=== PATIENT | female | born 1950 | race Caucasian/White ===

== ENCOUNTER → 2019-09-04 16:52 | Outpatient (CLI) | payer MEDICARE, SELFPAY ==
--- NOTE | ~2019-09-04 | MR_ITS ---
EXAMINATION: MR knee RT wo con DATE: 09/04/2019 18:13 INDICATION: Right knee pain TECHNIQUE: Magnetic resonance imaging (MRI) of the right knee was performed without intravenous contr ast. Sequences included coronal PD-weighted FSE, coronal PD-weighted FS FSE, sagittal T2-weighted FS E, sagittal PD-weighted FS FSE and axial PD weighted fat saturated FSE. COMPARISON: None. FINDINGS: Medial compartment: Small horizontal tear along the inner third of the body of the medial meniscus which extends to the s uperior articular surface near the free edge. In addition there is a longitudinal vertical tear in th e periphery of the posterior horn and posterior body of the medial meniscus. Partial-thickness cartil age loss with mild chondral surface regularity throughout the weightbearing medial femoral condyle wi th deeper chondral fissuring with mild subarticular edema at the posteromedial aspect of the weightbe aring medial femoral condyle. Partial thickness cartilage loss with smooth chondral surface along the medial margin of the medial tibial plateau. Lateral compartment: Small radial tear involving the inner third of the body of the lateral meniscus. Partial-thickness ca rtilage loss with chondral surface regularity along the lateral tibial plateau. Deeper chondral ulcer ation and fissuring at the medial side of the lateral tibial plateau along the shoulder the intercond ylar eminence with mild underlying subarticular edema. Chondral ulceration with small central subarti cular osteophyte along the posterior most weightbearing lateral femoral condyle. Partial thickness fi ssuring without degenerative subarticular changes at the anterior weightbearing lateral femoral condy le. Patellofemoral compartment: Extensive full/near full-thickness chondral ulceration throughout the patella with mild subarticular edema at the cephalad aspect of the apical ridge. Full/near full-thickness cartilage loss along the s uperolateral aspect of the lateral trochlea. Chondral ulceration with underlying regularity of the ar ticular cortex and mild subarticular cystic change at the inferomedial aspect of the lateral trochlea and inferior aspect of the medial trochlea. Ligaments and tendons: Anterior and posterior cruciate ligaments are normal. The medial collateral ligament and fibular dave ateral ligament complex are normal. The extensor mechanism is normal. The visualized medial and later al hamstring tendons as well as the iliotibial band are normal. Fluid: Physiologic amount of fluid in the joint space. No loose osteochondral bodies identified. Osseous/other: Bone alignment is normal. Minimal red marrow reexpansion in the distal femoral metadiaphysis. No frac ture or pathologic marrow replacing process. IMPRESSION: 1. Medial and lateral meniscal tears. 2. 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 Reviewed, dictated and finalized at location A. [employer] CLAIM EXAMINER IMPRESSION: 1. Medial and lateral meniscal tears. 2. Tricompartmental osteoarthritis with moderate to severe patellofemoral osteo arthritis with extensive high-grade chondromalacia and mild medial and lateral prominent osteoarthritis with regions of moderate to high-grade chondromalacia.
--- NOTE | ~2019-09-04 | MR_ITS ---
EXAMINATION: MR knee LT wo con DATE: 09/04/2019 18:12 INDICATION: Left knee pain TECHNIQUE: Magnetic resonance imaging (MRI) of the left knee was performed without intravenous contra st. Sequences included coronal PD-weighted FSE, coronal PD-weighted FS FSE, sagittal T2-weighted FSE , sagittal PD-weighted FS FSE and axial PD weighted fat saturated FSE. COMPARISON: None. FINDINGS: Medial compartment: Longitudinal horizontal tear extending to the inferior articular surface of the body and posterior ho rn of the needle meniscus. Partial-thickness cartilage loss with chondral surface regularity along th e weightbearing medial femoral condyle most severe loss of cartilage thickness centrally but with lisa p fissuring and underlying subarticular cystic change at the posterior weightbearing medial femoral c ondyle. Partial thickness cartilage loss with smooth chondral surface along the medial margin of the medial tibial plateau. Small marginal osteophytes are present. Lateral compartment: On 2 consecutive coronal images there is increased signal first along the free edge of the body of th e lateral meniscus and more anteriorly with vertical configuration contacting both the superior and i nferior articular surfaces still in the inner third suggesting a either a radial or small parrot beak configuration tear. Mild partial thickness cartilage loss with chondral surface regularity on the an terior weightbearing lateral femoral condyle. Deeper chondral fissuring and ulceration without degene rative subarticular changes at the central and posterior aspect of the lateral tibial plateau. Small marginal osteophytes are present. Patellofemoral compartment: Partial-thickness as well as extensive full/near full-thickness cartilage loss along both the patella and trochlea with regions of scattered subarticular edema, mild cystic change as well as small centr al subchondral osteophytes along the trochlear groove and lateral trochlea. Ligaments and tendons: Anterior and posterior cruciate ligaments are normal. The medial collateral ligament and fibular dave ateral ligament complex are normal. The extensor mechanism is normal. The visualized medial and later al hamstring tendons as well as the iliotibial band are normal. Fluid: Physiologic amount of fluid in the joint space. Small amount of fluid extending along the popliteal r ecess. No loose osteochondral bodies identified. Osseous/other: Bone alignment is normal. Small geographic regions of red marrow reexpansion in the distal metadiaphy seal region of the femur. No fracture or pathologic marrow replacing process. IMPRESSION: 1. Medial and lateral meniscal tears. 2. Tricompartmental osteoarthritis, severe with extensive high-grade chondral malacia in the patellof emoral compartment and mild with moderate grade chondromalacia in the medial and lateral compartments . Reviewed, dictated and finalized at location A. [place] IMPRESSION: 1. Medial and lateral meniscal tears. 2. Tricompartmental osteoarthritis, severe with extensive high-grade chondral m alacia in the patellofemoral compartment and mild with moderate grade chondroma lacia in the medial and lateral compartments.
== END ==
DX: M17.12 Unilateral primary osteoarthritis, left knee (principal); S83.282A Other tear of lateral meniscus, current injury, left knee, initial encounter; S83.242A Other tear of medial meniscus, current injury, left knee, initial encounter; X58.XXXA Exposure to other specified factors, initial encounter
CPT/HCPCS: 73721

== ENCOUNTER 2019-10-14 17:23 | Emergency (ER) | payer MEDICARE, SELFPAY ==
--- NOTE | ~2019-10-14 | XR_ITS ---
EXAMINATION: XR chest 2V DATE: 10/14/2019 17:49 INDICATION: Heart palpitations TECHNIQUE: PA and lateral views of the chest are obtained. COMPARISON: 07/21/2015 FINDINGS: There is symmetric scarring of the lung apices. The lungs are free of acute opacities. Ther e is no pleural effusion or pneumothorax. The cardiomediastinal silhouette is normal. There is mild t horacic spondylosis. There is a calcified granuloma of the right middle lobe. IMPRESSION: 1. No acute cardiopulmonary abnormality. Reviewed, dictated and finalized at location A.
--- NOTE | 2019-10-14 17:34 | ECG_ITS ---
Measurements Intervals [place] Rate: 93 P: 41 DE: 144 QRS: -38 QRSD: 109 T: 42 QT: 345 QTc: 430 Interpretive Statements SINUS RHYTHM LEFT AXIS DEVIATION BORDERLINE R WAVE PROGRESSION, ANTERIOR LEADS BORDERLINE ECG Electronically Signed On 10-14-2019 19:31:33 CDT by Alex Richard D.O.
[2019-10-14 17:40] VITALS: BP 105/67; PULSE 93; RESP 18; TEMP 37; O2SAT 100
--- NOTE | 2019-10-14 17:45 | ED.ARRPALP ---
HPI - Arrhythmia/Palpitations General Chief Complaint: Arrhythmia/Palpitations Stated Complaint: Rapid HR Time Seen by Provider: 10/14/19 17:39 Source: patient and RN notes reviewed Mode of arrival: other Limitations: no limitations History of Present Illness MD complaint: palpitations Related Data Home Medications Medication Instructions Recorded Confirmed amitriptyline 25 mg tablet 25 mg PO .QHS tablet 09/09/19 aspirin 81 mg tablet,delayed 81 mg PO DAILY 09/09/19 release digestive enzymes (plant) 75 mg mg PO DIRECTED cap 09/09/19 capsule esomeprazole magnesium 20 mg 20 mg PO DAILY 09/09/19 capsule,delayed release evangelista (Zingiber officinalis) 550 550 mg PO DAILY 09/09/19 mg capsule hoiddsdukqhz-qvzrzsmc-ffohvw 1 tablet PO DAILY 09/09/19 turmeric root extract 500 mg 500 mg PO DAILY 09/09/19 capsule vitamin B12 1,000 mcg-folic acid lozenge SUBLINGUAL 09/09/19 400 mcg sublingual lozenge Allergies Allergy/AdvReac Type Severity Reaction Status Date / Time No Known Allergies Allergy Verified 10/14/19 17:45 [facility] Past Medical History Medical History (Updated 09/14/19 @ 20:01 by Alba Carranza MD) Dyslipidemia Hypothyroidism determined by thyroid function test IBS (irritable bowel syndrome) Surgical History Surgical History H/O left wrist surgery History of bunionectomy of both great toes History of cholecystectomy History of removal of ovarian cyst History of tubal ligation Social History Social History Smoking status: Never smoker Second hand tobacco smoke exposure: No Smoking end date: 07/31/83 Alcohol intake: current Substance use: never Substance use type: does not use 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 Gender identity (if verbalized by the patient): Female Course Vital Signs Vital signs: Vital Signs Temperature 37.0 C 10/14/19 17:40 Pulse Rate 93 10/14/19 17:40 Respiratory Rate 18 10/14/19 17:40 Blood Pressure 105/67 10/14/19 17:40 Pulse Oximetry 100 10/14/19 17:40 Temperature 37.0 C 10/14/19 17:40 Pulse Rate 93 10/14/19 17:40 Respiratory Rate 18 10/14/19 17:40 Blood Pressure 105/67 10/14/19 17:40 Pulse Oximetry 100 10/14/19 17:40 Discharge Plan Discharge Prescriptions: No Action amitriptyline 25 mg tablet 25 mg PO .QHS RF: 0 esomeprazole magnesium [Nexium] 20 mg capsule,delayed release(DR/EC) 20 mg PO DAILY RF: 0 aspirin [Adult Low Dose Aspirin] 81 mg tablet,delayed release (DR/EC) 81 mg PO DAILY RF: 0 evangelista (Zingiber officinalis) 550 mg capsule 550 mg PO DAILY RF: 0 digestive enzymes (plant) 75 mg capsule PO DIRECTED RF: 0 vitamin W54-vmank acid 1,000-400 mcg lozenge SUBLINGUAL RF: 0 turmeric root extract 500 mg capsule 500 mg PO DAILY RF: 0 sgayrclltwig-qrwfswgd-awqwxy Tablet 1 tablet PO DAILY RF: 0 levothyroxine 100 mcg tablet 100 mcg PO DAILY Qty: 90 RF: 0 atorvastatin 10 mg tablet 10 mg PO QPM Qty: 90 RF: 0
[2019-10-14] MEDS: ASPIRIN 81 MG CHEWABLE TABLET 324 MG PO (17:49)
[2019-10-14 18:02] LABS: Basophils Percent Auto 0.6 % (0.2-1.2); Eosinophils Absolute Auto 0.1 K/mm3 (0-0.3); Eosinophils Percent Auto 1.6 % (0-4.4); Hematocrit 40.3 % (37.0-47.0); Hemoglobin 12.8 g/dL (12.0-15.0); Immature Granulocyte Absolute 0.02 K/mm3 (0.00-0.031); Immature Granulocyte Percent A 0.3 % (0-0.5); Lymphocytes Absolute Auto 1.55 K/mm3 (0.9-3.2); Lymphocytes Percent Auto 22.1 % (18.3-44.2); Mean Corpuscular HGB Conc 31.8 g/dl (32-36); Mean Corpuscular Hemoglobin 29.3 pg (26-34); Mean Corpuscular Volume 92.2 fl (80-100); Mean Platelet Volume 9.5 fl (7.4-10.4); Monocytes Absolute Auto 0.9 K/mm3 (0.1-0.6); Monocytes Percent Auto 12.4 % (2.6-8.5); Neutrophils Absolute Auto 4.4 K/mm3 (1.3-6.7); Platelet Count Result 264 k/mm3 (150-375); Red Blood Count 4.37 M/mm3 (4.2-5.4); Red Cell Distribution Width 13.2 % (11.5-14.5)
--- NOTE | 2019-10-14 18:08 | ED.ARRPALP ---
HPI - Arrhythmia/Palpitations General Chief Complaint: Arrhythmia/Palpitations Stated Complaint: Rapid HR Time Seen by Provider: 10/14/19 17:39 Source: patient and RN notes reviewed Mode of arrival: other Limitations: no limitations History of Present Illness HPI narrative: Pt is a 69 y/o female who presents to the ED with c/o tachycardia that began earlier this afternoon. Pt notes that her heart rate was in the 160s. Pt notes that her heart rate would lower whenever she would lay down. Pt denies seeing a retoucher photoengraving before. Pt states that she had a Holter monitor 2 years ago and had negative results. Pt also reports palpitations, chest pressure pain, and otalgia, but denies SOB. MD complaint: rapid heart beat Onset (ago): hour(s) Duration: constant Associated symptoms: chest pain (pressure) and other (palpitations, otalgia) Related Data Home Medications Medication Instructions Recorded Confirmed digestive enzymes (plant) 75 mg mg PO DIRECTED cap 09/09/19 capsule esomeprazole magnesium 20 mg 20 mg PO DAILY 09/09/19 capsule,delayed release evangelista (Zingiber officinalis) 550 550 mg PO DAILY 09/09/19 mg capsule qtvzrxhymnkl-toyaeccm-trmfqe 1 tablet PO DAILY 09/09/19 turmeric root extract 500 mg 500 mg PO DAILY 09/09/19 capsule vitamin B12 1,000 mcg-folic acid lozenge SUBLINGUAL 09/09/19 400 mcg sublingual lozenge lorazepam 1 mg PO DAILY PRN 10/14/19 Allergies Allergy/AdvReac Type Severity Reaction Status Date / Time No Known Allergies Allergy Verified 10/14/19 17:45 Review of Systems Review of Systems: All systems reviewed & are unremarkable except as noted in HPI and below ENT: Reports otalgia Cardiovascular: Cardiovascular: Reports chest pain (pressure), Reports rapid heart rate and Reports palpitations Respiratory: Respiratory: Denies dyspnea PMFSH Past Medical History Medical History (Updated 10/14/19 @ 18:58 by Dru Samuels MD) Anxiety Arthritis Lloyd's palsy Bronchitis Cataracts, bilateral Closed left arm fracture Depression Dyslipidemia Histoplasmosis right lung History of Holter monitoring negative results Hyperlipidemia Hypothyroidism determined by thyroid function test IBS (irritable bowel syndrome) Ovarian cyst Seasonal allergies Surgical History Surgical History (Updated 10/14/19 @ 18:26 by Radha Nicole) H/O dilation and curettage H/O left wrist surgery History of bunionectomy History of bunionectomy of both great toes History of cholecystectomy History of hysterectomy History of removal of ovarian cyst History of tubal ligation Social History Social History (Updated 10/14/19 @ 18:27 by Radha Nicole) Smoking status: Former smoker Tobacco type: cigarettes Second hand tobacco smoke exposure: Yes Smoking end date: 07/31/83 Alcohol intake: current Substance use: never Substance use type: does not use 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 Gender identity (if verbalized by the patient): Female Exam Narrative: Exam Narrative: GENERAL: Well-appearing, well-nourished, and in no acute distress. HEAD: Normocephalic, atraumatic. EYES: PERRLA and EOMI. ENT: Nares clear, . Mucous membranes moist. NECK: Supple. CHEST: Clear to auscultation. No respiratory distress. HEART: Regular rate and rhythm. No murmur heard. Normal peripheral pulses. ABDOMEN: Soft, nontender, nondistended, normal active bowel sounds. EXTREMITIES: Normal range of motion. No edema. SKIN: Warm, dry, no rash. NEURO: No focal deficits. Alert and oriented x3. PSYCH: Normal mood and affect. Course Course Emergency Course: Inform patient about her lab work, EKG findings. Patient been on the monitor for last 2-1/2 hours. She has been in normal sinus rhythm. I discussed with her and her about her lab work. Need for Holter monitor in the morning unfortunately at this time cardiology department is closed. I also discussed
[2019-10-14 18:10] LABS: Prothrombin Time 12.6 Seconds (11.1-14.7)
[2019-10-14 18:12] LABS: Blood Urea Nitrogen 18 mg/dL (7-17); Calcium 9.2 mg/dL (8.4-10.2); Carbon Dioxide 30 mmol/L (22-30); Chloride 105 mmol/L (98-107); Estimated CRCL calculation 69 ml/min; Estimated Glomerular Filt Rate > 60; Glucose 97 mg/dL (65-105); Potassium 3.8 mmol/L (3.4-5.0); Sodium 138 mmol/L (137-145)
[2019-10-14 18:25] LABS: Troponin I < 0.012 ng/mL (0.000-0.034)
[2019-10-14 18:43] VITALS: BP 113/63; PULSE 81; RESP 20; O2SAT 94
[2019-10-14 19:11] VITALS: BP 138/75; PULSE 78; RESP 16; O2SAT 100
== END 2019-10-14 19:12 | disposition home or self-care (01) ==
PROVIDERS: Emergency Medicine; Emergency Provider Family Medicine; PCP Family Medicine
DX: R00.2 Palpitations (principal); F41.9 Anxiety disorder, unspecified; M19.90 Unspecified osteoarthritis, unspecified site; F32.9 Major depressive disorder, single episode, unspecified; E78.5 Hyperlipidemia, unspecified; E03.9 Hypothyroidism, unspecified; K58.9 Irritable bowel syndrome, unspecified; B39.2 Pulmonary histoplasmosis capsulati, unspecified; Z87.891 Personal history of nicotine dependence; R94.31 Abnormal electrocardiogram [ECG] [EKG]; R07.89 Other chest pain; H26.9 Unspecified cataract
CPT/HCPCS: 36415; 71046; 80048; 84484; 85025; 85610; 85730; 93005; 99284; A9270

== ENCOUNTER 2020-01-01 00:14 | Outpatient (CLI) | payer MEDICARE, SELFPAY ==
[2020-01-01 17:43] LABS: SARS-CoV-2 RNA PCR Negative
== END 2020-01-01 00:15 | disposition home or self-care (01) ==
LOC: ANHCOVIDDT 00:14
PROVIDERS: PCP Family Medicine; Visit Provider Internal Medicine Gastroenterology
DX: Z01.818 Encounter for other preprocedural examination (principal); Z11.59 Encounter for screening for other viral diseases
CPT/HCPCS: 87635; C9803; U0003

== ENCOUNTER 2020-01-03 01:30 | Day surgery (SDC) | payer MEDICARE, SELFPAY ==
[2019-12-27 12:49] VITALS: BMI 28.8
[2020-01-03 06:38] VITALS: BP 115/51; PULSE 80; RESP 20; TEMP 36.1; O2SAT 100; BMI 28.3
--- NOTE | 2020-01-03 06:49 | WPDANESEPPF ---
Anes - Initial Pre Proc Eval Procedure: Operation Date: 01/03/20 07:30 Proposed Procedures p Esophagogastroduodenoscopy & Screening Colonoscopy - Igor Becker MD Date/Time: 01/03/20 06:49 Surgeon: Igor Becker MD Pre Op Diagnosis: Fam Hx Colon Ca/ GERD Patient Data Age: 69 Gender: F Height: 1.65 m Weight: 77.1 kg Last Vital Signs Temp 36.1 C L 01/03/20 06:38 Pulse 80 01/03/20 06:38 Resp 20 01/03/20 06:38 BP 115/51 L 01/03/20 06:38 Pulse Ox 100 01/03/20 06:38 Allergies Allergy/AdvReac Type Severity Reaction Status Date / Time No Known Allergies Allergy Verified 01/03/20 06:28 Home Medications Medication Instructions Recorded Confirmed Type esomeprazole magnesium 20 mg 20 mg PO DAILY 09/09/19 01/03/20 History capsule,delayed release wqmrmxfvyeqj-hbamofhg-ywztrr 1 tablet PO DAILY 09/09/19 01/03/20 History vitamin B12 1,000 mcg-folic acid 1 lozenge SUBLINGUAL DAILY 09/09/19 01/03/20 History 400 mcg sublingual lozenge lorazepam 0.5 mg PO PRN PRN 10/14/19 01/03/20 History levothyroxine 100 mcg tablet 100 mcg PO DAILY #90 tablet 10/31/19 01/03/20 Rx dicyclomine 20 mg tablet 20 mg PO QID PRN #120 tablet 11/01/19 01/03/20 Rx atorvastatin 10 mg tablet 10 mg PO QPM #90 tablet 12/13/19 01/03/20 Rx Aspir-81 1 tab-cap PO DAILY 12/27/19 01/03/20 History ascorbic acid (vitamin C) 500 mg PO DAILY 12/27/19 01/03/20 History calcium polycarbophil [FiberCon] 4 mg PO DAILY 12/27/19 01/03/20 History metoprolol succinate 25 mg PO DAILY 12/27/19 01/03/20 History Patient hx anesthesia problems: none Family hx anesthesia problems: none PMFSH Past Medical History Medical History Anxiety Arthritis Lloyd's palsy Bronchitis Cataracts, bilateral Closed left arm fracture Depression Dyslipidemia Histoplasmosis right lung History of Holter monitoring negative results Hyperlipidemia Hypothyroidism determined by thyroid function test IBS (irritable bowel syndrome) Ovarian cyst Seasonal allergies Surgical History Surgical History H/O dilation and curettage H/O left wrist surgery History of bunionectomy History of bunionectomy of both great toes History of cholecystectomy History of hysterectomy History of removal of ovarian cyst History of tubal ligation Family History Family History Father Carcinoma of colon Family history of heart disease in male family member before age 55 Mother Family history of Alzheimer's disease Cerebrovascular accident Sibling Family history of lung cancer Grandparent Diabetes mellitus Carcinoma of colon Family history of Alzheimer's disease Other Family history of allergic disorder Social History Social History Smoking status: Former smoker Tobacco type: cigarettes Second hand tobacco smoke exposure: Yes Smoking end date: 07/31/83 Alcohol intake: current Substance use: never Substance use type: does not use 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 Gender identity (if verbalized by the patient): Female Anes - Eval Final PreProcedure Day of Procedure 01/03/20 06:49 Patient weight: overweight Heart: regular rate and rhythm Lungs: clear to auscultation and normal air movement Airway: Mallampati scale class II Neurological: alert and oriented Last oral intake: >/= 8 hours ASA classification: III Emergent: no Anesthetic plan: proceed Anesthesia type and monitoring: general GIVS Informed Consent: The patient's anesthetic plan and its attendant risks and benefits were discussed with the patient/family/POA. Questions were solicited and answers provided to the satisfaction of the patient/family/POA.
[2020-01-03] MEDS: LACTATED RINGERS 1,000 ML 150 ML IV CONT (06:51)
[2020-01-03] MEDS: BENZOCAINE (*SP) 60 ML SPRAY CAN (HURRICAINE) 1 SPRAY MUCOUS MEM (07:48)
[2020-01-03 08:16] VITALS: BP 115/65; PULSE 78; RESP 17; O2SAT 100
--- NOTE | 2020-01-03 08:16 | WPDGICN ---
Assessment and Plan Assessment and plan (1) IBS (irritable bowel syndrome): Qualifiers: Irritable bowel syndrome type: with both diarrhea and constipation Qualified Code(s): K58.2 - Mixed irritable bowel syndrome Code(s): K58.9 - Irritable bowel syndrome without diarrhea Status: Acute Assessment and Plan: Patient has symptoms of irritable bowel syndrome. Appear to respond to Elavil. I find this unlikely that this contributes to her weight loss. Would recommend low-dose 25 mg at bedtime. she appears to have had a good clinical response. (2) Family history of colon cancer in father: Code(s): Z80.0 - Family history of malignant neoplasm of digestive organs Status: Acute Assessment and Plan: Because of family history of colon cancer would recommend screening colonoscopy be considered now on a 5 year intervals. (3) GERD (gastroesophageal reflux disease): Code(s): K21.9 - Gastro-esophageal reflux disease without esophagitis Status: Acute Assessment and Plan: Patient has reported history of GE reflux. Currently no heartburn on Nexium 20 mg p.o. daily. Consider increasing dose to40mg p.o. daily an EGD will be performed because of her current complaints. GI Consult Note Consult date/time: 01/03/20 08:16 HPI: Zabrina Heck is a 69 year old female Seen in evaluation at the request Dr. Alba Carranza. Patient complains of epigastric discomfort and nausea for several week period. She has a history of GE reflux and also a history of IBS. She has had no improvement with dicyclomine. Recently was given Elavil at 25 mg q.h.s. but felt that it caused her to gain weight. She had no response by taking half tablet daily. She presents today for EGD. She remains on a trial of Nexium 20 mg p.o. daily. Additionally patient has a family history of colon cancer in her Father. Patient states that her current weight appetite bowel movements are normal. She denies abdominal pain she denies any bleeding. Review of Systems Review of Systems: All systems reviewed & are unremarkable except as noted in HPI and below PMFSH Past Medical History Medical History Anxiety Arthritis Lloyd's palsy Bronchitis Cataracts, bilateral Closed left arm fracture Depression Dyslipidemia Histoplasmosis right lung History of Holter monitoring negative results Hyperlipidemia Hypothyroidism determined by thyroid function test IBS (irritable bowel syndrome) Ovarian cyst Seasonal allergies Surgical History Surgical History H/O dilation and curettage H/O left wrist surgery History of bunionectomy History of bunionectomy of both great toes History of cholecystectomy History of hysterectomy History of removal of ovarian cyst History of tubal ligation Family History Family History Father Carcinoma of colon Family history of heart disease in male family member before age 55 Mother Family history of Alzheimer's disease Cerebrovascular accident Sibling Family history of lung cancer Grandparent Diabetes mellitus Carcinoma of colon Family history of Alzheimer's disease Other Family history of allergic disorder Social History Social History Smoking status: Former smoker Tobacco type: cigarettes Second hand tobacco smoke exposure: Yes Smoking end date: 07/31/83 Alcohol intake: current Substance use: never Substance use type: does not use 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 Gender identity (if verbalized by the patient): Female Meds Home Medications and Allergies Home Medications Medication Instructions Recorded Confirmed Type esomeprazole magnesium 20 mg 20 mg PO DAILY 09/09/19 01/03/20 History capsule,delaye
[2020-01-03 08:26] VITALS: BP 110/63; PULSE 79; RESP 20; O2SAT 100
[2020-01-03 08:36] VITALS: BP 119/67; PULSE 71; RESP 19; O2SAT 97
== END 2020-01-03 08:56 | disposition home or self-care (01) ==
PROVIDERS: PCP Family Medicine; Visit Provider Internal Medicine Gastroenterology
PROC: 0DJ08ZZ Inspection of Upper Intestinal Tract, Via Natural or Artificial Opening Endoscopic (ICD-10-PCS; CPT 43235; principal; 2020-01-03 07:30)
DX: Z12.11 Encounter for screening for malignant neoplasm of colon (principal); K57.30 Diverticulosis of large intestine without perforation or abscess without bleeding; K58.2 Mixed irritable bowel syndrome; Z80.0 Family history of malignant neoplasm of digestive organs; K21.9 Gastro-esophageal reflux disease without esophagitis; E78.5 Hyperlipidemia, unspecified; F41.8 Other specified anxiety disorders; E03.9 Hypothyroidism, unspecified; Z87.891 Personal history of nicotine dependence; Z79.82 Long term (current) use of aspirin
CPT/HCPCS: 43239; G0105; 87081; J2704; J7120

== ENCOUNTER 2020-05-21 14:52 | Outpatient (CLI) | payer MEDICARE, SELFPAY ==
--- NOTE | ~2020-05-21 | MM_ITS ---
EXAMINATION: MM screening yani BI w [place] HISTORY: Screening mammogram TECHNIQUE: Craniocaudal and mediolateral oblique 3-D tomosynthesis images were obtained and synthetic 2-D images were generated. CAD analysis was submitted and interpreted. COMPARISON: 07/06/2018 bilateral digital screening mammogram 07/18/2017 diagnostic left digital mammogram 07/04/2017, 05/03/2016 bilateral digital screening mammogram examinations BREAST PARENCHYMAL COMPOSITION: The breasts are heterogeneously dense, which may obscure small masses . FINDINGS: There is no evidence of suspicious mass, calcification, or architectural distortion to sugg est malignancy in either breast. There has been no suspicious interval change. IMPRESSION: 1. No mammographic evidence of malignancy. 2. Recommend routine screening mammography in one year. BI-RADS Category 1: Negative Reviewed, dictated and finalized at location A.
--- NOTE | ~2020-05-21 | DEXA_ITS ---
Bone Density Report Name: Zabrina Heck Age: 70 Sex: Female Ethnicity: White Date of : 1950 Indication: osteopenia; hyperparathyroidism; parental hip fracture; history of glucocorticoids; prior fracture; postmenopausal Referring Provider: Chelita Leon Study: Bone densitometry was performed. Exam Date: May 21, 2020 Accession number: [id number] Bone Density: Region BMD T-score Z-score Classification AP Spine (L1-L4) 0.935 -1.0 1.2 Normal Femoral Neck (Left) 0.814 -0.3 1.6 Normal Total Hip (Left) 0.849 -0.8 0.8 Normal Total Hip Bilateral Avg 0.877 -0.6 1.1 Normal Femoral Neck (Right) 0.876 0.2 2.1 Normal Total Hip (Right) 0.905 -0.3 1.3 Normal World Health Organization criteria for BMD impression classify patients as: Normal (T-score at or above -1.0), Osteopenia (T-score between -1.0 and -2.5), or Osteoporosis (T-score at or below -2.5). 10-year Fracture Risk: FRAX not reported because: All T-scores for Spine Total, Hip Total, Femoral Neck at or above -1.0 Previous Exams: Region Exam Age BMD T-score BMD Change BMD Change Date g/cm2 vs Baseline vs Previous AP Spine(L1-L4) 05/21/2020 70 0.935 -1.0 0.030(3.4%)# 0.048(5.4%)* 04/14/2015 65 0.888 -1.4 -0.017(-1.9%)# 0.006(0.6%)# 05/11/2012 62 0.882 -1.5 -0.023(-2.5%)# 0.047(5.6%)# 11/06/2009 59 0.836 -1.9 -0.069(-7.7%)* -0.038(-4.4%)* 10/04/2007 57 0.874 -1.6 -0.031(-3.4%)* -0.026(-2.8%)* 09/23/2005 55 0.899 -1.3 -0.005(-0.6%) -0.005(-0.6%) 07/15/2003 53 0.905 -1.3 Total Hip(Left) 05/21/2020 70 0.849 -0.8 -0.044(-5.0%)# -0.071(-7.7%)* 04/14/2015 65 0.920 -0.2 0.026(3.0%)# -0.047(-4.9%)# 05/11/2012 62 0.967 0.2 0.074(8.2%)# 0.079(8.9%)# 11/06/2009 59 0.888 -0.4 -0.006(-0.6%) -0.010(-1.1%) 10/04/2007 57 0.898 -0.4 0.005(0.5%) -0.020(-2.2%) 09/23/2005 55 0.918 -0.2 0.025(2.8%) 0.025(2.8%) 07/15/2003 53 0.894 -0.4 Total Hip(Right) 05/21/2020 70 0.905 -0.3 0.057(6.7%)# -0.008(-0.8%) 04/14/2015 65 0.912 -0.2 0.065(7.6%)# -0.038(-4.0%)# 05/11/2012 62 0.951 0.1 0.103(12.2%)# 0.077(8.8%)# 11/06/2009 59 0.874 -0.6 0.026(3.1%) -0.041(-4.5%)* 10/04/2007 57 0.915 -0.2 0.068(8.0%)* -0.002(-0.2%) 09/23/2005 55 0.917 -0.2 0.069(8.2%)* 0.069(8.2%)* 07/15/2003 53 0.847 -0.8 *Denotes significance at 95% confidence level, LSC for AP Spine = 0.022 g/cm2, LSC for Total Hip = 0.027 g/cm2 Clinical Information Provided by Patient:
== END 2020-05-21 14:53 | disposition home or self-care (01) ==
PROVIDERS: PCP Family Medicine; Visit Provider Obstetrics & Gynecology
DX: Z12.31 Encounter for screening mammogram for malignant neoplasm of breast (principal); Z78.0 Asymptomatic menopausal state
CPT/HCPCS: 77063; 77067; 77080

== ENCOUNTER → 2021-06-07 10:25 | Outpatient (CLI) | payer MEDICARE, SELFPAY ==
--- NOTE | ~2021-06-07 | XR_ITS ---
EXAMINATION: XR lumbar spine min 4V DATE: 06/07/2021 11:09 INDICATION: Dorsalgia unspecified TECHNIQUE: Anteroposterior, lateral, and bilateral oblique views of the lumbar spine, and cone-down l ateral view of the lumbosacral junction were obtained. COMPARISON: 05/23/2017 FINDINGS: Lumbar levocurvature is noted. There is no fracture, dislocation, or subluxation. There is unchanged moderate loss of intervertebral disc space height at L4-5. Moderate to severe loss of inter vertebral disc space height is about at L3-4. The vertebral body heights are maintained. There is mil d facet osteoarthritis of the lower lumbar spine. Again noted is an old granuloma of the right lower lobe. There are cholecystectomy clips in the right upper quadrant. IMPRESSION: 1. Moderate lumbar spondylosis with interval worsening at L3-4. Reviewed, dictated and finalized at location B. LING DEALER
--- NOTE | ~2021-06-07 | XR_ITS ---
XR chest 2V 06/07/2021 11:09 Indication: Cough Procedure: The chest Comparison: Comparison to multiple prior studies sequentially, with oldest reviewed study dated 07/01. Findings: There is chronic apical pleural thickening/scarring. There is a calcified granuloma of the right middle lobe. The lungs are hyperinflated which is consistent with, but not diagnostic of chroni c obstructive pulmonary disease. No focal air space disease, pulmonary edema, pleural effusion or heike pected pneumothorax. Impression: 1: No acute cardiopulmonary disease. Reviewed, dictated and finalized at location A. BASE ADMINISTRATOR Impression: 1: No acute cardiopulmonary disease.
== END ==
PROVIDERS: PCP Physician Assistant; Visit Provider Physician Assistant
DX: R05.9 Cough, unspecified (principal); M47.896 Other spondylosis, lumbar region
CPT/HCPCS: 71046; 72110

== ENCOUNTER 2021-06-15 07:50 | Outpatient (CLI) | payer MEDICARE, SELFPAY ==
--- NOTE | ~2021-06-15 | MM_ITS ---
EXAMINATION: MM screening [facility] BI [facility] [place] HISTORY: Screening mammogram TECHNIQUE: Craniocaudal and mediolateral oblique 3-D tomosynthesis images were obtained and synthetic 2-D images were generated. CAD analysis was submitted and interpreted. COMPARISON: 05/21/2020, 07/06/2018 BREAST PARENCHYMAL COMPOSITION: The breasts are heterogeneously dense, which may obscure small masses . FINDINGS: There is no evidence of suspicious mass, calcification, or architectural distortion to sugg est malignancy in either breast. There has been no suspicious interval change. IMPRESSION: 1. No mammographic evidence of malignancy. 2. Recommend routine screening mammography in one year. BI-RADS Category 1: Negative Reviewed, dictated and finalized at location A. MOBILE BODY REPAIRER
== END 2021-06-15 07:51 | disposition home or self-care (01) ==
LOC: ANHIMG 07:54
PROVIDERS: PCP Family Medicine; Visit Provider Family Medicine
DX: Z12.31 Encounter for screening mammogram for malignant neoplasm of breast (principal)
CPT/HCPCS: 77063; 77067

== ENCOUNTER 2021-12-13 13:31 | Outpatient (CLI) | payer MEDICARE, SELFPAY ==
--- NOTE | 2021-12-14 11:40 | WPDPFTINT ---
PFT Procedure Performed PFT Procedure Performed Plethysmography (Lung Vol) Diffusing Cap (DLCO) Flow Vol Loop Spirometry w/o Bronchodil PFT Interpretation Lung volumes were measured with the body plethysmography method. Lung volumes are unremarkable. Spirometry showed borderline FEV1 and normal FEV1 to FVC ratio of 75%. No post bronchodilator study was carried out. Lung diffusion capacity is mildly reduced at 71% predicted. If obstructive airway disease is contemplated, consider repeat spirometry with a post bronchodilator study. Impression: Nonspecific pattern. Mild reduction in lung diffusion capacity.
== END 2021-12-13 13:32 | disposition home or self-care (01) ==
LOC: ANHPFT 13:32
PROVIDERS: PCP Family Medicine; Visit Provider Physician Assistant
DX: R05.3 Chronic cough (principal); Z86.19 Personal history of other infectious and parasitic diseases
CPT/HCPCS: 94375; 94726; 94729

== ENCOUNTER 2021-12-14 13:03 | Outpatient (CLI) | payer MEDICARE, SELFPAY ==
--- NOTE | ~2021-12-14 | CT_ITS ---
EXAMINATION: CT diagnostic chest wo con DATE: 12/14/2021 13:25 INDICATION: R91.1 - Solitary pulmonary nodule TECHNIQUE: Computed tomography (CT) of the chest was performed without intravenous contrast. Addition al 3D reconstructions utilizing coronal maximum intensity projection (MIP) were performed. Automated exposure control and iterative reconstruction technique were employed. The dose-length product was 61 .61 mGy-cm. COMPARISON: Chest radiograph dated 06/07/[address] dated 12/06/2018 FINDINGS: Unchanged large right lower lobe calcified pulmonary nodule along with calcified right hilar and medi astinal lymph nodes and multiple splenic calcifications, all consistent with old granulomatous diseas e. New bronchiectasis and multiple very small centrilobular nodules with tree-in-bud pattern in the r ight middle and lower lobes consistent with pneumonia. Unchanged pattern of peripheral pleural parenc hymal scarring at the bilateral upper lobes. No interval change in a triangular groundglass opacity m easuring 2 cm in maximal diameter in the right upper lobe along the minor fissure. The opacity appear s relatively thin and with associated retraction of the minor fissure evident at this location on the lateral projection consistent with volume loss and mild atelectasis. No pleural effusion. Heart size is normal. Small pericardial effusion. Thoracic aorta is normal in caliber. No pathologically enlarg ed thoracic lymphadenopathy. Prior left axillary lymphadenopathy has resolved. Cholecystectomy clips at the gallbladder fossa. Moderate upper and mild lower thoracic spondylosis. Chronic T7 compression fracture with 20% anterior vertebral body height loss. IMPRESSION: 1. New bronchiectasis and tree-in-bud opacities in the right middle and lower lobes consistent with p neumonia. 2. Stable appearance of moderate chronic old granulomatous disease and pleural parenchymal scarring a t the periphery of the bilateral upper lobes. 3. Small pericardial effusion. Reviewed, dictated and finalized at location A. IMPRESSION: 1. New bronchiectasis and tree-in-bud opacities in the right middle and lower l obes consistent with pneumonia. 2. Stable appearance of moderate chronic old granulomatous disease and pleural parenchymal scarring at the periphery of the bilateral upper lobes. 3. Small pericardial effusion.
== END 2021-12-14 13:04 | disposition home or self-care (01) ==
PROVIDERS: PCP Family Medicine; Visit Provider Physician Assistant
DX: R91.1 Solitary pulmonary nodule (principal); I31.3 Pericardial effusion (noninflammatory); J98.11 Atelectasis
CPT/HCPCS: 71250

== ENCOUNTER 2022-04-15 09:31 | Outpatient (CLI) | payer MEDICARE, SELFPAY | END 2022-04-15 09:32 | disposition home or self-care (01) | PROVIDERS: PCP Family Medicine; Visit Provider Internal Medicine Critical Care Medicine | DX: J47.9 Bronchiectasis, uncomplicated (principal) | CPT/HCPCS: 87015; 87070; 87077; 87102; 87116; 87186; 87205; 87206 ==

== ENCOUNTER 2022-04-18 14:13 | Outpatient (NON) | payer MEDICARE, SELFPAY | END 2022-04-18 14:14 | disposition home or self-care (01) | LOC: ANHGOSHLAB 14:15 | PROVIDERS: PCP Family Medicine; Visit Provider Internal Medicine Critical Care Medicine | DX: J47.9 Bronchiectasis, uncomplicated (principal) | CPT/HCPCS: 87015; 87070; 87077; 87102; 87116; 87186; 87205; 87206 ==

== ENCOUNTER 2022-04-20 11:18 | Outpatient (NON) | payer MEDICARE, SELFPAY | END 2022-04-20 11:19 | disposition home or self-care (01) | PROVIDERS: PCP Family Medicine; Visit Provider Internal Medicine Critical Care Medicine | DX: J47.9 Bronchiectasis, uncomplicated (principal) | CPT/HCPCS: 87015; 87070; 87102; 87106; 87116; 87205; 87206 ==

== ENCOUNTER 2022-04-26 11:04 | Outpatient (CLI) | payer MEDICARE, SELFPAY ==
[2022-04-26 20:04] LABS: Immunoglobulin A 140 mg/dL (70-400); Immunoglobulin G 691 mg/dL (700-1600); Immunoglobulin M 37 mg/dL (40-230)
[2022-04-26 20:12] LABS: Rheumatoid Factor < 8.6 IU/ML (<12)
[2022-04-29 20:36] LABS: Immunoglobulin E <2 kU/L (<=114)
== END 2022-04-26 11:05 | disposition home or self-care (01) ==
LOC: ANHGOSHLAB 11:08
PROVIDERS: PCP Family Medicine; Visit Provider Internal Medicine Critical Care Medicine
DX: J47.9 Bronchiectasis, uncomplicated (principal); J84.112 Idiopathic pulmonary fibrosis
CPT/HCPCS: 36415; 82784; 82785; 86430

== ENCOUNTER 2022-05-24 10:08 | Outpatient (CLI) | payer MEDICARE, SELFPAY ==
[2022-05-26 18:29] LABS: ANA Cascade Screen Negative (Negative)
[2022-05-27 20:15] LABS: Alpha-1-Antitrypsin, QN 148 mg/dL (83-199)
[2022-05-29 13:24] LABS: Immunoglobulin G, Serum 793 mg/dL (600-1540); Immunoglobulin G1 466 mg/dL (382-929); Immunoglobulin G2 120 mg/dL (241-700); Immunoglobulin G3 55 mg/dL (22-178); Immunoglobulin G4 1.7 mg/dL (4.0-86.0)
[2022-06-10 14:45] LABS: Aspergillus fumigatus Negative
== END 2022-05-24 10:09 | disposition home or self-care (01) ==
PROVIDERS: PCP Family Medicine; Visit Provider Internal Medicine Critical Care Medicine
DX: J47.9 Bronchiectasis, uncomplicated (principal)
CPT/HCPCS: 36415; 82103; 82104; 82784; 82787; 86038

== ENCOUNTER 2022-06-08 10:45 | Outpatient (NON) | payer MEDICARE, SELFPAY | END 2022-06-08 10:46 | disposition home or self-care (01) | LOC: ANHGOSHLAB 10:50 | PROVIDERS: PCP Family Medicine; Visit Provider Physician Assistant | DX: R84.5 Abnormal microbiological findings in specimens from respiratory organs and thorax (principal); J47.9 Bronchiectasis, uncomplicated | CPT/HCPCS: 87015; 87070; 87102; 87106; 87116; 87205; 87206 ==

== ENCOUNTER 2022-07-12 09:56 | Outpatient (CLI) | payer MEDICARE, SELFPAY ==
--- NOTE | ~2022-07-12 | CT_ITS ---
EXAMINATION:CT chest high resolution wo ut DATE: 07/12/2022 10:12 INDICATION: Bronchiectasis. TECHNIQUE: Computed tomography (CT) of the chest was performed without intravenous contrast. Automate d exposure control and iterative reconstruction technique were employed. The dose-length product (DLP ) was 125.78 mGy-cm. COMPARISON: Chest CT 12/14/2021, 12/06/18 FINDINGS: There is stable mild scarring at the lung apices. There is bronchiectasis in the lungs with an inferior predominance. There is mucous plugging in some of the inferior bronchi bilaterally. Ther e are groundglass opacities and mild atelectasis in the anterior segment right upper lobe. There are groundglass opacities and centrilobular nodules and tree-in-bud opacities in right middle lobe and ri ght lower lobe with interval improvement. There are small nodules in left lower lobe. The largest nod ule measures 7 mm in right lower lobe. A calcified right lung nodule and calcified right hilar and me diastinal lymph nodes are consistent with old granulomatous disease. No pleural effusion. The heart s ize is normal. No pericardial effusion. Calcifications in the spleen are consistent with old granulom atous disease. There are changes of cholecystectomy. There is mild chronic anterior wedging of multip le thoracic vertebral bodies. IMPRESSION: 1. 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 Reviewed, dictated and finalized at location A. R SECURITY ANALYST IMPRESSION: 1. Diffuse lung disease with an inferior predominance with interval improvement on the right, likely chronic infection such as mycobacterium avium intracellul are ().
== END 2022-07-12 09:57 | disposition home or self-care (01) ==
PROVIDERS: PCP Family Medicine; Visit Provider Physician Assistant
DX: J47.9 Bronchiectasis, uncomplicated (principal)
CPT/HCPCS: 71250

== ENCOUNTER 2022-09-23 14:01 | Outpatient (NON) | payer MEDICARE, SELFPAY | END 2022-09-23 14:02 | disposition home or self-care (01) | LOC: ANHGOSHLAB 14:03 | PROVIDERS: PCP Family Medicine; Visit Provider Nurse Practitioner Family | DX: J47.9 Bronchiectasis, uncomplicated (principal); R84.5 Abnormal microbiological findings in specimens from respiratory organs and thorax | CPT/HCPCS: 87015; 87070; 87102; 87106; 87116; 87205; 87206 ==

== ENCOUNTER 2022-11-15 08:21 | Outpatient (CLI) | payer MEDICARE, SELFPAY ==
--- NOTE | ~2022-11-15 | MM_ITS ---
EXAMINATION: MM screening [facility] BI [facility] [place] HISTORY: Screening mammogram TECHNIQUE: Craniocaudal and mediolateral oblique 3-D tomosynthesis images were obtained and synthetic 2-D images were generated. CAD analysis was submitted and interpreted. COMPARISON: 06/15/2021, 05/21/2020, 07/06/2018 BREAST PARENCHYMAL COMPOSITION: The breasts are heterogeneously dense, which may obscure small masses . FINDINGS: No suspicious mass, calcification, or architectural distortion are identified in either niesha ast to suggest malignancy. There has been no suspicious interval change. IMPRESSION: 1. No mammographic evidence of malignancy. 2. Recommend routine screening mammography in one year. BI-RADS Category 1: Negative Reviewed, dictated and finalized at location A.
== END 2022-11-15 08:22 | disposition home or self-care (01) ==
PROVIDERS: PCP Family Medicine; Visit Provider Registered Nurse
DX: Z12.31 Encounter for screening mammogram for malignant neoplasm of breast (principal)
CPT/HCPCS: 77063; 77067

== ENCOUNTER 2022-12-01 08:40 | Outpatient (CLI) | payer MEDICARE, SELFPAY ==
--- NOTE | ~2022-12-01 | DEXA_ITS ---
Bone Density Report Name: SELAM KEATING Age: 72 Sex: Female Ethnicity: White Date of : 1950 Indication: monitoring treatment; height loss; postmenopausal Referring Provider: JUSTYNA COLEMAN Study: Bone densitometry was performed. Exam Date: December 01, 2022 Accession number: [id number] Bone Density: Region BMD T-score Z-score Classification AP Spine(L1-L4) 0.967 -0.7 1.6 Normal Femoral Neck (Left) 0.736 -1.0 1.0 Normal Total Hip (Left) 0.782 -1.3 0.4 Osteopenia Femoral Neck (Right) 0.833 -0.1 1.9 Normal Total Hip (Right) 0.867 -0.6 1.1 Normal Total Hip Mean 0.824 -1.0 0.8 Normal World Health Organization criteria for BMD impression classify patients as: Normal (T-score at or above -1.0), Osteopenia (T-score between -1.0 and -2.5), or Osteoporosis (T-score at or below -2.5). 10-year Fracture Risk: FRAX not reported because: Treated for osteoporosis Previous Exams: Region Exam Age BMD T-score BMD Change BMD Change Date g/cm2 vs Baseline vs Previous AP Spine (L1-L4) 12/01/2022 72 0.967 -0.7 0.085 (9.6%)# 0.032 (3.4%)* 05/21/2020 70 0.935 -1.0 0.053 (6.0%)# 0.048 (5.4%)* 04/14/2015 65 0.888 -1.4 0.006 (0.6%)# 0.006 (0.6%)# 05/11/2012 62 0.882 -1.5 Total Hip(Left) 12/01/2022 72 0.782 -1.3 -0.186 (-19.2% -0.068 (-8.0%) 05/21/2020 70 0.849 -0.8 -0.118 (-12.2% -0.071 (-7.7%) 04/14/2015 65 0.920 -0.2 -0.047 (-4.9%) -0.047 (-4.9%) 05/11/2012 62 0.967 0.2 Total Hip(Right) 12/01/2022 72 0.867 -0.6 -0.084 (-8.8%) -0.038 (-4.2%) 05/21/2020 70 0.905 -0.3 -0.046 (-4.8%) -0.008 (-0.8%) 04/14/2015 65 0.912 -0.2 -0.038 (-4.0%) -0.038 (-4.0%) 05/11/2012 62 0.951 0.1 *Denotes significance at 95% confidence level, LSC for AP Spine = 0.022 g/cm2, LSC for Total Hip = 0.027 g/cm2 # Denotes dissimilar scan types or analysis methods Clinical Information Provided by Patient: Is being treated for osteoporosis Has used the following medications: Vitamin D, Calcium Patient maximum height was 65.5 Menopause Age: 46 No regular weight bearing exercise Onset of menses at age 11 Number of children 2 Impression: The patient has low bone mass, based on the Left Total Hip T-score. The BMD for the Total Hip(Left) decreased, changing by -8.0% since the last DXA exam. The BMD for the Total Hip(Right) decreased, changing by -4.2% since the last DXA exam. Discussion: SIGNIFICANT B
== END 2022-12-01 08:41 | disposition home or self-care (01) ==
LOC: ANHIMG 08:41
PROVIDERS: PCP Family Medicine; Visit Provider Registered Nurse
DX: Z78.0 Asymptomatic menopausal state (principal); M85.852 Other specified disorders of bone density and structure, left thigh
CPT/HCPCS: 77080

== ENCOUNTER → 2022-12-22 10:09 | Outpatient (CLI) | payer MEDICARE, SELFPAY ==
--- NOTE | ~2022-12-22 | XR_ITS ---
EXAMINATION: XR lumbar spine min 4V DATE: 12/22/2022 10:48 INDICATION: Dorsalgia, unspecified. TECHNIQUE: 5 views of lumbar spine were obtained. COMPARISON: Lumbar spine radiographs 06/07/2021 FINDINGS: There is 12 degrees levoscoliosis of lumbar spine. Vertebral body heights are normal. There is mildly decreased disc height at L1-L2 and L2-L3 and severely decreased disc height at L3-L4 and L 4-L5. There is multilevel facet joint osteoarthritis, severe on the right at L3-L4 and L4-L5. Surgica l clips in the right upper quadrant are likely from cholecystectomy. IMPRESSION: 1. Severe lumbar spondylosis, stable from 06/07/2021. 2. Lumbar levoscoliosis. Reviewed, dictated and finalized at location E.
--- NOTE | ~2022-12-22 | XR_ITS ---
AP and lateral views of the bilateral hips Clinical history: Pain Findings: No acute fracture or dislocation is seen. Osseous alignment is anatomic. There is minimal d egenerative change of both hip joints, right worse than left. Soft tissues are unremarkable. Impression: Minimal degenerative change of both hip joints, right worse than left. Reviewed, dictated and finalized at location . Impression: Minimal degenerative change of both hip joints, right worse than left.
== END ==
PROVIDERS: PCP Physician Assistant; Visit Provider Physician Assistant
DX: M54.9 Dorsalgia, unspecified (principal); M25.559 Pain in unspecified hip; M47.816 Spondylosis without myelopathy or radiculopathy, lumbar region; M41.9 Scoliosis, unspecified
CPT/HCPCS: 72110; 73521

== ENCOUNTER 2023-04-17 11:47 | Outpatient (CLI) | payer MEDICARE, SELFPAY ==
--- NOTE | ~2023-04-17 | XR_ITS ---
Clinical Indication: Bronchiectasis PA and lateral views of the chest: Comparison: 06/07/2021 Findings: Stable large right basilar calcified granuloma. The lungs are otherwise clear, without evid ence of focal consolidation or pleural effusion. Cardiomediastinal silhouette is within normal limit s. Bones and soft tissues are unremarkable. Impression: No acute abnormality. Large calcified right basilar granuloma, unchanged. Reviewed, dictated and finalized at location M. Impression: No acute abnormality. Large calcified right basilar granuloma, unchanged.
[2023-04-17 12:55] LABS: Influenza A QL RT-PCR Negative (Negative); Influenza B QL RT-PCR Negative (Negative); RSV RNA, RT-PCR Negative (Negative); SARS-CoV-2 RNA PCR Negative (Negative)
== END 2023-04-17 11:48 | disposition home or self-care (01) ==
PROVIDERS: PCP Family Medicine; Visit Provider Physician Assistant
DX: J47.9 Bronchiectasis, uncomplicated (principal); R05.9 Cough, unspecified
CPT/HCPCS: 71046; 87637

== ENCOUNTER 2023-04-18 11:38 | Outpatient (NON) | payer MEDICARE, SELFPAY | END 2023-04-18 11:39 | disposition home or self-care (01) | LOC: ANHGOSHLAB 11:40 | PROVIDERS: PCP Family Medicine; Visit Provider Physician Assistant | DX: J47.9 Bronchiectasis, uncomplicated (principal); R05.9 Cough, unspecified | CPT/HCPCS: 87070; 87205 ==

== ENCOUNTER 2023-06-09 12:35 | Outpatient (CLI) | payer MEDICARE, SELFPAY ==
[2023-06-09 13:50] LABS: Hematocrit 39.7 % (37.0-47.0); Hemoglobin 12.4 g/dL (12.0-15.0); Mean Corpuscular HGB Conc 31.2 g/dl (32-36); Mean Corpuscular Hemoglobin 29.7 pg (26-34); Mean Platelet Volume 9.7 fl (7.4-10.4); Platelet Count Result 265 k/mm3 (150-375); Red Blood Count 4.18 M/mm3 (4.2-5.4); Red Cell Distribution Width 13.2 % (11.5-14.5); White Blood Count 5.7 K/mm3 (4.5-10.0)
[2023-06-09 18:47] LABS: Alanine Aminotransferase 24 U/L (6-35); Albumin Level 4.1 g/dL (3.5-5.1); Alkaline Phosphatase 76 U/L (38-126); Anion Gap 10 mmol/L (8-16); Aspartate Amino Transferase 60 U/L (14-36); Bilirubin,Total 0.5 mg/dL (0.2-1.3); Blood Urea Nitrogen 19 mg/dL (7-17); Calcium 9.3 mg/dL (8.4-10.2); Carbon Dioxide 26 mmol/L (22-30); Chloride 102 mmol/L (98-107); Cholesterol 147 mg/dL (0-200); Estimated Glomerular Filt Rate > 60; Glucose 82 mg/dL (65-110); HDL Direct 47 mg/dL; Potassium 4.1 mmol/L (3.4-5.0); Sodium 138 mmol/L (137-145); Triglycerides 92 mg/dL (<150)
[2023-06-09 18:58] LABS: LDL Cholesterol Direct 72 mg/dL
[2023-06-09 19:06] LABS: Free T4 Free Thyroxine 1.73 ng/mL (0.78-2.19)
[2023-06-09 19:16] LABS: Thyroid Stimulating Hormone < 0.015 uIU/mL (0.465-4.680)
[2023-06-13 09:58] LABS: Vitamin D 1,25 (OH)2 Total 42 pg/mL (18-72); Vitamin D2 1,25 (OH)2 9 pg/mL; Vitamin D3 1,25 (OH)2 33 pg/mL
== END 2023-06-09 12:36 | disposition home or self-care (01) ==
LOC: ANHGOSHLAB 12:38
PROVIDERS: PCP Family Medicine; Visit Provider Physician Assistant
DX: Z13.1 Encounter for screening for diabetes mellitus (principal); E03.9 Hypothyroidism, unspecified; R94.6 Abnormal results of thyroid function studies; Z13.220 Encounter for screening for lipoid disorders; D64.9 Anemia, unspecified; E55.9 Vitamin D deficiency, unspecified
CPT/HCPCS: 36415; 80053; 80061; 82652; 84439; 84443; 85027

== ENCOUNTER 2023-06-26 16:33 | Outpatient (CLI) | payer MEDICARE, SELFPAY ==
[2023-06-30 19:36] LABS: Immunoglobulin A 145 mg/dL (70-320); TTG IGA AB <1.0 U/mL (<15.0)
== END 2023-06-26 16:34 | disposition home or self-care (01) ==
LOC: ANHLAB 16:38
PROVIDERS: PCP Family Medicine; Visit Provider Nurse Practitioner
DX: K58.0 Irritable bowel syndrome with diarrhea (principal)
CPT/HCPCS: 36415; 82784; 86364

== ENCOUNTER 2023-07-10 15:14 | Outpatient (CLI) | payer MEDICARE, SELFPAY ==
[2023-07-10 20:11] LABS: Alanine Aminotransferase 24 U/L (6-35); Albumin Level 4.3 g/dL (3.5-5.1); Alkaline Phosphatase 77 U/L (38-126); Aspartate Amino Transferase 36 U/L (14-36); Bilirubin,Total 0.4 mg/dL (0.2-1.3)
== END 2023-07-10 15:15 | disposition home or self-care (01) ==
LOC: ANHGOSHLAB 15:16
PROVIDERS: PCP Family Medicine; Visit Provider Physician Assistant
DX: R74.8 Abnormal levels of other serum enzymes (principal)
CPT/HCPCS: 36415; 80076

== ENCOUNTER 2023-07-28 15:20 | Outpatient (CLI) | payer MEDICARE, SELFPAY ==
[2023-08-04 19:32] LABS: Calprotectin, Stool 101 mcg/g; Pancreatic Elastase, Stool >500 mcg/g
== END 2023-07-28 15:21 | disposition home or self-care (01) ==
PROVIDERS: PCP Family Medicine; Visit Provider Nurse Practitioner
DX: K58.0 Irritable bowel syndrome with diarrhea (principal); J47.9 Bronchiectasis, uncomplicated
CPT/HCPCS: 82653; 83993

== ENCOUNTER 2024-01-24 08:52 | Outpatient (CLI) | payer MEDICARE, SELFPAY ==
[2024-01-24 19:26] LABS: Alanine Aminotransferase 15 U/L (6-35); Albumin Level 4.1 g/dL (3.5-5.1); Alkaline Phosphatase 70 U/L (38-126); Anion Gap 6 mmol/L (4-12); Aspartate Amino Transferase 34 U/L (14-36); Bilirubin,Total 0.5 mg/dL (0.2-1.3); Blood Urea Nitrogen 21 mg/dL (7-17); Calcium 9.1 mg/dL (8.4-10.2); Carbon Dioxide 29 mmol/L (22-30); Chloride 105 mmol/L (98-107); Cholesterol 149 mg/dL (0-200); Estimated Glomerular Filt Rate > 60; Glucose 77 mg/dL (65-110); HDL Direct 52 mg/dL; Sodium 140 mmol/L (137-145); Triglycerides 78 mg/dL (<150)
[2024-01-24 19:32] LABS: Basophils Absolute Auto 0.1 K/mm3 (0.0-0.1); Basophils Percent Auto 1.1 % (0.2-1.2); Eosinophils Absolute Auto 0.1 K/mm3 (0-0.3); Eosinophils Percent Auto 2.3 % (0-4.4); Hematocrit 38.7 % (37.0-47.0); Hemoglobin 12.4 g/dL (12.0-15.0); Immature Granulocyte Absolute 0.04 K/mm3 (0.00-0.031); Immature Granulocyte Percent A 0.7 % (0-0.5); Lymphocytes Absolute Auto 1.02 K/mm3 (0.9-3.2); Lymphocytes Percent Auto 18.1 % (18.3-44.2); Mean Corpuscular Hemoglobin 30.3 pg (26-34); Mean Corpuscular Volume 94.6 fl (80-100); Monocytes Absolute Auto 0.9 K/mm3 (0.1-0.6); Monocytes Percent Auto 16.3 % (2.6-8.5); Neutrophils Absolute Auto 3.5 K/mm3 (1.3-6.7); Neutrophils Percent Auto 61.5 % (45.5-73.1); Platelet Count Result 243 k/mm3 (150-375); Red Blood Count 4.09 M/mm3 (4.2-5.4); Red Cell Distribution Width 13.8 % (11.5-14.5); White Blood Count 5.6 K/mm3 (4.5-10.0)
[2024-01-24 19:33] LABS: Free T4 Free Thyroxine 1.83 ng/mL (0.78-2.19)
[2024-01-24 19:37] LABS: LDL Cholesterol Direct 81 mg/dL
[2024-01-24 19:54] LABS: Thyroid Stimulating Hormone 0.887 uIU/mL (0.465-4.680)
[2024-01-24 20:02] LABS: Hepatitis C Virus Antibody Negative (Negative)
== END 2024-01-24 08:53 | disposition home or self-care (01) ==
LOC: ANHGOSHLAB 08:54
PROVIDERS: PCP Family Medicine; Visit Provider Student in an Organized Health Care Education/Training Program
DX: E78.2 Mixed hyperlipidemia (principal); E03.9 Hypothyroidism, unspecified; Z00.00 Encounter for general adult medical examination without abnormal findings; Z11.59 Encounter for screening for other viral diseases
CPT/HCPCS: 36415; 80053; 80061; 84439; 84443; 85025; 86803

== ENCOUNTER 2024-02-17 07:51 | Outpatient (CLI) | payer MEDICARE, SELFPAY ==
--- NOTE | ~2024-02-17 | MM_ITS ---
EXAMINATION: MM screening [facility] [place] HISTORY: Screening TECHNIQUE: Craniocaudal and mediolateral oblique 3-D tomosynthesis images were obtained and synthetic 2-D images were generated. CAD analysis was submitted and interpreted. COMPARISON: Comparison to multiple prior studies sequentially, with oldest reviewed study dated 11/2016. BREAST PARENCHYMAL COMPOSITION: Dense: The breasts are heterogeneously dense, which may obscure small masses FINDINGS: There is no evidence of suspicious mass, calcification, or architectural distortion to sugg est malignancy in either breast. There has been no suspicious interval change. IMPRESSION: 1. No mammographic evidence of malignancy. 2. Recommend routine screening mammography in one year. BI-RADS Category 1: Negative Reviewed, dictated and finalized at location B.
== END 2024-02-17 07:52 ==
LOC: MICIMG 07:52
PROVIDERS: PCP Family Medicine; Visit Provider Registered Nurse
DX: Z12.31 Encounter for screening mammogram for malignant neoplasm of breast (principal)
CPT/HCPCS: 77063; 77067

== ENCOUNTER 2024-04-30 08:42 | Outpatient (CLI) | payer MEDICARE, SELFPAY ==
[2024-04-30 14:23] LABS: Alanine Aminotransferase 21 U/L (6-35); Albumin Level 4.1 g/dL (3.5-5.1); Alkaline Phosphatase 72 U/L (38-126); Anion Gap 6 mmol/L (4-12); Aspartate Amino Transferase 59 U/L (14-36); Bilirubin,Total 0.3 mg/dL (0.2-1.3); Blood Urea Nitrogen 24 mg/dL (7-17); Calcium 9.1 mg/dL (8.4-10.2); Carbon Dioxide 30 mmol/L (22-30); Chloride 104 mmol/L (98-107); Cholesterol 142 mg/dL (0-200); Creatine Kinase 48 U/L (30-135); Estimated Glomerular Filt Rate > 60; Glucose 81 mg/dL (65-110); HDL Direct 52 mg/dL; Potassium 3.8 mmol/L (3.4-5.0); Sodium 140 mmol/L (137-145); Triglycerides 69 mg/dL (<150)
[2024-04-30 14:34] LABS: LDL Cholesterol Direct 59 mg/dL
[2024-04-30 14:48] LABS: Erythrocyte Sedimentation Rate 9 mm/hr (0-20)
[2024-04-30 15:16] LABS: Thyroid Stimulating Hormone Reflex < 0.015 uIU/mL (0.465-4.68)
[2024-04-30 17:40] LABS: Free T4 Free Thyroxine Reflex 1.34 ng/dL (0.78-2.19)
[2024-05-01 06:07] LABS: Total Triiodothyronine (T3) 1.27 NG/ML (0.97-1.69)
== END 2024-04-30 08:43 | disposition home or self-care (01) ==
PROVIDERS: PCP Family Medicine; Visit Provider Family Medicine
DX: R25.2 Cramp and spasm (principal); E03.9 Hypothyroidism, unspecified
CPT/HCPCS: 36415; 80053; 80061; 82550; 83735; 84439; 84443; 84480; 85652

== ENCOUNTER 2024-05-14 14:13 | Emergency (ER) | payer MEDICARE, SELFPAY ==
--- NOTE | ~2024-05-14 | XR_ITS ---
EXAMINATION: XR thoracic spine 3V DATE: 05/14/2024 14:56 INDICATION: Thoracic back pain. Fall. TECHNIQUE: 3 views of thoracic spine were obtained. COMPARISON: Chest 2 views 04/17/2023 FINDINGS: There is 3 degrees levocurvature of thoracic spine. There is kyphosis of thoracic spine. Th ere are chronic compression fractures of T6, T7, and T8. There is mildly decreased disc height from T 4-T5 through T6-T7 and moderately decreased disc height at T7-T8. A calcified right lung nodule and c alcified right hilar and mediastinal lymph nodes are consistent with old granulomatous disease. Surgi macie clips in the right upper quadrant are likely from cholecystectomy. IMPRESSION: 1. Moderate thoracic spondylosis. Reviewed, dictated and finalized at location A.
--- NOTE | 2024-05-14 14:18 | ED.BACK ---
HPI - Back Pain/Injury General Chief Complaint: Back Pain/Injury Stated Complaint: back pain Time Seen by Provider: 05/14/24 14:28 Source: patient, RN notes reviewed and old records reviewed Mode of arrival: ambulatory Limitations: no limitations History of Present Illness HPI Narrative: 74-year-old female presents to the [facility] with complaints of back pain. Patient fell on Monday, 3 days ago. Patient reports that she was climbing off a ladder 1 or 2 rungs up, fell onto her buttock and then backwards onto her back. Patient denies any loss of consciousness. No midline tenderness of the cervical or lumbar spine. Denies any blurry vision or significant headache. No loss retention of bowel or bladder. Is walking with a normal gait Onset (ago): day(s) (3) Related Data Home Medications Medication Instructions Recorded Confirmed vitamin B12 1,000 mcg-folic acid 1 lozenge sublingual DAILY 09/09/19 05/14/24 400 mcg sublingual lozenge aspirin 325 mg tablet 325 mg PO DAILY 06/03/21 05/14/24 esomeprazole magnesium 20 mg 20 mg PO DAILY 05/24/22 05/14/24 capsule,delayed release (Nexium) ginkgo biloba leaf extract 120 mg 120 mg PO DAILY 05/24/22 05/14/24 capsule multivitamin 1 tablet PO DAILY 05/24/22 05/14/24 metoprolol succinate 25 mg 25 mg PO DAILY 06/21/22 05/14/24 tablet,extended release 24 hr cholecalciferol (vitamin D3) 75 75 mcg PO DAILY 06/09/23 05/14/24 mcg (3,000 unit) tablet Allergies Allergy/AdvReac Type Severity Reaction Status Date / Time No Known Allergies Allergy Verified 05/14/24 14:29 Review of Systems Review of Systems: All systems reviewed & are unremarkable except as noted in HPI and below Constitutional: Constitutional: Reports no additional constitutional complaints Eyes: Eyes: Reports no additional eye complaints ENT: Reports system reviewed and no additional complaints, except as documented Cardiovascular: Cardiovascular: Reports no additional cardiovascular complaints, Denies chest pain and Denies dyspnea Respiratory: Respiratory: Reports no additional respiratory complaints, Denies chest congestion, Denies cough and Denies dyspnea Gastrointestinal: Gastrointestinal: Reports no additional gastrointestinal complaints, Denies abdominal pain, Denies nausea and Denies vomiting Musculoskeletal: Musculoskeletal: Reports as per HPI Integumentary/Breasts: Skin/Breast: Reports system reviewed and no additional complaints, except as docu Neurologic: Reports system reviewed and no additional complaints, except as documented Psychiatric: Psychiatric: Reports no additional psychiatric complaints Allergic/Immunologic: Allergic/Immunologic: Reports no additional allergic/immunologic complaints [facility] Past Medical History Medical History Anxiety Arthritis Lloyd's palsy Bronchitis Cataracts, bilateral Closed left arm fracture Depression Diverticula of colon Dyslipidemia Elevated liver enzymes Histoplasmosis right lung History of Holter monitoring negative results Hyperlipidemia Hypothyroidism determined by thyroid function test IBS (irritable bowel syndrome) Irritable bowel syndrome with alternating bowel habits Irritable bowel syndrome with diarrhea Lactose intolerance Ovarian cyst Pulmonary nodule Needs monitoring yearly RUQ pain Seasonal allergies Surgical History Surgical History H/O dilation and curettage H/O left wrist surgery History of bunionectomy History of bunionectomy of both great toes History of cholecystectomy History of removal of ovarian cyst History of total left knee replacement History of tubal ligation Status post medial meniscus repair of left knee Family History Family History Father Carcinoma of colon Family history of heart disease in male family member before age 55 Mother Fa
[2024-05-14 14:29] VITALS: BP 111/55; PULSE 70; RESP 16; TEMP 36.5; O2SAT 100
[2024-05-14 14:30] VITALS: BP 111/55; PULSE 70; RESP 16; TEMP 36.5; O2SAT 100
== END 2024-05-14 15:25 | disposition home or self-care (01) ==
PROVIDERS: Emergency Provider Nurse Practitioner; PCP Family Medicine
DX: M47.814 Spondylosis without myelopathy or radiculopathy, thoracic region (principal); M54.6 Pain in thoracic spine; W11.XXXA Fall on and from ladder, initial encounter; E78.5 Hyperlipidemia, unspecified; E03.9 Hypothyroidism, unspecified; M19.90 Unspecified osteoarthritis, unspecified site; H26.9 Unspecified cataract; Z96.652 Presence of left artificial knee joint; Z87.891 Personal history of nicotine dependence; Z79.82 Long term (current) use of aspirin
CPT/HCPCS: 72072; 99213; G0463

== ENCOUNTER 2024-05-17 13:44 | Outpatient (RCR) | payer MEDICARE, SELFPAY | END 2024-05-17 23:59 | disposition home or self-care (01) | LOC: ANHAUDIO 13:44 | PROVIDERS: PCP Family Medicine | DX: Z46.1 Encounter for fitting and adjustment of hearing aid (principal) | CPT/HCPCS: 92593 ==

== ENCOUNTER 2024-05-21 09:33 | Outpatient (CLI) | payer MEDICARE, SELFPAY ==
[2024-05-27 11:46] LABS: Concentrate Ova and Parasites No Ova or Parasites; Trichrome Ova and Parasites No Ova or Parasites
[2024-05-28 08:28] LABS: Calprotectin, Stool 74 mcg/g
== END 2024-05-21 09:34 | disposition home or self-care (01) ==
LOC: ANHLAB 09:34
PROVIDERS: PCP Family Medicine; Visit Provider Nurse Practitioner
DX: R19.7 Diarrhea, unspecified (principal)
CPT/HCPCS: 83993; 87045; 87177; 87209; 87269; 87427; 87449; 87493

== ENCOUNTER 2024-06-19 08:53 | Outpatient (CLI) | payer MEDICARE, SELFPAY ==
--- NOTE | ~2024-06-19 | XR_ITS ---
EXAMINATION: XR cervical spine min 6V DATE: 06/19/2024 09:12 INDICATION: Neck pain. TECHNIQUE: 7 views of cervical spine including flexion and extension views were obtained. COMPARISON: None. FINDINGS: There is 9 degrees levocurvature of cervical spine. There is 2 mm retrolisthesis of C5 on C 6 and 2 mm anterolisthesis of C7 on T1. There is no abnormal motion on flexion or extension. Vertebra l body heights are normal. There is severely decreased disc height at C5-C6 and C6-C7. There is multi level uncovertebral joint osteoarthritis, severe bilaterally at C5-C6 and C6-C7. There is multilevel [id number] facet joint osteoarthritis. On the right, there is mild neural foraminal stenosis at C5-C6 and C6-C7. On the left, there is mild neural foraminal stenosis at C5-C6. There is mild centra l canal stenosis at C5-C6 and C6-C7. No prevertebral soft tissue swelling. IMPRESSION: 1. Severe cervical spondylosis. Reviewed, dictated and finalized at location A. 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
== END 2024-06-19 08:54 | disposition home or self-care (01) ==
LOC: MICIMG 08:56
PROVIDERS: PCP Family Medicine; Visit Provider Family Medicine
DX: M43.02 Spondylolysis, cervical region (principal)
CPT/HCPCS: 72052

== ENCOUNTER 2024-07-01 07:54 | Outpatient (CLI) | payer MEDICARE, SELFPAY ==
[2024-07-01 14:29] LABS: Free T4 Free Thyroxine 1.37 ng/dL (0.78-2.19)
[2024-07-01 14:38] LABS: Thyroid Stimulating Hormone < 0.015 uIU/mL (0.465-4.680)
== END 2024-07-01 07:55 | disposition home or self-care (01) ==
LOC: ANHGOSHLAB 07:56
PROVIDERS: PCP Family Medicine; Visit Provider Student in an Organized Health Care Education/Training Program
DX: E03.9 Hypothyroidism, unspecified (principal); F41.9 Anxiety disorder, unspecified; R94.6 Abnormal results of thyroid function studies
CPT/HCPCS: 36415; 84439; 84443

== ENCOUNTER 2024-08-02 13:00 | Outpatient (RCR) | payer SELFPAY | END 2024-10-31 23:59 | disposition home or self-care (01) | LOC: ANHAUDASC 13:00 | PROVIDERS: PCP Family Medicine | DX: Z46.1 Encounter for fitting and adjustment of hearing aid (principal) | CPT/HCPCS: 99199; V5014 ==

== ENCOUNTER 2024-08-08 09:22 | Emergency (ER) | payer MEDICARE, SELFPAY ==
--- NOTE | ~2024-08-08 | XR_ITS ---
XR chest 2V 08/08/2024 09:57 Indication: Cough and congestion Procedure: 2 view chest Comparison: Comparison to multiple prior studies sequentially, with oldest reviewed study dated 07/01. Findings: Heart size normal. No focal air space disease, pulmonary edema, pleural effusion or suspect ed pneumothorax. The lungs are hyperinflated which is consistent with, but not diagnostic of chronic obstructive pulmonary disease. Densely calcified granuloma right lower lobe unchanged. There are chol ecystectomy clips. Chronic mild wedge compression fracture of the midthoracic spine. Impression: 1: No acute cardiopulmonary disease. Reviewed, dictated and finalized at location B. E COORDINATOR Impression: 1: No acute cardiopulmonary disease.
--- NOTE | 2024-08-08 09:38 | ED.URI ---
HPI - URI/Sore Throat General Chief Complaint: Upper Respiratory Infection Stated Complaint: Sinus Infection Time Seen by Provider: 08/08/24 09:39 Source: patient, RN notes reviewed and old records reviewed Mode of arrival: ambulatory Limitations: no limitations History of Present Illness HPI Narrative: patient with history of bronchiectasis, uses therapy to mobilize secretions daily, presents with complaints of cough that is becoming increasingly productive. She reports that cough began last week, has had a little bit of nasal drainage. Last night began with subjective fever, chills, sweats. States that she is more tired than usual. She denies any shortness of breath or wheezing. She voices no other concerns or complaints at this time Related Data Home Medications ?Medication ?Instructions ?Recorded ?Confirmed ?Last Taken ?Type aspirin 325 mg tablet 325 mg PO DAILY 06/03/21 08/08/24 Unknown History esomeprazole magnesium 20 mg 20 mg PO DAILY 05/24/22 08/08/24 Unknown History capsule,delayed release (Nexium) ginkgo biloba leaf extract 120 mg 120 mg PO DAILY 05/24/22 08/08/24 Unknown History capsule multivitamin 1 tablet PO DAILY 05/24/22 08/08/24 Unknown History metoprolol succinate 25 mg 25 mg PO DAILY 06/21/22 08/08/24 Unknown History tablet,extended release 24 hr cholecalciferol (vitamin D3) 75 75 mcg PO DAILY 06/09/23 08/08/24 Unknown History mcg (3,000 unit) tablet Allergies Allergy/AdvReac Type Severity Reaction Status Date / Time No Known Allergies Allergy Verified 08/08/24 09:39 Review of Systems Review of Systems: All systems reviewed & are unremarkable except as noted in HPI and below Constitutional: Constitutional: Reports no additional constitutional complaints, Reports chills, Reports fever(s) and Reports lethargy ENT: Reports system reviewed and no additional complaints, except as documented and Reports nasal discharge Cardiovascular: Cardiovascular: Reports no additional cardiovascular complaints Respiratory: Respiratory: Reports no additional respiratory complaints, Reports change in phlegm color, Reports chest congestion, Reports cough and Reports excessive phlegm production Gastrointestinal: Gastrointestinal: Reports no additional gastrointestinal complaints PMFSH Past Medical History Medical History Lactose intolerance Irritable bowel syndrome with alternating bowel habits Elevated liver enzymes RUQ pain Diverticula of colon Irritable bowel syndrome with diarrhea Pulmonary nodule Needs monitoring yearly History of Holter monitoring negative results Anxiety Depression Closed left arm fracture Arthritis Ovarian cyst Bronchitis Histoplasmosis right lung Hyperlipidemia Lloyd's palsy Seasonal allergies Cataracts, bilateral Dyslipidemia IBS (irritable bowel syndrome) Hypothyroidism determined by thyroid function test Surgical History Surgical History History of total left knee replacement Status post medial meniscus repair of left knee History of bunionectomy H/O dilation and curettage History of removal of ovarian cyst History of tubal ligation History of bunionectomy of both great toes H/O left wrist surgery History of cholecystectomy Family History Family History Father Carcinoma of colon Family history of heart disease in male family member before age 55 Mother Family history of Alzheimer's disease Cerebrovascular accident Sibling Family history of lung cancer Grandparent Diabetes mellitus Carcinoma of colon Family history of Alzheimer's disease Other Family history of allergic disorder Social History Social History Smoking status: Former smoker (limited smoking decades ago) Tobacco type: cigarettes Second hand tobacco smoke exposure: Yes Smoking end date: 07/31/83 Alcohol intake: current Alcohol use details: Very rarely. 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 Gender identity (if verbalized by the patient): Female Sexual Orientation (if Verbalized by the Patient): Straight or Heterosexual Spiritual care concerns: No Comments At the time of my signature, I reviewed and agree with the nursing past medical, surgical, social, and family history. There is no relevant family history pertinent to the patient complaint. Exam Const: General: cooperative, no acute distress, alert and awake Orientation/consciousness: oriented to person, oriented to place and oriented to time HENMT: Head: normal to inspection Resp: Effort & Inspection: normal respiratory effort and able to speak in complete sentences Auscultation: clear to auscultation bilaterally, no crackles, no rales, no rhonchi, wheezes scattered wheezes and diminished lung sounds Cardio: Palpation: normal PMI Rate: regular rate Rhythm: regular rhythm Heart sounds: S1 normal heart sound present and S2 normal heart sound present Neuro: General: oriented to person, oriented to place and oriented to time Cranial nerves: Yes CN's II-XII intact bilaterally Psych: Appearance: grossly normal Thought process: Normal thought process present Insight: Good insight present (Psych) Judgement: Good judgement present (Psych) Course Course Level of Care: Express Care Visit Vital Signs Vital signs: Vital Signs Temperature 98.4 F 08/08/24 09:40 Pulse Rate 93 08/08/24 09:40 Respiratory Rate 16 08/08/24 09:40 Blood Pressure 107/51 L 08/08/24 09:40 Pulse Oximetry 100 08/08/24 09:40 Temperature 98.4 F 08/08/24 09:40 Pulse Rate 93 08/08/24 09:40 Respiratory Rate 16 08/08/24 09:40 Blood Pressure 107/51 L 08/08/24 09:40 Pulse Oximetry 100 08/08/24 09:40 Reviewed MDM - URI/Sore Throat MDM Narrative Medical decision making narrative: patient in no distress, including respiratory distress. Nontoxic appearing. Chest x-ray with no acute findings, but given patient's pulmonary history and lung sounds, will start prednisone and add azithromycin for anti-inflammatory properties. Bronchodilators. She is advised to follow with primary care provider. Strict emergency department precautions discussed. Discharge instructions reviewed with patient, as well as provided in writing per nursing staff. The instructions also include specific and strict return/GO TO THE ER as well as f/u information. All questions have been answered, and the patient deny any further questions with discharge and discharge plan. Some parts of this dictation were generated by voice recognition software and may contain typographical and/or grammatical inaccuracies. Differential Diagnosis Differential diagnosis: Likely upper respiratory infection, croup, viral infection and bronchitis Medical Records Attestation: I reviewed the patient's medical records. Imaging Data Attestation: I personally reviewed and interpreted this imaging study as follows: My impression: no acute finding Radiologist's impression: [address] [place] [address] XRay Report Signed Patient: Zabrina Heck : 1950 MR#: [id number] Age: 74 Acct:[id number] Loc: [facility] ADM Date: 08/08/24Attending Dr: Ordering Physician: Chelita Little FNP Date of Service: 08/08/24 Procedure(s): XR chest 2V Accession Number(s): [id number] cc: Chelita Little, SONIDO; Torri Pisano MD~ XR chest 2V 08/08/2024 09:57 Indication: Cough and congestion Procedure: 2 view chest Comparison: Comparison to multiple prior studies sequentially, with oldest reviewed study dated 07/21/2015. Findings: Heart size normal. No focal air space disease, pulmonary edema, pleural effusion or suspected pneumothorax. The lungs are hyperinflated which is consistent with, but not diagnostic of chronic obstructive pulmonary disease. Densely calcified granuloma right lower lobe unchanged. There are cholecystectomy clips. Chronic mild wedge compression fracture of the midthoracic spine. Impression: 1: No acute cardiopulmonary disease. Reviewed, dictated and finalized at location B. ERVATOR ARTIFACTS Please be advised this is a medical document. It is intended for xcyw-wy-vdyt communication. It is written in medical language and may contain unfamiliar abbreviations or verbiage. Medical documents are intended to carry relevant information, facts as evident, and the clinical opinion of the practitioner at the time of the encounter. This report may have been done utilizing a voice recognition system. Attempts have been made to correct errors. However, there may be uncorrected grammatical, spelling, and recognition errors present. The file time of this note does not necessarily represent the time the patient was seen. Dictated By: Ruy Woodall MD 08/08/24 0958 Signed By: <Electronically signed by Ruy Woodall MD in OV> Discharge Plan Discharge Clinical Impression: Bronchitis Patient Disposition: Home, Self-Care Condition: Stable Instructions: Antibiotic Form, Acute Bronchitis (ED) Additional Instructions: take medications as prescribed. Follow with primary care provider. Emergency department for new or worse symptoms Patient Language: Slovak Prescriptions: New azithromycin 250 mg tablet See Rx Instructions .ROUTE .COMPLEX Qty: 6 0RF Rx Instructions: For 250 mg dose pack: take 500 mg today (day 1), then 250 mg for 4 days (days 2-5) prednisone 50 mg tablet 50 mg PO DAILY Qty: 5 0RF albuterol sulfate [Ventolin HFA] 90 mcg/actuation HFA aerosol inhaler 2 puff inhalation QID PRN (Reason: shortness of breath or wheezing) Qty: 8.5 0RF No Action baclofen 10 mg tablet See Rx Instructions .ROUTE .COMPLEX PRN (Reason: muscle pain) Qty: 10 0RF Rx Instructions: 0.5-1 tab po tid prn multivitamin Tablet 1 tablet PO DAILY esomeprazole magnesium [Nexium] 20 mg capsule,delayed release(DR/EC) 20 mg PO DAILY ginkgo biloba leaf extract 120 mg capsule 120 mg PO DAILY Rx Instructions: give with meal/snack buspirone 5 mg tablet 5 mg PO BID PRN (Reason: anxiety) Qty: 60 0RF dicyclomine 10 mg capsule 10 mg PO .every 6 hours PRN (Reason: abdominal pain) Qty: 60 0RF aspirin 325 mg tablet 325 mg PO DAILY cholecalciferol (vitamin D3) 75 mcg (3,000 unit) tablet 75 mcg PO DAILY metoprolol succinate 25 mg tablet extended release 24 hr 25 mg PO DAILY sodium chloride 3 % solution for nebulization 4 ml inhalation BID Qty: 240 2RF ipratropium bromide 0.02 % solution 2.5 ml inhalation Q6H PRN (Reason: shortness of breath or wheezing) Qty: 300 2RF atorvastatin 10 mg tablet 10 mg PO DAILY Qty: 90 3RF levothyroxine 88 mcg tablet 88 mcg PO .6 days per week Qty: 90 0RF albuterol sulfate 1.25 mg/3 mL solution for nebulization 1.25 mg inhalation Q8H PRN (Reason: shortness of breath or wheezing) 30 Days Qty: 270 3RF Follow-up/Referrals: Torri Pisano MD [Primary Care Provider] - 1 Week Time of Disposition: 10:12
[2024-08-08 09:40] VITALS: BP 107/51; PULSE 93; RESP 16; TEMP 36.9; O2SAT 100
== END 2024-08-08 10:31 | disposition home or self-care (01) ==
PROVIDERS: Emergency Provider Nurse Practitioner Family; PCP Family Medicine
DX: J40 Bronchitis, not specified as acute or chronic (principal); Z87.891 Personal history of nicotine dependence; M19.90 Unspecified osteoarthritis, unspecified site; E78.5 Hyperlipidemia, unspecified; E03.9 Hypothyroidism, unspecified; Z96.652 Presence of left artificial knee joint; Z79.82 Long term (current) use of aspirin
CPT/HCPCS: 71046; 99213; G0463

== ENCOUNTER 2024-09-10 10:06 | Outpatient (CLI) | payer MEDICARE, SELFPAY ==
--- OUTSIDE RECORDS SUMMARY | 2024-09-10 11:10 | XMS_ITS | Encounter Summary ---
Author Organization [facility] Address [address] [place] [address] Care Team Providers Care Warehouseman Name Role Phone Ervin Foley MD Primary Care Provider [phone] Alba Carranza MD Primary Care Provider [phone] Niya Eddy Primary Care Provider [phone] Torri Pisano MD Primary Care Provider [phone] Encounter Details Date Type Department Care Team (Late st Contact Info) Description 12/26/[address] [facility] Pathology Lab [address] [place] [address] Albino Hutchison MD [address] [id number] Social History Tobacco Use Types Packs/Day Years Used Date Smoking Tobacco: Never Assessed Sex and Gender Information Value Date Recorded Sex Assigned at Not on file Gender Identity Not on file Sexual Orientation Not on file documented as of this encounter Plan of Treatment Not on file documented as of this encounter Procedures Procedure Name Priority Date/Time Associated Diagnosis Comments PATHOLOGY TISSUE Routine 12/25/2018 9:00 AM CDT documented in this encounter Results * PATHOLOGY TISSUE (12/25/2018 9:00 AM CDT) Case Report Surgical Pathology Report Case: [id number] Authorizing Provider: Albino Hutchison MD Collected: 12/25/2018 09:00 AM Pathologist: Last Quiñones MD Received: 12/26/2018 02:28 PM Specimen: Lymph Node Biopsy, [id number] 12/27/2018 10:03 AM [facility] Final Diagnosis Lymph node, left axilla, needle core biopsy ([id number]): - Benign reactive lymph cabrera tissue. - No evidence of lymphoma or carcinoma, as sampled. - See description. 12/27/2018 10:03 AM [facility] Microscopic Description and Comment Review of the left axillary lymph node biopsy specimen reveals multiple portions of lymph node needle core biopsy tissue with few germinal centers identified on H&E. Due to the limited nature of the specimen, adequate assessment of the cabrera architecture is hindered. The lymphocytes are polymorphous with occasional large cells, but are mostly small to intermediate in size. No extrinsic cell population or definitive monomorphic populations are seen. No Hodgkin/Malvin-Sternber g-like (HRS-like) cells, increased fibrosis, mitoses, necrosis, apoptotic bodies, or granulomas are identified. Immunohistochemical stains are performed on the block, with appropriate controls, and demonstrate the following: CD20 highlights B-cells, most of which are in follicles. CD3 highlights interfollicular T-cells. CD21 highlights occasional areas of dendritic meshwork. CD10 highlights occasional germinal centers. BCL-2 highlights background T-cells and is appropriately negative in germinal centers. Overall, the findings are of lymph cabrera tissue with no evidence of lymphoma or carcinoma. Concurrent lymph node flow cytometry ([id number]) corroborates this diagnosis. Correlation with clinical findings and relevant cytogenetic/molecular testing is required. GENERAL OPERATIONS AGENT/NW 12/27/2018 10:03 AM [facility] Clinical History 12/27/2018 10:03 AM [facility] Materials Received Received are 2 slides and 1 block labeled as [id number] along with the outside pathology report. [place] [address]. All materials are returned to the referring institution, along with a copy of our final report. 12/27/2018 10:03 AM [facility] Disclaimer The performance characteristics of all immunohistochemical and indirect immunofluorescence stains (if any) cited in this report were determined by the Histopathology Laboratory of [facility]. Some of these tests were developed by our own laboratory and have not been cleared or approved by the US Food and Drug Administration. The FDA does not require this test to go through premarket FDA review. These tests are used for clinical purposes. They should not be regarded as investigational or for research. This laboratory is certified under the Clinical Laboratory Improvement Amendments (CLIA) as qualified to perform high complexity clinical laboratory testing. This case has been personally reviewed and interpreted by the attending (teaching) pathologist. 12/27/2018 10:03 AM [facility] Embedded Images 12/27/2018 10:03 AM T [facility] Pathology/Cytolo gy BIOPSY OF LYMPH NODE / Unknown 12/25/2018 9:00 AM CDT 12/26/2018 2:28 PM CDT Albino Hutchison MD LAB - PATHOLOGY/CYTO LOGY ORDERABLES Performing Organization Address [facility]/State/[facility] Co de Phone Number [facility] [address] [phone] documented in this encounter Visit Diagnoses Not on filedocumented in this encounter Care Teams Warehouseman Relationship Specialty Start Date End Date Ervin Foley MD [address] [place] [address] PCP - General 12/25/18 05/23/21 Alba Carranza MD [address] [place] [address] PCP - General Family Medicine 05/24/21 05/24/21 Niya Eddy PA [address] [place] [address] PCP - General Physician Technology Specialist 05/25/21 06/29/21 Torri Pisano MD [address] [place] [address] PCP - General Family Medicine 06/30/21 documented as of this encounter
--- OUTSIDE RECORDS SUMMARY | 2024-09-10 11:10 | XMS_ITS | Clinical Summary ---
Author Organization [facility] [address] [facility] [address] Address [address] [place] [address] Care Team Providers Care Rack Worker Name Role Phone Joel Foley MD Primary Care Provider [phone] Social History Tobacco Use Types Packs/Day Years Used Date Smoking Tobacco: Never Assessed Personal Safety Answer Date Recorded Getting School Help Needed Not on file 10/13 Comments Unknown Sex and Gender Information Value Date Recorded Sex Assigned at Not on file Legal Sex Female 10:32 PM PROCUREMENT CONSULTANT Gender Identity Not on file Sexual Orientation Not on file Plan of Treatment Not on file Insurance MEDICARE [facility] Care Teams Rack Worker Relationship Specialty Start Date End Date Joel Foley MD [address] [place] [address] PCP - General Family Medicine 10/04/17
--- OUTSIDE RECORDS SUMMARY | 2024-09-10 11:10 | XMS_ITS | Clinical Summary ---
Author Organization [facility] Address [address] [facility] [place] [address] Care Team Providers Care Fabricator Artificial Breast Name Role Phone Torri Pisano MD Primary Care Provider [phone] Source Comments [facility],non-owned Affiliates and Associated Physician Practices is amultiple site organization consisting of ambulatory clinics and hospital sitesin [place], [place], [place] and [place]. This disclosure is being madepursuant to the Care Everywhere program and may not contain all information available regarding this patient. Last updated 18.[facility] Allergies No known active allergies Medications * Be aware that medications may not be up to date on this document. Alwaysverify current medications with the patient. Medication Sig Dispensed Refills Start Date End Date Status atorvastatin (LIPITOR) 10 MG tablet atorvastatin 10 mg tablet TAKE 1 TABLET BY MOUTH ONCE DAILY IN THE EVENING AT BEDTIME. LIPID PANEL NEEDED 4 6 MONTHS BEFORE REFILL. Active Esomeprazole Magnesium (NEXIUM PO) Nexium 1qd Active Multiple Vitamin (MULTIVITAMIN ADULT PO) multivitamin 1qd Active Calcium Polycarbophil (FIBERCON PO) Take 2 tablets by mouth 2 times daily Active metoprolol succinate XL 24hr (TOPROL XL) 25 MG tablet TAKE 1/2 (ONE HALF) TABLET BY MOUTH ONCE DAILY 01/10/2021 Active Active Problems Problem Noted Date Diagnosed Date Presence of left artificial knee joint Primary osteoarthritis of left knee 03/17/2021 Hyperlipidemia 12/18/2019 Palpitations 12/18/2019 Varicose veins of lower extremity 12/18/2019 Irritable bowel syndrome 10/22/2019 Social History Tobacco Use Types Packs/Day Years Used Date Smoking Tobacco: Former Smokeless Tobacco: Never Comments:quit in the 90s Alcohol Use Standard Drinks/Week Comments Yes 0 (1 standard drink = 0.6 oz pur e alcohol) rarely AUDIT-C Answer Date Recorded Q1: How often do you have a drink containing alc ohol? Monthly or less 06/30/2021 Q2: How many drinks containi ng alcohol do you have on a typical day when you are drinking? 1 or 2 06/30/2021 Q3: How often do you have si x or more drinks on one occasion? Never 06/30/2021 PHQ-2 Answer Date Recorded Patient Health Questionnaire-2 Score 0 01/22/2024 Sex and Gender Information Value Date Recorded Sex Assigned at Not on file Gender Identity Not on file Sexual Orientation Not on file Last Filed Vital Signs Vital Sign Reading Time Taken Comments Blood Pressure 114/47 07/01/2021 7:48 AM PROP AND EFFECTS DESIGNER Pulse 65 07/01/2021 7:48 AM PROP AND EFFECTS DESIGNER Temperature 36.4 C (97.5 F) 07/01/2021 7:48 AM PROP AND EFFECTS DESIGNER Respiratory Rate 16 07/01/2021 7:48 AM PROP AND EFFECTS DESIGNER Oxygen Saturation 97% 07/01/2021 7:48 AM PROP AND EFFECTS DESIGNER Inhaled Oxygen Concentration - - Weight 75.8 kg (167 lb) 06/30/2021 7:34 AM PROP AND EFFECTS DESIGNER Height 165.1 cm (5' 5 ) 06/30/2021 7:34 AM PROP AND EFFECTS DESIGNER Body Mass Index 27.79 06/30/2021 7:34 AM PROP AND EFFECTS DESIGNER Plan of Treatment Health Maintenance Due Date Last Done Comments BONE DENSITY TESTING 1950 COLOGUARD (AGES 45-75) - COL ON CA SCREENING 1950 COLON MONITORING 1950 COLONOSCOPY - COLON CA SCREENING 1950 CT COLONOGRAPHY - COLON CA SCREENING 1950 Colorectal Cancer Screening 1950 FIT - COLON CA SCREENING 1950 FLEX SIG - COLON CA SCREENING 1950 MAMMOGRAM 1950 MEDICARE AWV 12 MONTHS 1950 HEPATITIS C SCREENING 01/21/1967 DTAP/TDAP/TD VACCINES (1 - Tdap) 01/26/1968 PNEUMOCOCCAL VACCINE 50+ (1 of 1 - PCV) 1999 ZOSTER VACCINE (1 of 2) 1999 Respiratory Syncytial Virus (RSV) Vaccine Pt: or over 60 yrs (1 - 1-dose 75+ series) 01/26/2024 COVID-19 VACCINE (1 - 2023-2 5 season) 2024 INFLUENZA VACCINE (#1) 2024 DEPRESSION SCREENING 07/31/2024 12/18/2023 HEPATITIS B VACCINE Aged Out No longe r eligible based on patient's age to complete this topic HIB VACCINE Aged Out No longer eligi ble based on patient's age to complete this topic HPV VACCINE Aged Out No longer eligi ble based on patient's age to complete this topic MENINGOCOCCAL (Group B) VACCINE Aged Out No longer eligible based on patient's age to complete this topic MENINGOCOCCAL VACCINE Aged Out No lelia ole eligible based on patient's age to complete this topic Medical Devices Implanted Type Area Frame Table Operator Helper Device Identifier Shelf Expiration Date Model / Serial / Lot Cmnt Bone Djo Srg Cblt 40gm Hvisc Strl Implanted:Qty: 1 on 06/30/2021 by Familia Sargent MD at [facility] Left: Knee [employer] 09/18/2022 [id number] / / [id number] Tray Tib 71mm Kn Cocr I Beam Implanted:Qty: 1 on 06/30/2021 by Familia Sargent MD at [facility] Left: Knee [employer] 05/10/2031 [id number] / / [id number] Cmpnt Fem Kn Lt Cr Cmnt Prm Vngrd Intlk Implanted:Qty: 1 on 06/30/2021 by Familia Sargent MD at [facility] Left: Knee [employer] 12/19/2030 [id number] / / [id number] Cmpnt Ptlr 28mm 1 Pg Wire Ascnt Arcm Kn Implanted:Qty: 1 on 06/30/2021 by Familia Sargent MD at [facility] Left: Knee [employer] 06/12/2025 [id number] / / [id number] Vngrd Arcm Kn Ant Stab Implanted:Qty: 1 on 06/30/2021 by Familia Sargent MD at [facility] Left: Knee [employer] 02/03/2026 [id number] / / [id number] Advance Directives Documents on File Type Date Recorded Patient Party Plan Dealer Expl anation Adv Directive/Living Will/POA 07/05/2021 10:43 PM * Full Code (Latest Code Status on File) Date Activated Date Inactivated Comments 06/30/2021 2:02 PM 07/01/2021 5:11 PM Care Teams Fabricator Artificial Breast Relationship Specialty Start Date End Date Torri Pisano MD [address] [place] [address] PCP - General Family Medicine 06/30/21
--- OUTSIDE RECORDS SUMMARY | 2024-09-10 11:10 | XMS_ITS | Referral Summary ---
Author Organization [facility] [address] Address [address] [place] [address] Care Team Providers Care Forensic Ballistics Expert Name Role Phone Joel Foley MD Primary Care Provider [phone] Social History Tobacco Use Types Packs/Day Years Used Date Smoking Tobacco: Never Assessed Personal Safety Answer Date Recorded Getting School Help Needed Not on file 10/13 Comments Unknown Sex and Gender Information Value Date Recorded Sex Assigned at Not on file Legal Sex Female 10:32 PM PRE CODER Gender Identity Not on file Sexual Orientation Not on file Plan of Treatment Not on file Insurance MEDICARE FOR[facility]LY [facility] Care Teams Forensic Ballistics Expert Relationship Specialty Start Date End Date Joel Foley MD [address] [place] [address] PCP - General Family Medicine 10/04/17
--- OUTSIDE RECORDS SUMMARY | 2024-09-10 11:10 | XMS_ITS | Referral Summary ---
Author Organization [facility] Address [address] [facility] [place] [address] Care Team Providers Care Skimmer Scoop Operator Name Role Phone Torri Pisano MD Primary Care Provider [phone] Source Comments [facility],non-owned Affiliates and Associated Physician Practices is amultiple site organization consisting of ambulatory clinics and hospital sitesin [place], [place], [place] and [place]. This disclosure is being madepursuant to the Care Everywhere program and may not contain all information available regarding this patient. Last updated 18.[facility] Allergies No known active allergies Medications * [...] Date Presence of left artificial knee joint 06/26/202 4 Primary osteoarthritis of left knee 03/17/2021 Hyperlipidemia [...] Comments Blood Pressure 114/47 07/01/2021 7:48 AM BILLING DEPARTMENT SUPERVISOR Pulse 65 07/01/2021 7:48 AM BILLING DEPARTMENT SUPERVISOR Temperature 36.4 C (97.5 F) 07/01/2021 7:48 AM BILLING DEPARTMENT SUPERVISOR Respiratory Rate 16 07/01/2021 7:48 AM BILLING DEPARTMENT SUPERVISOR Oxygen Saturation 97% 07/01/2021 7:48 AM BILLING DEPARTMENT SUPERVISOR Inhaled Oxygen Concentration - - Weight 75.8 kg (167 lb) 06/30/2021 7:34 AM BILLING DEPARTMENT SUPERVISOR Height 165.1 cm (5' 5 ) 06/30/2021 7:34 AM BILLING DEPARTMENT SUPERVISOR Body Mass Index 27.79 06/30/2021 7:34 AM BILLING DEPARTMENT SUPERVISOR Functional Status Functional Status Response Date of Assess ment Is person deaf or have serious hearing difficult y? No 07/01/2021 Is person blind or have serious difficulty seein g? No 07/01/2021 Does person have serious dif ficulty walking/climbing stairs? Yes 07/01/2021 Does person have difficulty dressing/bathing? Ye s 07/01/2021 Does person have difficulty doing errands alone? Yes 07/01/2021 Cognitive Status Response Date of Assessm ent Does person have difficulty concentrating/remembering/making decisions? No 07/01/2021 Plan of Treatment Not on file Medical Devices Implanted Type Area Flume Maker Device Identifier Shelf Expiration Date Model / Serial / Lot Cmnt Bone Djo Srg Cblt 40gm Hvisc Strl Implanted:Qty: 1 on 06/30/2021 by Familia Sargent MD at [facility] Left: Knee [employer] 09/18/2022 [id number] / / [id number] Tray Tib 71mm Kn Cocr I Beam Implanted:Qty: 1 on 06/30/2021 by Familia Sargent MD at [facility] Left: Knee [employer] 05/10/2031 [id number] / / [id number] Cmpnt Fem Kn Lt Cr Cmnt Prm Vngrd Intlk Implanted:Qty: 1 on 06/30/2021 by Familia Sargent MD at [facility] Left: Knee [employer] 12/19/2030 [id number] / / [id number] Cmpnt Ptlr 28mm 1 Pg Wire Ascnt Arcm Kn Implanted:Qty: 1 on 06/30/2021 by Familia Sargent MD at [facility] Left: Knee [employer] 06/12/2025 [id number] / / [id number] Brng [id number] Vngrd Arcm Kn Ant Stab Implanted:Qty: 1 on 06/30/2021 by Familia Sargent MD at [facility] Left: Knee [employer] 02/03/2026 [id number] / / [id number] Advance Directives Documents on File Type Date Recorded Patient Control Equipment Electrician Expl anation Adv Directive/Living Will/POA 07/05/2021 10:43 PM * Full Code (Latest Code Status on File) Date Activated Date Inactivated Comments 06/30/2021 2:02 PM 07/01/2021 5:11 PM Care Teams Skimmer Scoop Operator Relationship Specialty Start Date End Date Torri Pisano MD [address] [place], [place] [id number] PCP - General Family Medicine 06/30/21
--- OUTSIDE RECORDS SUMMARY | 2024-09-10 11:10 | XMS_ITS | Encounter Summary ---
Author Organization [facility] Address [address] [facility] [address] Care Team Providers Care Plastic Straightening Roll Operator Name Role Phone Ervin Foley MD Primary Care Provider [phone] Alba Carranza MD Primary Care Provider [phone]- [phone] Niya Eddy Primary Care Provider [phone] Torri Pisano MD Primary Care Provider [phone] Encounter Details Date Type Department Care Team (Late st Contact Info) Description 12/25/2018 Lab Requisition [facility] [address] [place] [address] Albino Hutchison MD [address] [id number] Localized enlarged lymph nodes Social History Tobacco Use Types Packs/Day Years Used Date Smoking Tobacco: Never Assessed Sex and Gender Information Value Date Recorded Sex Assigned at Not on file Gender Identity Not on file Sexual Orientation Not on file documented as of this encounter Plan of Treatment Not on file documented as of this encounter Procedures Procedure Name Priority Date/Time Associated Diagnosis Comments FLOW CYTOMETRY TISSUE PANEL Routine 12/25/2018 9:52 AM CDT Localized enlarged lymph nodes documented in this encounter Results * FLOW CYTOMETRY TISSUE PANEL (12/25/2018 9:52 AM CDT) Case Report Flow Cytometry Case: [id number] Authorizing Provider: Albino Hutchison MD Collected: 12/25/2018 09:52 AM Pathologist: Last Quiñones MD Received: 12/25/2018 02:04 PM Specimen: Axillary Lymph Node 9 6:46 AM [facility] Final Diagnosis Lymph node, right axilla, flow cytometric immunophenotypic analysis ([id number]): - Reduced viability specimen. - No evidence of non-Hodgkin lymphoma. - See interpretation. 9 6:46 AM [facility] Flow Cytometry Interpretation The right axillary lymph node specimen has a reduced viability of 65%. Most of the cells are within the lymphocyte gate (93%). Within this region, there is no monotypic B-cell population identified (kappa: lambda ratio = 2.5:1). There is no aberrant co-expression of CD5 or CD10 on mature B-cells. There is no immunophenotypically aberrant or expanded T-cell population seen (CD4:CD8 ratio = 1.7:1). A cytospin prepared from the flow cytometry specimen is reviewed for senior quality assurance specialist purposes. Overall, the right axillary lymph node shows reduced viability specimen with no evidence of involvement by non-Hodgkin lymphoma. Correlation with clinical findings and concurrent biopsy is required. SLEEP TECHNOLOGIST/NW 9 6:46 AM [facility] Flow Cytometry Results Differential Result Comment Flow Cell Count /uL 4000 Total Viability % 65.0 Lymphocytes % 93 Dim CD45 Region % 1 Monocytes % 4 Granulocytes % 1 9 6:46 AM [facility] Reason for test Localized enlarged lymph nodes 785.6 9 6:46 AM [facility] Client Specimen ID # [id number] 9 6:46 AM [facility] Number of markers 16 were performed. A Flow CD3 A Flow CD10 A Flow CD20 A Flow CD23 A Flow CD2 A Flow CD4 A Flow CD1a A Flow CD5 A Flow CD19 A Flow CD34 A Flow CD45 A Flow CD7 A Flow CD8 A Flow CD30 A [place]+CD19+ A Lambda+CD19+ 9 6:46 AM CDT [facility] Disclaimer Test performed at [facility], [address] [place], [place], [address]. *The established laboratory minimum viability is 70%. Values below the minimum may result in the failure to find an abnormal population of cells. This test was developed and its performance characteristics determined by the Flow Cytometry Laboratory. It has not been cleared by the [place] Food and Drug Administration (FDA). The FDA has determined that such clearance or approval is not necessary. This test is used for clinical purposes. It should not be regarded as investigational or for research. This laboratory is regulated under the Clinical Laboratory Improvement Amendments of 1998 (CLIA) as a qualified to perform high complexity clinical testing. 9 6:46 AM CDT [facility] Embedded Images 9 6:46 AM CDT [facility] Pathology/Cytolo gy AXILLARY LYMPH NODE STRUCTURE / Unknown 12/25/2018 9:52 AM CDT 12/25/2018 2:04 PM CDT Albino Hutchison MD LAB - PATHOLOGY/CYTO LOGY ORDERABLES [facility]. [address] [phone] documented in this encounter Visit Diagnoses Diagnosis Localized enlarged lymph nodes Enlargement of lymph nodes documented in this encounter Care Teams Plastic Straightening Roll Operator Relationship Specialty Start Date End Date Ervin Foley MD [address] [place] [id number] PCP - General 12/25/18 05/23/21 Alba Carranza MD [address] [place] [address] PCP - General Family Medicine 05/24/21 05/24/21 Niya Eddy PA [address] [place] [address] PCP - General Physician Associate Data Scientist 05/25/21 06/29/21 Torri Pisano MD [address] [place] [address] PCP - General Family Medicine 06/30/21 documented as of this encounter
--- OUTSIDE RECORDS SUMMARY | 2024-09-10 11:10 | XMS_ITS | Patient Health Summary ---
Author Organization [facility] Address [address] [facility] [place] [address] Care Team Providers Care Digital Advisor Name Role Phone Torri Pisano MD Primary Care Provider [phone] Note from [facility],non-owned Affiliates and Associated Physician Practices is amultiple site organization consisting of ambulatory clinics and hospital sitesin [place], [place], [place] and [place]. This disclosure is being madepursuant to the Care Everywhere program and may not contain all information available regarding this patient. Last updated 18.[facility] Allergies No known active allergies Medications * Be aware that medications may not be up to date on this document. Alwaysverify current medications with the patient. * atorvastatin (LIPITOR) 10 MG tablet atorvastatin 10 mg tablet TAKE 1 TABLET BY MOUTH ONCE DAILY IN THE EVENING AT BEDTIME. LIPID PANEL NEEDED 4 6 MONTHS BEFORE REFILL. * Esomeprazole Magnesium (NEXIUM PO) Nexium 1qd * Multiple Vitamin (MULTIVITAMIN ADULT PO) multivitamin 1qd * Calcium Polycarbophil (FIBERCON PO) Take 2 tablets by mouth 2 times daily * metoprolol succinate XL 24hr (TOPROL XL) 25 MG tablet(Started 01/10/2021) TAKE 1/2 (ONE HALF) TABLET BY MOUTH ONCE DAILY Active Problems Problem Noted Date Diagnosed Date [...] Comments Blood Pressure 114/47 07/01/2021 7:48 AM DEPUTY JUVENILE OFFICER Pulse 65 07/01/2021 7:48 AM DEPUTY JUVENILE OFFICER Temperature 36.4 C (97.5 F) 07/01/2021 7:48 AM DEPUTY JUVENILE OFFICER Respiratory Rate 16 07/01/2021 7:48 AM DEPUTY JUVENILE OFFICER Oxygen Saturation 97% 07/01/2021 7:48 AM DEPUTY JUVENILE OFFICER Inhaled Oxygen Concentration - - Weight 75.8 kg (167 lb) 06/30/2021 7:34 AM DEPUTY JUVENILE OFFICER Height 165.1 cm (5' 5 ) 06/30/2021 7:34 AM DEPUTY JUVENILE OFFICER Body Mass Index 27.79 06/30/2021 7:34 AM DEPUTY JUVENILE OFFICER Medical Devices Implanted Type Area Radiologic Tech Device Identifier Shelf Expiration Date Model / Serial / Lot Cmnt Bone Djo Srg Cblt 40gm Hvisc Strl Implanted:Qty: 1 on 06/30/2021 by Familia Sargent MD at [facility] Left: Knee [employer] 09/18/2022 600-15-000 / / [id number] Tray Tib 71mm Kn Cocr I Beam Implanted:Qty: 1 on 06/30/2021 by Familia Sargent MD at [facility] Left: Knee [employer] 05/10/2031 [id number] / / [id number] Cmpnt Fem Kn Lt Cr Cmnt Prm Vngrd Intlk Implanted:Qty: 1 on 06/30/2021 by Familia Sargent MD at [facility] Left: Knee [employer] 12/19/2030 [id number] / / [id number] Cmpnt Ptlr 28mm 1 Pg Wire Ascnt Arcm Kn Implanted:Qty: 1 on 06/30/2021 by Familia Sargent MD at [facility] Left: Knee [employer] 06/12/2025 [id number] / / [id number] Vngrd Arcm Kn Ant Stab Implanted:Qty: 1 on 06/30/2021 by Familia Sargent MD at [facility] Left: Knee [employer] 02/03/2026 [id number] / / [id number] Procedures * C-REACTIVE PROTEIN(Performed 01/23/2024) Performed for Left knee pain, unspecified chronicity * ERYTHROCYTE SEDIMENTATION RATE(Performed 01/23/2024) Performed for Left knee pain, unspecified chronicity * XR KNEE LEFT 3VW(Performed 01/22/2024) Performed for Left knee pain, unspecified chronicity * XR PELVIS W RIGHT HIP 1VW(Performed 12/18/2023) Performed for Pain of right hip * XR KNEE LEFT 3VW(Performed 08/02/2021) Performed for Aftercare following left knee joint replacement surgery * NEURAXIAL BLOCK(Performed 06/30/2021) * ARTHROPLASTY TOTAL KNEE(Performed 06/30/2021) * EKG 12-LEAD(Performed 05/25/2021) Performed for Preop examination * COMPREHENSIVE METABOLIC PANEL(Performed 05/25/2021) Performed for Preop examination * CBC W AUTO DIFFERENTIAL(Performed 05/25/2021) Performed for Preop examination * XR KNEE LEFT 3VW(Performed 03/16/2021) Performed for Left knee pain, unspecified chronicity * FLOW CYTOMETRY TISSUE PANEL(Performed 12/25/2018) Performed for Localized enlarged lymph nodes * PATHOLOGY TISSUE(Performed 12/25/2018) Results * (ABNORMAL) C-REACTIVE PROTEIN (01/23/2024 1:47 PM CDT) C-Reactive Protein 61.1(H) <8.0 mg/L [facility] Comment: Test Performed at: [place] [address] MARTÍNEZ MAGANA MD Blood BLOOD SPECIMEN / Unknown 01/23/2024 1:47 PM CDT 01/23/2024 1:51 PM CDT Familia Sargent MD LAB - CHEMISTRY ORDE MINA Performing Organization Address [facility] Co de Phone Number [facility] [address] [place] [address] * ERYTHROCYTE SEDIMENTATION RATE (01/23/2024 1:47 PM CDT) Pathologist [facility] Erythrocyte Sedimentation Rate Westergren 11 < OR = 30 mm/h [facility] Comment: Test Performed at: [address] [address] [place] [address] MARTÍNEZ MAGANA MD Blood BLOOD SPECIMEN / Unknown 01/23/2024 1:47 PM CDT 01/23/2024 1:51 PM CDT Familia Sargent MD LAB - HEMATOLOGY ORD ERABLES Performing Organization Address [facility] Co de Phone Number [facility] [id number] [place] [address] * XR KNEE LEFT 3VW (01/22/2024 4:02 PM CDT) Only the most recent of3 resultswithin the time period is included. Narrative [facility] [address] - 01/22/2024 4:02 PM CDT Please see progress note in Epic for results. Familia Sargent MD DIAGNOSTIC IMAGING O RDERABLES Performing Organization Address [facility]/ZIP Co de Phone Number [facility] [address] * XR PELVIS W RIGHT HIP 1VW (12/18/2023 9:35 AM CDT) Narrative [facility] [address] - 12/18/2023 9:35 AM CDT Please see progress note in Epic for results. Bienvenido Velasco IV, MD DIAGNOSTIC IMAGING O RDSHERICE [facility] [address] * Neuraxial Block (06/30/2021 10:03 AM DEPUTY JUVENILE OFFICER) Narrative Fidelia Varma APRN-POST COMMANDER - 06/30/2021 10:03 AM DEPUTY JUVENILE OFFICER Fidelia Varma APRN-CRNA 06/30/2021 11:05 AM Neuraxial Block Note Pre-Procedure: Procedure Name: Neuraxial Block Patient Location: OR Indications: surgical anesthesia Pre-Anesthetic Checklist: Patient identified, IV Checked, Risks and benefits discussed, Surgical consent verified, Monitors and equipment, Site examined, Pre-op evaluation done, Time-out performed, Informed consent obtained, Questions answered/anesthesia questions answered and Allergies reviewed Anticoagulation/ Anti-thrombosis status confirmed? Yes Supplemental O2: face mask Monitors: BP, continuous pluse ox and End tidal CO2 Patient Condition: sedated, meaningful contact maintained throughout procedure Patient Sedated? Yes Sedation Type: mild Procedure: Block Type: Spinal Prep: Betadine Sterile Field: mask, cap/hat, sterile established and sterile gloves Approach: midline Skin was localized? Yes Spinal Block: Needle Type: spinal needle Needle Gauge: 22 Needle Length: 90 mm Placement Site: L2-3 Number of Attempts: 1 CSF: free flow, aspiration before injection Local anesthetics used? Yes Degree of difficulty: none Procedure Tolerance: tolerated well performed while the patient was sedated Sensory Level: thoracic lumbo Motor Blockade: Yes Position post procedure: supine Vital Signs: Vital signs monitored and stable throughout. See anesthesia record for details. Staff: Anesthesia Provider: Fidelia Varma APRN-CRNA - performed the procedure Raven Cordvoa DO GENERAL ANESTHESIA O CLARA * EKG 12-LEAD (05/25/2021 3:02 PM CDT) Ventricular Rate 75 BPM [facility] Atrial Rate 75 BPM [facility] P-R Interval 140 ms [facility] QRS Duration ms 104 ms [facility] Q-T Interval ms 408 ms [facility] QTC Calculation (Bezet) 455 ms [facility] Calculated P [place] 51 degrees [facility] Calculated R [place] -52 degrees [facility] Calculated T [place] 62 degrees [facility] Interpretation EKG Normal sinus rhythm Left axis deviation Incomplete right bundle branch block Abnormal ECG No previous ECGs available Confirmed by CORY MALONEY, TUNG GARCIA ([id number]) on 05/26/2021 10:53:46 AM [facility] 05/25/2021 3:02 PM CDT 05/26/2021 10:53 AM CDT Raven Cordova DO ECG ORDERABLES [facility] * (ABNORMAL) CBC W AUTO DIFFERENTIAL (05/25/2021 2:44 PM CDT) WBC 8.4 4.4 - 10.7 x10E9/L 05/25/2021 3:09 PM CDT [facility] WBC Corrected 05/25/2021 3:09 PM CDT [facility] RBC 4.09 3.80 - 5.20 x10E12/L 05/25/2021 3:09 PM CDT [facility] Hemoglobin 12.5 12.0 - 15.6 gm/dL 05/25/2021 3:09 PM CDT [facility] Hematocrit 38.5 35.9 - 45.5 % 05/25/2021 3:09 PM CDT [facility] MCV 94.1 80.7 - 98.3 fl 05/25/2021 3:09 PM CDT [facility] MCH 30.6 26.7 - 34.0 pg 05/25/2021 3:09 PM CDT [facility] MCHC 32.5 30.8 - 35.9 gm/dL 05/25/2021 3:09 PM CDT [facility] Platelet Count 289 153 - 416 x10E9/L 05/25/2021 3:09 PM CDT [facility] RDW-CV 12.8 12.1 - 14.9 % 05/25/2021 3:09 PM CDT [facility] MPV 9.0(L) 9.4 - 12.9 fl 05/25/2021 3:09 PM CDT [facility] Neutrophils % 70.0 44.0 - 73.0 % 05/25/2021 3:09 PM CDT [facility] Lymphocytes % 14.1(L) 20.0 - 43.0 % 05/25/2021 3:09 PM CDT [facility] Monocytes % 11.9 5.0 - 13.0 % 05/25/2021 3:09 PM CDT [facility] Eosinophils % 2.0 0.0 - 6.0 % 05/25/2021 3:09 PM CDT [facility] Basophils % 0.7 0.0 - 2.0 % 05/25/2021 3:09 PM CDT [facility] Immature Granulocytes 1.3(H) 0 - 1 % 05/25/2021 3:09 PM CDT [facility] Neutrophil Absolute 5.88 2.01 - 7.14 x10E9/L 05/25/2021 3:09 PM CDT [facility] Lymphocytes Absolute 1.19 1.07 - 3.94 x10E9/L 05/25/2021 3:09 PM CDT [facility] Monocytes Absolute 1.00 0.26 - 1.07 x10E9/L 05/25/2021 3:09 PM CDT [facility] Eosinophils Absolute 0.17 0 - 0.47 x10E9/L 05/25/2021 3:09 PM CDT [facility] Basophils Absolute 0.06 0 - 0.08 x10E9/L 05/25/2021 3:09 PM CDT [facility] Immature Granulocytes Absolute 0.11(H) 0.00 - 0.06 x10E9/L 05/25/2021 3:09 PM CDT [facility] nRBC Auto 0 /100 WBC 05/25/2021 3:09 PM CDT [facility] Blood BLOOD SPECIMEN / Unknown Venipuncture / Unknown 05/25/2021 2:44 PM CDT 05/25/2021 3:01 PM CDT Mary Cassidy SHORE WORKING SUPERVISOR-ETCHED CIRCUIT PROCESSOR LAB - SHANTA TOLOGY ORDERABLES [facility] [address] [place] [address] * COMPREHENSIVE METABOLIC PANEL (05/25/2021 2:44 PM CDT) [facility] Glucose 88 70 - 105 mg/dL 05/25/2021 3:21 PM CDT [facility] Sodium 136 136 - 145 mmol/L 05/25/2021 3:21 PM CDT [facility] Potassium 4.3 3.5 - 5.1 mmol/L 05/25/2021 3:21 PM CDT [facility] Chloride 99 98 - 107 mmol/L 05/25/2021 3:21 PM CDT [facility] CO2 27 23 - 31 mmol/L 05/25/2021 3:21 PM CDT [facility] Calcium 9.5 8.4 - 10.4 mg/dL 05/25/2021 3:21 PM CDT [facility] Anion Gap 10 8 - 18 mmol/L 05/25/2021 3:21 PM CDT [facility] BUN 17 9.8 - 20.1 mg/dL 05/25/2021 3:21 PM CDT [facility] Creatinine 0.70 0.57 - 1.11 mg/dL 05/25/2021 3:21 PM CDT [facility] Alkaline Phosphatase 86 40 - 150 U/L 05/25/2021 3:21 PM CDT [facility] ALT 16 0 - 61 U/L 05/25/2021 3:21 PM CDT [facility] AST 19 5 - 34 U/L 05/25/2021 3:21 PM CDT [facility] Protein Total 6.9 6.4 - 8.3 gm/dL 05/25/2021 3:21 PM CDT [facility] Albumin 4.1 3.2 - 4.6 gm/dL 05/25/2021 3:21 PM CDT [facility] Bilirubin Total 0.3 0.2 - 1.2 mg/dL 05/25/2021 3:21 PM CDT [facility] eGFR by MDRD >60 mL/min/1.7 3m2 05/25/2021 3:21 PM CDT [facility] eGFR by MDRD >60 mL/min/1.7 3m2 05/25/2021 3:21 PM CDT [facility] Blood BLOOD SPECIMEN / Unknown Venipuncture / Unknown 05/25/2021 2:44 PM CDT 05/25/2021 3:01 PM CDT Mary Cassidy SHORE WORKING SUPERVISOR-ETCHED CIRCUIT PROCESSOR LAB - CHEM ISTRY ORDERABLES [facility] [address] [place] [address] * FLOW CYTOMETRY TISSUE PANEL (12/25/2018 9:52 AM CDT) Case Report Flow Cytometry Case: [id number] Authorizing Provider: Albino Hutchison MD Collected: 12/25/2018 09:52 AM Pathologist: Last Quiñones MD Received: 12/25/2018 02:04 PM Specimen: Axillary Lymph Node 9 6:46 AM CDT [facility] Final Diagnosis Lymph node, right axilla, flow cytometric immunophenotypic analysis ([id number]): - Reduced viability specimen. - No evidence of non-Hodgkin lymphoma. - See interpretation. 9 6:46 AM T [facility] Flow Cytometry Interpretation The right [...] the flow cytometry specimen is reviewed for software quality manager purposes. Overall, the right axillary lymph node shows reduced viability specimen with no evidence of involvement by non-Hodgkin lymphoma. Correlation with clinical findings and concurrent biopsy is required. LIQUOR BRIDGE OPERATOR/NW 9 6:46 AM CDT [facility] Flow Cytometry Results Differential Result Comment Flow Cell Count /uL 4000 Total Viability % 65.0 Lymphocytes % 93 Dim CD45 Region % 1 Monocytes % 4 Granulocytes % 1 9 6:46 AM CDT [facility] Reason for test Localized enlarged lymph nodes 785.6 9 6:46 AM CDT [facility] Client Specimen ID # [id number] 9 6:46 AM [facility] Number of markers 16 were performed. A Flow CD3 A Flow CD10 A Flow CD20 A Flow CD23 A Flow CD2 A Flow CD4 A Flow CD1a A Flow CD5 A Flow CD19 A Flow CD34 A Flow CD45 A Flow CD7 A Flow CD8 A Flow CD30 A Sage+CD19+ A Lambda+CD19+ 9 6:46 AM T [facility] Disclaimer Test performed at [facility], [address] [place] [address], [address]. *The established laboratory minimum viability is 70%. [...] high complexity clinical testing. 9 6:46 AM T [facility] Embedded Images 9 6:46 AM [facility] Pathology/Cytolo gy AXILLARY LYMPH NODE STRUCTURE / Unknown 12/25/2018 9:52 AM CDT 12/25/2018 2:04 PM CDT Albino Hutchison MD LAB - PATHOLOGY/CYTO LOGY ORDERABLES Performing Organization Address City/State/[facility] Co de Phone Number [facility] [address] [place] [address] * PATHOLOGY TISSUE (12/25/2018 9:00 AM CDT) Case Report Surgical Pathology Report Case: [id number] Authorizing Provider: Albino Hutchison MD Collected: 12/25/2018 09:00 AM Pathologist: Last Quiñones MD Received: 12/26/2018 02:28 PM Specimen: Lymph Node Biopsy, [id number] 12/27/2018 10:03 AM CDT [facility] Final Diagnosis Lymph node, left axilla, needle core biopsy ([id number]): - Benign reactive lymph cabrera tissue. - No evidence of lymphoma or carcinoma, as sampled. - See description. 12/27/2018 10:03 AM [facility] Microscopic Description and Comment Review [...] or carcinoma. Concurrent lymph node flow cytometry ([id number]) corroborates this diagnosis. Correlation with clinical findings and relevant cytogenetic/molecular testing is required. LIQUOR BRIDGE OPERATOR/NW 12/27/2018 10:03 AM [facility] Clinical History 12/27/2018 10:03 AM [facility] Materials Received Received are 2 slides and 1 block labeled as [id number] along with the outside pathology report. [place] [address]. All materials are returned to the referring institution, along with a copy of our final report. 12/27/2018 10:03 AM [facility] Disclaimer The performance characteristics of all immunohistochemical and indirect immunofluorescence stains (if any) cited in this report were determined by the Histopathology Laboratory of [facility]. Some of these tests were developed by [...] the attending (teaching) pathologist. 12/27/2018 10:03 AM CDT [facility] Embedded Images 12/27/2018 10:03 AM CDT [facility] Pathology/Cytolo gy BIOPSY OF LYMPH NODE / Unknown 12/25/2018 9:00 AM CDT 12/26/2018 2:28 PM CDT Albino Hutchison MD LAB - PATHOLOGY/CYTO LOGY ORDERABLES [facility] [address] [phone] Care Teams Digital Advisor Relationship Specialty Start Date End Date Torri Pisano MD [address] [place] [address] PCP - General Family Medicine 06/30/21
--- OUTSIDE RECORDS SUMMARY | 2024-09-10 11:10 | XMS_ITS | Continuity of Care Document ---
Author Name Auto Generated, Auto Generated Organization [facility] Support Name Relationship Address Phone Umang Zabrina _ [address] [place] [address] Unavailable Zabrina Heck Financial Responsible Libertarian [address] [place] [address] Unavailable Zabrina Heck Self [address] [place] [address] Unavailable Summary Purpose Consult/Referral Allergies, Adverse Reactions, Alerts No Known Allergies Medications No Known Medications Conditions/Problems Problem/Diagnosis Awareness of Diagnosis Code (ICD-10) Onset Date (Start Date) Resolution Date (End Date) Status Source Comments STIFFNESS OF RIGHT SHOULDER, NOT ELSEWHERE CLASSIFIED M25.611 06/18/20 18 Active Alba Carranza LOW BACK PAIN M54.5 05/31/20 17 Active Alba Carranza STRAIN OF MUSCLE, FASCIA AND TENDON OF LOWER BACK, SUBSEQUENT ENCOUNTER S39.012D 05/31/20 17 Active Alba Carranza lumbar Procedures No Known Procedures
[2024-09-10 19:35] LABS: Basophils Percent Auto 0.7 % (0.2-1.2); Eosinophils Absolute Auto 0.1 K/mm3 (0-0.3); Eosinophils Percent Auto 2.1 % (0-4.4); Hematocrit 40.3 % (37.0-47.0); Hemoglobin 12.8 g/dL (12.0-15.0); Immature Granulocyte Absolute 0.03 K/mm3 (0.00-0.031); Immature Granulocyte Percent A 0.7 % (0-0.5); Lymphocytes Absolute Auto 1.14 K/mm3 (0.9-3.2); Lymphocytes Percent Auto 26.1 % (18.3-44.2); Mean Corpuscular HGB Conc 31.8 g/dl (32-36); Mean Corpuscular Hemoglobin 30.4 pg (26-34); Mean Corpuscular Volume 95.7 fl (80-100); Mean Platelet Volume 9.9 fl (7.4-10.4); Monocytes Absolute Auto 0.6 K/mm3 (0.1-0.6); Monocytes Percent Auto 13.7 % (2.6-8.5); Neutrophils Absolute Auto 2.5 K/mm3 (1.3-6.7); Neutrophils Percent Auto 56.7 % (45.5-73.1); Platelet Count Result 260 k/mm3 (150-375); Red Blood Count 4.21 M/mm3 (4.2-5.4); Red Cell Distribution Width 13.8 % (11.5-14.5); White Blood Count 4.4 K/mm3 (4.5-10.0)
[2024-09-10 20:12] LABS: Alanine Aminotransferase 19 U/L (6-35); Albumin Level 3.9 g/dL (3.5-5.1); Alkaline Phosphatase 86 U/L (38-126); Anion Gap 4 mmol/L (4-12); Aspartate Amino Transferase 30 U/L (14-36); Bilirubin,Total 0.5 mg/dL (0.2-1.3); Blood Urea Nitrogen 23 mg/dL (7-17); Calcium 9.2 mg/dL (8.4-10.2); Carbon Dioxide 30 mmol/L (22-30); Chloride 107 mmol/L (98-107); Cholesterol 213 mg/dL (0-200); Estimated Glomerular Filt Rate > 60; Glucose 84 mg/dL (65-110); HDL Direct 52 mg/dL; Potassium 4.6 mmol/L (3.4-5.0); Sodium 141 mmol/L (137-145); Triglycerides 104 mg/dL (<150)
[2024-09-10 20:32] LABS: LDL Cholesterol Direct 120 mg/dL
[2024-09-10 21:28] LABS: Free T4 Free Thyroxine 1.23 ng/dL (0.78-2.19); Vitamin D 25 Hydroxy 52.5 ng/mL
== END 2024-09-10 10:07 | disposition home or self-care (01) ==
LOC: ANHGOSHLAB 10:08
PROVIDERS: PCP Family Medicine; Visit Provider Student in an Organized Health Care Education/Training Program
DX: E03.9 Hypothyroidism, unspecified (principal); E78.2 Mixed hyperlipidemia; E55.9 Vitamin D deficiency, unspecified; K21.9 Gastro-esophageal reflux disease without esophagitis; F41.9 Anxiety disorder, unspecified; K58.2 Mixed irritable bowel syndrome; R94.6 Abnormal results of thyroid function studies
CPT/HCPCS: 36415; 80053; 80061; 82306; 84439; 84443; 85025

== ENCOUNTER 2024-09-16 16:40 | Outpatient (CLI) | payer MEDICARE, SELFPAY ==
--- NOTE | ~2024-09-16 | US_ITS ---
Procedure: Duplex Doppler examination of the bilateral carotids. Indication: Carotid occlusion/stenosis Technique: Real time, color-flow and pulse wave Doppler examination of the bilateral carotids was performed. Findings: Love scale ultrasonography of the right neck demonstrated no significant plaque. There was demonstrat ion of normal color-flow and Doppler waveforms within the right common, internal and external carotid arteries. The peak systolic velocities in the right common, internal and external carotid arteries w ere demonstrated to be 98 cm/sec, 84 cm/sec and 44 cm/sec respectively. The right ICA/CCA ratio was 0 .9.The proximal right internal carotid artery demonstrates 0% stenosis relative to the normal distal artery lumen diameter. Love scale sonography of the left neck demonstrated no significant plaque. There was demonstration of normal color-flow and wave forms within the left common, internal and external carotid arteries. The peak systolic velocities in the left common, internal and external carotid arteries were demonstrate d to be 95cm/sec, 106 cm/sec and 76 cm/sec respectively. The left ICA/CCA ratio was 1.5. The proximal left internal carotid artery demonstrates 0% stenosis relative to the normal distal artery lumen naif meter. There was antegrade flow demonstrated in the bilateral vertebral arteries. Impression: No hemodynamically significant stenosis of the bilateral internal carotid arteries. Antegrade flow in the bilateral vertebral arteries. Note: The methodology used is an indirect measurement validated against a direct method (such as the NASCET criteria) that compares diameters at the stenosis to the distal ICA. Reviewed, dictated and finalized at location . MYSQL DEVELOPER Impression: No hemodynamically significant stenosis of the bilateral internal carotid arter ies. Antegrade flow in the bilateral vertebral arteries. Note: The methodology used is an indirect measurement validated against a direct meth od (such as the NASCET criteria) that compares diameters at the stenosis to the distal ICA.
--- OUTSIDE RECORDS SUMMARY | 2024-09-16 18:33 | XMS_ITS | Clinical Summary ---
Author Organization [facility] Address [address] [place] [address] Care Team Providers Care Sewer Pipe Layer Helper Name Role Phone Torri Pisano MD Primary Care Provider [phone] Source Comments [facility],non-owned Affiliates and Associated Physician Practices is amultiple site organization consisting of ambulatory clinics and hospital sitesin [place], [place], [place] and [place]. This disclosure is being madepursuant to the Care Everywhere program and may not contain all information available regarding this patient. Last updated 18.[facility] Allergies No known active allergies Medications * [...] Comments Blood Pressure 114/47 07/01/2021 7:48 AM NAIL KEGGER Pulse 65 07/01/2021 7:48 AM NAIL KEGGER Temperature 36.4 C (97.5 F) 07/01/2021 7:48 AM NAIL KEGGER Respiratory Rate 16 07/01/2021 7:48 AM NAIL KEGGER Oxygen Saturation 97% 07/01/2021 7:48 AM NAIL KEGGER Inhaled Oxygen Concentration - - Weight 75.8 kg (167 lb) 06/30/2021 7:34 AM NAIL KEGGER Height 165.1 cm (5' 5 ) 06/30/2021 7:34 AM NAIL KEGGER Body Mass Index 27.79 06/30/2021 7:34 AM NAIL KEGGER Plan of Treatment Health Maintenance Due Date [...] this topic Medical Devices Implanted Type Area Wastewater Analyst Device Identifier Shelf Expiration Date Model / Serial / Lot Cmnt Bone Djo Srg Cblt 40gm Hvisc Strl Implanted:Qty: 1 on 06/30/2021 by Familia Sargent MD at [facility] Left: Knee [employer] 09/18/2022 600-15-000 / / [id number] Tray Tib 71mm Kn Cocr I Beam Implanted:Qty: 1 on 06/30/2021 by Familia Sargent MD at [facility] Left: Knee [employer] 05/10/2031 [id number] / / [id number] Cmpnt Fem Kn Lt Cr Cmnt Prm Vngrd Intlk Implanted:Qty: 1 on 06/30/2021 by Familia Sargent MD at [facility] Left: Knee [employer] 12/19/2030 [id number] / / [id number] Cmpnt Ptlr 28mm 1 Pg Wire Ascnt Arcm Kn Implanted:Qty: 1 on 06/30/2021 by Familia Sargent MD at [facility] Left: Knee [employer] 06/12/2025 [id number] / / [id number] Vngrd Arcm Kn Ant Stab Implanted:Qty: 1 on 06/30/2021 by Familia Sargent MD at [facility] Left: Knee [employer] 02/03/2026 [id number] / / [id number] Advance Directives Documents on File Type Date Recorded Patient Digital Strategist Expl anation Adv Directive/Living Will/POA 07/05/2021 10:43 PM * Full Code (Latest Code Status on File) Date Activated Date Inactivated Comments 06/30/2021 2:02 PM 07/01/2021 5:11 PM Care Teams Sewer Pipe Layer Helper Relationship Specialty Start Date End Date Torri Piasno MD [address] [place] [address] PCP - General Family Medicine 06/30/21
--- OUTSIDE RECORDS SUMMARY | 2024-09-16 18:33 | XMS_ITS | Encounter Summary ---
Author Organization [facility] Address [address] [place] [place] [address] Care Team Providers Care Payroll And Benefits Assistant Name Role Phone Ervin Foley MD Primary Care Provider [phone] Alba Carranza MD Primary Care Provider [phone] Niya Eddy Primary Care Provider [phone] Torri Pisano MD Primary Care Provider [phone] Encounter Details Date Type Department Care Team (Late st Contact Info) Description 12/25/2018 Lab Requisition [facility] [address] [place] [address] Albino Hutchison MD [address] [id number] Localized enlarged lymph nodes Social History Tobacco [...] AM CDT) Case Report Flow Cytometry Case: [id number] Authorizing Provider: Albino Hutchison MD Collected: 12/25/2018 09:52 AM Pathologist: Last Quiñones MD Received: 12/25/2018 02:04 PM Specimen: Axillary Lymph Node 9 6:46 AM [facility] Final Diagnosis Lymph node, right axilla, flow cytometric immunophenotypic analysis ([id number]): - Reduced viability specimen. - No evidence of non-Hodgkin lymphoma. - See interpretation. 9 6:46 AM [facility] Flow Cytometry Interpretation The [...] the flow cytometry specimen is reviewed for supplier quality specialist purposes. Overall, the right axillary lymph node shows reduced viability specimen with no evidence of involvement by non-Hodgkin lymphoma. Correlation with clinical findings and concurrent biopsy is required. SAFETY PROFESSIONAL/NW 9 6:46 AM [facility] Flow Cytometry Results Differential Result Comment Flow Cell Count /uL 4000 Total Viability % 65.0 Lymphocytes % 93 Dim CD45 Region % 1 Monocytes % 4 Granulocytes % 1 9 6:46 AM [facility] Reason for test Localized enlarged lymph nodes 785.6 9 6:46 AM [facility] Client Specimen ID # [id number] 9 6:46 AM [facility] Number of markers 16 were performed. A Flow CD3 A Flow CD10 A Flow CD20 A Flow CD23 A Flow CD2 A Flow CD4 A Flow CD1a A Flow CD5 A Flow CD19 A Flow CD34 A Flow CD45 A Flow CD7 A Flow CD8 A Flow CD30 A [place]+CD19+ A Lambda+CD19+ 9 6:46 AM CDT [facility] Disclaimer Test performed at [facility], [address] [place], [place], [address]. *The established laboratory minimum viability is 70%. [...] LAB Embedded Images 9 6:46 AM CDT [facility] Pathology/Cytolo gy AXILLARY LYMPH NODE STRUCTURE / Unknown 12/25/2018 9:52 AM CDT 12/25/2018 2:04 PM CDT Albino Hutchison MD LAB - PATHOLOGY/CYTO LOGY ORDERABLES [facility]. [address] [phone] documented in this encounter Visit Diagnoses Diagnosis Localized enlarged lymph nodes Enlargement of lymph nodes documented in this encounter Care Teams Payroll And Benefits Assistant Relationship Specialty Start Date End Date Ervin Foley MD [address] [place] [phone] PCP - General 12/25/18 05/23/21 Alba Carranza MD [address] [place] [address] PCP - General Family Medicine 05/24/21 05/24/21 Niya Eddy PA [address] [place] [address] PCP - General Physician Computer Forensics Investigator 05/25/21 06/29/21 Torri Pisano MD [address] [place] [address] PCP - General Family Medicine 06/30/21 documented as of this encounter
--- OUTSIDE RECORDS SUMMARY | 2024-09-16 18:33 | XMS_ITS | Patient Health Summary ---
Author Organization [facility] Address [address] [place] [address] Care Team Providers Care Door Manager Name Role Phone Torri Pisano MD Primary Care Provider [phone] Note from [facility],non-owned Affiliates and Associated Physician Practices is amultiple site organization consisting of ambulatory clinics and hospital sitesin [place], [place], [place] and [place]. This disclosure is being madepursuant to the Care Everywhere program and may not contain all information available regarding this patient. Last updated 18.[facility] Allergies No known active allergies Medications * [...] Comments Blood Pressure 114/47 07/01/2021 7:48 AM BAG REPAIRER Pulse 65 07/01/2021 7:48 AM BAG REPAIRER Temperature 36.4 C (97.5 F) 07/01/2021 7:48 AM BAG REPAIRER Respiratory Rate 16 07/01/2021 7:48 AM BAG REPAIRER Oxygen Saturation 97% 07/01/2021 7:48 AM BAG REPAIRER Inhaled Oxygen Concentration - - Weight 75.8 kg (167 lb) 06/30/2021 7:34 AM BAG REPAIRER Height 165.1 cm (5' 5 ) 06/30/2021 7:34 AM BAG REPAIRER Body Mass Index 27.79 06/30/2021 7:34 AM BAG REPAIRER Medical Devices Implanted Type Area Athletic Coordinator Device Identifier Shelf Expiration Date Model / Serial / Lot Cmnt Bone Djo Srg Cblt 40gm Hvisc Strl Implanted:Qty: 1 on 06/30/2021 by Familia Sargent MD at [facility] Left: Knee [employer] 09/18/2022 600-15-000 / / [id number] Tray Tib 71mm Kn Cocr I Beam Implanted:Qty: 1 on 06/30/2021 by Familia Sargent MD at [facility] Left: Knee [employer] 05/10/2031 [id number] / / [id number] Cmpnt Fem Kn Lt Cr Cmnt Prm Vngrd Intlk Implanted:Qty: 1 on 06/30/2021 by Familia Sargent MD at [facility] Left: Knee [employer] 12/19/2030 [id number] / / [id number] Cmpnt Ptlr 28mm 1 Pg Wire Ascnt Arcm Kn Implanted:Qty: 1 on 06/30/2021 by Familia Sargent MD at [facility] Left: Knee [employer] 06/12/2025 [id number] / / [id number] [id number] Vngrd Arcm Kn Ant Stab Implanted:Qty: 1 on 06/30/2021 by Familia Sargent MD at [facility] Left: Knee [employer] 02/03/2026 [id number] / / [id number] Procedures * C-REACTIVE PROTEIN(Performed 01/23/2024) Performed for [...] <8.0 mg/L [facility] Comment: Test Performed at: [facility] [place] [address] MARTÍNEZ MAGANA MD Blood BLOOD SPECIMEN / Unknown 01/23/2024 1:47 PM CDT 01/23/2024 1:51 PM CDT Familia Sargent MD LAB - CHEMISTRY ORDE MINA Performing Organization Address [facility] Co de Phone Number [facility] [address] [place] [address] * ERYTHROCYTE SEDIMENTATION RATE (01/23/2024 1:47 PM CDT) Pathologist [facility] Erythrocyte Sedimentation Rate Westergren 11 < OR = 30 mm/h [facility] Comment: Test Performed at: [facility] [address] [place] [address] MARTÍNEZ MAGANA MD Blood BLOOD SPECIMEN / Unknown 01/23/2024 1:47 PM CDT 01/23/2024 1:51 PM CDT Familia Sargent MD LAB - HEMATOLOGY ORD ERABLES Performing Organization Address [facility] Co de Phone Number [facility] [id number] [place] [address] * XR KNEE LEFT 3VW (01/22/2024 4:02 PM CDT) Only the most recent of3 resultswithin the time period is included. Narrative [facility] [address] - 01/22/2024 4:02 PM CDT Please see progress note in Epic for results. Familia Sargent MD DIAGNOSTIC IMAGING O RDERABLES Performing Organization Address [facility]/ZIP Co de Phone Number [facility] [address] * XR PELVIS W RIGHT HIP 1VW (12/18/2023 9:35 AM CDT) Narrative [facility] [address] - 12/18/2023 9:35 AM CDT Please see progress note in Epic for results. Bienvenido Velasco IV, MD DIAGNOSTIC IMAGING O RDSHERICE [facility] [address] * Neuraxial Block (06/30/2021 10:03 AM BAG REPAIRER) Narrative Fidelia Varma APRN-INBOUND SALES REPRESENTATIVE - 06/30/2021 10:03 AM BAG REPAIRER Fidelia Varma APRN-CRNA 06/30/2021 11:05 AM Neuraxial [...] Varma APRN-CRNA - performed the procedure Raven Cordova DO GENERAL ANESTHESIA O CLARA * EKG 12-LEAD (05/25/2021 3:02 PM CDT) Ventricular Rate 75 BPM [facility] Atrial Rate 75 BPM [facility] P-R Interval 140 ms [facility] QRS Duration ms 104 ms [facility] Q-T Interval ms 408 ms [facility] QTC Calculation (Bezet) 455 ms [facility] Calculated P Hyden 51 degrees [facility] Calculated R Hyden -52 degrees [facility] Calculated T Hyden 62 degrees [facility] Interpretation EKG Normal sinus rhythm Left axis deviation Incomplete right bundle branch block Abnormal ECG No previous ECGs available Confirmed by CORY MALONEY, TUNG GARCIA ([id number]) on 05/26/2021 10:53:46 AM [facility] MUSE 05/25/2021 [...] - 73.0 % 05/25/2021 3:09 PM CDT [facility] Lymphocytes % 14.1(L) 20.0 - 43.0 % 05/25/2021 3:09 PM CDT [facility] Monocytes % 11.9 5.0 - 13.0 % 05/25/2021 3:09 PM CDT [facility] Eosinophils % 2.0 0.0 - 6.0 % 05/25/2021 3:09 PM CDT [facility] Basophils % 0.7 0.0 - 2.0 % 05/25/2021 3:09 PM CDT [facility] Immature Granulocytes 1.3(H) 0 - 1 % 05/25/2021 3:09 PM CDT [facility] Neutrophil Absolute 5.88 2.01 - 7.14 x10E9/L 05/25/2021 3:09 PM CDT [facility] Lymphocytes Absolute 1.19 1.07 - 3.94 x10E9/L 05/25/2021 3:09 PM CDT [facility] Monocytes Absolute 1.00 0.26 - 1.07 x10E9/L 05/25/2021 3:09 PM CDT [facility] Eosinophils Absolute 0.17 0 - 0.47 x10E9/L 05/25/2021 3:09 PM CDT [facility] Basophils Absolute 0.06 0 - 0.08 x10E9/L 05/25/2021 3:09 PM CDT [facility] Immature Granulocytes Absolute 0.11(H) 0.00 - 0.06 x10E9/L 05/25/2021 3:09 PM CDT [facility] nRBC Auto 0 /100 WBC 05/25/2021 3:09 PM CDT [facility] Blood BLOOD SPECIMEN / Unknown Venipuncture / Unknown 05/25/2021 2:44 PM CDT 05/25/2021 3:01 PM CDT Mary Cassidy BONDERITE OPERATOR-DISABILITY HEARING OFFICER LAB - SHANTA TOLOGY ORDERABLES [facility] [address] [place] [address] * COMPREHENSIVE METABOLIC PANEL (05/25/2021 2:44 PM CDT) [facility] Glucose 88 70 - 105 mg/dL [...] CDT 05/25/2021 3:01 PM CDT Mary Cassidy BONDERITE OPERATOR-DISABILITY HEARING OFFICER LAB - CHEM ISTRY ORDERABLES [facility] [address] [place] [address] * FLOW CYTOMETRY TISSUE PANEL (12/25/2018 9:52 AM CDT) Case Report Flow Cytometry Case: [id number] Authorizing Provider: Albino Hutchison MD Collected: 12/25/2018 09:52 AM Pathologist: Last Quiñones MD Received: 12/25/2018 02:04 PM Specimen: Axillary Lymph Node 9 6:46 AM CDT [facility] Final Diagnosis Lymph node, right axilla, flow cytometric immunophenotypic analysis ([id number]): - Reduced viability specimen. - No evidence of non-Hodgkin lymphoma. - See interpretation. 9 6:46 AM T [facility] Flow Cytometry Interpretation The right [...] the flow cytometry specimen is reviewed for quality engineer medical device purposes. Overall, the right axillary lymph node shows reduced viability specimen with no evidence of involvement by non-Hodgkin lymphoma. Correlation with clinical findings and concurrent biopsy is required. SERVICE WORKER/NW 9 6:46 AM CDT [facility] Flow Cytometry Results Differential Result Comment Flow Cell Count /uL 4000 Total Viability % 65.0 Lymphocytes % 93 Dim CD45 Region % 1 Monocytes % 4 Granulocytes % 1 9 6:46 AM CDT [facility] Reason for test Localized enlarged lymph nodes 785.6 9 6:46 AM CDT [facility] Client Specimen ID # [id number] 9 6:46 AM [facility] Number of markers 16 were performed. A Flow CD3 A Flow CD10 A Flow CD20 A Flow CD23 A Flow CD2 A Flow CD4 A Flow CD1a A Flow CD5 A Flow CD19 A Flow CD34 A Flow CD45 A Flow CD7 A Flow CD8 A Flow CD30 A [place]+CD19+ A Lambda+CD19+ 9 6:46 AM T [facility] Disclaimer Test performed at [facility], [address] [place] [address], [address]. *The established laboratory minimum viability is 70%. [...] complexity clinical testing. 9 6:46 AM T [facility] Embedded Images 9 6:46 AM [facility] Pathology/Cytolo gy AXILLARY LYMPH NODE STRUCTURE / Unknown 12/25/2018 9:52 AM CDT 12/25/2018 2:04 PM CDT Albino Hutchison MD LAB - PATHOLOGY/CYTO LOGY ORDERABLES Performing Organization Address City/State/[facility] Co de Phone Number [facility] [address] [place] [address] * PATHOLOGY TISSUE (12/25/2018 9:00 AM CDT) Case Report Surgical Pathology Report Case: [id number] Authorizing Provider: Albino Hutchison MD Collected: 12/25/2018 09:00 AM Pathologist: Last Quiñones MD Received: 12/26/2018 02:28 PM Specimen: Lymph Node Biopsy, [id number] 12/27/2018 10:03 AM CDT [facility] Final Diagnosis Lymph node, left axilla, needle core biopsy ([id number]): - Benign reactive lymph cabrera tissue. - No evidence of lymphoma or carcinoma, as sampled. - See description. 12/27/2018 10:03 AM [facility] Microscopic Description and [...] or carcinoma. Concurrent lymph node flow cytometry ([id number]) corroborates this diagnosis. Correlation with clinical findings and relevant cytogenetic/molecular testing is required. SERVICE WORKER/NW 12/27/2018 10:03 AM [facility] Clinical History 12/27/2018 10:03 AM [facility] Materials Received Received are 2 slides and 1 block labeled as [id number] along with the outside pathology report. [place] [address]. All materials are returned to the referring institution, along with a copy of our final report. 12/27/2018 10:03 AM [facility] Disclaimer The performance characteristics of all immunohistochemical and indirect immunofluorescence stains (if any) cited in this report were determined by the Histopathology Laboratory of [facility]. Some of these tests were developed [...] attending (teaching) pathologist. 12/27/2018 10:03 AM CDT [facility] Embedded Images 12/27/2018 10:03 AM CDT [facility] Pathology/Cytolo gy BIOPSY OF LYMPH NODE / Unknown 12/25/2018 9:00 AM CDT 12/26/2018 2:28 PM CDT Albino Hutchison MD LAB - PATHOLOGY/CYTO LOGY ORDERABLES [facility] [address] [phone] Care Teams Door Manager Relationship Specialty Start Date End Date Torri Pisano MD [address] [place] [address] PCP - General Family Medicine 06/30/21
--- OUTSIDE RECORDS SUMMARY | 2024-09-16 18:33 | XMS_ITS | Referral Summary ---
Author Organization [facility] Address [address] [place] [address] Care Team Providers Care Leasing Agent Name Role Phone Torri Pisano MD Primary Care Provider [phone] Source Comments [facility],non-owned Affiliates and Associated Physician Practices is amultiple site organization consisting of ambulatory clinics and hospital sitesin [place], [place], [place] and [place]. This disclosure is being madepursuant to the Care Everywhere program and may not contain all information available regarding this patient. Last updated 18.[facility] Allergies No known active allergies Medications * [...] Comments Blood Pressure 114/47 07/01/2021 7:48 AM FLEXIBLE BABYSITTER Pulse 65 07/01/2021 7:48 AM FLEXIBLE BABYSITTER Temperature 36.4 C (97.5 F) 07/01/2021 7:48 AM FLEXIBLE BABYSITTER Respiratory Rate 16 07/01/2021 7:48 AM FLEXIBLE BABYSITTER Oxygen Saturation 97% 07/01/2021 7:48 AM FLEXIBLE BABYSITTER Inhaled Oxygen Concentration - - Weight 75.8 kg (167 lb) 06/30/2021 7:34 AM FLEXIBLE BABYSITTER Height 165.1 cm (5' 5 ) 06/30/2021 7:34 AM FLEXIBLE BABYSITTER Body Mass Index 27.79 06/30/2021 7:34 AM FLEXIBLE BABYSITTER Functional Status Functional Status Response Date of [...] on file Medical Devices Implanted Type Area Grain Combiner Device Identifier Shelf Expiration Date Model / Serial / Lot Cmnt Bone Djo Srg Cblt 40gm Hvisc Strl Implanted:Qty: 1 on 06/30/2021 by Familia Sargent MD at [facility] Left: Knee [employer] 09/18/2022 600-15-000 / / [id number] Tray Tib 71mm Kn Cocr I Beam Implanted:Qty: 1 on 06/30/2021 by Familia Sargent MD at [facility] Left: Knee [employer] 05/10/2031 [id number] / / [id number] Cmpnt Fem Kn Lt Cr Cmnt Prm Vngrd Intlk Implanted:Qty: 1 on 06/30/2021 by Familia Sargent MD at [facility] Left: Knee [employer] 12/19/2030 [id number] / / [id number] Cmpnt Ptlr 28mm 1 Pg Wire Ascnt Arcm Kn Implanted:Qty: 1 on 06/30/2021 by Familia Sargent MD at [facility] Left: Knee [employer] 06/12/2025 [id number] / / [id number] Vngrd Arcm Kn Ant Stab Implanted:Qty: 1 on 06/30/2021 by Familia Sargent MD at [facility] Left: Knee [employer] 02/03/2026 [id number] / / [id number] Advance Directives Documents on File Type Date Recorded Patient Wad Printing Machine Operator Expl anation Adv Directive/Living Will/POA 07/05/2021 10:43 PM * Full Code (Latest Code Status on File) Date Activated Date Inactivated Comments 06/30/2021 2:02 PM 07/01/2021 5:11 PM Care Teams Leasing Agent Relationship Specialty Start Date End Date Torri Pisano MD [address] [place], [place] [id number] PCP - General Family Medicine 06/30/21
--- OUTSIDE RECORDS SUMMARY | 2024-09-16 18:33 | XMS_ITS | Referral Summary ---
Author Organization [facility] [address] Address [address] [place] [address] Care Team Providers Care Miller Rod Mill Name Role Phone Joel Foley MD Primary Care Provider [phone] Social History Tobacco Use Types Packs/Day Years Used Date Smoking Tobacco: Never Assessed Personal Safety Answer Date Recorded Getting School Help Needed Not on file 10/13 Comments Unknown Sex and Gender Information Value Date Recorded Sex Assigned at Not on file Legal Sex Female 10:32 PM PARTS DATA WRITER Gender Identity Not on file Sexual Orientation Not on file Plan of Treatment Not on file Insurance MEDICARE [facility] Care Teams Miller Rod Mill Relationship Specialty Start Date End Date Joel Foley MD [address] [place] [address] PCP - General Family Medicine 10/04/17
--- OUTSIDE RECORDS SUMMARY | 2024-09-16 18:33 | XMS_ITS | Encounter Summary ---
Author Organization [facility] Address [address] [facility] [place] [address] Care Team Providers Care Local Driver Name Role Phone Ervin Foley MD Primary Care Provider [phone] Alba Carranza MD Primary Care Provider [phone] Niya Eddy Primary Care Provider [phone] Torri Pisano MD Primary Care Provider [phone] Encounter Details Date Type Department Care Team (Late st Contact Info) Description 12/26/2018 Lab Requisition [facility] [address] [place] [address] Albino Hutchison MD [address] [id number] Social History Tobacco Use Types Packs/Day Years [...] CDT) Case Report Surgical Pathology Report Case: [id number] Authorizing Provider: Albino Hutchison MD Collected: 12/25/2018 09:00 AM Pathologist: Last Quiñones MD Received: 12/26/2018 02:28 PM Specimen: Lymph Node Biopsy, [id number] 12/27/2018 10:03 AM [facility] Final Diagnosis Lymph node, left axilla, needle core biopsy ([id number]): - Benign reactive lymph cabrera tissue. - [...] or carcinoma. Concurrent lymph node flow cytometry ([id number]) corroborates this diagnosis. Correlation with clinical findings and relevant cytogenetic/molecular testing is required. MIXER DRIVER/NW 12/27/2018 10:03 AM [facility] Clinical History 12/27/2018 10:03 AM [facility] Materials Received Received are 2 slides and 1 block labeled as [id number] along with the outside pathology report. [place] [address]. All materials are returned to the referring institution, along with a copy of our final report. 12/27/2018 10:03 AM [facility] Disclaimer The performance characteristics of all immunohistochemical and indirect immunofluorescence stains (if any) cited in this report were determined by the Histopathology Laboratory of [facility]. Some of these tests were developed by [...] attending (teaching) pathologist. 12/27/2018 10:03 AM T [facility] Embedded Images 12/27/2018 10:03 AM T [facility] Pathology/Cytolo gy BIOPSY OF LYMPH NODE / Unknown 12/25/2018 9:00 AM CDT 12/26/2018 2:28 PM CDT Albino Hutchison MD LAB - PATHOLOGY/CYTO LOGY ORDERABLES Performing Organization Address [facility]/State/[facility] Co de Phone Number [facility] [address] [phone] documented in this encounter Visit Diagnoses Not on filedocumented in this encounter Care Teams Local Driver Relationship Specialty Start Date End Date Ervin Foley MD [address] [place] [address] PCP - General 12/25/18 05/23/21 Alba Carranza MD [address] [place] [address] PCP - General Family Medicine 05/24/21 05/24/21 Niya Eddy PA [address] [place] [address] PCP - General Physician Solar Energy System Installer Helper 05/25/21 06/29/21 Torri Pisano MD [address] [place] [address] PCP - General Family Medicine 06/30/21 documented as of this encounter
--- OUTSIDE RECORDS SUMMARY | 2024-09-16 18:33 | XMS_ITS | Clinical Summary ---
Author Organization [facility] [address] [facility] [address] Address [address] [place] [address] Care Team Providers Care Hospitality House Supervisor Name Role Phone Joel Foley MD Primary Care Provider [phone] Social History Tobacco Use Types Packs/Day Years Used Date Smoking Tobacco: Never Assessed Personal Safety Answer Date Recorded Getting School Help Needed Not on file 10/13 Comments Unknown Sex and Gender Information Value Date Recorded Sex Assigned at Not on file Legal Sex Female 10:32 PM INGREDIENT SPECIALIST Gender Identity Not on file Sexual Orientation Not on file Plan of Treatment Not on file Insurance MEDICARE [facility] Care Teams Hospitality House Supervisor Relationship Specialty Start Date End Date Joel Foley MD [address] [place] [address] PCP - General Family Medicine 10/04/17
--- OUTSIDE RECORDS SUMMARY | 2024-09-16 18:33 | XMS_ITS | Data Portability ---
Author Organization [place] - [facility] OFFICE Address [address] [place] [address] Care Team Providers Care Wound Care Specialist Name Role Phone PILI STEVENSONAH Primary Care Provider VIVEK SULLIVAN Primary Care Provider Assessment Encounter Date Assessment Date Assessment LastModified by Organization Details LastModified Time 11/23/2023 11/23/2023 Patient Examined by CARLITOS Proctor, Also Documentation reviewed and approved by supervising physician [email or web address] Not available 11/23/2023 11:55:46 Plan of Treatment Reminders Order Date Submit Date Provider Last Modified By Organization Details Last Modified Time Details Appointments None recorded. Lab None recorded. Referral None recorded. Procedures None recorded. Surgeries None recorded. Imaging None recorded. Medication Orders CoQ-10 100 mg capsule 2023 024 [id number], [address] [place], [place], [id number], 17:10:36 metoprolol succinate ER 25 mg tablet,ext ended release 24 hr 2021 022 [facility] [address] [place], [address], 11:59:43 Patient TargetsNo targets recorded. Patient Instructions Encounter Date Encounter Id Patient Instructions Last Modified By Organization Details Last Modified Time 11/12/2021 [id number] Exercise advised Low cholesterol diet advised Low sodium diet advised. [email or web address] Not available 11/12/2021 12:25:15 11/18/2022 [id number] Exercise advised Low cholesterol diet advised Low sodium diet advised. [email or web address] Not available 11/18/2022 11:39:46 11/23/2023 [id number] Low cholesterol diet advised Low sodium diet advised. [email or web address] Not available 11/23/2023 11:59:00 05/09/2024 [id number] Exercise advised Low cholesterol diet advised Low sodium diet advised. [email or web address] Not available 05/09/2024 17:44:31 Reason for Referral None Reported. Results Created Date Observation Date Name Description Value Unit Range Abnormal Flag Note LastModifiedBy Organization Detail LastModifiedTime 05/24/2005/20/2022 elect rocar diogr am No observ ation record ed. [email or web address] Not Available 2023 11:41:33 11/22/19 23 11/18/2022 elect rocar diogr am No observ ation record ed. [email or web address] Not Available 2023 11:41:30 11/25/19 24 11/23/2023 elect rocar diogr am No observ ation record ed. [email or web address] Not Available 2023 11:41:26 01/11/20 24 01/03/2024 US, carot id arter y No observ ation record ed. [email or web address] Not Available 2023 11:41:23 01/22/20 24 01/11/2024 US, echoc ardio gram No observ ation record ed. [facility], [facility] [address] [address], [place], [address], 01/23/2024 10:19:41 Result Notes None recorded. Problems Name Problem SNOMED Code Status Onset Date Resolution Date Notes Provider Name and Address Organization Details Recorded Time Irritable bowel syndrome 27471500 Active 2019 Lizzy [place] null, [place] - [facility] 0 12:41:25 Acid reflux 830466663 Active 2019 Lizzy [place] - [facility] 0 12:43:35 Palpitations 41385857 Active 2019 Larry Alex null, [place] - [facility] 0 15:59:43 Hyperlipidemia 97608340 Active 2019 Larry tovar, [place] - [facility] 0 15:59:53 Pre-surgery evaluation Active 2019 Larry tovar, [facility] 0 16:00:01 Alisa portillo [id number] Active 2019 Larry tovar, [facility] 0 16:00:09 Varicose veins of lower extremity 87315729 Active 2019 Larry tovar, [facility] 0 16:00:18 Problem Notes None recorded. Procedures Surgical History Date Name Laterality Status Provider Name and Address Organization Details Recorded Time Cholecystectomy completed Lizzy Rico [facility] 10/22/2019 12:47:19 Imaging Results Imaging Date Name Status LastModified by Organization Details LastModified Time 05/20/2022 electrocardiogram completed Informa tion not available 01/19/2024 11:41:33 11/18/2022 electrocardiogram completed Informa tion not available 01/19/2024 11:41:30 11/23/2023 electrocardiogram completed Informa tion not available 01/19/2024 11:41:26 01/03/2024 US, carotid artery completed Inform ation not available 01/19/2024 11:41:23 01/11/2024 US, echocardiogram completed [facility], [address] [facility], [place], [address], 01/23/2024 10:19:41 Procedure Notes None recorded. Medical Equipment None Reported. Allergies No known drug allergies Medications Name Sig Start Date Stop Date Status Note LastModified by Organization Details LastModified Time celecoxib 200 mg capsule 11/12 completed Not Available Not Available Not Available buspirone 5 mg tablet TAKE 1 TABLET BY MOUTH TWICE DAILY NEEDED FOR ANXIETY active Not Available Not Available No t Available prednison e 10 mg tablet 11/22 completed Not Available Not Available Not Available doxycycli ne hyclate 100 mg capsule TAKE 1 CAPSULE BY MOUTH DAILY 11/22 completed Not Available Not Available Not Available atorvasta tin 10 mg tablet TAKE 1 TABLET BY MOUTH DAILY 05/09 completed It is on hold as of the moment, stopped by PCP Not Available Not Available Not Available azithromy britney 250 mg tablet TAKE 2 TABLETS BY MOUTH FOR 1 DAY THEN TAKE 1 TABLET BY MOUTH DAILY FOR 4 DAYS 05/09 completed Not Available Not Available Not Available aspirin 325 mg tablet Take 1 tablet every day by oral route. active Not Available Not Available No t Available ibuprofen 800 mg tablet 11/12 completed Not Available Not Available Not Available benzonata te 200 mg capsule TAKE 1 CAPSULE BY MOUTH THREE TIMES DAILY FOR 10 DAYS NEEDED FOR COUGH 11/22 completed Not Available Not Available Not Available albuterol sulfate 1.25 mg/3 mL solution for nebulizat ion INHALE 1 VIAL VIA NEBULIZE R EVERY 8 HOURS NEEDED active Not Available Not Available No t Available hydrocodo ne 5 mg-acetam inophen 325 mg tablet 06/05 completed pt not taking 06/05/20 Not Available Not Available Not Available meloxicam 15 mg tablet TAKE 1 TABLET BY MOUTH EVERY DAY 11/22 completed Not Available Not Available Not Available Tri-Buffe red Aspirin 325 mg tablet Take 1 tablet by oral route. 03/20 completed pt not taking 12/20/19 20 TL Not Available Not Available Not Available penicilli n V potassium 500 mg tablet TAKE 2 TABLETS BY MOUTH NOW THEN 1 TABLET EVERY 6 HOURS UNTIL GONE 11/12 completed pt no longer takes 05/14/20 21 nj Not Available Not Available Not Available ciproflox acin 500 mg tablet TAKE 1 TABLET BY MOUTH EVERY 12 HOURS FOR 2 WEEKS 11/22 completed Not Available Not Available Not Available hydrocodo ne 10 mg-acetam inophen 325 mg tablet TAKE 1/2 TO 1 (ONE-HILDA F TO ONE) TABLET BY MOUTH EVERY 6 HOURS NEEDED FOR PAIN 11/12 completed Not Available Not Available Not Available aspirin 81 mg tablet,de layed release Take 1 tablet every day by oral route as directed . 05/20 completed Not Available Not Available Not Available cefadroxi l 500 mg capsule TAKE 1 CAPSULE BY MOUTH TWICE DAILY FOR 10 DAYS 11/22 completed Not Available Not Available Not Available meloxicam 7.5 mg tablet TAKE 1 TABLET BY MOUTH TWICE DAILY 11/12 completed Not Available Not Available Not Available levothyro xine 100 mcg tablet TAKE 1 TABLET BY MOUTH 6 DAYS PER WEEK active Not Available Not Available No t Available amitripty line 25 mg tablet TAKE 1 TABLET BY MOUTH EVERY DAY AT BEDTIME 11/22 completed Not Available Not Available Not Available Vitamin C 1,000 mg tablet Take by oral route. active Not Available Not Available No t Available lorazepam 0.5 mg tablet TAKE 1 TABLET BY MOUTH EVERY DAY NEEDED FOR ANXIETY 05/20 completed Not Available Not Available Not Available dicyclomi ne 20 mg tablet TAKE 1 TABLET FOUR TIMES DAILY NEEDED FOR STOMACH UPSET 11/22 completed Not Available Not Available Not Available baclofen 10 mg tablet TAKE 1/2 TO 1 TABLET BY MOUTH THREE TIMES DAILY NEEDED FOR MUSCLE PAIN active Not Available Not Available No t Available hydrocodo ne 7.5 mg-acetam inophen 325 mg tablet 11/12 completed Not Available Not Available Not Available cephalexi n 500 mg capsule 03/20 completed Not Available Not Available Not Available metoprolo l succinate ER 25 mg tablet,ex tended release 24 hr TAKE 1 TABLET BY MOUTH EVERY DAY active Not Available Not Available No t Available ergocalci ferol (vitamin D2) 1,250 mcg (50,000 unit) capsule TAKE 1 CAPSULE BY MOUTH WEEKLY 11/22 completed Not Available Not Available Not Available ipratropi um bromide 0.02 % solution for inhalatio n USE 2.5 ML VIA NEBULIZE R EVERY 6 HOURS NEEDED FOR SHORTNES S OF BREATH OR WHEEZING active Not Available Not Available No t Available levothyro xine 112 mcg tablet TAKE 1 TABLET BY MOUTH 6 TIMES A WEEK DIRECTED active Not Available Not Available No t Available ezetimibe 10 mg tablet TAKE 1 TABLET BY MOUTH DAILY 11/22 completed Not Available Not Available Not Available chlorhexi dine gluconate 0.12 % mouthwash 11/16 completed Not Available Not Available Not Available potassium chloride 11/22 completed Not Available Not Available Not Available Guerda 1 qd 11/22 completed Not Available Not Available Not Available potassium 99mg 05/06 completed Not Available Not Available Not Available Vitamin D3 500mcg 05/06 completed Not Available Not Available Not Available Simon 3 11/22 completed Not Available Not Available Not Available multivita min 1qd 11/22 completed Not Available Not Available Not Available Nexium 1qd 11/22 completed Not Available Not Available Not Available CoQ-10 100 mg capsule Take 1 capsule every day by oral route. 05/09 completed Not Available Not Available Not Available GaviLyte- N 420 gram oral solution 11/22 completed Not Available Not Available Not Available B12 11q 11/22 completed Not Available Not Available Not Available ipratropi um 0.5 mg-albute rol 2.5 mg/2.5 mL solution for nebulizat ion Inhale by inhalati on route. 05/06 completed Not Available Not Available Not Available Hyper-Srini 3.5 % solution for nebulizat ion USE 1 VIAL (4 ML) IN NEBULIZE R TWICE DAILY 05/09 completed Not Available Not Available Not Available NebuSal 3 % solution for nebulizat ion INHALE ONE VIAL (4ML) VIA NEBULIZE R TWICE DAILY FOR SECRETIO NS active Not Available Not Available No t Available [facility] Vaccine (PF) 30 mcg/0.3 mL IM susp (purple) PHARMACY ADMINIST ERED 11/16 completed Not Available Not Available Not Available Vitals Date Recorded Body height Body mass index (BMI) Body weight Heart rate Oxygen saturation Oxygen saturation in Arterial blood by Pulse oximetry Systolic blood pressure Diastolic blood pressure Provider Name and Address Organization Details Last Updated DateTime 2 165.1 cm 28.7 kg/m2 34942.9 7 g 77 /min 94 % 94 % 110 mm[Hg] 70 mm[Hg] Andre Alstno i, MD [address] [place], [address], [facility] 2 12:11:22 Date Recorded Body height Body mass index (BMI) Body weight Oxygen saturation Oxygen saturation in Arterial blood by Pulse oximetry Heart rate Systolic blood pressure Diastolic blood pressure Provider Name and Address Organization Details Last Updated DateTime 2 165.1 cm 28.1 kg/m2 86336.1 1 g 95 % 95 % 81 /min 116 mm[Hg] 78 mm[Hg] Massiel Valentine [facility] 2 11:53:17 Date Recorded Body height Body mass index (BMI) Body weight Oxygen saturation Oxygen saturation in Arterial blood by Pulse oximetry Oxygen saturation Oxygen saturation in Arterial blood by Pulse oximetry Heart rate Systolic blood pressure Diastolic blood pressure Provider Name and Address Organization Details Last Updated DateTime 3 165.1 cm 29.6 kg/m2 54382.0 8 g 89 % 89 % 90 % 90 % 64 /min 114 mm[Hg] 60 mm[Hg] ADRYAN QUIROGA [facility] 3 11:17:44 Date Recorded Body weight Heart rate Oxygen saturation Oxygen saturation in Arterial blood by Pulse oximetry Systolic blood pressure Diastolic blood pressure Provider Name and Address Organization Details Last Updated DateTime 4 04193.8 9 g 71 /min 90 % 90 % 123 mm[Hg] 59 mm[Hg] Karuna Vega [facility] 4 11:32:23 Date Recorded Body height Body mass index (BMI) Body weight Heart rate Respiratory rate Oxygen saturation Oxygen saturation in Arterial blood by Pulse oximetry Systolic blood pressure Diastolic blood pressure Provider Name and Address Organization Details Last Updated DateTime 4 165.1 cm 28 kg/m2 64265.5 2 g 86 /min 16 /min 96 % 96 % 116 mm[Hg] 60 mm[Hg] Karuna Vega [facility] 4 17:07:45 Social History Question Answer Notes LastModified by Organizat ion Details LastModified Time Tobacco Smoking Status [facility]2019 12:45:14 What Is Your Level Of Alcohol Consumption? None Information not available 10/22/2019 What Is Your Level Of Caffeine Consumption? Occasional Information not available 11/10/2022 What Type Of Diet Are You Following? REGULAR [email or web address] Information not available 10/22/2019 Which Illicit Or Recreational Drugs Have You Used? None [email or web address] Information not available 10/22/2019 Do You Or Have You Ever Used E-cigarettes Or Vape? Never Used Electronic Cigarettes [email or web address] Information not available 10/22/2019 Marital Status Informatio n not available 10/22/2019 What Was The Date Of Your Most Recent Tobacco Screening? 10/22/2019 Information not available 12/18/2019 How Many Children Do You Have? 2 Information not available 10/22/2019 Do You Or Have You Ever Used Smokeless Tobacco? Never Used Smokeless Tobacco [email or web address] Information not available 10/22/2019 How Much Tobacco Do You Smoke? 0.25 PPD Information not available 10/22/2019 General Stress Level High Information not available 10/22/2019 Sex: Unknown Functional Status None recorded. Mental Status None recorded. Family History Relationship Description Onset Age of this Age Resolved Age Notes LastModified by Organization Details LastModified Time Mother Cerebrovascu lar accident [email or web address] Not available 15:03:04 Father Heart disease [email or web address] Not available 2022 15:03:30 Father Myocardial infarction [email or web address] Not available 11/10 15:03:38 Paternal Grandmother Diabetes mellitus [email or web address] Not available 2022 15:03:59 Medical History Condition Response Hyperlipidemia Y Gynecological HistoryNo gynecological history recorded. Obstetrics History GPAL:G 0 P 0 0 0 0 Past Encounters Encounter ID Performer Location Encounter Start Date Encounter Closed Date Diagnosis/Indication Diagnosis SNOMED-CT Code Diagnosis ICD10 Code Diagnosis Note [id number] Andre Burnham MD [place] OFF[facility] [address] [place] [address] 10/22/2019 11:45:23 10/22/2019 13:29:51 Palpitations 78391023 R00.2 Will order MCT to correlate symptoms with arrhythmia . Symptoms are concerning for AFIB. NSR on ECG today. Will start ASA 325mg (OTC). Hyperlipidemia 03838438 E78.5 Needs to keep LDL less than 70, and HDL more than 40 Will get fasting lipids for follow up Pre-surger y evaluation 230655547 Z01.818 Treadmill Myoview Stress test, has high [place] Risk score. Has Known CAD, or CAD risk equivalent . To look for any ischemia. Lightheadedness 00960232 8 R42 Reports increased lightheade dness, and is concerned for carotid artery stenosis. Consider ordering carotid u/s for evaluation /reassuran ce. Varicose v eins of lower extremity 91231450 I83.893 Reports leg discomfort . No swelling. Consider order venous duplex study to evaluate. [id number] Andre Burnham MD [place] OFF[facility] [address] [place] [address] 12/20/2019 08:58:32 12/20/2019 13:50:52 Palpitations 25096395 R00.2 No AFIB on MCT. Reports GI discomfort with ASA 325. On ASA 81mg. Will order echo to evaluate for MVP. Will start Toprol 25mg 1/2 tab daily. (12/20/2019 ) 11/18/2019 Event monitor : Base line rhythm is NSR Maximal heart rate 112 bpm /Min minimum heart rate 67bpm Average heart rate 89bpm CO interval 141 msec QRS interval 117msec QT interval 344 msec ,no pause or R-R intervals >2.0 seconds Hyperlipidemia 81634698 E78.5 Needs to keep LDL less than 70, and HDL more than 40 Will get fasting lipids for follow up Varicose v eins of lower extremity 34873107 I83.893 Uses compressio n stockings. Mild swelling. Will order venous duplex study to evaluate. Pre-surger y evaluation 898343645 Z01.818 10/31/19 stress test: Negative stress test. LVEF 61%. Normal LV systolic function. Below average exercise tolerance. There is no cardiac contraindi cation for the procedure. The planned procedure would be withinacce ptable risk. {{Patient may stop taking aspirin five (5) days prior to the procedure. # Patient may stop taking aspirin and Plavix five (5) days prior to the procedure. }} [id number] Leena Dalton [place] [facility] [address] [place] [address] 03/20/2020 09:57:49 03/20/2020 11:06:25 Palpitations 11643836 R00.2 03/20/2020 No AFIB on MCT. Reports GI discomfort with ASA 325. On ASA 81mg. Echo done: 01/10/2020 ; Echocardio grapic Studies : LV chamber size is normal .LV wall thickness is normal The estimated left ventricle ejection fraction is 60-65% LV relaxation is impaired The aortic valve is mildly calcified There is mild aortic root calcificat ion Mitral valve prolapse cannot be ruled out The mitral valve leaflet is mildly thickened There is mild mitral regurgitat ion There is mid tricuspid regurgitat ion There is trivial pulmonic regurgitat ion Continue Toprol XL 11/18/2019 Event monitor : Base line rhythm is NSR Maximal heart rate 112 bpm /Min minimum heart rate 67bpm Average heart rate 89bpm CO interval 141 msec QRS interval 117msec QT interval 344 msec ,no pause or R-R intervals >2.0 seconds Hyperlipidemia 01079215 E78.5 Needs to keep LDL less than 70, and HDL more than 40 Will get labs from [facility] taking off statin due to weight gain. Education on statins. Varicose v eins of lower extremity 14556880 I83.893 03/20/2020C ontinue use of compressio n stockings. No symptoms at this time. Post meniscus repair surgeryVen ous study done: 02/11/20 Mild bilateral reflux disease noted. No Varicose Veins noted [id number] Andre Burnham MD [place] [facility] [address] [place] [address] 06/05/2020 11:57:52 06/05/2020 12:27:33 Palpitations 50086294 R00.2 Improved, continue metoprolol . Okay to take extra 1/2 tablet (12.5mg) as needed for persistent episodes of palpitaton s. Echo 01/10/2020 : LV chamber size is normal .LV wall thickness is normal The estimated left ventricle ejection fraction is 60-65% LV relaxation is impaired The aortic valve is mildly calcified There is mild aortic root calcificat ion Mitral valve prolapse cannot be ruled out The mitral valve leaflet is mildly thickened There is mild mitral regurgitat ion There is mid tricuspid regurgitat ion There is trivial pulmonic regurgitat ion Event monitor 11/18/2019 : Base line rhythm is NSR. Maximal heart rate 112 bpm. Minimum heart rate 67bpm. Average heart rate 89bpm. CO interval 141 msec. QRS interval 117msec. QT interval 344 msec, no pause or R-R intervals >2.0 seconds. Hyperlipidemia 39373672 E78.5 Needs to keep LDL less than 70, and HDL more than 40. 01/14/2020 LDL 78Continue atorvastat in 10mgWill get fasting lipids for follow-up Varicose v eins of lower extremity 77329174 I83.893 Continue use of compressio n stockings. No symptoms at this time. Post meniscus repair surgery Venous study 02/11/2020: Mild bilateral reflux disease noted. No varicose veins noted. [id number] MD Jose Guadalupe [facility] Office [address] [place] [address] 08/27/2020 10:19:56 08/27/2020 11:05:33 Palpitations 08114166 R00.2 Increased post covid Start Magnesium supplement Start Fish oil, 2 tablets daily Continue metoprolol . Okay to take extra 1/2 tablet (12.5mg) as needed for persistent episodes of palpitatio ns. Echo 01/10/2020 : LV chamber size is normal .LV wall thickness is normal The estimated left ventricle ejection fraction is 60-65% LV relaxation is impaired The aortic valve is mildly calcified There is mild aortic root calcificat ion Mitral valve prolapse cannot be ruled out The mitral valve leaflet is mildly thickened There is mild mitral regurgitat ion There is mid tricuspid regurgitat ion There is trivial pulmonic regurgitat ion Event monitor 11/18/2019 : Base line rhythm is NSR. Maximal heart rate 112 bpm. Minimum heart rate 67bpm. Average heart rate 89bpm. CO interval 141 msec. QRS interval 117msec. QT interval 344 msec, no pause or R-R intervals >2.0 seconds. Hyperlipidemia 01995016 E78.5 Needs to keep LDL less than 70, and HDL more than 40. 01/14/2020 LDL 78Continue atorvastat in 10mgWill get fasting lipids for follow-up Varicose v eins of lower extremity 73859070 I83.893 Continue use of compressio n stockings. No symptoms at this time. Post meniscus repair surgery Venous study 02/11/2020: Mild bilateral reflux disease noted. No varicose veins noted. [id number] Lima Ragland [facility] Office [address] [place] [address] 11/16/2020 15:01:00 11/16/2020 15:43:30 Palpitations 64036294 R00.2 Increased post covid, will repeat eacho Continue metoprolol and fish oil Okay to take extra 1/2 tablet (12.5mg) as needed for persistent episodes of palpitatio ns Echo 01/10/2020 : LV chamber size is normal .LV wall thickness is normal The estimated left ventricle ejection fraction is 60-65% LV relaxation is impaired The aortic valve is mildly calcified There is mild aortic root calcificat ion Mitral valve prolapse cannot be ruled out The mitral valve leaflet is mildly thickened There is mild mitral regurgitat ion There is mid tricuspid regurgitat ion There is trivial pulmonic regurgitat ion Event monitor 11/18/2019 : Base line rhythm is NSR. Maximal heart rate 112 bpm. Minimum heart rate 67bpm. Average heart rate 89bpm. CO interval 141 msec. QRS interval 117msec. QT interval 344 msec, no pause or R-R intervals >2.0 seconds. Hyperlipidemia 27439154 E78.5 Needs to keep LDL less than 70, and HDL more than 40. 10/12/2020 LDL 83 Continue atorvastat in 10 mg Will get fasting lipids for follow-up Varicose v eins of lower extremity 63822071 I83.893 Stable, remains asymptomat ic. Continue compressti on stockings, low salt diet, and leg elevation Venous study 02/11/2020 : Mild bilateral reflux disease noted. No varicose veins noted. [id number] Andre Burnham MD [place] [facility] [place] [address] 05/14/2021 12:14:11 05/15/2021 08:26:14 Hyperlipidemia 19423143 E78.5 Needs to keep LDL less than 70, and HDL more than 40. 10/12/2020 LDL 83 Continue atorvastat in 10 mg Will get fasting lipids for follow-up Palpitations 00879955 R0 0.2 possible Paroxysmal Atrial Fibrillati on Pre-surger y evaluation 397789657 Z01.818 10/31/19 stress test: Negative stress test. LVEF 61%. Normal LV systolic function. Below average exercise tolerance. There is no cardiac contraindi cation for the procedure. The planned procedure would be withinacce ptable risk. {{Patient may stop taking aspirin five (5) days prior to the procedure. # Patient may stop taking aspirin and Plavix five (5) days prior to the procedure. }} [id number] Andre Burnham MD [place] [facility] [place] [address] 11/12/2021 12:02:11 11/12/2021 12:29:45 Hyperlipidemia 33697849 E78.5 Needs to keep LDL less than 70, and HDL more than 40. 10/12/2020 LDL 83 Continue atorvastat in 10 mg Will get fasting lipids for follow-up Palpitations 55434188 R0 0.2 with PAC'Soraya to take extra 1/2 tab of Toprol [id number] Andre Burnham MD [place] [facility] [address] 05/20/2022 10:59:18 05/20/2022 12:02:08 Hyperlipidemia 26363158 E78.5 Needs to keep LDL less than 70, and HDL more than 40. 10/12/2020 LDL 83 Continue atorvastat in 10 mg Will get fasting lipids for follow-up Palpitations 10066241 R0 0.2 with PAC'swill increase Toprol to 25 [id number] Andre Burnham MD [place] [facility] [place] [address] 11/18/2022 10:58:10 11/18/2022 11:45:24 Hyperlipidemia 92052673 E78.5 Needs to keep LDL less than 70, and HDL more than 40. 10/12/2020 LDL 83 Continue atorvastat in 10 mg Will get fasting lipids for follow-up Palpitations 60829488 R0 0.2 with PAC'Soraya to take extra 1/2 tab of Toprol [id number] [facility] [place] [facility] [place] [id number] 11/23/2023 10:37:46 11/23/2023 12:06:59 Hyperlipidemia [id number] E78.5 Needs to keep LDL less than 70, and HDL more than 40. 10/12/2020 LDL 83 Continue atorvastat in 10 mg Will get fasting lipids for follow-up Palpitations [id number] R0 0.2 resolvedwi th PAC'Soraya to take extra 1/2 tab of Toprol Dyspnea on exertion 6084 5006 R06.09 Obtain echo to evaluate for structural /functiona l disease. Carotid bruit [id number] R09.89 will do UScontinue with full aspirin [id number] Andre Burnham MD [place] [facility] [address] [place] [address] 05/09/2024 16:53:25 05/09/2024 17:50:42 Hyperlipidemia [id number] E78.5 05/04/2024 LDL 59 Was on atorvastat in 10 mg, but she stopped it Will get fasting lipids for follow-up Palpitations [id number] R0 0.2 resolvedwi th PAC'Soraya to take extra 1/2 tab of Toprol Dyspnea on exertion 6084 5006 R06.09 Obtain echo to evaluate for structural /functiona l disease. Carotid bruit [id number] R09.89 Mild carotid stenosis Health Concerns Section Related Observation LastModified by Organization Detai ls LastModified Time None Recorded Concern Status LastModified by Organization Details LastModified Time None Recorded Advance Directives Directive None Recorded Payers Encounter Date Sequence Insurance Name Policy Number Policy Sapp Covered Member ID Sapp Member ID Guarantor Name 11/12/2021 2 [place] [id number] Zabrina Heck [id number] Zabrina Heck 11/12/2021 1 [place] Zabrina Heck [id number] Zabrina Heck 05/20/2022 2 [place] [id number] Zabrina Heck [id number] Zabrina Heck 05/20/2022 [place] Zabrina Heck [id number] Zabrina Heck 11/18/2022 2 [place] [id number] Zabrina Heck [id number] Zabrina Heck 11/18/2022 1 [place] Zabrina Heck [id number] Zabrina Heck 11/23/2023 1 [place] Zabrina Heck [id number] Zabrina Heck 05/09/2024 2 [place] [id number] Zabrina Heck [id number] Zabrina Heck 05/09/2024 1 [place] Zabrina Heck [id number] Zabrina Heck Notes Date Note Type Note Provider Name and Address Organization Details Recorded Time 11/12/2021 text/html 11/12/21CC : Car diac follow up, [id number] female with history of HLD, anxiety, hypothyroidism, bells palsy, presents for 6 month follow up. She was last seen in the clinic on 05/14/21, since then Radha denies ER visits and hospitalizations since she was last seen. Denies chest pain.Denies shortness of breath at rest. Has mild dyspnea on exertion.No orthopnea. No PNDs.She gets heart palpitations.Denies dizziness. Denies syncope or near syncope.No ankle or leg edema.No major bleeding events.No reported side effects from medications. Taking medications as prescribed with no missed doses.Denies snoring, daytime somnolence and AM headache.*Last LDL was 83 done on 10/11/20 .Pt takes atorvastatin 10 mg. Previously :She had few episodes of Palpitation Reports minimal caffeine intake.Tobacco use: smoked for a couple years, quit 1980sFamily history: mother CVA She reported more frequent palpitations and irregular heart beat following recent Covid-19 diagnosis. She reports today it has since improved and she has not had to take extra 1/2 tablet of metoprolol. She continues to take fish oil daily. Reported persistent palpitations; no AFIB on MCT. She was then started on Toprol xl 12.5 mg daily. Continues to have leg swelling which is mild. Patient had knee surgery 3 weeks ago for torn meniscus 02/26/20, undergoing physical therapy 3x week. Reports minor swelling in legs. Reports chronic leg swelling over decades. *Had negative stress test done in 10/31/19 with EF 61%, Normal LV systolic function. Below average exercise tolerance. *Had Event monitor 11/18/2019 : Base line rhythm is NSR Maximal heart rate 112 bpm /Min minimum heart rate 67 bpm Average heart rate 89bpm CO interval 141 msec QRS interval 117msec QT interval 344 msec ,no pause or R-R intervals >2.0 seconds Previously had episode of palpitations with near-syncope HR 160, then went to ED at [place] (10/14/2019). Labs and ECG reportedly normal.Base line rhythm is NSR Had knee surgery for torn meniscus rescheduled. Reports increased lightheadedness.Result s from this visit, or from the past:01/14/20 LIPID: TC 156, TR 94, HDL 60, LDL CMP: NA 141, K 4.4, CL 104, CO2 27, GLU 80, BUN 15, CR 0.72, AST 18, ALT COVID: [id number]/16/20 PT/INR: PT 12.6, INR 1.003 CBC: WBC 7.0, HGB 12.8, HCT 40.3, PLT 65006 EKG: Sinus rhythmEKG 10/22/19 Possible incomplete rbbb02/11/20 Mild bilateral reflux disease noted.01/10/2020 ; Echocardiograpic Studies : LV chamber size is normal .LV wall thickness is normal The estimated left ventricle ejection fraction is 60-65% LV relaxation is impaired The aortic valve is mildly calcified There is mild aortic root calcification Mitral valve prolapse cannot be ruled out The mitral valve leaflet is mildly thickened There is mild mitral regurgitation There is mid tricuspid regurgitation There is trivial pulmonic regurgitation10/31/19 stress test: Negative stress test. LVEF 61%. Normal LV systolic function. Below average exercise tolerance.11/18/2019 Event monitor : Base line rhythm is NSRMaximal heart rate 112 bpm /Min minimum heart rate 67bpm Average heart rate 89bpmPR interval 141 msecQRS interval 117msecQT interval 344 msec ,no pause or R-R intervals >2.0 secondsUS, venous 02/11/20 Mild bilateral reflux disease noted. Andre Burnham MD [address] [place], [address], [facility] 11/12/2021 12:26:10 05/20/2022 text/html 05/20/22CC : Car diac follow up, [id number]-aqc female with history of HLD, anxiety, hypothyroidism, bells palsy, presents for 6 month follow up. She was last seen in the clinic on 11/12/21, since then she is doing wellShe denies ER visits and hospitalizations since she was last seen. Denies chest pain.Denies shortness of breath at rest. Has mild dyspnea on exertion.No orthopnea. No PNDs.She gets heart palpitations.Denies dizziness. Denies syncope or near syncope.No ankle or leg edema.No major bleeding events.No reported side effects from medications. Taking medications as prescribed with no missed doses.Denies snoring, daytime somnolence and AM headache.*Last LDL was 83 done on 10/11/20 .Pt takes atorvastatin 10 mg. Previously :She had few episodes of Palpitation Reports minimal caffeine intake.Tobacco use: smoked for a couple years, quit 1980sFamily history: mother CVA She reported more frequent palpitations and irregular heart beat following recent Covid-19 diagnosis. She reports today it has since improved and she has not had to take extra 1/2 tablet of metoprolol. She continues to take fish oil daily. Reported persistent palpitations; no AFIB on MCT. She was then started on Toprol xl 12.5 mg daily. Continues to have leg swelling which is mild. Patient had knee surgery 3 weeks ago for torn meniscus 02/26/20, undergoing physical therapy 3x week. Reports minor swelling in legs. Reports chronic leg swelling over decades. *Had negative stress test done in 10/31/19 with EF 61%, Normal LV systolic function. Below average exercise tolerance. *Had Event monitor 11/18/2019 : Base line rhythm is NSR Maximal heart rate 112 bpm /Min minimum heart rate 67 bpm Average heart rate 89bpm CO interval 141 msec QRS interval 117msec QT interval 344 msec ,no pause or R-R intervals >2.0 seconds Previously had episode of palpitations with near-syncope HR 160, then went to ED at [place] (10/14/2019). Labs and ECG reportedly normal.Base line rhythm is NSR Had knee surgery for torn meniscus rescheduled. Reports increased lightheadedness.Result s from this visit, or from the past:01/14/20 LIPID: TC 156, TR 94, HDL 60, LDL CMP: NA 141, K 4.4, CL 104, CO2 27, GLU 80, BUN 15, CR 0.72, AST 18, ALT COVID: [id number]/16/20 PT/INR: PT 12.6, INR 1.003 CBC: WBC 7.0, HGB 12.8, HCT 40.3, PLT 77570 EKG: Sinus rhythmEKG 10/22/19 Possible incomplete rbbb02/11/20 Mild bilateral reflux disease noted.01/10/2020 ; Echocardiograpic Studies : LV chamber size is normal .LV wall thickness is normal The estimated left ventricle ejection fraction is 60-65% LV relaxation is impaired The aortic valve is mildly calcified There is mild aortic root calcification Mitral valve prolapse cannot be ruled out The mitral valve leaflet is mildly thickened There is mild mitral regurgitation There is mid tricuspid regurgitation There is trivial pulmonic regurgitation10/31/19 stress test: Negative stress test. LVEF 61%. Normal LV systolic function. Below average exercise tolerance.11/18/2019 Event monitor : Base line rhythm is NSRMaximal heart rate 112 bpm /Min minimum heart rate 67bpm Average heart rate 89bpmPR interval 141 msecQRS interval 117msecQT interval 344 msec ,no pause or R-R intervals >2.0 secondsUS, venous 02/11/20 Mild bilateral reflux disease noted. Andre Burnham MD [address] [place], [address], [facility] 05/20/2022 11:59:38 11/18/2022 text/html 11/18/22CC : Car diac follow up, [id number]-igv female with history of HLD, anxiety, hypothyroidism, bells palsy, presents for 6 month follow up. She was last seen in the clinic on 05/20/22, since then she is doing wellShe denies ER visits and hospitalizations since she was last seen. Denies chest pain.Denies shortness of breath at rest. Has mild dyspnea on exertion.No orthopnea. No PNDs.She gets heart palpitations.Denies dizziness. Denies syncope or near syncope.No ankle or leg edema.No major bleeding events.No reported side effects from medications. Taking medications as prescribed with no missed doses.Denies snoring, daytime somnolence and AM headache.*Last LDL was 83 done on 10/11/20 .Pt takes atorvastatin 10 mg. She had few episodes of Palpitation Reports minimal caffeine intake. She reported more frequent palpitations and irregular heart beat following recent Covid-19 diagnosis. She reports today it has since improved and she has not had to take extra 1/2 tablet of metoprolol. She continues to take fish oil daily. Reported persistent palpitations; no AFIB on MCT. She was then started on Toprol xl 12.5 mg daily. Continues to have leg swelling which is mild. Patient had knee surgery 3 weeks ago for torn meniscus 02/26/20, undergoing physical therapy 3x week. Reports minor swelling in legs. Reports chronic leg swelling over decades. *Had negative stress test done in 10/31/19 with EF 61%, Normal LV systolic function. Below average exercise tolerance. *Had Event monitor 11/18/2019 : Base line rhythm is NSR Maximal heart rate 112 bpm /Min minimum heart rate 67 bpm Average heart rate 89bpm CO interval 141 msec QRS interval 117msec QT interval 344 msec ,no pause or R-R intervals >2.0 seconds Previously had episode of palpitations with near-syncope HR 160, then went to ED at [place] (10/14/2019). Labs and ECG reportedly normal.Base line rhythm is NSR Had knee surgery for torn meniscus rescheduled. Reports increased lightheadedness.Result s from this visit, or from the past:01/14/20 LIPID: TC 156, TR 94, HDL 60, LDL CMP: NA 141, K 4.4, CL 104, CO2 27, GLU 80, BUN 15, CR 0.72, AST 18, ALT COVID: [id number]/16/20 PT/INR: PT 12.6, INR 1.003 CBC: WBC 7.0, HGB 12.8, HCT 40.3, PLT 21879 EKG: Sinus rhythmEKG 10/22/19 Possible incomplete rbbb02/11/20 Mild bilateral reflux disease noted.01/10/2020 ; Echocardiograpic Studies : LV chamber size is normal .LV wall thickness is normal The estimated left ventricle ejection fraction is 60-65% LV relaxation is impaired The aortic valve is mildly calcified There is mild aortic root calcification Mitral valve prolapse cannot be ruled out The mitral valve leaflet is mildly thickened There is mild mitral regurgitation There is mid tricuspid regurgitation There is trivial pulmonic regurgitation10/31/19 stress test: Negative stress test. LVEF 61%. Normal LV systolic function. Below average exercise tolerance.11/18/2019 Event monitor : Base line rhythm is NSRMaximal heart rate 112 bpm /Min minimum heart rate 67bpm Average heart rate 89bpmPR interval 141 msecQRS interval 117msecQT interval 344 msec ,no pause or R-R intervals >2.0 secondsUS, venous 02/11/20 Mild bilateral reflux disease noted. Andre Burnhma MD [address] [facility], [place], [address], [facility] 11/18/2022 11:40:31 11/23/2023 text/html 11/23/23CC : Car diac follow up dyspnea on [id number] female with history of HLD, anxiety, hypothyroidism, bells palsy, IBS, , presents for 1 years old follow up. She was last seen in the clinic on 11/18/22, since then she is doing well. She denied chest pain or dyspnea on exertion. *Last LDL was 83 done on 10/11/20.Pt takes atorvastatin 10 mg and ezetimibe 10 mg daily. She denies ER visits and hospitalizations since she was last seen. Today reports:no ccDenies chest pain.Denies shortness of breath at rest. Has mild dyspnea on exertion.No orthopnea. No PNDs.Denies heart palpitations.Denies dizziness. Denies syncope or near syncope.No ankle or leg edema.No major bleeding events.No reported side effects from medications. Taking medications as prescribed with no missed doses.Denies snoring, daytime somnolence and AM headache.*Last LDL was 83 done on 10/11/20.Pt takes atorvastatin 10 mg and ezetimibe 10 mg daily. Previously:She had few episodes of Palpitation Reports minimal caffeine intake. She reported more frequent palpitations and irregular heart beat following recent Covid-19 diagnosis. She reports today it has since improved and she has not had to take extra 1/2 tablet of metoprolol. She continues to take fish oil daily. Reported persistent palpitations; no AFIB on MCT. She was then started on Toprol xl 12.5 mg daily. Continues to have leg swelling which is mild. Patient had knee surgery 3 weeks ago for torn meniscus 02/26/20, undergoing physical therapy 3x week. Reports minor swelling in legs. Reports chronic leg swelling over decades. *Had negative stress test done in 10/31/19 with EF 61%, Normal LV systolic function. Below average exercise tolerance. *Had Event monitor 11/18/2019 : Base line rhythm is NSR Maximal heart rate 112 bpm /Min minimum heart rate 67 bpm Average heart rate 89bpm CO interval 141 msec QRS interval 117msec QT interval 344 msec ,no pause or R-R intervals >2.0 seconds Previously had episode of palpitations with near-syncope HR 160, then went to ED at [place] (10/14/2019). Labs and ECG reportedly normal.Base line rhythm is NSR Had knee surgery for torn meniscus rescheduled. Reports increased lightheadedness.Result s from this visit, or from the past:01/14/20 LIPID: TC 156, TR 94, HDL 60, LDL CMP: NA 141, K 4.4, CL 104, CO2 27, GLU 80, BUN 15, CR 0.72, AST 18, ALT COVID: [id number]/16/20 PT/INR: PT 12.6, INR 1.003 CBC: WBC 7.0, HGB 12.8, HCT 40.3, PLT 63874 EKG: Sinus rhythmEKG 10/22/19 Possible incomplete rbbb02/11/20 Mild bilateral reflux disease noted.01/10/2020 ; Echocardiograpic Studies : LV chamber size is normal .LV wall thickness is normal The estimated left ventricle ejection fraction is 60-65% LV relaxation is impaired The aortic valve is mildly calcified There is mild aortic root calcification Mitral valve prolapse cannot be ruled out The mitral valve leaflet is mildly thickened There is mild mitral regurgitation There is mid tricuspid regurgitation There is trivial pulmonic regurgitation10/31/19 stress test: Negative stress test. LVEF 61%. Normal LV systolic function. Below average exercise tolerance.11/18/2019 Event monitor : Base line rhythm is NSRMaximal heart rate 112 bpm /Min minimum heart rate 67bpm Average heart rate 89bpmPR interval 141 msecQRS interval 117msecQT interval 344 msec ,no pause or R-R intervals >2.0 secondsUS, venous 02/11/20 Mild bilateral reflux disease noted. [facility] 11/23/2023 12:00:53 05/09/2024 text/html 05/09/24CC : Car diac follow [id number] female with history of HLD, anxiety, hypothyroidism, bells palsy, IBS, , presents for 6 month follow up with ECHO and Carotid US results. She was last seen in the clinic on 11/23/23, since then she had side from Lipitor, wit muscle acheShe denies ER visits and hospitalizations since she was last seen. Denies chest pain.Denies shortness of breath at rest. Has mild dyspnea on exertion.No orthopnea. No PNDs.Denies heart palpitations.Denies dizziness. Denies syncope or near syncope.No ankle or leg edema.No major bleeding events.No reported side effects from medications. Taking medications as prescribed with no missed doses.Denies snoring, daytime somnolence and AM headache.*Last LDL was 59 done on 04/30/24.Pt takes atorvastatin 10 mg daily. 04/30/2024 : FT4 Reflux-1.34, TSH 0.9634104/30/24CMP-NA 140 K 3.8 CR 0.70 GL 81 CA 9.1 MAG 2.0 CK 48LIPID-TRIG 69 CHOL 142 LDL 59 HDL 52 *Had ECHO on 01/11/24 showed LV chamber size is normal, LV wall thickness is mildly increased, LVEF 55-60%, the aortic valve is mildly calcified, there is minimal aortic regurgitation, the mitral valve leaflet is mildly tricuspid, there is mild mitral regurgitation, there is mild tricuspid regurgitation, mild elevation of estimated RV systolic pressure, estimated RVSP systolic pressure is 34.01 mmHg. *Had Carotid US on 01/03/24 showed Antegrade flow noted in both vertebral arteries. Mild bilateral internal carotid artery stenosis with less than 50% diameter stenosis. Previously:Reported persistent palpitations; no AFIB on MCT. She was then started on Toprol xl 12.5 mg daily. Continues to have leg swelling which is mild. Patient had knee surgery 3 weeks ago for torn meniscus 02/26/20, undergoing physical therapy 3x week. Reports minor swelling in legs. Reports chronic leg swelling over decades. *Had negative stress test done in 10/31/19 with EF 61%, Normal LV systolic function. Below average exercise tolerance. *Had Event monitor 11/18/2019 : Base line rhythm is NSR Maximal heart rate 112 bpm /Min minimum heart rate 67 bpm Average heart rate 89bpm CO interval 141 msec QRS interval 117msec QT interval 344 msec ,no pause or R-R intervals >2.0 seconds Previously had episode of palpitations with near-syncope HR 160, then went to ED at [place] (10/14/2019). Labs and ECG reportedly normal.Base line rhythm is NSR Had knee surgery for torn meniscus rescheduled. Reports increased lightheadedness.Result s from this visit, or from the past:01/14/20 LIPID: TC 156, TR 94, HDL 60, LDL CMP: NA 141, K 4.4, CL 104, CO2 27, GLU 80, BUN 15, CR 0.72, AST 18, ALT COVID: [id number]/16/20 PT/INR: PT 12.6, INR 1.003 CBC: WBC 7.0, HGB 12.8, HCT 40.3, PLT 63336 EKG: Sinus rhythmEKG 10/22/19 Possible incomplete rbbb02/11/20 Mild bilateral reflux disease noted.01/10/2020 ; Echocardiograpic Studies : LV chamber size is normal .LV wall thickness is normal The estimated left ventricle ejection fraction is 60-65% LV relaxation is impaired The aortic valve is mildly calcified There is mild aortic root calcification Mitral valve prolapse cannot be ruled out The mitral valve leaflet is mildly thickened There is mild mitral regurgitation There is mid tricuspid regurgitation There is trivial pulmonic regurgitation10/31/19 stress test: Negative stress test. LVEF 61%. Normal LV systolic function. Below average exercise tolerance.11/18/2019 Event monitor : Base line rhythm is NSRMaximal heart rate 112 bpm /Min minimum heart rate 67bpm Average heart rate 89bpmPR interval 141 msecQRS interval 117msecQT interval 344 msec ,no pause or R-R intervals >2.0 secondsUS, venous 02/11/20 Mild bilateral reflux disease noted. Andre Burnham MD [address] [place], [address], [place] [facility] 05/09/2024 17:45:16 OBGyn Episode No OBEpisode recorded.
== END 2024-09-16 16:41 | disposition home or self-care (01) ==
PROVIDERS: PCP Family Medicine; Visit Provider Internal Medicine Cardiovascular Disease
DX: I65.29 Occlusion and stenosis of unspecified carotid artery (principal)
CPT/HCPCS: 93880

== ENCOUNTER 2024-11-27 07:21 | Outpatient (CLI) | payer MEDICARE, SELFPAY ==
--- NOTE | ~2024-11-27 | CT_ITS ---
CT of the Abdomen and Pelvis: Indication: Right upper quadrant pulling sensation Technique: 2.5 mm axial scans were obtained through the abdomen and pelvis following intravenous adm inistration of 100 cc of Omnipaque 350. Dose reduction technique was used on this scan by utilizing a utomated exposure control and iterative reconstruction technique. The dose-length product (DLP) was 6 97.82 mGy-cm. Findings: Scans through the lung bases demonstrate scattered tree-in-bud opacities with focal inters titial opacities and mild bronchiolectasis at the lung bases, especially right lower lobe, right midd le lobe, and lingula. There is a larger 6 mm nodule in the right lower lobe. There is probable focal atelectasis or scarring right middle lobe and lingula. Large calcified right basilar granuloma presen t.. The liver, spleen, pancreas, adrenals and kidneys are within normal limits. Cholecystectomy clips are present. No evidence of aortic aneurysm. There is a 2.6 x 0.9 x 2.5 cm mass just posterior to the IV C (axial image 58 for example).. No bowel obstruction or bowel wall thickening. There is no evidence to suggest acute appendicitis. Images through the pelvis were performed. Urinary bladder unremarkable. No pelvic mass. No ascites. Impression: 2.6 x 0.9 x 2.5 cm mass just posterior to the IVC, as detailed above, indeterminate. This could refle ct enlarged lymph node versus other mass lesion. This lesion is indeterminate. Consider PET/CT for fu rther evaluation. Tissue sampling may be difficult given the location of the lesion. Findings at the lung bases most compatible with acute on chronic small airways infectious process, as detailed above. Reviewed, dictated and finalized at location M. Impression: 2.6 x 0.9 x 2.5 cm mass just posterior to the IVC, as detailed above, indetermi tereso. This could reflect enlarged lymph node versus other mass lesion. This les ion is indeterminate. Consider PET/CT for further evaluation. Tissue sampling m ay be difficult given the location of the lesion. Findings at the lung bases most compatible with acute on chronic small airways infectious process, as detailed above.
--- OUTSIDE RECORDS SUMMARY | 2024-11-27 07:26 | XMS_ITS ---
Author Name Auto Generated, Auto Generated Organization [facility] ice Address [address] [place] [address] Phone [phone] Care Team Providers Care Grit Blaster Name Role Phone Alba Carrnaza Unavailable [phone] Functional Status Mental Status Allergies and Intolerances Problems Reason for Referral Past Medical History
--- OUTSIDE RECORDS SUMMARY | 2024-11-27 07:26 | XMS_ITS ---
Author Name Auto Generated, Auto Generated Organization [facility] ice Address [address] [place] [address] Phone [phone] Care Team Providers Care Field Care Manager Name Role Phone Alba Carranza Unavailable [phone] Functional Status No Results Mental Status No Results Allergies and Intolerances No Known Allergies Problems Active Concerns * Low back pain* Code: * Start Date: MonMay 31 00:00:00 EDT 2016 * End Date: * Text: * Strain of muscle, fascia and tendon of lower back, subsequent encounter* Code: * Start Date: MonMay 31 00:00:00 EDT 2017 * End Date: * Text: * Stiffness of right shoulder, not elsewhere classified* Code: * Start Date: MonJun 18 00:00:00 EST 2017 * End Date: * Text: Reason for Referral Past Medical History
--- OUTSIDE RECORDS SUMMARY | 2024-11-27 07:26 | XMS_ITS | Referral Summary ---
Author Organization [facility] [address] [facility] [address] Address [address] [place] [address] Care Team Providers Care Raw Shellfish Preparer Name Role Phone Joel Foley MD Primary Care Provider [phone]- [phone] Social History Tobacco Use Types Packs/Day Years Used Date Smoking Tobacco: Never Assessed Personal Safety Answer Date Recorded Getting School Help Needed Not on file 10/13 Comments Unknown Sex and Gender Information Value Date Recorded Sex Assigned at Not on file Legal Sex Female 10:32 PM HEALTH LEAD Gender Identity Not on file Sexual Orientation Not on file Plan of Treatment Not on file Insurance MEDICARE [facility] Care Teams Raw Shellfish Preparer Relationship Specialty Start Date End Date Joel Foley MD [address] [place] [address] PCP - General Family Medicine 10/04/17
--- OUTSIDE RECORDS SUMMARY | 2024-11-27 07:26 | XMS_ITS | Clinical Summary ---
Author Organization [facility] [address] [facility] [address] Address [address] [place] [address] Care Team Providers Care Senior Hadoop Developer Name Role Phone Joel Foley MD Primary Care Provider [phone] Social History Tobacco Use Types Packs/Day Years Used Date Smoking Tobacco: Never Assessed Personal Safety Answer Date Recorded Getting School Help Needed Not on file 10/13 Comments Unknown Sex and Gender Information Value Date Recorded Sex Assigned at Not on file Legal Sex Female 10:32 PM VERIFY REP Gender Identity Not on file Sexual Orientation Not on file Plan of Treatment Not on file Insurance MEDICARE [facility] Care Teams Senior Hadoop Developer Relationship Specialty Start Date End Date Joel Foley MD [address] [place] [address] PCP - General Family Medicine 10/04/17
--- OUTSIDE RECORDS SUMMARY | 2024-11-27 07:26 | XMS_ITS | Encounter Summary ---
Author Organization [facility] Address [address] [place] [address] Care Team Providers Care Marine Transport Professionals Name Role Phone Ervin Foley MD Primary Care Provider [phone] Alba Carranza MD Primary Care Provider +- [phone] Niya Eddy Primary Care Provider [phone] Torri Pisano MD Primary Care Provider [phone] Encounter Details Date Type Department Care Team (Late st Contact Info) Description 12/25/2018 Lab Requisition [facility] Pathology Lab [address] [place] [address] Albino Hutchison MD [address] [id number] Localized enlarged lymph nodes Social History Tobacco Use Types Packs/Day Years Used Date Smoking Tobacco: Never Assessed Comments Unknown Sex and Gender Information Value Date Recorded Sex Assigned at Not on file Legal Sex Female 1:57 PM CDT Gender Identity Not on file Sexual Orientation [...] AM CDT) Case Report Flow Cytometry Case: [id number] Authorizing Provider: Albino Hutchison MD Collected: 12/25/2018 09:52 AM Pathologist: Last Quiñones MD Received: 12/25/2018 02:04 PM Specimen: Axillary Lymph Node 9 6:46 AM T [facility] Final Diagnosis Lymph node, right axilla, flow cytometric immunophenotypic analysis ([id number]): - Reduced viability specimen. - No evidence of non-Hodgkin lymphoma. - See interpretation. 9 6:46 AM [facility] Flow Cytometry Interpretation The right [...] cytometry specimen is reviewed for software quality assurance engineer purposes. Overall, the right axillary lymph node shows reduced viability specimen with no evidence of involvement by non-Hodgkin lymphoma. Correlation with clinical findings and concurrent biopsy is required. FILTER CLEANER/NW 9 6:46 AM T [facility] Flow Cytometry Results Differential Result Comment Flow Cell Count /uL 4000 Total Viability % 65.0 Lymphocytes % 93 Dim CD45 Region % 1 Monocytes % 4 Granulocytes % 1 9 6:46 AM T [facility] Reason for test Localized enlarged lymph nodes 785.6 9 6:46 AM [facility] Client Specimen ID # [id number] 9 6:46 AM [facility] Number of markers 16 were performed. A Flow CD3 A Flow CD10 A Flow CD20 A Flow CD23 A Flow CD2 A Flow CD4 A Flow CD1a A Flow CD5 A Flow CD19 A Flow CD34 A Flow CD45 A Flow CD7 A Flow CD8 A Flow CD30 A Cantwell+CD19+ A Lambda+CD19+ 9 6:46 AM CDT [facility] Disclaimer Test performed at [facility], [address] [place], [place], [address]. *The established laboratory minimum viability is 70%. [...] complexity clinical testing. 9 6:46 AM CDT [facility] Embedded Images 9 6:46 AM CDT [facility] Pathology/Cytolo gy AXILLARY LYMPH NODE STRUCTURE / Unknown 12/25/2018 9:52 AM CDT 12/25/2018 2:04 PM CDT Albino Hutchison MD LAB - PATHOLOGY/CYTOLOGY ORDER AKIKO Final Result [facility] [address] [place] [address]. [address] [phone] documented in this encounter Visit Diagnoses Diagnosis Localized enlarged lymph nodes Enlargement of lymph nodes documented in this encounter Care Teams Marine Transport Professionals Relationship Specialty Start Date End Date Ervin Foley MD [address] [place] [address] PCP - General 12/25/18 05/23/21 Alba Carranza MD [address] [place] [address] PCP - General Family Medicine 05/24/21 05/24/21 Niya Eddy PA [address] [place] [address] PCP - General Physician Hoop Cutter 05/25/21 06/29/21 Torri Pisano MD [address] [place] [address] PCP - General Family Medicine 06/30/21 documented as of this encounter
--- OUTSIDE RECORDS SUMMARY | 2024-11-27 07:26 | XMS_ITS | Clinical Summary ---
Author Organization [facility] Address [address] [facility] [place] [address] Care Team Providers Care Software Writer Name Role Phone Torri Pisano MD Primary Care Provider [phone] [facility],non-owned Affiliates and Associated Physician Practices is amultiple site organization consisting of ambulatory clinics and hospital sitesin [place], [place], [place] and [place]. This disclosure is being madepursuant to the Care Everywhere program and may not contain all information available regarding this patient. Last updated 18.[facility] Allergies No known active allergies Medications * Be aware that medications may not be up to date on this document. Alwaysverify current medications with the patient. atorvastatin (LIPITOR) 10 MG tablet atorvastatin 10 [...] (ONE HALF) TABLET BY MOUTH ONCE DAILY 01/11/20 21 Active Active Problems Problem Noted Date Diagnosed [...] Recorded Patient Health Questionnaire-2 Score 0 01/22/2024 Comments Unknown Sex and Gender Information Value Date Recorded Sex Assigned at Not on file Legal Sex Female 1:57 PM CDT Gender Identity Not on file Sexual Orientation Not on file Last Filed Vital Signs Vital Sign Reading Time Taken Comments Blood Pressure 114/47 07/01/2021 7:48 AM ASTHMA EDUCATOR Pulse 65 07/01/2021 7:48 AM ASTHMA EDUCATOR Temperature 36.4 C (97.5 F) 07/01/2021 7:48 AM ASTHMA EDUCATOR Respiratory Rate 16 07/01/2021 7:48 AM ASTHMA EDUCATOR Oxygen Saturation 97% 07/01/2021 7:48 AM ASTHMA EDUCATOR Inhaled Oxygen Concentration - - Weight 75.8 kg (167 lb) 06/30/2021 7:34 AM ASTHMA EDUCATOR Height 165.1 cm (5' 5 ) 06/30/2021 7:34 AM ASTHMA EDUCATOR Body Mass Index 27.79 06/30/2021 7:34 AM ASTHMA EDUCATOR Plan of Treatment Health Maintenance Due Date [...] VACCINE (1 - 2023-2 5 season) 2024 DEPRESSION SCREENING 07/31/2024 12/18/2023 INFLUENZA VACCINE (Season Ended) 2025 HEPATITIS B VACCINE Aged Out No longe r eligible based on patient's age to complete this topic HIB VACCINE Aged Out No longer eligi ble based on patient's age to complete this topic HPV VACCINE Aged Out No longer eligi ble based on patient's age to complete this topic MENINGOCOCCAL (Group B) VACC INE SHARED DECISION-MAKING Aged Out No longer eligibl e based on patient's age to complete this topic MENINGOCOCCAL GROUPS A/C/Y/W VACCINE Aged Out No longer eligible b ased on patient's age to complete this topic Medical Devices Implanted Type Area Cap And Stud Machine Operator Device Identifier Shelf Expiration Date Model / Serial / Lot Cmnt Bone Djo Srg Cblt 40gm Hvisc Strl Implanted:Qty: 1 on 06/30/2021 by Familia Sargent MD at [facility] Left: Knee [employer] 09/18/2022 600-15-000 / / [id number] Tray Tib 71mm Kn Cocr I Beam Implanted:Qty: 1 on 06/30/2021 by Familia Sargent MD at [facility] Left: Knee [employer] 05/10/2031 [id number] / / [id number] Cmpnt Fem Kn Lt Cr Cmnt Prm Vngrd Intlk Implanted:Qty: 1 on 06/30/2021 by Familia Sargent MD at [facility] Left: Knee [employer] 12/19/2030 [id number] / / [id number] Cmpnt Ptlr 28mm 1 Pg Wire Ascnt Arcm Kn Implanted:Qty: 1 on 06/30/2021 by Familia Sargent MD at [facility] Left: Knee [employer] 06/12/2025 [id number] / / [id number] [id number] Vngrd Arcm Kn Ant Stab Implanted:Qty: 1 on 06/30/2021 by Familia Sargent MD at [facility] Left: Knee [employer] 02/03/2026 [id number] / / [id number] Insurance MEDICARE [facility] MEDICARE ANTHEM Advance Directives Documents on File Type Date Recorded Patient Meter Mechanic Expl anation Adv Directive/Living Will/POA 07/05/2021 10:43 PM * Full Code (Latest Code Status on File) Date Activated Date Inactivated Comments 06/30/2021 2:02 PM 07/01/2021 5:11 PM Care Teams Software Writer Relationship Specialty Start Date End Date Torri Pisano MD [address] [place] [address] PCP - General Family Medicine 06/30/21
--- OUTSIDE RECORDS SUMMARY | 2024-11-27 07:26 | XMS_ITS | Encounter Summary ---
Author Organization [facility] Address [address] [place] [address] Care Team Providers Care Analog Ic Design Architect Name Role Phone Ervin Foley MD Primary Care Provider [phone] Alba Carranza MD Primary Care Provider [phone]- [phone] Niya Eddy Primary Care Provider [phone] Torri Pisano MD Primary Care Provider [phone] Encounter Details Date Type Department Care Team (Late st Contact Info) Description 12/26/2018 Lab Requisition [facility] Pathology Lab [address] [place] [address] Albino Hutchison MD [address] [address] Social History Tobacco Use Types Packs/Day Years [...] Results * PATHOLOGY TISSUE (12/25/2018 9:00 AM [facility]) Case Report Surgical Pathology Report Case: [id number] Authorizing Provider: Albino Hutchison MD Collected: 12/25/2018 09:00 AM Pathologist: Last Quiñones MD Received: 12/26/2018 02:28 PM Specimen: Lymph Node Biopsy, [id number] 12/27/2018 10:03 AM [facility] Final Diagnosis Lymph node, left axilla, needle core biopsy ([id number]): - Benign reactive lymph cabrera tissue. - [...] or carcinoma. Concurrent lymph node flow cytometry ([id number]) corroborates this diagnosis. Correlation with clinical findings and relevant cytogenetic/molecular testing is required. MESS ATTENDANT CREW/NW 12/27/2018 10:03 AM [facility] Clinical History 12/27/2018 10:03 AM [facility] Materials Received Received are 2 slides and 1 block labeled as [id number] along with the outside pathology report. The materials originate from [address], [place] [address]. All materials are returned to the referring institution, along with a copy of our final report. 12/27/2018 10:03 AM T [facility] Disclaimer The performance characteristics of all immunohistochemical and indirect immunofluorescence stains (if any) cited in this report were determined by the Histopathology Laboratory of [facility]. Some of these tests were developed [...] attending (teaching) pathologist. 12/27/2018 10:03 AM T [facility] Embedded Images 12/27/2018 10:03 AM T [facility] Pathology/Cytolo gy BIOPSY OF LYMPH NODE / Unknown 12/25/2018 9:00 AM CDT 12/26/2018 2:28 PM CDT us Albino Hutchison MD LAB - PATHOLOGY/CYTOLOGY ORDER AKIKO Final Result Performing Organization Address City/State/[facility] Co de Phone Number [facility] [address] [phone] documented in this encounter Visit Diagnoses Not on filedocumented in this encounter Care Teams Analog Ic Design Architect Relationship Specialty Start Date End Date Ervin Foley MD [address] [place] [address] PCP - General 12/25/18 05/23/21 Alba Carranza MD [address] [place] [place] [address] PCP - General Family Medicine 05/24/21 05/24/21 Niya Eddy PA [address] [place] [address] PCP - General Physician Retort Fireman 05/25/21 06/29/21 Torri Pisano MD [address] [place] [address] PCP - General Family Medicine 06/30/21 documented as of this encounter
[2024-11-27 07:39] LABS: Estimated Glomerular Filt Rate > 60
== END 2024-11-27 07:22 | disposition home or self-care (01) ==
PROVIDERS: PCP Family Medicine; Visit Provider Nurse Practitioner
DX: R19.09 Other intra-abdominal and pelvic swelling, mass and lump (principal); R10.11 Right upper quadrant pain
CPT/HCPCS: 74177; Q9967

== ENCOUNTER 2024-12-19 08:59 | Outpatient (CLI) | payer MEDICARE, SELFPAY ==
--- NOTE | ~2024-12-19 | PE_ITS ---
EXAMINATION: PET skull to mid thigh DATE: 12/19/2024 11:09 INDICATION: Abdominal mass TECHNIQUE: Blood glucose level was 94 mg/dL. 9.4 mCi of 18-fluorodeoxyglucose (18-FDG) was administer ed i.v. Low dose computed tomography (CT) images were acquired from the base of the brain to the prox imal thighs for attenuation correction and anatomic localization. Positron emission tomography (PET) images were acquired in the same distribution beginning 53 minutes after injection. Images including fused PET/CT images were reconstructed in axial, coronal, and sagittal planes. Automated exposure con trol technique was employed. The dose-length product was 915.48mGy-cm. COMPARISON: CT abdomen pelvis dated 11/27/2024 FINDINGS: Head/neck: There is symmetric increased activity in the oral cavity, palatine tonsils, thyroid and submandibular glands, laryngeal muscles and ocular muscles without CT correlate, likely physiologic. No pathologic ally enlarged cervical lymphadenopathy or suspicious foci of increased FDG uptake in the visualized h ead or neck. Chest: Biapical pleural-parenchymal scarring. Some additional scattered discoid atelectasis in the bilateral lower lungs. Large calcified nodule at the basilar right lower lobe along with calcite mediastinal l ymph nodes consistent with old granulomatous disease. There are a few scattered 4 mm smaller pulmonar y nodules in the bilateral lower lobes, all without evident associated FDG activity. Heart size is no rmal. No pericardial effusion. Thoracic aorta is normal in caliber. Normal-sized right axillary lymph node measuring 9 x 7 mm with increased FDG uptake with maximal SUV of 7.5. No other pathologically e nlarged or abnormally FDG avid thoracic lymph nodes. Abdomen/pelvis/proximal thighs: Physiologic renal accumulation and excretion of FDG activity in the kidneys, bladder and along portio ns of ureters. Normal degree and heterogenous pattern of increased uptake throughout the liver withou t radiologic correlate or dominant FDG avid lesion. The gallbladder, pancreas, spleen and bilateral a drenal glands are normal. Mild uptake scattered throughout the bowels without radiologic correlate, a lso likely physiologic. Normal appendix. Multiple diverticula along the sigmoid colon without adjacen t from trace stranding to suggest diverticulitis. There is a normal sized 1.3 x 0.8 cm retroperitonea l lymph node posterior to the bifurcation of the left common iliac vessels with maximal SUV of 7.5. A dditional small left external iliac chain lymph node with maximal SUV of 4.6 which measures 8 x 8 mm. Finally there is a 1.9 x 0.6 similar lymph node along side the transition of the right external agustina c to common femoral veins with maximal SUV of 8.7. No other abnormal foci of increased FDG uptake or pathologically enlarged lymphadenopathy in the abdomen, pelvis or proximal thighs. Musculoskeletal: Mild lumbar levocurvature. Moderate cervical, severe lumbar and mild thoracic spondylosis. Chronic T7 compression fracture. No suspicious lytic, blastic or abnormal FDG avid bone lesions. IMPRESSION: 1. There is increased FDG uptake associated with a normal-sized lymph nodes at the right axilla, left iliac chain and right inguinal regions which given the retained normal size, scattered isolated dist ribution and absence of known primary malignancy or FDG avid lesions on the current study suspicious for primary malignancy would significantly favor reactive lymph nodes over metastatic disease or lymp toya. 2. Several scattered small pulmonary nodules in the lower lobes without evident FDG uptake which are most likely infectious or inflammatory in etiology. Reviewed, dictated and finalized at location A. IMPRESSION: 1. There is increased FDG uptake associated with a normal-sized lymph nodes at the right axilla, left iliac chain and right inguinal regions which given the r etained normal size, scattered isolated distribution and absence of known prima ry malignancy or FDG avid lesions on the current study suspicious for primary m alignancy would significantly favor reactive lymph nodes over metastatic diseas e or lymphoma. 2. Several scattered small pulmonary nodules in the lower lobes without evident FDG uptake which are most likely infectious or inflammatory in etiology.
--- OUTSIDE RECORDS SUMMARY | 2024-12-19 09:06 | XMS_ITS | Clinical Summary ---
Author Organization [facility] Address [address] [facility] [place] [address] Care Team Providers Care Kettle Operator Head Name Role Phone Torri Pisano MD Primary Care Provider [phone] Source Comments [facility],non-owned Affiliates and Associated Physician Practices is amultiple site organization consisting of ambulatory clinics and hospital sitesin [place], [place], [place] and [place]. This disclosure is being madepursuant to the Care Everywhere program and may not contain all information available regarding this patient. Last updated 18.[facility] Allergies No known active allergies Medications [...] Comments Blood Pressure 114/47 07/01/2021 7:48 AM ANTENNA DESIGN ENGINEER Pulse 65 07/01/2021 7:48 AM ANTENNA DESIGN ENGINEER Temperature 36.4 C (97.5 F) 07/01/2021 7:48 AM ANTENNA DESIGN ENGINEER Respiratory Rate 16 07/01/2021 7:48 AM ANTENNA DESIGN ENGINEER Oxygen Saturation 97% 07/01/2021 7:48 AM ANTENNA DESIGN ENGINEER Inhaled Oxygen Concentration - - Weight 75.8 kg (167 lb) 06/30/2021 7:34 AM ANTENNA DESIGN ENGINEER Height 165.1 cm (5' 5 ) 06/30/2021 7:34 AM ANTENNA DESIGN ENGINEER Body Mass Index 27.79 06/30/2021 7:34 AM ANTENNA DESIGN ENGINEER Plan of Treatment Health Maintenance Due Date [...] this topic Medical Devices Implanted Type Area Interior Design Professional Device Identifier Shelf Expiration Date Model / Serial / Lot Cmnt Bone Djo Srg Cblt 40gm Hvisc Strl Implanted:Qty: 1 on 06/30/2021 by Familia Sargent MD at [facility] Left: Knee [employer] 09/18/2022 600-15-000 / / [id number] Tray Tib 71mm Kn Cocr I Beam Implanted:Qty: 1 on 06/30/2021 by Familia Sargent MD at [facility] Left: Knee [employer] 05/10/2031 [id number] / / [id number] Cmpnt Fem Kn Lt Cr Cmnt Prm Vngrd Intlk Implanted:Qty: 1 on 06/30/2021 by Familia Sargent MD at [facility] Left: Knee [employer] 12/19/2030 [id number] / / [id number] Cmpnt Ptlr 28mm 1 Pg Wire Ascnt Arcm Kn Implanted:Qty: 1 on 06/30/2021 by Familia Sargent MD at [facility] Left: Knee [employer] 06/12/2025 [id number] / / [id number] Vngrd Arcm Kn Ant Stab Implanted:Qty: 1 on 06/30/2021 by Familia Sargent MD at [facility] Left: Knee [employer] 02/03/2026 [id number] / / [id number] Insurance MEDICARE [facility] MEDICARE ANTHEM Advance Directives Documents on File Type Date Recorded Patient Bus Or Truck Garage Mechanic Expl anation Adv Directive/Living Will/POA 07/05/2021 10:43 PM * Full Code (Latest Code Status on File) Date Activated Date Inactivated Comments 06/30/2021 2:02 PM 07/01/2021 5:11 PM Care Teams Kettle Operator Head Relationship Specialty Start Date End Date Torri Pisano MD [address] [place] [address] PCP - General Family Medicine 06/30/21
--- OUTSIDE RECORDS SUMMARY | 2024-12-19 09:06 | XMS_ITS ---
Author Name Auto Generated, Auto Generated Organization [facility] Address [address] [place] [address] Phone [phone] Care Team Providers Care Short Haul Driver Name Role Phone Alba Carranza Unavailable [phone] Functional Status No Results Mental Status No Results Allergies and Intolerances No Known Allergies Problems Active Concerns * Low back pain* Code: * Start Date: MonMay 31 00:00:00 EDT 2017 * End Date: * Text: * Strain [...]
--- OUTSIDE RECORDS SUMMARY | 2024-12-19 09:06 | XMS_ITS | Clinical Summary ---
Author Organization [facility] [address] [facility] [address] Address [address] [place] [address] Care Team Providers Care Gin Inspector Name Role Phone Joel Foley MD Primary Care Provider [phone] Social History Tobacco Use Types Packs/Day Years Used Date Smoking Tobacco: Never Assessed Personal Safety Answer Date Recorded Getting School Help Needed Not on file 10/13 Comments Unknown Sex and Gender Information Value Date Recorded Sex Assigned at Not on file Legal Sex Female 10:32 PM COMMUNITY RESOURCE CONSULTANT Gender Identity Not on file Sexual Orientation Not on file Plan of Treatment Not on file Insurance MEDICARE [facility] Care Teams Gin Inspector Relationship Specialty Start Date End Date Joel Foley MD [address] [place] [address] PCP - General Family Medicine 10/04/17
--- OUTSIDE RECORDS SUMMARY | 2024-12-19 09:06 | XMS_ITS | Data Portability ---
Author Organization [place] - [facility] OFFICE Address [address] [place] [address] Care Team Providers Care Button Cutting Machine Operator Name Role Phone SHIRA STEVENSON Primary Care Provider VIVEK SULLIVAN Primary Care Provider [phone] Assessment Encounter Date Assessment Date Assessment LastModified [...] Orders CoQ-10 100 mg capsule 2023 024 [id number], [address] [place], [place], [id number], 17:10:36 metoprolol succinate ER 25 mg tablet,ext ended release 24 hr [address] [facility] [address] [place], [address], 11:59:43 Patient TargetsNo targets recorded. Patient Instructions Encounter Date Encounter Id Patient Instructions Last Modified By Organization Details Last Modified Time 11/12/2021 [id number] Exercise advised Low cholesterol diet advised Low sodium diet advised. [email or web address] Not available 11/12/2021 12:25:15 11/18/2022 [id number] Exercise advised Low cholesterol diet advised Low sodium diet advised. oalmousalli Not available 11/18/2022 11:39:46 11/23/2023 [id number] Low cholesterol diet advised Low sodium diet advised. eyassin Not available 11/23/2023 11:59:00 05/09/2024 [id number] Exercise advised Low cholesterol diet advised Low [...] ardio gram No observ ation record ed. [facility], [facility] [address] [address], [place], [address], 01/23/2024 10:19:41 Result Notes None recorded. Problems Name Problem SNOMED Code Status Onset Date Resolution Date Notes Provider Name and Address Organization Details Recorded Time Irritable bowel syndrome 64789105 Active 2019 Lizzy Rico null, [place] - [facility] 0 12:41:25 Acid reflux 466742659 Active 2019 Lizzy [place] - [facility] 0 12:43:35 Palpitations 29134222 Active 2019 Larry Alex null, [place] - [facility] 0 15:59:43 Hyperlipidemia 79408216 Active 2019 Larry tovar, [place] - [facility] 0 15:59:53 Pre-surgery evaluation Active 2019 Larry tovar, [facility] 0 16:00:01 Alisa portillo [id number] Active 2019 Larry tovar, [facility] 0 16:00:09 Varicose veins of lower extremity 63297613 Active 2019 Larry tovar, [facility] 0 16:00:18 Problem Notes None recorded. Procedures Surgical History Date Name Laterality Status Provider Name and Address Organization Details Recorded Time Cholecystectomy completed Lizzy Rico [facility] 10/22/2019 12:47:19 Imaging Results Imaging Date Name Status LastModified by Organization Details LastModified Time 05/20/2022 electrocardiogram completed Informa tion not available 01/19/2024 11:41:33 11/18/2022 electrocardiogram completed Informa tion not available 01/19/2024 11:41:30 11/23/2023 electrocardiogram completed Informa tion not available 01/19/2024 11:41:26 01/03/2024 US, carotid artery completed Inform ation not available 01/19/2024 11:41:23 01/11/2024 US, echocardiogram completed [facility], [address] [facility], [place], [address], 01/23/2024 10:19:41 Procedure Notes None recorded. Medical [...] completed Not Available Not Available Not Available [facility] 3 11/22 completed Not Available Not Available [...] Not Available Not Available No t Available [facility] COVID-19 Vaccine (PF) 30 mcg/0.3 mL [...] Updated DateTime 2 165.1 cm 28.7 kg/m2 09508.9 7 g 77 /min 94 % 94 % 110 mm[Hg] 70 mm[Hg] Andre Alston i, MD [address] [place], [address], [facility] 2 12:11:22 Date Recorded Body height Body mass index (BMI) Body weight Oxygen saturation Oxygen saturation in Arterial blood by Pulse oximetry Heart rate Systolic blood pressure Diastolic blood pressure Provider Name and Address Organization Details Last Updated DateTime 2 165.1 cm 28.1 kg/m2 68837.1 1 g 95 % 95 % 81 /min 116 mm[Hg] 78 mm[Hg] Massiel Valentine [facility] 2 11:53:17 Date Recorded Body height Body mass index (BMI) Body weight Oxygen saturation Oxygen saturation in Arterial blood by Pulse oximetry Oxygen saturation Oxygen saturation in Arterial blood by Pulse oximetry Heart rate Systolic blood pressure Diastolic blood pressure Provider Name and Address Organization Details Last Updated DateTime 3 165.1 cm 29.6 kg/m2 88397.0 8 g 89 % 89 % 90 % 90 % 64 /min 114 mm[Hg] 60 mm[Hg] ADRYAN QUIROGA [facility] 3 11:17:44 Date Recorded Body weight Heart rate Oxygen saturation Oxygen saturation in Arterial blood by Pulse oximetry Systolic blood pressure Diastolic blood pressure Provider Name and Address Organization Details Last Updated DateTime 4 86115.8 9 g 71 /min 90 % 90 % 123 mm[Hg] 59 mm[Hg] Karuna Vega [facility] 4 11:32:23 Date Recorded Body height Body mass index (BMI) Body weight Heart rate Respiratory rate Oxygen saturation Oxygen saturation in Arterial blood by Pulse oximetry Systolic blood pressure Diastolic blood pressure Provider Name and Address Organization Details Last Updated DateTime 4 165.1 cm 28 kg/m2 49925.5 2 g 86 /min 16 /min 96 % 96 % 116 mm[Hg] 60 mm[Hg] Karuna Vega [facility] 4 17:07:45 Social History Question Answer Notes LastModified by Organizat ion Details LastModified Time Tobacco Smoking Status [facility] [address] [facility] 12:45:14 What Is Your Level Of Caffeine Consumption? Occasional Information not available 11/10/2022 What Type Of Diet Are You Following? REGULAR [email or web address] Information not available 10/22/2019 Which Illicit Or Recreational Drugs Have You Used? None Information not available 10/22/2019 Marital Status Informatio n not available 10/22/2019 What Was The Date Of Your Most Recent Tobacco Screening? 10/22/2019 Information not available 12/18/2019 How Many Children Do You Have? 2 [email or web address] Information not available 10/22/2019 How Much Tobacco Do You Smoke? 0.25 PPD [email or web address] Information not available 10/22/2019 General Stress Level High Information not available 10/22/2019 Sex: Unknown Functional Status Question Answer Note LastModified by Organizat ion Details LastModified Time What is your level of alcohol consumption? None [email or web address] Information not available 10/22/2019 Do you or have you ever used smokeless tobacco? Never used smokeless tobacco [email or web address] Information not available 10/22/2019 Do you or have you ever used e-cigarettes or vape? Never used electronic cigarettes [email or web address] Information not available 10/22/2019 Mental Status None recorded. Family History Relationship [...] SNOMED-CT Code Diagnosis ICD10 Code Diagnosis Note [id number] Andre Burnham MD [place] OFFICE [address] [place] [address] 10/22/2019 11:45:23 10/22/2019 13:29:51 Palpitations 32475485 R00.2 Will order MCT to correlate symptoms with arrhythmia . Symptoms are concerning for AFIB. NSR on ECG today. Will start ASA 325mg (OTC). Hyperlipidemia 62954722 E78.5 Needs to keep LDL less than 70, and HDL more than 40 Will get fasting lipids for follow up Pre-surger y evaluation 646300627 Z01.818 Treadmill Myoview Stress test, has high Brothers Risk score. Has Known CAD, or CAD risk equivalent . To look for any ischemia. Lightheadedness 92746796 8 R42 Reports increased lightheade dness, and is concerned for carotid artery stenosis. Consider ordering carotid u/s for evaluation /reassuran ce. Varicose v eins of lower extremity 12607345 I83.893 Reports leg discomfort . No swelling. Consider order venous duplex study to evaluate. [id number] Andre Almousalli , MD [place] OFFICE [address] [place] [address] 12/20/2019 08:58:32 12/20/2019 13:50:52 Palpitations 25107973 R00.2 No AFIB on MCT. Reports GI discomfort with ASA 325. On ASA 81mg. Will order echo to evaluate for MVP. Will start Toprol 25mg 1/2 tab daily. (12/20/2019 ) 11/18/2019 Event monitor : Base line rhythm is NSR Maximal heart rate 112 bpm /Min minimum heart rate 67bpm Average heart rate 89bpm UT interval 141 msec QRS interval 117msec QT interval 344 msec ,no pause or R-R intervals >2.0 seconds Hyperlipidemia 20207729 E78.5 Needs to keep LDL less than 70, and HDL more than 40 Will get fasting lipids for follow up Varicose v eins of lower extremity 00312726 I83.893 Uses compressio n stockings. Mild swelling. Will order venous duplex study to evaluate. Pre-surger y evaluation 511817961 Z01.818 10/31/19 stress test: Negative stress test. LVEF 61%. Normal LV systolic function. Below average exercise tolerance. There is no cardiac contraindi cation for the procedure. The planned procedure would be withinacce ptable risk. {{Patient may stop taking aspirin five (5) days prior to the procedure. # Patient may stop taking aspirin and Plavix five (5) days prior to the procedure. }} 36049 Andre Burnham MD [place] [facility] [address] [place] [address] 03/20/2020 09:57:49 03/20/2020 11:06:25 Palpitations 10326798 R00.2 03/20/2020 No AFIB on MCT. Reports [...] heart rate 67bpm Average heart rate 89bpm UT interval 141 msec QRS interval 117msec QT interval 344 msec ,no pause or R-R intervals >2.0 seconds Hyperlipidemia 81935329 E78.5 Needs to keep LDL less than 70, and HDL more than 40 Will get labs from [facility] taking off statin due to weight gain. Education on statins. Varicose v eins of lower extremity 30672114 I83.893 03/20/2020C ontinue use of compressio n stockings. No symptoms at this time. Post meniscus repair surgeryVen ous study done: 02/11/20 Mild bilateral reflux disease noted. No Varicose Veins noted [id number] Andre Burnham MD [place] [facility] [address] [place] [address] 06/05/2020 11:57:52 06/05/2020 12:27:33 Palpitations 44241495 R00.2 Improved, continue metoprolol . Okay to [...] heart rate 67bpm. Average heart rate 89bpm. UT interval 141 msec. QRS interval 117msec. QT interval 344 msec, no pause or R-R intervals >2.0 seconds. Hyperlipidemia 03091663 E78.5 Needs to keep LDL less than 70, and HDL more than 40. 01/14/2020 LDL 78Continue atorvastat in 10mgWill get fasting lipids for follow-up Varicose v eins of lower extremity 37340824 I83.893 Continue use of compressio n stockings. No symptoms at this time. Post meniscus repair surgery Venous study 02/11/2020: Mild bilateral reflux disease noted. No varicose veins noted. 12063 MD Jose Guadalupe [facility] Office [address] [place] [address] 08/27/2020 10:19:56 08/27/2020 11:05:33 Palpitations 00786856 R00.2 Increased post covid Start Magnesium supplement [...] heart rate 67bpm. Average heart rate 89bpm. UT interval 141 msec. QRS interval 117msec. QT interval 344 msec, no pause or R-R intervals >2.0 seconds. Hyperlipidemia 18507295 E78.5 Needs to keep LDL less than 70, and HDL more than 40. 01/14/2020 LDL 78Continue atorvastat in 10mgWill get fasting lipids for follow-up Varicose v eins of lower extremity 20561384 I83.893 Continue use of compressio n stockings. No symptoms at this time. Post meniscus repair surgery Venous study 02/11/2020: Mild bilateral reflux disease noted. No varicose veins noted. [id number] Andre Burnham MD [place] Office [address] [place] [address] 11/16/2020 15:01:00 11/16/2020 15:43:30 Palpitations 67957688 R00.2 Increased post covid, will repeat eacho [...] heart rate 67bpm. Average heart rate 89bpm. UT interval 141 msec. QRS interval 117msec. QT interval 344 msec, no pause or R-R intervals >2.0 seconds. Hyperlipidemia 83216292 E78.5 Needs to keep LDL less than 70, and HDL more than 40. 10/12/2020 LDL 83 Continue atorvastat in 10 mg Will get fasting lipids for follow-up Varicose v eins of lower extremity 65783155 I83.893 Stable, remains asymptomat ic. Continue compressti on stockings, low salt diet, and leg elevation Venous study 02/11/2020 : Mild bilateral reflux disease noted. No varicose veins noted. 51545 Andre Burnham MD [place] [facility] [address] [place] [address] 05/14/2021 12:14:11 05/15/2021 08:26:14 Hyperlipidemia 56124924 E78.5 Needs to keep LDL less than 70, and HDL more than 40. 10/12/2020 LDL 83 Continue atorvastat in 10 mg Will get fasting lipids for follow-up Palpitations 11548681 R0 0.2 possible Paroxysmal Atrial Fibrillati on Pre-surger y evaluation 274733831 Z01.818 10/31/19 stress test: Negative stress test. LVEF 61%. Normal LV systolic function. Below average exercise tolerance. There is no cardiac contraindi cation for the procedure. The planned procedure would be withinacce ptable risk. {{Patient may stop taking aspirin five (5) days prior to the procedure. # Patient may stop taking aspirin and Plavix five (5) days prior to the procedure. }} 60719 Andre Burnham MD [place] OFF[facility] [place] [address] 11/12/2021 12:02:11 11/12/2021 12:29:45 Hyperlipidemia 82687746 E78.5 Needs to keep LDL less than 70, and HDL more than 40. 10/12/2020 LDL 83 Continue atorvastat in 10 mg Will get fasting lipids for follow-up Palpitations 29868897 R0 0.2 with PAC'Soraya to take extra 1/2 tab of Toprol [id number] Andre Burnham MD [place] [facility] [address] [place] [address] 05/20/2022 10:59:18 05/20/2022 12:02:08 Hyperlipidemia 57534080 E78.5 Needs to keep LDL less than 70, and HDL more than 40. 10/12/2020 LDL 83 Continue atorvastat in 10 mg Will get fasting lipids for follow-up Palpitations 49895741 R0 0.2 with PAC'swill increase Toprol to 25 31778 Andre Burnham MD [place] [facility] [address] [place] [address] 11/18/2022 10:58:10 11/18/2022 11:45:24 Hyperlipidemia 62567463 E78.5 Needs to keep LDL less than 70, and HDL more than 40. 10/12/2020 LDL 83 Continue atorvastat in 10 mg Will get fasting lipids for follow-up Palpitations 34620712 R0 0.2 with PAC'Soraya to take extra 1/2 tab of Toprol [id number] Andre Burnham MD [place] [facility] [address] [place] [address] 11/23/2023 10:37:46 11/23/2023 12:06:59 Hyperlipidemia 79000201 E78.5 Needs to keep LDL less than 70, and HDL more than 40. 10/12/2020 LDL 83 Continue atorvastat in 10 mg Will get fasting lipids for follow-up Palpitations 71399290 R0 0.2 resolvedwi th PAC'Soraya to take extra 1/2 tab of Toprol Dyspnea on exertion 6084 5006 R06.09 Obtain echo to evaluate for structural /functiona l disease. Carotid bruit 560668711 R09.89 will do UScontinue with full aspirin [id number] Andre Almousalli , MD [place] [facility] [address] [place] [address] 05/09/2024 16:53:25 05/09/2024 17:50:42 Hyperlipidemia 91144973 E78.5 05/04/2024 LDL 59 Was on atorvastat in 10 mg, but she stopped it Will get fasting lipids for follow-up Palpitations 92862883 R0 0.2 resolvedwi th PAC'Soraya to take extra 1/2 tab of Toprol Dyspnea on exertion 6084 5006 R06.09 Obtain echo to evaluate for structural /functiona l disease. Carotid bruit 345537581 R09.89 Mild carotid stenosis Health Concerns Section Related Observation LastModified by Organization Detai ls LastModified Time None Recorded Concern Status LastModified by Organization Details LastModified Time None Recorded Advance Directives Directive None Recorded Payers Insurance Date Sequence Insurance Name Policy Number Policy Sapp Covered Member ID Sapp Member ID Guarantor Name 05/09/2024 2 [place] [id number] Zabrina Heck [id number] Zabrina Heck 05/09/2024 2 [place] [id number] Zabrina Heck [id number] Zabrina Heck 05/09/2024 1 [place] Zabrina Heck [id number] Zabrina Heck Notes Date Note Type Note Provider Name and Address Organization Details Recorded Time 11/12/2021 text/html 11/12/21CC : Car diac follow up, [id number] female with history of HLD, anxiety, hypothyroidism, [...] rate 67 bpm Average heart rate 89bpm UT interval 141 msec QRS interval 117msec QT interval 344 msec ,no pause or R-R intervals >2.0 seconds Previously had episode of palpitations with near-syncope HR 160, then went to ED at [place] (10/14/2019). Labs and ECG reportedly normal.Base line rhythm is NSR Had knee surgery for torn meniscus rescheduled. Reports increased lightheadedness.Result s from this visit, or from the past:01/14/20 LIPID: TC 156, TR 94, HDL 60, LDL CMP: NA 141, K 4.4, CL 104, CO2 27, GLU 80, BUN 15, CR 0.72, AST 18, ALT COVID: [id number]/16/20 PT/INR: PT 12.6, INR 1.003 CBC: WBC 7.0, HGB 12.8, HCT 40.3, PLT 38496 EKG: Sinus rhythmEKG 10/22/19 Possible incomplete rbbb02/11/20 [...] bilateral reflux disease noted. Andre Burnham MD [address] [place], [address], [facility] 11/12/2021 12:26:10 05/20/2022 text/html 05/20/22CC : Car diac follow up, [id number]-dzw female with history of HLD, anxiety, hypothyroidism, [...] rate 67 bpm Average heart rate 89bpm UT interval 141 msec QRS interval 117msec QT interval 344 msec ,no pause or R-R intervals >2.0 seconds Previously had episode of palpitations with near-syncope HR 160, then went to ED at [place] (10/14/2019). Labs and ECG reportedly normal.Base line rhythm is NSR Had knee surgery for torn meniscus rescheduled. Reports increased lightheadedness.Result s from this visit, or from the past:01/14/20 LIPID: TC 156, TR 94, HDL 60, LDL CMP: NA 141, K 4.4, CL 104, CO2 27, GLU 80, BUN 15, CR 0.72, AST 18, ALT COVID: [id number]/16/20 PT/INR: PT 12.6, INR 1.003 CBC: WBC 7.0, HGB 12.8, HCT 40.3, PLT 72252 EKG: Sinus rhythmEKG 10/22/19 Possible incomplete rbbb02/11/20 [...] disease noted. Andre Burnham MD [address] [place], [address], [facility] - [facility] 05/20/2022 11:59:38 11/18/2022 text/html 11/18/22CC : Car diac follow up, [id number]-pzv female with history of HLD, anxiety, hypothyroidism, [...] rate 67 bpm Average heart rate 89bpm UT interval 141 msec QRS interval 117msec QT interval 344 msec ,no pause or R-R intervals >2.0 seconds Previously had episode of palpitations with near-syncope HR 160, then went to ED at [place] (10/14/2019). Labs and ECG reportedly normal.Base line rhythm is NSR Had knee surgery for torn meniscus rescheduled. Reports increased lightheadedness.Result s from this visit, or from the past:01/14/20 LIPID: TC 156, TR 94, HDL 60, LDL CMP: NA 141, K 4.4, CL 104, CO2 27, GLU 80, BUN 15, CR 0.72, AST 18, ALT COVID: [id number] PT/INR: PT 12.6, INR 1.003 CBC: WBC 7.0, HGB 12.8, HCT 40.3, PLT 10254 EKG: Sinus rhythmEKG 10/22/19 Possible incomplete rbbb02/11/20 [...] bilateral reflux disease noted. Andre Burnham MD [address] [place], [address], [facility] 11/18/2022 11:40:31 11/23/2023 text/html 11/23/23CC : Car diac follow up dyspnea on [id number] female with history of HLD, anxiety, hypothyroidism, [...] rate 67 bpm Average heart rate 89bpm UT interval 141 msec QRS interval 117msec QT interval 344 msec ,no pause or R-R intervals >2.0 seconds Previously had episode of palpitations with near-syncope HR 160, then went to ED at [place] (10/14/2019). Labs and ECG reportedly normal.Base line rhythm is NSR Had knee surgery for torn meniscus rescheduled. Reports increased lightheadedness.Result s from this visit, or from the past:01/14/20 LIPID: TC 156, TR 94, HDL 60, LDL CMP: NA 141, K 4.4, CL 104, CO2 27, GLU 80, BUN 15, CR 0.72, AST 18, ALT COVID: [id number]/16/20 PT/INR: PT 12.6, INR 1.003/ CBC: WBC 7.0, HGB 12.8, HCT 40.3, PLT 37330/ EKG: Sinus rhythmEKG 10/22/19 Possible incomplete rbbb02/11/20 [...] venous 02/11/20 Mild bilateral reflux disease noted. TINO BAR [place], [place] - [facility] 11/23/2023 12:00:53 05/09/2024 text/html 05/09/24CC : Car dia follow [id number] female with history of HLD, anxiety, hypothyroidism, [...] mg daily. 04/30/2024 : FT4 Reflux-1.34, TSH 0.6244304/30/24CMP-NA 140 K 3.8 CR 0.70 GL 81 [...] rate 67 bpm Average heart rate 89bpm UT interval 141 msec QRS interval 117msec QT interval 344 msec ,no pause or R-R intervals >2.0 seconds Previously had episode of palpitations with near-syncope HR 160, then went to ED at [place] (10/14/2019). Labs and ECG reportedly normal.Base line rhythm is NSR Had knee surgery for torn meniscus rescheduled. Reports increased lightheadedness.Result s from this visit, or from the past:01/14/20 LIPID: TC 156, TR 94, HDL 60, LDL CMP: NA 141, K 4.4, CL 104, CO2 27, GLU 80, BUN 15, CR 0.72, AST 18, ALT COVID: [id number]/16/20 PT/INR: PT 12.6, INR 1.003 CBC: WBC 7.0, HGB 12.8, HCT 40.3, PLT 07259 EKG: Sinus rhythmEKG 10/22/19 Possible incomplete rbbb02/11/20 [...] bilateral reflux disease noted. Andre Burnham MD [address] [place], [address], [facility] 05/09/2024 17:45:16 OBGyn Episode No OBEpisode recorded.
--- OUTSIDE RECORDS SUMMARY | 2024-12-19 09:06 | XMS_ITS | Encounter Summary ---
Author Organization [facility] Address [address] [facility] [place] [address] Care Team Providers Care Powertrain Design Engineer Name Role Phone Ervin Foley MD Primary Care Provider [phone] Alba Carranza MD Primary Care Provider [phone]- [phone] Niya Eddy Primary Care Provider [phone] Torri Pisano MD Primary Care Provider [phone] Encounter Details Date Type Department Care Team (Late st Contact Info) Description 12/26/2018 Lab Requisition [facility] Pathology Lab [address] [place] [address] Albino Hutchison MD [address] [id number] Social History Tobacco Use Types Packs/Day Years [...] CDT) Case Report Surgical Pathology Report Case: [id number] Authorizing Provider: Albino Hutchison MD Collected: 12/25/2018 09:00 AM Pathologist: Last Quiñones MD Received: 12/26/2018 02:28 PM Specimen: Lymph Node Biopsy, [id number] 12/27/2018 10:03 AM [facility] PATHOLOGY LAB Final Diagnosis Lymph node, left axilla, needle core biopsy ([id number]): - Benign reactive lymph cabrera tissue. - No evidence of lymphoma or carcinoma, as sampled. - See description. 12/27/2018 10:03 AM [facility] PATHOLOGY LAB at 1003 CDT Microscopic Description and Comment Review of the [...] or carcinoma. Concurrent lymph node flow cytometry ([id number]) corroborates this diagnosis. Correlation with clinical findings and relevant cytogenetic/molecular testing is required. CORPORATE TRUST OFFICER/NW 12/27/2018 10:03 AM [facility] PATHOLOGY LAB Clinical History 12/27/2018 10:03 AM [facility] PATHOLOGY LAB Materials Received Received are 2 slides and 1 block labeled as [id number] along with the outside pathology report. The materials originate from [address], [place] [address]. All materials are returned to the referring institution, along with a copy of our final report. 12/27/2018 10:03 AM T [facility] PATHOLOGY LAB Disclaimer The performance characteristics of all immunohistochemical and indirect immunofluorescence stains (if any) cited in this report were determined by the Histopathology Laboratory of [facility]. Some of these tests were developed by [...] attending (teaching) pathologist. 12/27/2018 10:03 AM T [facility] PATHOLOGY LAB Embedded Images 12/27/2018 10:03 AM T [facility] PATHOLOGY LAB Pathology/Cytolo gy BIOPSY OF LYMPH NODE / Unknown 12/25/2018 9:00 AM CDT 12/26/2018 2:28 PM CDT us Albino Hutchison MD LAB - PATHOLOGY/CYTOLOGY ORDER AKIKO Final Result Performing Organization Address City/State/[facility] Co de Phone Number [facility] PATHOLOGY LAB [address] [phone] documented in this encounter Visit Diagnoses Not on filedocumented in this encounter Care Teams Powertrain Design Engineer Relationship Specialty Start Date End Date Ervin Foley MD [address] [place] [address] PCP - General 12/25/18 05/23/21 Alba Carranza MD [address] [place] [address] PCP - General Family Medicine 05/24/21 05/24/21 Niya Eddy PA [address] [place] [address] PCP - General Physician Networker 05/25/21 06/29/21 Torri Pisano MD [address] [place] [address] PCP - General Family Medicine 06/30/21 documented as of this encounter
--- OUTSIDE RECORDS SUMMARY | 2024-12-19 09:06 | XMS_ITS | Encounter Summary ---
Author Organization [facility] Address [address] [facility] [place] [address] Care Team Providers Care Systems Applications Programming Lead Name Role Phone Ervin Foley MD Primary Care Provider [phone] Alba Carranza MD Primary Care Provider [phone]- [phone] Niya Eddy Primary Care Provider [phone] Torri Pisano MD Primary Care Provider [phone] Encounter Details Date Type Department Care Team (Late st Contact Info) Description 12/25/2018 Lab Requisition [facility] Pathology Lab [address] [place] [address] Albino Hutchison MD [address] [id number] Localized enlarged lymph nodes Social History Tobacco [...] AM CDT) Case Report Flow Cytometry Case: [id number] Authorizing Provider: Albino Hutchison MD Collected: 12/25/2018 09:52 AM Pathologist: Last Quiñones MD Received: 12/25/2018 02:04 PM Specimen: Axillary Lymph Node 9 6:46 AM T [facility] PATHOLOGY LAB Final Diagnosis Lymph node, right axilla, flow cytometric immunophenotypic analysis ([id number]): - Reduced viability specimen. - No evidence of non-Hodgkin lymphoma. - See interpretation. 9 6:46 AM [facility] PATHOLOGY LAB at 0646 CDT Flow Cytometry Interpretation The right axillary lymph [...] the flow cytometry specimen is reviewed for automotive quality manager purposes. Overall, the right axillary lymph node shows reduced viability specimen with no evidence of involvement by non-Hodgkin lymphoma. Correlation with clinical findings and concurrent biopsy is required. RUBBLE PLACER/NW 9 6:46 AM [facility] PATHOLOGY LAB Flow Cytometry Results Differential Result Comment Flow Cell Count /uL 4000 Total Viability % 65.0 Lymphocytes % 93 Dim CD45 Region % 1 Monocytes % 4 Granulocytes % 1 9 6:46 AM [facility] PATHOLOGY LAB Reason for test Localized enlarged lymph nodes 785.6 9 6:46 AM [facility] PATHOLOG[facility] LAB Client Specimen ID # [id number] 9 6:46 AM [facility] PATHOLOG[facility] LAB Number of markers 16 were performed. A Flow CD3 A Flow CD10 A Flow CD20 A Flow CD23 A Flow CD2 A Flow CD4 A Flow CD1a A Flow CD5 A Flow CD19 A Flow CD34 A Flow CD45 A Flow CD7 A Flow CD8 A Flow CD30 A [place]+CD19+ A Lambda+CD19+ 9 6:46 AM CDT [facility] PATH[facility] LAB Disclaimer Test performed at [facility], [address] [place], [place], [address]. *The established laboratory minimum viability is 70%. [...] complexity clinical testing. 9 6:46 AM CDT [facility] PATHOLOG[facility] LAB Embedded Images 9 6:46 AM CDT [facility] PATH[facility] LAB Pathology/Cytolo gy AXILLARY LYMPH NODE STRUCTURE / Unknown 12/25/2018 9:52 AM CDT 12/25/2018 2:04 PM CDT Albino Hutchison MD LAB - PATHOLOGY/CYTOLOGY ORDER AKIKO Final Result [facility] PATH[facility] LAB [address] [place] [address]. [address] [phone] documented in this encounter Visit Diagnoses Diagnosis Localized enlarged lymph nodes Enlargement of lymph nodes documented in this encounter Care Teams Systems Applications Programming Lead Relationship Specialty Start Date End Date Ervin Foley MD [address] [place] [address] PCP - General 12/25/18 05/23/21 Alba Carranza MD [address] [place] [address] PCP - General Family Medicine 05/24/21 05/24/21 Niya Eddy PA [address] [place] [address] PCP - General Physician Pulp Refiner Operator 05/25/21 06/29/21 Torri Pisano MD [address] [place] [address] PCP - General Family Medicine 06/30/21 documented as of this encounter
--- OUTSIDE RECORDS SUMMARY | 2024-12-19 09:06 | XMS_ITS | Referral Summary ---
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
--- OUTSIDE RECORDS SUMMARY | 2024-12-19 09:06 | XMS_ITS ---
Author Name Auto Generated, Auto Generated Organization [facility] [employer] [facility] Address [address] [place] [address] Phone [phone] Care Team Providers Care Periodontist Name Role Phone Alba Carranza Unavailable [phone] Functional Status No Results Mental Status No [...]
[2024-12-19 09:39] LABS: Glucose Point of Care 94 mg/dl (65-105)
== END 2024-12-19 09:00 | disposition home or self-care (01) ==
PROVIDERS: PCP Family Medicine; Visit Provider Family Medicine
DX: R19.01 Right upper quadrant abdominal swelling, mass and lump (principal); R93.5 Abnormal findings on diagnostic imaging of other abdominal regions, including retroperitoneum; R91.8 Other nonspecific abnormal finding of lung field
CPT/HCPCS: 78815; A9552

== ENCOUNTER 2025-02-05 10:01 | Outpatient (CLI) | payer MEDICARE, SELFPAY ==
--- OUTSIDE RECORDS SUMMARY | 2025-02-05 10:14 | XMS_ITS | Referral Summary ---
Author Organization [facility] [address] [facility] [address] Address [address] [place] [address] Care Team Providers Care Rn Referral Name Role Phone Joel Foley MD Primary Care Provider [phone] Social History Tobacco Use Types Packs/Day Years Used Date Smoking Tobacco: Never Assessed Personal Safety Answer Date Recorded Getting School Help Needed Not on file 10/13 Comments Unknown Sex and Gender Information Value Date Recorded Sex Assigned at Not on file Legal Sex Female 10:32 PM STAND IN Gender Identity Not on file Sexual Orientation Not on file Plan of Treatment Not on file Insurance MEDICARE [facility] Care Teams Rn Referral Relationship Specialty Start Date End Date Joel Foley MD [address] [place] [address] PCP - General Family Medicine 10/04/17
--- OUTSIDE RECORDS SUMMARY | 2025-02-05 10:14 | XMS_ITS | Encounter Summary ---
Author Organization [facility] Address [address] [facility] [place] [address] Care Team Providers Care Automation Driver Name Role Phone Ervin Foley MD Primary Care Provider [phone] Alba Carranza MD Primary Care Provider [phone] Niya Eddy Primary Care Provider [phone] Torri Pisano MD Primary Care Provider [phone] Encounter Details Date Type Department Care Team (Late st Contact Info) Description 12/26/2018 Lab Requisition [facility] Pathology Lab [address] [place] [address] Albino Hutchison MD [address] [id number] Social History Tobacco Use Types Packs/Day Years [...] CDT) Case Report Surgical Pathology Report Case: [id number] Authorizing Provider: Albino Hutchison MD Collected: 12/25/2018 09:00 AM Pathologist: Last Quiñones MD Received: 12/26/2018 02:28 PM Specimen: Lymph Node Biopsy, [id number] 12/27/2018 10:03 AM [facility] PATHOLOGY LAB Final Diagnosis Lymph node, left axilla, needle core biopsy ([id number]): - Benign reactive lymph cabrera tissue. - No evidence of lymphoma or carcinoma, as sampled. - See description. 12/27/2018 10:03 AM [facility] PATHOLOGY LAB at 1003 CDT [...] or carcinoma. Concurrent lymph node flow cytometry ([id number]) corroborates this diagnosis. Correlation with clinical findings and relevant cytogenetic/molecular testing is required. CORPORATE COMPLIANCE OFFICER/NW 12/27/2018 10:03 AM [facility] PATHOLOG[facility] LAB Clinical History 12/27/2018 10:03 AM [facility] PATHOLOG[facility] LAB Materials Received Received are 2 slides and 1 block labeled as [id number] along with the outside pathology report. The materials originate from [address], [place] [address]. All materials are returned to the referring institution, along with a copy of our final report. 12/27/2018 10:03 AM T [facility] PATHOLOGY LAB Disclaimer The performance characteristics of all immunohistochemical and indirect immunofluorescence stains (if any) cited in this report were determined by the Histopathology Laboratory of [facility]. Some of these tests were developed [...] attending (teaching) pathologist. 12/27/2018 10:03 AM T [facility] PATHOLOGY LAB Embedded Images 12/27/2018 10:03 AM T [facility] PATHOLOGY LAB Pathology/Cytolo gy BIOPSY OF LYMPH NODE / Unknown 12/25/2018 9:00 AM CDT 12/26/2018 2:28 PM CDT us Albino Hutchison MD LAB - PATHOLOGY/CYTOLOGY ORDER AKIKO Final Result Performing Organization Address City/State/[facility] Co de Phone Number [facility] PATHOLOGY LAB [address] [phone] documented in this encounter Visit Diagnoses Not on filedocumented in this encounter Care Teams Automation Driver Relationship Specialty Start Date End Date Ervin Foley MD [address] [place] [address] PCP - General 12/25/18 05/23/21 Alba Carranza MD [address] [place] [address] PCP - General Family Medicine 05/24/21 05/24/21 Niya Eddy PA [address] [place] [address] PCP - General Physician Asbestos Removal Worker 05/25/21 06/29/21 Torri Pisano MD [address] [place] [address] PCP - General Family Medicine 06/30/21 documented as of this encounter
--- OUTSIDE RECORDS SUMMARY | 2025-02-05 10:14 | XMS_ITS ---
Author Name Auto Generated, Auto Generated Organization [facility] [employer] Address [address] [place] [address] Phone [phone] Care Team Providers Care Mold Cleaning And Storage Supervisor Name Role Phone Alba Carranza Unavailable [phone] Functional Status No Results Mental Status No [...]
--- OUTSIDE RECORDS SUMMARY | 2025-02-05 10:14 | XMS_ITS ---
Author Name Auto Generated, Auto Generated Organization [facility] [employer] [facility] Address [address] [place] [address] Phone [phone] Care Team Providers Care Floor Sanding Machine Operator Name Role Phone Alba Carranza Unavailable [phone] Functional Status No Results Mental Status No [...]
--- OUTSIDE RECORDS SUMMARY | 2025-02-05 10:14 | XMS_ITS | Clinical Summary ---
Author Organization [facility] Address [address] [facility] [place] [address] Care Team Providers Care Retail Special Event Associate Name Role Phone Torri Pisano MD Primary Care Provider [phone] Source Comments [facility],non-owned Affiliates and Associated Physician Practices is amultiple site organization consisting of ambulatory clinics and hospital sitesin [place], [place], [place] and [place]. This disclosure is being madepursuant to the Care Everywhere program and may not contain all information available regarding this patient. Last updated 18.[facility] Allergies No known active allergies [...] Comments Blood Pressure 114/47 07/01/2021 7:48 AM JUNIOR COPYWRITER Pulse 65 07/01/2021 7:48 AM JUNIOR COPYWRITER Temperature 36.4 C (97.5 F) 07/01/2021 7:48 AM JUNIOR COPYWRITER Respiratory Rate 16 07/01/2021 7:48 AM JUNIOR COPYWRITER Oxygen Saturation 97% 07/01/2021 7:48 AM JUNIOR COPYWRITER Inhaled Oxygen Concentration - - Weight 75.8 kg (167 lb) 06/30/2021 7:34 AM JUNIOR COPYWRITER Height 165.1 cm (5' 5) 06/30/2021 7:34 AM JUNIOR COPYWRITER Body Mass Index 27.79 06/30/2021 7:34 AM JUNIOR COPYWRITER Plan of Treatment Health Maintenance Due Date Last Done Comments BONE DENSITY TESTING 1950 MEDICARE AWV 12 MONTHS 1950 HEPATITIS C SCREENING 01/21/1967 DTAP/TDAP/TD VACCINES (1 - Tdap) 01/26/1968 PNEUMOCOCCAL VACCINE 50+ (1 of 1 - PCV) 1999 ZOSTER VACCINE (1 of 2) 1999 Respiratory Syncytial Virus (RSV) Vaccine Pt: or over 60 yrs (1 - 1-dose 75+ series) 01/26/2024 COVID-19 VACCINE ( - 2023-2 5 season) 2024 DEPRESSION SCREENING 07/31/2024 12/18/2023 INFLUENZA VACCINE (#1) 2025 HEPATITIS B VACCINE Aged Out No [...] this topic Medical Devices Implanted Type Area Pediatric Intensive Physician Device Identifier Shelf Expiration Date Model / Serial / Lot Cmnt Bone Djo Srg Cblt 40gm Hvisc Strl Implanted:Qty: 1 on 06/30/2021 by Familia Sargent MD at [facility] Left: Knee [employer] 09/18/2022 [id number] / / [id number] Tray Tib 71mm Kn Cocr I Beam Implanted:Qty: 1 on 06/30/2021 by Familia Sargent MD at [facility] Left: Knee [employer] 05/10/2031 [id number] / / [id number] Cmpnt Fem Kn Lt Cr Cmnt Prm Vngrd Intlk Implanted:Qty: 1 on 06/30/2021 by Familia Sargent MD at [facility] Left: Knee [employer] 12/19/2030 [id number] / / [id number] Cmpnt Ptlr 28mm 1 Pg Wire Ascnt Arcm Kn Implanted:Qty: 1 on 06/30/2021 by Familia Sargent MD at [facility] Left: Knee [employer] 06/12/2025 [id number] / / [id number] Vngrd Arcm Kn Ant Stab Implanted:Qty: 1 on 06/30/2021 by Familia Sargent MD at [facility] Left: Knee [employer] 02/03/2026 [id number] / / [id number] [facility] Address: [address] [place] [address] MEDICARE [employer] Advance Directives Documents on File Type Date Recorded Patient Windows Administrator Expl anation Adv Directive/Living Will/POA 07/05/2021 10:43 PM * Full Code (Latest Code Status on File) Date Activated Date Inactivated Comments 06/30/2021 2:02 PM 07/01/2021 5:11 PM Care Teams Retail Special Event Associate Relationship Specialty Start Date End Date Torri Pisano MD [address] [place] [address] PCP - General Family Medicine 06/30/21
--- OUTSIDE RECORDS SUMMARY | 2025-02-05 10:14 | XMS_ITS | Clinical Summary ---
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
--- OUTSIDE RECORDS SUMMARY | 2025-02-05 10:14 | XMS_ITS | Encounter Summary ---
Author Organization [facility] Address [address] [place] [address] Care Team Providers Care Home Appliance Technician Name Role Phone Ervin Foley MD Primary Care Provider [phone] Alba Carranza MD Primary Care Provider [phone]- [phone] Niya Eddy Primary Care Provider [phone] Torri Pisano MD Primary Care Provider [phone] Encounter Details Date Type Department Care Team (Late st Contact Info) Description 12/25/2018 Lab Requisition [facility]ology Lab [address] [place] [address] Albino Hutchison MD [address] [id number] Localized enlarged lymph nodes Social History Tobacco [...] AM CDT) Case Report Flow Cytometry Case: [id number] Authorizing Provider: Albino Hutchison MD Collected: 12/25/2018 09:52 AM Pathologist: Last Quiñones MD Received: 12/25/2018 02:04 PM Specimen: Axillary Lymph Node 9 6:46 AM T [facility] Final Diagnosis Lymph node, right axilla, flow cytometric immunophenotypic analysis ([id number]): - Reduced viability specimen. - No evidence of non-Hodgkin lymphoma. - See interpretation. 9 6:46 AM [facility] at 0646 CDT Flow Cytometry [...] the flow cytometry specimen is reviewed for coding quality analyst purposes. Overall, the right axillary lymph node shows reduced viability specimen with no evidence of involvement by non-Hodgkin lymphoma. Correlation with clinical findings and concurrent biopsy is required. SEAFOOD PROCESSOR/NW 9 6:46 AM [facility] Flow Cytometry Results Differential Result Comment Flow Cell Count /uL 4000 Total Viability % 65.0 Lymphocytes % 93 Dim CD45 Region % 1 Monocytes % 4 Granulocytes % 1 9 6:46 AM [facility] Reason for test Localized enlarged lymph nodes 785.6 9 6:46 AM [facility] Client Specimen ID # [id number] 9 6:46 AM [facility] Number of markers 16 were performed. A Flow CD3 A Flow CD10 A Flow CD20 A Flow CD23 A Flow CD2 A Flow CD4 A Flow CD1a A Flow CD5 A Flow CD19 A Flow CD34 A Flow CD45 A Flow CD7 A Flow CD8 A Flow CD30 A [place]+CD19+ A Lambda+CD19+ 9 6:46 AM CDT [facility] Disclaimer Test performed at [facility], [address] [place], [place], [address]. *The established laboratory minimum viability is 70%. [...] complexity clinical testing. 9 6:46 AM CDT [facility] Embedded Images 9 6:46 AM CDT [facility] Pathology/Cytolo gy AXILLARY LYMPH NODE STRUCTURE / Unknown 12/25/2018 9:52 AM CDT 12/25/2018 2:04 PM CDT Albino Hutchison MD LAB - PATHOLOGY/CYTOLOGY ORDER AKIKO Final Result [facility] [address] [place] [address]. [address] [phone] documented in this encounter Visit Diagnoses Diagnosis Localized enlarged lymph nodes Enlargement of lymph nodes documented in this encounter Care Teams Home Appliance Technician Relationship Specialty Start Date End Date Ervin Foley MD [address] [place] [address] PCP - General 12/25/18 05/23/21 Alba Carranza MD [address] [place] [address] PCP - General Family Medicine 05/24/21 05/24/21 Niya Eddy PA [address] [place] [address] PCP - General Physician Video Production Coordinator 05/25/21 06/29/21 Torri Pisano MD [address] [place] [address] PCP - General Family Medicine 06/30/21 documented as of this encounter
[2025-02-05 19:33] LABS: Hematocrit 38.5 % (37.0-47.0); Hemoglobin 12.3 g/dL (12.0-15.0); Immature Granulocyte Percent A 0.5 % (0-0.5); Lymphocytes Absolute Auto 1.09 K/mm3 (0.9-3.2); Mean Corpuscular HGB Conc 31.9 g/dl (32-36); Mean Corpuscular Hemoglobin 30.0 pg (26-34); Mean Corpuscular Volume 93.9 fl (80-100); Nucleated Red Blood Cells Absolute Auto 0.000 K/mm3 (0.0-0.012); Nucleated Red Blood Cells Perc 0.0 % (0.0-0.2); Platelet Count Result 228 k/mm3 (150-375); Red Blood Count 4.10 M/mm3 (4.2-5.4); White Blood Count 6.2 K/mm3 (4.5-10.0)
[2025-02-05 21:27] LABS: Alanine Aminotransferase 17 U/L (6-35); Albumin Level 4.0 g/dL (3.5-5.1); Alkaline Phosphatase 69 U/L (38-126); Anion Gap 7 mmol/L (4-12); Aspartate Amino Transferase 31 U/L (14-36); Bilirubin,Total 0.3 mg/dL (0.2-1.3); Blood Urea Nitrogen 16 mg/dL (7-17); Calcium 9.2 mg/dL (8.4-10.2); Carbon Dioxide 24 mmol/L (22-30); Chloride 108 mmol/L (98-107); Cholesterol 165 mg/dL (0-200); Estimated Glomerular Filt Rate > 60; Glucose 85 mg/dL (65-110); HDL Direct 52 mg/dL; Magnesium 2.0 mg/dL (1.6-2.3); Potassium 4.1 mmol/L (3.4-5.0); Sodium 139 mmol/L (137-145); Total Protein 6.5 g/dL (6.3-8.2); Triglycerides 104 mg/dL (<150)
[2025-02-05 21:49] LABS: Free T4 Free Thyroxine 1.47 ng/dL (0.78-2.19)
[2025-02-05 21:56] LABS: Hemoglobin A1C 5.5 % (<5.7)
[2025-02-05 21:57] LABS: Thyroid Stimulating Hormone 1.590 uIU/mL (0.465-4.680)
== END 2025-02-05 10:02 | disposition home or self-care (01) ==
PROVIDERS: PCP Family Medicine; Visit Provider Student in an Organized Health Care Education/Training Program
DX: F41.9 Anxiety disorder, unspecified (principal); I49.1 Atrial premature depolarization; I65.29 Occlusion and stenosis of unspecified carotid artery; E78.2 Mixed hyperlipidemia; E03.9 Hypothyroidism, unspecified; R94.6 Abnormal results of thyroid function studies; K21.9 Gastro-esophageal reflux disease without esophagitis; K58.2 Mixed irritable bowel syndrome; Z00.00 Encounter for general adult medical examination without abnormal findings; Z13.1 Encounter for screening for diabetes mellitus
CPT/HCPCS: 36415; 80053; 80061; 83036; 83735; 84439; 84443; 85025

== ENCOUNTER 2025-02-17 01:00 | Day surgery (SDC) | payer MEDICARE, SELFPAY ==
[2025-02-03 14:37] VITALS: BMI 28.4
--- OUTSIDE RECORDS SUMMARY | 2025-02-17 01:02 | XMS_ITS | Patient Health Record ---
Author Organization [facility] Address [address] [place], [place] [address] Care Team Providers Care Patient Companion Name Role Phone ADRIEN MEDLEY Unavailable [phone] Emanuel Foleyony Unavailable Unavailable Reason For Referral No Information Medications Medication SIG (Take, Route, Frequency, Duration) Notes Start Date End Date Status esomeprazole 20 MG Delayed Release Oral Capsule [Nexium] ORAL esomeprazole 20 MG Delayed Release Oral Capsule [Nexium]Original Medicationesomeprazole 20 MG Delayed Release Oral Capsule [Nexium] *Reorder from [employer] for eRx and Interaction Alerts* 10/31/2014 Active Plan Of Treatment No Information Insurance Providers Payer Name Payer Address Payer Phone Subscriber Number Group Number Insured Name Patient Relationship to Insured Coverage Start Date Coverage End Date Medicare Part B [place] [address] [place] [address] [id number] SELAM KEATING Self - patient is the insured [facility] ([facility]) ATTN CLAIMS [address] [place] [address] [id number] SELAM KEATING Self - patient is the insured
--- OUTSIDE RECORDS SUMMARY | 2025-02-17 01:02 | XMS_ITS | Referral Summary ---
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
--- OUTSIDE RECORDS SUMMARY | 2025-02-17 01:03 | XMS_ITS | Clinical Summary ---
Author Organization [facility] Address [address] [place] [address] Care Team Providers Care Bead Forming Machine Set Up Operator Name Role Phone Torri Pisano MD Primary Care Provider [phone] Source Comments [facility],non-owned Affiliates and Associated Physician Practices is amultiple site organization consisting of ambulatory clinics and hospital sitesin [place], [place], [place]. This disclosure is being madepursuant to the Care Everywhere program and may not contain all information available regarding this patient. Last updated 18.[facility] Allergies No known active allergies [...] Comments Blood Pressure 114/47 07/01/2021 7:48 AM BIRDCAGE ASSEMBLER Pulse 65 07/01/2021 7:48 AM BIRDCAGE ASSEMBLER Temperature 36.4 C (97.5 F) 07/01/2021 7:48 AM BIRDCAGE ASSEMBLER Respiratory Rate 16 07/01/2021 7:48 AM BIRDCAGE ASSEMBLER Oxygen Saturation 97% 07/01/2021 7:48 AM BIRDCAGE ASSEMBLER Inhaled Oxygen Concentration - - Weight 75.8 kg (167 lb) 06/30/2021 7:34 AM BIRDCAGE ASSEMBLER Height 165.1 cm (5' 5) 06/30/2021 7:34 AM BIRDCAGE ASSEMBLER Body Mass Index 27.79 06/30/2021 7:34 AM BIRDCAGE ASSEMBLER Plan of Treatment Health Maintenance Due Date [...] this topic Medical Devices Implanted Type Area Client Account Representative Device Identifier Shelf Expiration Date Model / Serial / Lot Cmnt Bone Djo Srg Cblt 40gm Hvisc Strl Implanted:Qty: 1 on 06/30/2021 by Familia Sargent MD at [facility] Left: Knee [employer] 09/18/2022 [id number] / / [id number] Tray Tib 71mm Kn Cocr I Beam Implanted:Qty: 1 on 06/30/2021 by Familia Sargent MD at [facility] Left: Knee [employer] 05/10/2031 [id number] / / [id number] Cmpnt Fem Kn Lt Cr Cmnt Prm Vngrd Intlk Implanted:Qty: 1 on 06/30/2021 by Familia Sargent MD at [facility] Left: Knee [employer] 12/19/2030 [id number] / / [id number] Cmpnt Ptlr 28mm 1 Pg Wire Ascnt Arcm Kn Implanted:Qty: 1 on 06/30/2021 by Familia Sargent MD at [facility] Left: Knee [employer] 06/12/2025 [id number] / / [id number] Brng [id number] Vngrd Arcm Kn Ant Stab Implanted:Qty: 1 on 06/30/2021 by Familia Sargent MD at [facility] Left: Knee [employer] 02/03/2026 [id number] / / [id number] [facility] Advance Directives Documents on File Type Date Recorded Patient Electrical Line Splicer Expl anation Adv Directive/Living Will/POA 07/05/2021 10:43 PM * Full Code (Latest Code Status on File) Date Activated Date Inactivated Comments 06/30/2021 2:02 PM 07/01/2021 5:11 PM Care Teams Bead Forming Machine Set Up Operator Relationship Specialty Start Date End Date Torri Pisano MD [address] [place] [address] PCP - General Family Medicine 06/30/21
--- OUTSIDE RECORDS SUMMARY | 2025-02-17 01:03 | XMS_ITS | Clinical Summary ---
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
--- OUTSIDE RECORDS SUMMARY | 2025-02-17 01:03 | XMS_ITS | Data Portability ---
Author Organization [place] - [facility] OFFICE Address [address] [place] [address] Care Team Providers Care Commercial Drone Software Developer Name Role Phone SHIRA STEVENSON Primary Care [...] Orders CoQ-10 100 mg capsule 2023 024 [facility] ([employer] [id number], [address], [place], [id number], 17:10:36 metoprolol succinate ER 25 mg tablet,ext ended release [address] [facility] [place], [address], 11:59:43 Patient TargetsNo targets recorded. Patient Instructions Encounter Date Encounter Id Patient Instructions Last Modified By Organization Details Last Modified Time 11/12/2021 [id number] Exercise advised Low cholesterol diet advised Low sodium diet advised. [email or web address] Not available 11/12/2021 12:25:15 11/18/2022 [id number] Exercise advised Low cholesterol diet advised Low sodium diet advised. oalmousalli Not available 11/18/2022 11:39:46 11/23/2023 [id number] Low cholesterol diet advised Low sodium diet advised. eyassin Not available 11/23/2023 11:59:00 05/09/2024 [id number] Exercise advised Low cholesterol diet advised Low [...] Not Available 2023 11:41:23 01/22/20 24 01/11/2024 , echoc ardio gram No observ ation record ed. [facility], [place] [address] [address], [place], [address], 01/23/2024 10:19:41 Result Notes None recorded. Problems Name Problem SNOMED Code Status Onset Date Resolution Date Notes Provider Name and Address Organization Details Recorded Time Irritable bowel syndrome 59054057 Active 2019 Lizzy tovar, [place] - [facility] 0 12:41:25 Acid reflux 208670990 Active 2019 Lizzy tovar, [facility] 0 12:43:35 Palpitations 63085127 Active 2019 Larry Alex null, [place] - [facility] 0 15:59:43 Hyper[facility] 94968690 [facility] 15:59:53 [facility] 16:[facility]01 Alisa portillo 983584945 Active 2019 [facility] 16:00:09 Varicose veins of lower extremity 35581022 Active 2019 [facility] 16:00:18 Problem Notes None recorded. Procedures Surgical History Date Name Laterality Status Provider Name and Address Organization Details Recorded Time Cholecystectomy completed Lizzy Rico [facility] 10/22/2019 12:47:19 Imaging Results None recorded. Procedure Notes None recorded. Medical Equipment None [...] completed Not Available Not Available Not Available [facility] 3 11/22 completed Not Available Not Available [...] Not Available Not Available No t Available [facility] COVID-19 Vaccine (PF) 30 mcg/0.3 mL IM susp (purple) PHARMACY ADMIN[facility] 11/16 completed Not Available Not Available Not Available Vitals Date Recorded Body height Body mass index (BMI) Body weight Heart rate Oxygen saturation Oxygen saturation in Arterial blood by Pulse oximetry Systolic And Diastolic Provider Name and Address Organization Details Last Updated DateTime 2 165.1 cm 28.7 kg/m2 60701.9 7 g 77 /min 94 % 94 % 110/70 mm[Hg] Andre Alston i, MD [address] [place], [address], [facility] 2 12:11:22 Date Recorded Body height Body mass index (BMI) Body weight Oxygen saturation Oxygen saturation in Arterial blood by Pulse oximetry Oxygen saturation Oxygen saturation in Arterial blood by Pulse oximetry Heart rate Systolic And Diastolic Provider Name and Address Organization Details Last Updated DateTime 3 165.1 cm 29.6 kg/m2 25727.0 8 g 89 % 89 % 90 % 90 % 64 /min 114/60 mm[Hg] ADRYAN QUIROGA [facility] 3 11:17:44 Date Recorded Body weight Heart rate Oxygen saturation Oxygen saturation in Arterial blood by Pulse oximetry Systolic And Diastolic Provider Name and Address Organization Details Last Updated DateTime 4 79186.8 9 g 71 /min 90 % 90 % 123/59 mm[Hg] Karuna Vega [facility] 4 11:32:23 Date Recorded Body height Body mass index (BMI) Body weight Heart rate Respiratory rate Oxygen saturation Oxygen saturation in Arterial blood by Pulse oximetry Systolic And Diastolic Provider Name and Address Organization Details Last Updated DateTime 4 165.1 cm 28 kg/m2 07439.5 2 g 86 /min 16 /min 96 % 96 % 116/60 mm[Hg] Karuna Vega [facility] 4 17:07:45 Date Recorded Body height Body mass index (BMI) Body weight Oxygen saturation Oxygen saturation in Arterial blood by Pulse oximetry Heart rate Systolic And Diastolic Provider Name and Address Organization Details Last Updated DateTime 2 165.1 cm 28.1 kg/m2 53188.1 1 g 95 % 95 % 81 /min 116/78 mm[Hg] Massiel Valentine [facility] 2 11:53:17 Social History Question Answer Notes LastModified by Organizat ion Details LastModified Time Tobacco Smoking Status Former [facility]/22/2019 12:45:14 What Is Your Level Of Caffeine Consumption? Occasional Information not available 11/10/2022 What Type Of Diet Are You Following? REGULAR Information not available 10/22/2019 Which Illicit Or Recreational Drugs Have You Used? None [email or web address] Information not available 10/22/2019 Marital Status [email or web address] Informatio n not available 10/22/2019 What Was The Date Of Your Most Recent Tobacco Screening? 10/22/2019 Information not available 12/18/2019 How Many Children Do You Have? 2 [email or web address] Information not available 10/22/2019 How Much Tobacco Do You Smoke? 0.25 PPD Information not available 10/22/2019 General Stress Level High [email or web address] Information not available 10/22/2019 Sex: Unknown Functional Status Question Answer Note LastModified by Organizat ion Details LastModified Time What is your level of alcohol consumption? None [email or web address] Information not available 10/22/2019 Do you or have you ever used smokeless tobacco? Never used smokeless tobacco [email or web address] Information not available 10/22/2019 Do you or have you ever used e-cigarettes or vape? Never used electronic cigarettes Information not available 10/22/2019 Mental Status None [...] SNOMED-CT Code Diagnosis ICD10 Code Diagnosis Note [id number] Andre Burnham MD [place] OFF[place] [address] [place] [address] 10/22/2019 11:45:23 10/22/2019 13:29:51 Palpitations 87500954 R00.2 Will order MCT to correlate symptoms with arrhythmia . Symptoms are concerning for AFIB. NSR on ECG today. Will start ASA 325mg (OTC). Hyperlipidemia 23900237 E78.5 Needs to keep LDL less than 70, and HDL more than 40 Will get fasting lipids for follow up Pre-surger y evaluation 261320176 Z01.818 Treadmill Myoview Stress test, has high [place] Risk score. Has Known CAD, or CAD risk equivalent . To look for any ischemia. Lightheadedness 63192291 8 R42 Reports increased lightheade dness, and is concerned for carotid artery stenosis. Consider ordering carotid u/s for evaluation /reassuran ce. Varicose v eins of lower extremity 21708545 I83.893 Reports leg discomfort . No swelling. Consider order venous duplex study to evaluate. [id number] Andre Burnham MD [place] [facility] [address] [place] [address] 12/20/2019 08:58:32 12/20/2019 13:50:52 Palpitations 01056654 R00.2 No AFIB on MCT. Reports GI discomfort with ASA 325. On ASA 81mg. Will order echo to evaluate for MVP. Will start Toprol 25mg 1/2 tab daily. (12/20/2019 ) 11/18/2019 Event monitor : Base line rhythm is NSR Maximal heart rate 112 bpm /Min minimum heart rate 67bpm Average heart rate 89bpm MS interval 141 msec QRS interval 117msec QT interval 344 msec ,no pause or R-R intervals >2.0 seconds Hyperlipidemia 61809585 E78.5 Needs to keep LDL less than 70, and HDL more than 40 Will get fasting lipids for follow up Varicose v eins of lower extremity 63665836 I83.893 Uses compressio n stockings. Mild swelling. Will order venous duplex study to evaluate. Pre-surger y evaluation 034390676 Z01.818 10/31/19 stress test: Negative stress test. LVEF 61%. Normal LV systolic function. Below average exercise tolerance. There is no cardiac contraindi cation for the procedure. The planned procedure would be withinacce ptable risk. Patient may stop taking aspirin five (5) days prior to the procedure. [id number] Andre Burnham MD [place] OFF[place] [facility] [place] [address] 03/20/2020 09:57:49 03/20/2020 11:06:25 Palpitations 35356386 R00.2 03/20/2020 No AFIB on MCT. Reports [...] heart rate 67bpm Average heart rate 89bpm MS interval 141 msec QRS interval 117msec QT interval 344 msec ,no pause or R-R intervals >2.0 seconds Hyperlipidemia 02196327 E78.5 Needs to keep LDL less than 70, and HDL more than 40 [facility] get labs from [facility] taking off statin due to weight gain. Education on statins. Varicose v eins of lower extremity 71531763 I83.893 03/20/2020C ontinue use of compressio n stockings. No symptoms at this time. Post meniscus repair surgeryVen ous study done: 02/11/20 Mild bilateral reflux disease noted. No Varicose Veins noted [id number] Andre Burnham MD [place] [facility] [address] [place] [address] 06/05/2020 11:57:52 06/05/2020 12:27:33 Palpitations 16471680 R00.2 Improved, continue metoprolol . Okay to [...] heart rate 67bpm. Average heart rate 89bpm. MS interval 141 msec. QRS interval 117msec. QT interval 344 msec, no pause or R-R intervals >2.0 seconds. Hyperlipidemia 50976207 E78.5 Needs to keep LDL less than 70, and HDL more than 40. 01/14/2020 LDL 78Continue atorvastat in 10mgWill get fasting lipids for follow-up Varicose v eins of lower extremity 10377384 I83.893 Continue use of compressio n stockings. No symptoms at this time. Post meniscus repair surgery Venous study 02/11/2020: Mild bilateral reflux disease noted. No varicose veins noted. [id number] MD Jose Guadalupe [facility] Office [address] [place] [address] 08/27/2020 10:19:56 08/27/2020 11:05:33 Palpitations 21490115 R00.2 Increased post covid Start Magnesium supplement [...] heart rate 67bpm. Average heart rate 89bpm. MS interval 141 msec. QRS interval 117msec. QT interval 344 msec, no pause or R-R intervals >2.0 seconds. Hyperlipidemia 12328821 E78.5 Needs to keep LDL less than 70, and HDL more than 40. 01/14/2020 LDL 78Continue atorvastat in 10mgWill get fasting lipids for follow-up Varicose v eins of lower extremity 02926999 I83.893 Continue use of compressio n stockings. No symptoms at this time. Post meniscus repair surgery Venous study 02/11/2020: Mild bilateral reflux disease noted. No varicose veins noted. [id number] Andre Burnham MD [facility] [address] [place] [address] 11/16/2020 15:01:00 11/16/2020 15:43:30 Palpitations 99393239 R00.2 Increased post covid, will repeat eacho [...] heart rate 67bpm. Average heart rate 89bpm. MS interval 141 msec. QRS interval 117msec. QT interval 344 msec, no pause or R-R intervals >2.0 seconds. Hyperlipidemia 14573874 E78.5 Needs to keep LDL less than 70, and HDL more than 40. 10/12/2020 LDL 83 Continue atorvastat in 10 mg Will get fasting lipids for follow-up Varicose v eins of lower extremity 99318628 I83.893 Stable, remains asymptomat ic. Continue compressti on stockings, low salt diet, and leg elevation Venous study 02/11/2020 : Mild bilateral reflux disease noted. No varicose veins noted. 13760 Andre Burnham MD [place] [facility] [address] [place] [address] 05/14/2021 12:14:11 05/15/2021 08:26:14 Hyperlipidemia 63928401 E78.5 Needs to keep LDL less than 70, and HDL more than 40. 10/12/2020 LDL 83 Continue atorvastat in 10 mg Will get fasting lipids for follow-up Palpitations 02791253 R0 0.2 possible Paroxysmal Atrial Fibrillati on Pre-surger y evaluation 670263890 Z01.818 10/31/19 stress test: Negative stress test. LVEF 61%. Normal LV systolic function. Below average exercise tolerance. There is no cardiac contraindi cation for the procedure. The planned procedure would be withinacce ptable risk. Patient may stop taking aspirin five (5) days prior to the procedure. 330[address] Andre Burnham MD [place] OFF[facility] [place] [address] 11/12/2021 12:02:11 11/12/2021 12:29:45 Hyperlipidemia 60045507 E78.5 Needs to keep LDL less than 70, and HDL more than 40. 10/12/2020 LDL 83 Continue atorvastat in 10 mg Will get fasting lipids for follow-up Palpitations 69079385 R0 0.2 with PAC'Soraya to take extra 1/2 tab of Toprol 47101 Andre Burnahm MD [place] [facility] [place] [address] 05/20/2022 10:59:18 05/20/2022 12:02:08 Hyperlipidemia 99677607 E78.5 Needs to keep LDL less than 70, and HDL more than 40. 10/12/2020 LDL 83 Continue atorvastat in 10 mg Will get fasting lipids for follow-up Palpitations 68625374 R0 0.2 with PAC'swill increase Toprol to 25 27227 Andre Burnham MD [place] OFF[facility] [place] [address] 11/18/2022 10:58:10 11/18/2022 11:45:24 Hyperlipidemia 88850646 E78.5 Needs to keep LDL less than 70, and HDL more than 40. 10/12/2020 LDL 83 Continue atorvastat in 10 mg Will get fasting lipids for follow-up Palpitations 93706688 R0 0.2 with PAC'Soraya to take extra 1/2 tab of Toprol [id number] Andre Burnham MD [place] OFF[facility] [place] [address] 11/23/2023 10:37:46 11/23/2023 12:06:59 Hyperlipidemia 15590506 E78.5 Needs to keep LDL less than 70, and HDL more than 40. 10/12/2020 LDL 83 Continue atorvastat in 10 mg Will get fasting lipids for follow-up Palpitations 01690674 R0 0.2 resolvedwi th PAC'Soraya to take extra 1/2 tab of Toprol Dyspnea on exertion 6084 5006 R06.09 Obtain echo to evaluate for structural /functiona l disease. Carotid bruit 085160248 R09.89 will do UScontinue with full aspirin [id number] Andre Burnham MD [place] [facility] [address] [place] [address] 05/09/2024 16:53:25 05/09/2024 17:50:42 Hyperlipidemia 75293671 E78.5 05/04/2024 LDL 59 Was on atorvastat in 10 mg, but she stopped it Will get fasting lipids for follow-up Palpitations 95745888 R0 0.2 resolvedwi th PAC'Soraya to take extra 1/2 tab of Toprol Dyspnea on exertion 6084 5006 R06.09 Obtain echo to evaluate for structural /functiona l disease. Carotid bruit 833854138 R09.89 Mild carotid stenosis Health Concerns Section Related Observation LastModified by Organization Detai ls LastModified Time None Recorded Concern Status LastModified by Organization Details LastModified Time None Recorded Advance Directives Directive None Recorded Payers Insurance Date Sequence Insurance Name Policy Number Policy Sapp Covered Member ID Sapp Member ID Guarantor Name 05/09/2024 2 [place] [id number] Zabrina Heck [id number] Zabrina Heck 05/09/2024 2 [place] [id number] Zabrina Heck [id number] Zabrina Heck 05/09/2024 1 [place] Zabrina Heck [id number] Zabrina Heck Notes Date Note Type Note Provider Name and Address Organization Details Recorded Time 11/12/2021 text/html 11/12/21CC : Car diac follow up, Ddzomfgsqiz59-fjfx-pxc female with history of HLD, anxiety, hypothyroidism, [...] rate 67 bpm Average heart rate 89bpm MS interval 141 msec QRS interval 117msec QT interval 344 msec ,no pause or R-R intervals >2.0 seconds Previously had episode of palpitations with near-syncope HR 160, then went to ED at [facility] (10/14/2019). Labs and ECG reportedly normal.Base line rhythm is NSR Had knee surgery for torn meniscus rescheduled. Reports increased lightheadedness.Result s from this visit, or from the past:01/14/20 LIPID: TC 156, TR 94, HDL 60, LDL CMP: NA 141, K 4.4, CL 104, CO2 27, GLU 80, BUN 15, CR 0.72, AST 18, ALT COVID: AHDPGYMM41/16/20 PT/INR: PT 12.6, INR 1.003 CBC: WBC 7.0, HGB 12.8, HCT 40.3, PLT 64979 EKG: Sinus rhythmEKG 10/22/19 Possible incomplete rbbb02/11/20 [...] bilateral reflux disease noted. Andre Burnham MD [address] [facility], [place], [address], [facility] 11/12/2021 12:26:10 05/20/2022 text/html 05/20/22CC : Car diac follow up, Cflqasytdzr58-iyxr-ddv female with history of HLD, anxiety, hypothyroidism, [...] rate 67 bpm Average heart rate 89bpm MS interval 141 msec QRS interval 117msec QT interval 344 msec ,no pause or R-R intervals >2.0 seconds Previously had episode of palpitations with near-syncope HR 160, then went to ED at [facility] (10/14/2019). Labs and ECG reportedly normal.Base line rhythm is NSR Had knee surgery for torn meniscus rescheduled. Reports increased lightheadedness.Result s from this visit, or from the past:01/14/20 LIPID: TC 156, TR 94, HDL 60, LDL CMP: NA 141, K 4.4, CL 104, CO2 27, GLU 80, BUN 15, CR 0.72, AST 18, ALT COVID: [id number]/16/20 PT/INR: PT 12.6, INR 1.003 CBC: WBC 7.0, HGB 12.8, HCT 40.3, PLT 45122 EKG: Sinus rhythmEKG 10/22/19 Possible incomplete rbbb02/11/20 [...] disease noted. Andre Burnham MD [address] [place], [address], [facility] - [facility] 05/20/2022 11:59:38 11/18/2022 text/html 11/18/22CC : Car diac follow up, Scowsgmarrt63-pckw-wnp female with history of HLD, anxiety, hypothyroidism, [...] rate 67 bpm Average heart rate 89bpm MS interval 141 msec QRS interval 117msec QT interval 344 msec ,no pause or R-R intervals >2.0 seconds Previously had episode of palpitations with near-syncope HR 160, then went to ED at [facility] (10/14/2019). Labs and ECG reportedly normal.Base line rhythm is NSR Had knee surgery for torn meniscus rescheduled. Reports increased lightheadedness.Result s from this visit, or from the past:01/14/20 LIPID: TC 156, TR 94, HDL 60, LDL CMP: NA 141, K 4.4, CL 104, CO2 27, GLU 80, BUN 15, CR 0.72, AST 18, ALT COVID: [id number]/16/20 PT/INR: PT 12.6, INR 1.003 CBC: WBC 7.0, HGB 12.8, HCT 40.3, PLT 99944 EKG: Sinus rhythmEKG 10/22/19 Possible incomplete rbbb02/11/20 [...] bilateral reflux disease noted. Andre Burnham MD [address] [place], [address], [facility] - [facility] 11/18/2022 11:40:31 11/23/2023 text/html 11/23/23CC : Car diac follow up dyspnea on uipkyqjw06-bumm-kzq female with history of HLD, anxiety, hypothyroidism, [...] rate 67 bpm Average heart rate 89bpm MS interval 141 msec QRS interval 117msec QT interval 344 msec ,no pause or R-R intervals >2.0 seconds Previously had episode of palpitations with near-syncope HR 160, then went to ED at [facility] (10/14/2019). Labs and ECG reportedly normal.Base line rhythm is NSR Had knee surgery for torn meniscus rescheduled. Reports increased lightheadedness.Result s from this visit, or from the past:01/14/20 LIPID: TC 156, TR 94, HDL 60, LDL CMP: NA 141, K 4.4, CL 104, CO2 27, GLU 80, BUN 15, CR 0.72, AST 18, ALT COVID: [id number]/16/20 PT/INR: PT 12.6, INR 1.003 CBC: WBC 7.0, HGB 12.8, HCT 40.3, PLT 59159 EKG: Sinus rhythmEKG 10/22/19 Possible incomplete rbbb02/11/20 [...] 02/11/20 Mild bilateral reflux disease noted. TINO tovar [place] - [facility] 11/23/2023 12:00:53 05/09/2024 text/html 05/09/24CC : Car diac follow ij96-stqo-cfi female with history of HLD, anxiety, hypothyroidism, [...] mg daily. 04/30/2024 : FT4 Reflux-1.34, TSH 0.2330204/30/24CMP-NA 140 K 3.8 CR 0.70 GL 81 [...] rate 67 bpm Average heart rate 89bpm MS interval 141 msec QRS interval 117msec QT interval 344 msec ,no pause or R-R intervals >2.0 seconds Previously had episode of palpitations with near-syncope HR 160, then went to ED at [facility] (10/14/2019). Labs and ECG reportedly normal.Base line rhythm is NSR Had knee surgery for torn meniscus rescheduled. Reports increased lightheadedness.Result s from this visit, or from the past:01/14/20 LIPID: TC 156, TR 94, HDL 60, LDL CMP: NA 141, K 4.4, CL 104, CO2 27, GLU 80, BUN 15, CR 0.72, AST 18, ALT COVID: YSFEDFWH09/16/20 PT/INR: PT 12.6, INR 1.003 CBC: WBC 7.0, HGB 12.8, HCT 40.3, PLT 26731 EKG: Sinus rhythmEKG 10/22/19 Possible incomplete rbbb02/11/20 [...] bilateral reflux disease noted. Andre Burnham MD [address] [facility], [place], [address], [place] - [facility] 05/09/2024 17:45:16 OBGyn Episode No OBEpisode recorded.
--- OUTSIDE RECORDS SUMMARY | 2025-02-17 01:03 | XMS_ITS | Encounter Summary ---
Author Organization [facility] Address [address] [place] [address] Care Team Providers Care Pottery Machine Operator Name Role Phone Ervin Foley MD Primary Care Provider [phone] Alba Carranza MD Primary Care Provider [phone] Niya Eddy Primary Care Provider [phone] Torri Pisano MD Primary Care Provider [phone] Encounter Details Date Type Department Care Team (Late st Contact Info) Description 12/25/2018 Lab Requisition [facility] Pathology Lab [address] [place] [address] Albino Hutchison MD [address] [id number] Localized enlarged lymph nodes Social History Tobacco [...] AM CDT) Case Report Flow Cytometry Case: [id number] Authorizing Provider: Albino Hutchison MD Collected: 12/25/2018 09:52 AM Pathologist: Last Quiñones MD Received: 12/25/2018 02:04 PM Specimen: Axillary Lymph Node 9 6:46 AM T [facility] Final Diagnosis Lymph node, right axilla, flow cytometric immunophenotypic analysis ([id number]): - Reduced viability specimen. - No evidence of non-Hodgkin lymphoma. - See interpretation. 9 6:46 AM [facility] at 0646 CDT Flow [...] flow cytometry specimen is reviewed for quality technician fiberglass purposes. Overall, the right axillary lymph node shows reduced viability specimen with no evidence of involvement by non-Hodgkin lymphoma. Correlation with clinical findings and concurrent biopsy is required. 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 A Flow CD3 A Flow CD10 A Flow CD20 A Flow CD23 A Flow CD2 A Flow CD4 A Flow CD1a A Flow CD5 A Flow CD19 A Flow CD34 A Flow CD45 A Flow CD7 A Flow CD8 A Flow CD30 A Kaanapali+CD19+ A Lambda+CD19+ 9 6:46 AM CDT [facility] Disclaimer Test performed at [facility], [address] [place], [place], [address]. *The established laboratory minimum viability is 70%. [...] complexity clinical testing. 9 6:46 AM CDT [facility] Embedded Images 9 6:46 AM CDT [facility] Pathology/Cytolo gy AXILLARY LYMPH NODE STRUCTURE / Unknown 12/25/2018 9:52 AM CDT 12/25/2018 2:04 PM CDT Albino Hutchison MD LAB - PATHOLOGY/CYTOLOGY ORDER AKIKO Final Result [facility] [address] [place] [address]. [address] [phone] documented in this encounter Visit Diagnoses Diagnosis Localized enlarged lymph nodes Enlargement of lymph nodes documented in this encounter Care Teams Pottery Machine Operator Relationship Specialty Start Date End Date Ervin Foley MD [address] [place] [address] PCP - General 12/25/18 05/23/21 Alba Carranza MD [address] [place] [address] PCP - General Family Medicine 05/24/21 05/24/21 Niya Eddy PA [address] [place] [address] PCP - General Physician Molder Hand 05/25/21 06/29/21 Torri Pisano MD [address] [place] [address] PCP - General Family Medicine 06/30/21 documented as of this encounter
--- OUTSIDE RECORDS SUMMARY | 2025-02-17 01:03 | XMS_ITS ---
Author Name Auto Generated, Auto Generated Organization [employer] [facility] Address [address] [place] [address] Phone [phone] Care Team Providers Care Associate Director Of Sales Name Role Phone Alba Carranza Unavailable [phone] Functional Status No Results Mental Status No [...]
--- OUTSIDE RECORDS SUMMARY | 2025-02-17 01:03 | XMS_ITS | Encounter Summary ---
Author Organization [facility] Address [address] [place] [address] Care Team Providers Care Salesperson Burial Needs Name Role Phone Ervin Foley MD Primary Care Provider [phone] Alba Carranza MD Primary Care Provider [phone]- [phone] Niya Eddy Primary Care Provider [phone] Torri Pisano MD Primary Care Provider [phone] Encounter Details Date Type Department Care Team (Late st Contact Info) Description 12/26/2018 Lab Requisition [facility] Pathology Lab [address] [place] [address] Albino Hutchison MD [address] [id number] Social History Tobacco Use Types Packs/Day Years [...] CDT) Case Report Surgical Pathology Report Case: [id number] Authorizing Provider: Albino Hutchison MD Collected: 12/25/2018 09:00 AM Pathologist: Last Quiñones MD Received: 12/26/2018 02:28 PM Specimen: Lymph Node Biopsy, [id number] 12/27/2018 10:03 AM [facility] Final Diagnosis Lymph node, left axilla, needle core biopsy ([id number]): - Benign reactive lymph cabrera tissue. - No evidence of lymphoma or carcinoma, as sampled. - See description. 12/27/2018 10:03 AM [facility] at 1003 CDT Microscopic Description [...] or carcinoma. Concurrent lymph node flow cytometry ([id number]) corroborates this diagnosis. Correlation with clinical findings and relevant cytogenetic/molecular testing is required. PREVENTIVE MEDICINE SPECIALIST/NW 12/27/2018 10:03 AM [facility] Clinical History 12/27/2018 10:03 AM [facility] Materials Received Received are 2 slides and 1 block labeled as [id number] along with the outside pathology report. The materials originate from [address], [place] [address]. All materials are returned to the referring institution, along with a copy of our final report. 12/27/2018 10:03 AM T [facility] Disclaimer The performance characteristics of all immunohistochemical and indirect immunofluorescence stains (if any) cited in this report were determined by the Histopathology Laboratory of [facility]. Some of these tests were developed by [...] attending (teaching) pathologist. 12/27/2018 10:03 AM T [facility] Embedded Images 12/27/2018 10:03 AM T [facility] Pathology/Cytolo gy BIOPSY OF LYMPH NODE / Unknown 12/25/2018 9:00 AM CDT 12/26/2018 2:28 PM CDT us Albino Hutchison MD LAB - PATHOLOGY/CYTOLOGY ORDER AKIKO Final Result Performing Organization Address City/State/[facility] Co de Phone Number [facility] [address] [phone] documented in this encounter Visit Diagnoses Not on filedocumented in this encounter Care Teams Salesperson Burial Needs Relationship Specialty Start Date End Date Ervin Foley MD [address] [place] [address] PCP - General 12/25/18 05/23/21 Alba Carranza MD [address] [place] [address] PCP - General Family Medicine 05/24/21 05/24/21 Niya Eddy PA [address] [place] [address] PCP - General Physician Heavy Machinery Operator 05/25/21 06/29/21 Torri Pisano MD [address] [place] [address] PCP - General Family Medicine 06/30/21 documented as of this encounter
[2025-02-17 11:00] VITALS: BP 105/60; PULSE 72; RESP 14; TEMP 36.4; O2SAT 100; BMI 27.8
[2025-02-17] MEDS: LACTATED RINGERS 1,000 ML 150 ML IV CONT (11:38)
--- NOTE | 2025-02-17 12:32 | PM.IMHP ---
H&P: HPI History of Present Illness Date/Time: 02/17/25 12:32 Chief Complaint: Family history of colorectal cancer Narrative: This patient has family history of colorectal cancer. her father had colorectal cancer. Her last colonoscopy was 5 years ago. Review of Systems Review of Systems: All systems reviewed & are unremarkable except as noted in HPI and below PMFSH Past Medical History Medical History Lactose intolerance Irritable bowel syndrome with alternating bowel habits Elevated liver enzymes RUQ pain Diverticula of colon Irritable bowel syndrome with diarrhea Pulmonary nodule Needs monitoring yearly History of Holter monitoring negative results Anxiety Depression Closed left arm fracture Arthritis Ovarian cyst Bronchitis Histoplasmosis right lung Hyperlipidemia Lloyd's palsy Seasonal allergies Cataracts, bilateral Dyslipidemia IBS (irritable bowel syndrome) Hypothyroidism determined by thyroid function test Surgical History Surgical History History of total left knee replacement Status post medial meniscus repair of left knee History of bunionectomy H/O dilation and curettage History of removal of ovarian cyst History of tubal ligation History of bunionectomy of both great toes H/O left wrist surgery History of cholecystectomy Family History Family History Father Carcinoma of colon Family history of heart disease in male family member before age 55 Mother Family history of Alzheimer's disease Cerebrovascular accident Sibling Family history of lung cancer Grandparent Diabetes mellitus Carcinoma of colon Family history of Alzheimer's disease Other Family history of allergic disorder Social History Social History Smoking status: Never smoker Tobacco type: cigarettes Second hand tobacco smoke exposure: Yes Smoking end date: 07/31/83 Alcohol intake: never Alcohol use details: Very rarely. 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 Gender identity (if verbalized by the patient): Female Sexual Orientation (if Verbalized by the Patient): Straight or Heterosexual Spiritual care concerns: No Meds Home Medications and Allergies Home Medications ?Medication ?Instructions ?Recorded ?Confirmed ?Type aspirin 325 mg tablet 325 mg PO DAILY 06/03/21 02/17/25 History esomeprazole magnesium 20 mg 20 mg PO DAILY 05/24/22 02/17/25 History capsule,delayed release (Nexium) ginkgo biloba leaf extract 120 mg 120 mg PO DAILY 05/24/22 02/17/25 History capsule multivitamin 1 tablet PO DAILY 05/24/22 02/17/25 History cholecalciferol (vitamin D3) 75 75 mcg PO DAILY 06/09/23 02/17/25 History mcg (3,000 unit) tablet buspirone 5 mg tablet 5 mg PO BID PRN anxiety #60 tabs 08/14/23 02/05/25 Rx albuterol sulfate 90 mcg/actuation 2 puff inhalation QID PRN 08/08/24 02/05/25 Rx aerosol inhaler (Ventolin HFA) shortness of breath or wheezing #8.5 grams rosuvastatin 5 mg tablet 5 mg PO .TWICE WEEKLY #30 tabs 12/22/24 02/17/25 Rx magnesium 250 mg tablet 120 mg PO DAILY 12/30/24 02/17/25 History metoprolol succinate 25 mg See Rx Instructions .Route 01/13/25 02/17/25 Rx tablet,extended release 24 hr .COMPLEX #90 tabs colestipol 1 gram tablet 0.5 g PO DAILY 02/03/25 02/17/25 History levothyroxine 88 mcg tablet 88 mcg PO DAILY 02/03/25 02/17/25 History vitamin A 2,500 unit-vit C 100 1 cap PO DAILY 02/03/25 02/17/25 History mg-biotin 2,500 bls-bepw-tfhtsc capsule (Ylqc-Lavu-Oenv (vit A,W-gwvryg-Iq-Cu)) Allergies Allergy/AdvReac Type Severity Reaction Status Date / Time No Known Allergies Allergy Verified 02/17/25 11:05 Vital Signs Vital Signs - 24 hr 02/17/25 11:00 Temperature 97.5 F L Pulse Rate 72 Respiratory Rate 14 Blood Pressure 105/60 Pulse Oximetry 100 Oxygen Delivery Room Air Exam Const: General: cooperative and healthy appearing Resp: Effort & Inspection: normal respiratory effort and able to speak in complete sentences Auscultation: clear to auscultation bilaterally Cardio: Rate: regular rate Rhythm: regular rhythm GI: Inspection: normal to inspection GI Palp: No No hepatosplenomegaly present Auscultation: normal bowel sounds Rectal Exam: deferred Skin: General skin exam: normal color Psych: Appearance: grossly normal Mental Status: mental status grossly normal Assessment and Plan Assessment and plan (1) Family history of colon cancer in father: Code(s): Z80.0 - Family history of malignant neoplasm of digestive organs Status: Acute Assessment and Plan: The patient is deemed a good candidate for the procedure. Consent signed. Will proceed.
--- NOTE | 2025-02-17 12:40 | WPDANESEPPF ---
Anes - Initial Pre Proc Eval Procedure: Operation Date: 02/17/25 12:30 Proposed Procedures p Diagnostic Colonoscopy - Keanu López MD Date/Time: 02/17/25 12:40 Surgeon: Keanu López MD Pre Op Diagnosis: Irritable bowel sydrome with diarrhea Patient Data Age: 75 Gender: F Height: 1.65 m Weight: 75.8 kg Last Vital Signs Temp 36.4 C L 02/17/25 11:00 Pulse 72 02/17/25 11:00 Resp 14 02/17/25 11:00 BP 105/60 02/17/25 11:00 Pulse Ox 100 02/17/25 11:00 O2 Del Method Room Air 02/17/25 11:00 Allergies Allergy/AdvReac Type Severity Reaction Status Date / Time No Known Allergies Allergy Verified 02/17/25 11:05 Home Medications ?Medication ?Instructions ?Recorded ?Confirmed ?Type aspirin 325 mg tablet 325 mg PO DAILY 06/03/21 02/17/25 History esomeprazole magnesium 20 mg 20 mg PO DAILY 05/24/22 02/17/25 History capsule,delayed release (Nexium) ginkgo biloba leaf extract 120 mg 120 mg PO DAILY 05/24/22 02/17/25 History capsule multivitamin 1 tablet PO DAILY 05/24/22 02/17/25 History cholecalciferol (vitamin D3) 75 75 mcg PO DAILY 06/09/23 02/17/25 History mcg (3,000 unit) tablet buspirone 5 mg tablet 5 mg PO BID PRN anxiety #60 tabs 08/14/23 02/05/25 Rx albuterol sulfate 90 mcg/actuation 2 puff inhalation QID PRN 08/08/24 02/05/25 Rx aerosol inhaler (Ventolin HFA) shortness of breath or wheezing #8.5 grams rosuvastatin 5 mg tablet 5 mg PO .TWICE WEEKLY #30 tabs 12/22/24 02/17/25 Rx magnesium 250 mg tablet 120 mg PO DAILY 12/30/24 02/17/25 History metoprolol succinate 25 mg See Rx Instructions .Route 01/13/25 02/17/25 Rx tablet,extended release 24 hr .COMPLEX #90 tabs colestipol 1 gram tablet 0.5 g PO DAILY 02/03/25 02/17/25 History levothyroxine 88 mcg tablet 88 mcg PO DAILY 02/03/25 02/17/25 History vitamin A 2,500 unit-vit C 100 1 cap PO DAILY 02/03/25 02/17/25 History mg-biotin 2,500 hmj-covw-uyqhht capsule (Djtw-Xjge-Laza (vit A,M-dkkwyw-Ob-Cu)) Patient hx anesthesia problems: none Family hx anesthesia problems: none Results Review: All pre-operative results and documents have been reviewed as part of the pre-operative evaluation. [facility] Past Medical History Medical History Lactose intolerance Irritable bowel syndrome with alternating bowel habits Elevated liver enzymes RUQ pain Diverticula of colon Irritable bowel syndrome with diarrhea Pulmonary nodule Needs monitoring yearly History of Holter monitoring negative results Anxiety Depression Closed left arm fracture Arthritis Ovarian cyst Bronchitis Histoplasmosis right lung Hyperlipidemia Lloyd's palsy Seasonal allergies Cataracts, bilateral Dyslipidemia IBS (irritable bowel syndrome) Hypothyroidism determined by thyroid function test Surgical History Surgical History History of total left knee replacement Status post medial meniscus repair of left knee History of bunionectomy H/O dilation and curettage History of removal of ovarian cyst History of tubal ligation History of bunionectomy of both great toes H/O left wrist surgery History of cholecystectomy Family History Family History Father Carcinoma of colon Family history of heart disease in male family member before age 55 Mother Family history of Alzheimer's disease Cerebrovascular accident Sibling Family history of lung cancer Grandparent Diabetes mellitus Carcinoma of colon Family history of Alzheimer's disease Other Family history of allergic disorder Social History Social History Smoking status: Never smoker Tobacco type: cigarettes Second hand tobacco smoke exposure: Yes Smoking end date: 07/31/83 Alcohol intake: never Alcohol use details: Very rarely. 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 Gender identity (if verbalized by the patient): Female Sexual Orientation (if Verbalized by the Patient): Straight or Heterosexual Spiritual care concerns: No Anes - Eval Final PreProcedure Day of Procedure 02/17/25 12:40 Patient weight: overweight Heart: regular rate and rhythm Lungs: decreased breath sounds Airway: Mallampati scale class II Neurological: alert and oriented Last oral intake: >/= 8 hours ASA classification: III Emergent: no Anesthetic plan: proceed Anesthesia type and monitoring: general GIVS and standard monitoring Results Review: All pre-operative results and documents have been reviewed as part of the pre-operative evaluation. Informed Consent: The patient's anesthetic plan and its attendant risks and benefits were discussed with the patient/family/POA. Questions were solicited and answers provided to the satisfaction of the patient/family/POA.
[2025-02-17 13:05] VITALS: BP 113/46; PULSE 70; RESP 20; O2SAT 100
[2025-02-17 13:15] VITALS: BP 115/56; PULSE 69; RESP 18; O2SAT 100
[2025-02-17 13:25] VITALS: BP 120/56; PULSE 66; RESP 20; O2SAT 100
--- NOTE | 2025-02-17 13:45 | SUR.PHASEII ---
Patient did not wish to wait to speak to Dr. López before discharge.
== END 2025-02-17 13:45 | disposition home or self-care (01) ==
PROVIDERS: PCP Family Medicine; Referring Provider Nurse Practitioner; Visit Provider Internal Medicine Gastroenterology
PROC: 0DJD8ZZ Inspection of Lower Intestinal Tract, Via Natural or Artificial Opening Endoscopic (ICD-10-PCS; CPT 45378; principal; 2025-02-17 12:30)
DX: Z12.11 Encounter for screening for malignant neoplasm of colon (principal); K57.30 Diverticulosis of large intestine without perforation or abscess without bleeding; Z80.0 Family history of malignant neoplasm of digestive organs; Z87.891 Personal history of nicotine dependence
CPT/HCPCS: G0105; J2003; J2704; J7120

== ENCOUNTER 2025-03-27 14:00 | Outpatient (RCR) | payer MEDICARE, SELFPAY ==
--- NOTE | 2025-02-13 16:20 | OPREHPOC ---
Outpatient Therapy Plan of Care This is a Multidisciplinary Plan of Care that may contain components documented by all disciplines (PT, OT, and ST.) PT Problem 1 PT Problem #1 Knowledge Deficit PT Goal 1 Goal / Goal Update Patient to demonstrate independence with HEP for improved self-reliance of symptom management. Target Visit 4 PT Problem 2 PT Problem #2 Pain PT Goal 1 Goal / Goal Update Patient to decrease subjective reports of pain upon waking to <2/10 for 2 consecutive weeks for improved sleeping tolerance. Target Visit 8 PT Problem 3 PT Problem #3 Impaired Range of Motion PT Goal 1 Goal / Goal Update Patient to demonstrate lumbar AROM rotation and extension with no reports of pain to improve mobility required for ADLs. Target Visit 8 PT Problem 4 PT Problem #4 Impaired Strength PT Goal 1 Goal / Goal Update 1. Patient to demonstrate Mitesh hip strength >=4+/5 for improved functional stability required for ADLs. 2. Patient to demonstrate lower abdominal strength >=4/5 for improved functional lumbopelvic stability. Target Visit 8
--- NOTE | 2025-02-13 16:20 | PTOPEVAL1 ---
Assessment and note entered by Kay Saini, PT Evaluation Information Assessment Status Evaluation Diagnosis R26.81 unsteadiness on feet, M47.816 spondylosis, lumbar region ICD-10 Condition Codes (PT) Pain in low back M54.50 Onset April Subjective Information Pt reports she has been having issues with low back pain since a fall last April. Her thoracic pain git better but her low back is getting worse over the last few months. She has been riding a stationary buke for the last 2 months or so for about 45 minutes at a time. She tries to stretch her low back by bending forward or she uses a massage gun on her low back. She is wanting a good program and advice for her back and endurance. Her primary concern is reducing pain and becoming independent in symptom management. She notes pain is worse getting up in the morning but gets better with activity. Pt reports bending over to get something from the floor is tough, she can cook, clean, and do laundry but she is slow and careful. Reported Pain Level Pain Score 4: Self Report Assessment PT Clinical Summary Pt is a 75 year old female who presents to physical therapy with a primary complaint of low back pain worsening the last 3 months. Pt demonstrates BLE and core weakness, pain worse in the morning, decreased lumbar mobility, abnormal posture, and decreased flexibility that limit their ability to perform ADLs. Pt will benefit from skilled physical therapy to address the above listed deficits and return to PLOF. HEP instructed and written handout provided, EX tolerated well with no adverse effects to note post-session. Pt was educated on importance of adherence to HEP. Pt was also educated on anatomy, prognosis, home modalities, and PT POC. Plan of Care Interventions Aquatic Therapy,Electrical Stimulation,Gait Training,Hot Pack/Cold Pack,Manual Therapy,Neuro Re-education,Therapeutic Activities,Therapeutic Exercise PT Services Indicated Yes Treatment Frequency and 2x/wk for 8 sessions Duration These treatments will address the objective and functional deficits as defined above. The patient will be advanced safely and appropriately in order for the patient to progress towards his/her prior level of function. Additional exercises will be introduced and as well as a comprehensive home exercise program upon discharge, if needed, ?to ensure carryover of functional gains achieved in the clinic. This treatment plan has been reviewed and agreement upon by the patient.
--- NOTE | 2025-03-27 14:39 | PTOPDC ---
Assessment and note entered by Kay Saini, PT Evaluation Information Assessment Status Discharge Diagnosis R26.81 unsteadiness on feet, M47.816 spondylosis, lumbar region ICD-10 Condition Codes (PT) Pain in low back M54.50 Onset April Subjective Information Pt thinks she has been managing her symptoms well. She reports only dull achiness most of the time. Sleeping and getting up is better by at least 50%. She is not 100% better but it is more management for her. Pt overdid a walk yesterday and was more sore in the posterior hips but no back pain. Reported Pain Level Pain Score 2: Self Report Assessment PT Clinical Summary Patient's condition has improved overall as evidenced by advancements in symptoms, mobility, strength, and overall functional use of the extremity. Pt has met all therapy goals and is pleased with progress made in PT. Patient to DC from PT this date and continue with updated HEP as instructed. Pt to contact PT or PCP if questions or concerns arise. Plan of Care PT Services Indicated Yes
== END 2025-04-09 14:49 | disposition home or self-care (01) ==
LOC: ANHGOSHPT 14:00
PROVIDERS: PCP Family Medicine; Visit Provider Student in an Organized Health Care Education/Training Program
DX: M47.816 Spondylosis without myelopathy or radiculopathy, lumbar region (principal); R26.81 Unsteadiness on feet; M54.50 Low back pain, unspecified
CPT/HCPCS: 97110; 97112; 97140; 97161; 97530

== ENCOUNTER 2025-04-16 13:51 | Outpatient (CLI) | payer MEDICARE, SELFPAY ==
--- NOTE | ~2025-04-16 | MM_ITS ---
EXAMINATION: MM screening yani BI w sapphire HISTORY: Screening TECHNIQUE: Craniocaudal and mediolateral oblique 3-D tomosynthesis images were obtained and synthetic 2-D images were generated. CAD analysis was submitted and interpreted. COMPARISON: 06/15/2021 BREAST PARENCHYMAL COMPOSITION: The breasts are heterogeneously dense, which may obscure small masses. FINDINGS: There is no evidence of suspicious mass, calcification, or architectural distortion to suggest malignancy. There has been no suspicious interval change. IMPRESSION: 1. No mammographic evidence of malignancy. Recommend routine screening mammography in one year. BI-RADS Category 2: Benign finding(s) Reviewed, dictated and finalized at location Q. IMPRESSION: 1. No mammographic evidence of malignancy. Recommend routine screening mammogra phy in one year. BI-RADS Category 2: Benign finding(s)
--- OUTSIDE RECORDS SUMMARY | 2025-04-16 14:28 | XMS_ITS | Patient Health Record ---
Author Organization [facility] Address [address] [place], [place] [address] Care Team Providers Care Graphic Specialist Name Role Phone ADRIEN MEDLEY Unavailable [phone] Emanuel Foleyony Unavailable Unavailable Reason For Referral No Information Medications Medication SIG (Take, Route, Frequency, Duration) Notes Start Date End Date Status esomeprazole 20 MG Delayed Release Oral Capsule [Nexium] ORAL esomeprazole 20 MG Delayed Release Oral Capsule [Nexium]Original Medicationesomeprazole 20 MG Delayed Release Oral Capsule [Nexium] *Reorder from [employer] for eRx and Interaction Alerts* 10/31/2014 Active Plan Of Treatment No Information Insurance Providers Payer Name Payer Address Payer Phone Subscriber Number Group Number Insured Name Patient Relationship to Insured Coverage Start Date Coverage End Date Medicare Part B [place] [address] [place] [address] [id number] SELAM KEATING Self - patient is the insured [facility] ([facility]) ATTN CLAIMS [address] [place] [address] [id number] SELAM KEATING Self - patient is the insured
--- OUTSIDE RECORDS SUMMARY | 2025-04-16 14:28 | XMS_ITS | Clinical Summary ---
Author Organization [facility] [address] [facility] [address] Address [address] [place] [address] Care Team Providers Care Welding Machine Operator Submerged Arc Name Role Phone Joel Foley MD Primary Care Provider [phone] Social History Tobacco Use Types Packs/Day Years Used Date Smoking Tobacco: Never Assessed Personal Safety Answer Date Recorded Getting School Help Needed Not on file 10/13 Comments Unknown Sex and Gender Information Value Date Recorded Sex Assigned at Not on file Legal Sex Female 10:32 PM HOME OFFICE REPRESENTATIVE Gender Identity Not on file Sexual Orientation Not on file Plan of Treatment Not on file Insurance MEDICARE [facility] Care Teams Welding Machine Operator Submerged Arc Relationship Specialty Start Date End Date Joel Foley MD [address] [place] [address] PCP - General Family Medicine 10/04/17
--- OUTSIDE RECORDS SUMMARY | 2025-04-16 14:28 | XMS_ITS | Encounter Summary ---
Author Organization [facility] Address [address] [facility] [place] [address] Care Team Providers Care Electrical Cad Technician Name Role Phone Ervin Foley MD Primary Care Provider [phone] Alba Carranza MD Primary Care Provider [phone]- [phone] Niya Eddy Primary Care Provider [phone] Torri Pisano MD Primary Care Provider [phone] Encounter Details Date Type Department Care Team (Late st Contact Info) Description 12/25/2018 Lab Requisition [facility] Pathology Lab [address] [place] [address] Albino Hutchison MD [address] [id number] Localized enlarged lymph nodes Social History Tobacco [...] AM CDT) Case Report Flow Cytometry Case: [id number] Authorizing Provider: Albino Hutchison MD Collected: 12/25/2018 09:52 AM Pathologist: Last Quiñones MD Received: 12/25/2018 02:04 PM Specimen: Axillary Lymph Node 9 6:46 AM T [facility] Final Diagnosis Lymph node, right axilla, flow cytometric immunophenotypic analysis ([id number]): - Reduced viability specimen. - No evidence of non-Hodgkin lymphoma. - See interpretation. 9 6:46 AM [facility] at 0646 CDT Flow Cytometry [...] flow cytometry specimen is reviewed for quality assurance auditor purposes. Overall, the right axillary lymph node shows reduced viability specimen with no evidence of involvement by non-Hodgkin lymphoma. Correlation with clinical findings and concurrent biopsy is required. DOWELER/NW 9 6:46 AM [facility] Flow Cytometry Results Differential Result Comment Flow Cell Count /uL 4000 Total Viability % 65.0 Lymphocytes % 93 Dim CD45 Region % 1 Monocytes % 4 Granulocytes % 1 9 6:46 AM [facility] Reason for test Localized enlarged lymph nodes 785.6 9 6:46 AM [facility] Client Specimen ID # [id number] 9 6:46 AM [facility] Number of markers 16 were performed. A Flow CD3 A Flow CD10 A Flow CD20 A Flow CD23 A Flow CD2 A Flow CD4 A Flow CD1a A Flow CD5 A Flow CD19 A Flow CD34 A Flow CD45 A Flow CD7 A Flow CD8 A Flow CD30 A Hoskins+CD19+ A Lambda+CD19+ 9 6:46 AM CDT [facility] Disclaimer Test performed at [facility], [address] [place], [place], [address]. *The established laboratory minimum viability is 70%. [...] Final Result [facility] [address] [place] [address]. [address] [phone] documented in this encounter Visit Diagnoses Diagnosis Localized enlarged lymph nodes Enlargement of lymph nodes documented in this encounter Care Teams Electrical Cad Technician Relationship Specialty Start Date End Date Ervin Foley MD [address] [place] [address] PCP - General 12/25/18 05/23/21 Alba Carranza MD [address] [place] [address] PCP - General Family Medicine 05/24/21 05/24/21 Niya Eddy PA [address] [place] [address] PCP - General Physician Handle Maker 05/25/21 06/29/21 Torri Pisano MD [address] [place] [address] PCP - General Family Medicine 06/30/21 documented as of this encounter
--- OUTSIDE RECORDS SUMMARY | 2025-04-16 14:28 | XMS_ITS | Encounter Summary ---
Author Organization [facility] Address [address] [facility] [place] [address] Care Team Providers Care Supervisor Line Department Name Role Phone Ervin Foley MD Primary Care Provider [phone] Alba Carranza MD Primary Care Provider [phone]- [phone] Niya Eddy Primary Care Provider [phone] Torri Pisano MD Primary Care Provider [phone] Encounter Details Date Type Department Care Team (Late st Contact Info) Description 12/26/2018 Lab Requisition [facility] Pathology Lab [address] [place] [address] Albino Hutchison MD [address] [address] Social History Tobacco Use Types [...] CDT) Case Report Surgical Pathology Report Case: [id number] Authorizing Provider: Albino Hutchison MD Collected: 12/25/2018 09:00 AM Pathologist: Last Quiñones MD Received: 12/26/2018 02:28 PM Specimen: Lymph Node Biopsy, [id number] 12/27/2018 10:03 AM [facility] Final Diagnosis Lymph node, left axilla, needle core biopsy ([id number]): - Benign reactive lymph cabrera tissue. - No evidence of lymphoma or carcinoma, as sampled. - See description. 12/27/2018 10:03 AM [facility] at 1003 CDT Microscopic [...] or carcinoma. Concurrent lymph node flow cytometry ([id number]) corroborates this diagnosis. Correlation with clinical findings and relevant cytogenetic/molecular testing is required. FARM FIELD MANAGER/NW 12/27/2018 10:03 AM [facility] Clinical History 12/27/2018 10:03 AM [facility] Materials Received Received are 2 slides and 1 block labeled as [id number] along with the outside pathology report. The materials originate from [address], [place] [address]. All materials are returned to the referring institution, along with a copy of our final report. 12/27/2018 10:03 AM T [facility] Disclaimer The performance characteristics of all immunohistochemical and indirect immunofluorescence stains (if any) cited in this report were determined by the Histopathology Laboratory of [facility]. Some of these tests were [...] attending (teaching) pathologist. 12/27/2018 10:03 AM T [facility] Embedded Images 12/27/2018 10:03 AM T [facility] Pathology/Cytolo gy BIOPSY OF LYMPH NODE / Unknown 12/25/2018 9:00 AM CDT 12/26/2018 2:28 PM CDT us Albino Hutchison MD LAB - PATHOLOGY/CYTOLOGY ORDER AKIKO Final Result Performing Organization Address City/State/[facility] Co de Phone Number [facility] [address] [phone] documented in this encounter Visit Diagnoses Not on filedocumented in this encounter Care Teams Supervisor Line Department Relationship Specialty Start Date End Date Ervin Foley MD [address] [place] [address] PCP - General 12/25/18 05/23/21 Alba Carranza MD [address] [place] [address] PCP - General Family Medicine 05/24/21 05/24/21 Niya Eddy PA [address] [place] [address] PCP - General Physician Bobbin Stripper 05/25/21 06/29/21 Torri Pisano MD [address] [place] [address] PCP - General Family Medicine 06/30/21 documented as of this encounter
--- OUTSIDE RECORDS SUMMARY | 2025-04-16 14:28 | XMS_ITS | Clinical Summary ---
Author Organization [facility] Address [address] [address] Care Team Providers Care Endoscope Technician Name Role Phone Torri Pisano MD Primary Care Provider [phone] Source Comments [facility],non-owned Affiliates and Associated Physician Practices is amultiple site organization consisting of ambulatory clinics and hospital sitesin [place], [place], [place] and [place]. This disclosure is being madepursuant to the Care Everywhere program and may not contain all information available regarding this patient. Last updated 18.[facility] Allergies No known active allergies Medications [...] Comments Blood Pressure 114/47 07/01/2021 7:48 AM VIBRATION ENGINEER Pulse 65 07/01/2021 7:48 AM VIBRATION ENGINEER Temperature 36.4 C (97.5 F) 07/01/2021 7:48 AM VIBRATION ENGINEER Respiratory Rate 16 07/01/2021 7:48 AM VIBRATION ENGINEER Oxygen Saturation 97% 07/01/2021 7:48 AM VIBRATION ENGINEER Inhaled Oxygen Concentration - - Weight 75.8 kg (167 lb) 06/30/2021 7:34 AM VIBRATION ENGINEER Height 165.1 cm (5' 5) 06/30/2021 7:34 AM VIBRATION ENGINEER Body Mass Index 27.79 06/30/2021 7:34 AM VIBRATION ENGINEER Plan of Treatment Health Maintenance Due Date Last Done Comments BONE DENSITY TESTING 1950 MEDICARE AWV 12 MONTHS 1950 HEPATITIS C SCREENING 01/21/1967 DTAP/TDAP/TD VACCINES (1 - Tdap) 01/26/1968 PNEUMOCOCCAL VACCINE 50+ (1 of 1 - PCV) 1999 ZOSTER VACCINE (1 of 2) 1999 Respiratory Syncytial Virus (RSV) Vaccine Pt: or over 60 yrs (1 - 1-dose 75+ series) 01/26/2024 DEPRESSION SCREENING 07/31/2024 12/18/2023 COVID-19 VACCINE (2023-2 5 season) 2025 INFLUENZA VACCINE (#1) 2025 HEPATITIS B VACCINE [...] this topic Medical Devices Implanted Type Area Manager Money Device Identifier Shelf Expiration Date Model / Serial / Lot Cmnt Bone Djo Srg Cblt 40gm Hvisc Strl Implanted:Qty: 1 on 06/30/2021 by Familia Sargent MD at [facility] Left: Knee [employer] 09/18/2022 600-15-000 / / [id number] Tray Tib 71mm Kn Cocr I Beam Implanted:Qty: 1 on 06/30/2021 by Familia Sargent MD at [facility] Left: Knee [employer] 05/10/2031 [id number] / / [id number] Cmpnt Fem Kn Lt Cr Cmnt Prm Vngrd Intlk Implanted:Qty: 1 on 06/30/2021 by Familia Sargent MD at [facility] Left: Knee [employer] 12/19/2030 [id number] / / [id number] Cmpnt Ptlr 28mm 1 Pg Wire Ascnt Arcm Kn Implanted:Qty: 1 on 06/30/2021 by Familia Sargent MD at [facility] Left: Knee [employer] 06/12/2025 [id number] / / [id number] [id number] Vngrd Arcm Kn Ant Stab Implanted:Qty: 1 on 06/30/2021 by Familia Sargent MD at [facility] Left: Knee [employer] 02/03/2026 [id number] / / [id number] [facility] Advance Directives Documents on File Type Date 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
== END 2025-04-16 13:52 | disposition home or self-care (01) ==
LOC: ANHFOHIMG 13:53
PROVIDERS: PCP Family Medicine; Visit Provider Obstetrics & Gynecology
DX: Z12.31 Encounter for screening mammogram for malignant neoplasm of breast (principal)
CPT/HCPCS: 77063; 77067

== ENCOUNTER 2025-05-14 09:11 | Outpatient (CLI) | payer MEDICARE, SELFPAY ==
--- NOTE | ~2025-05-14 | DEXA_ITS ---
Bone Density Report Name: SELAM KEATING Age: 75 Sex: Female Ethnicity: White Date of : 1950 Indication: postmenopausal; screening for osteoporosis; height loss; inflammatory bowel disease; Referring Provider: MANDA KIRBY Study: Bone densitometry was performed. Exam Date: May 14, 2025 Accession number: [id number] Bone Density: Region BMD T-score Z-score Classification AP Spine(L1, L2, L3) 0.867 -1.4 1.1 Osteopenia Femoral Neck (Left) 0.741 -1.0 1.2 Normal Total Hip (Left) 0.756 -1.5 0.3 Osteopenia Femoral Neck (Right) 0.706 -1.3 0.8 Osteopenia Total Hip (Right) 0.756 -1.5 0.3 Osteopenia Total Hip Mean 0.756 -1.5 0.3 Osteopenia World Health Organization criteria for BMD impression classify patients as: Normal (T-score at or above -1.0), Osteopenia (T-score between -1.0 and -2.5), or Osteoporosis (T-score at or below -2.5). 10-year Fracture Risk(1): Major Osteoporotic Fracture 11% Hip Fracture 2.1% Reported Risk Factors: [place] (), Neck BMD=0.706, BMI=27.8 (1) FRAX(R) Version 3.08. Fracture probability calculated for an untreated patient. Fracture probability may be lower if the patient has received treatment. Clinical Information Provided by Patient: Has used the following medications: Vitamin D, Calcium Has the following medical conditions: Inflammatory bowel diseases Patient maximum height was 65.5 Menopause Age: 46 Onset of menses at age 11 Number of children 2 Impression: The patient has low bone mass, based on the Left Total Hip T-score. The patient has an estimated ten-year risk of hip fracture of 2.1% and an estimated ten-year risk of major fracture of 11%, based on the WHO FRAX algorithm. Discussion: BONE DENSITY IS LOW AT ONE OR MORE SKELETAL SITES. This patient's lowest T-score is low at one or more skeletal sites. It meets the World Health Organization's (WHO) criteria for ?low bone mass? (T-score between -1.0 and -2.5). The patient's 10-year risk of fracture as calculated by FRAX is less than the threshold where pharmacological therapy is recommended by the National Osteoporosis Foundation (NOF). However, all treatment decisions require clinical judgment and consideration of individual patient factors, including patient preferences, comorbidities, previous drug use, risk factors not captured in the FRAX model (e.g., frailty, falls, vitamin D deficiency, increased bone turnover, interval significant decline in bone density) and possible under or overestimation of fracture risk by FRAX. The patient should follow a healthful lifestyle (good nutrition with adequate calcium and vitamin D, and appropriate weight-bearing exercise). Follow-Up: Consider repeating this study in 2 to 3 years to reassess this patient's status, or sooner if there is some new clinical indication. Reported by: SERJIO on 05/14/2025 10:12:00 AM. Reviewed, dictated and finalized at location A.
--- OUTSIDE RECORDS SUMMARY | 2025-05-14 10:14 | XMS_ITS | Encounter Summary ---
Author Organization [facility] Address [address] [facility] [place] [address] Care Team Providers Care Operations Support Coordinator Name Role Phone Ervin Foley MD Primary Care Provider [phone] Alba Carranza MD Primary Care Provider [phone] Niya Eddy Primary Care Provider [phone] Torri Pisano MD Primary Care Provider [phone] Encounter Details Date Type Department Care Team (Late st Contact Info) Description 12/25/2018 Lab Requisition [facility] [address] [place] [address] Albino Hutchison MD [address] [id number] Localized enlarged lymph nodes Social History Tobacco [...] AM CDT) Case Report Flow Cytometry Case: [id number] Authorizing Provider: Albino Hutchison MD Collected: 12/25/2018 09:52 AM Pathologist: Last Quiñones MD Received: 12/25/2018 02:04 PM Specimen: Axillary Lymph Node 9 6:46 AM T [facility] Final Diagnosis Lymph node, right axilla, flow cytometric immunophenotypic analysis ([id number]): - Reduced viability specimen. - No evidence of non-Hodgkin lymphoma. - See interpretation. 9 6:46 AM [facility] at 0646 CDT Flow [...] specimen is reviewed for software quality assurance specialist purposes. Overall, the right axillary lymph node shows reduced viability specimen with no evidence of involvement by non-Hodgkin lymphoma. Correlation with clinical findings and concurrent biopsy is required. CHICKEN RAISER/NW 9 6:46 AM [facility] Flow Cytometry Results Differential Result Comment Flow Cell Count /uL 4000 Total Viability % 65.0 Lymphocytes % 93 Dim CD45 Region % 1 Monocytes % 4 Granulocytes % 1 9 6:46 AM [facility] Reason for test Localized enlarged lymph nodes 785.6 9 6:46 AM [facility] Client Specimen ID # [id number] 9 6:46 AM [facility] Number of markers 16 were performed. A Flow CD3 A Flow CD10 A Flow CD20 A Flow CD23 A Flow CD2 A Flow CD4 A Flow CD1a A Flow CD5 A Flow CD19 A Flow CD34 A Flow CD45 A Flow CD7 A Flow CD8 A Flow CD30 A [place]+CD19+ A Lambda+CD19+ 9 6:46 AM CDT [facility] Disclaimer Test performed at [facility], [address] [place], [place], [address]. *The established laboratory minimum viability is 70%. [...] complexity clinical testing. 9 6:46 AM CDT [facility] Embedded Images 9 6:46 AM CDT [facility] Pathology/Cytolo gy AXILLARY LYMPH NODE STRUCTURE / Unknown 12/25/2018 9:52 AM CDT 12/25/2018 2:04 PM CDT Albino Hutchison MD LAB - PATHOLOGY/CYTOLOGY ORDER AKIKO Final Result [facility] [address] [place] [address]. [address] [phone] documented in this encounter Visit Diagnoses Diagnosis Localized enlarged lymph nodes Enlargement of lymph nodes documented in this encounter Care Teams Operations Support Coordinator Relationship Specialty Start Date End Date Ervin Foley MD [address] [place] [id number] PCP - General 12/25/18 05/23/21 Alba Carranza MD [address] [place] [id number] PCP - General Family Medicine 05/24/21 05/24/21 Niya Eddy PA [address] [place] [address] PCP - General Physician Welt Rander 05/25/21 06/29/21 Torri Pisano MD [address] [place] [address] PCP - General Family Medicine 06/30/21 documented as of this encounter
--- OUTSIDE RECORDS SUMMARY | 2025-05-14 10:14 | XMS_ITS | Clinical Summary ---
Author Organization [facility] Address [address] [address] Care Team Providers Care Foxing Closer Name Role Phone Torri Pisano MD Primary Care Provider [phone] Source Comments [facility],non-owned Affiliates and Associated Physician Practices is amultiple site organization consisting of ambulatory clinics and hospital sitesin [place], [place], [place] and [place]. This disclosure is being madepursuant to the Care Everywhere program and may not contain all information available regarding this patient. Last updated 18.[facility] Allergies No known active allergies Medications * [...] Comments Blood Pressure 114/47 07/01/2021 7:48 AM MOBILE SALES CONSULTANT Pulse 65 07/01/2021 7:48 AM MOBILE SALES CONSULTANT Temperature 36.4 C (97.5 F) 07/01/2021 7:48 AM MOBILE SALES CONSULTANT Respiratory Rate 16 07/01/2021 7:48 AM MOBILE SALES CONSULTANT Oxygen Saturation 97% 07/01/2021 7:48 AM MOBILE SALES CONSULTANT Inhaled Oxygen Concentration - - Weight 75.8 kg (167 lb) 06/30/2021 7:34 AM MOBILE SALES CONSULTANT Height 165.1 cm (5' 5) 06/30/2021 7:34 AM MOBILE SALES CONSULTANT Body Mass Index 27.79 06/30/2021 7:34 AM MOBILE SALES CONSULTANT Plan of Treatment Health Maintenance Due Date [...] this topic Medical Devices Implanted Type Area Market Development Director Device Identifier Shelf Expiration Date Model / Serial / Lot Cmnt Bone Djo Srg Cblt 40gm Hvisc Strl Implanted:Qty: 1 on 06/30/2021 by Familia Sargent MD at [facility] Left: Knee [employer] 09/18/2022 600-15-000 / / [id number] Tray Tib 71mm Kn Cocr I Beam Implanted:Qty: 1 on 06/30/2021 by Familia Sargent MD at [facility] Left: Knee [employer] 05/10/2031 [id number] / / [id number] Cmpnt Fem Kn Lt Cr Cmnt Prm Vngrd Intlk Implanted:Qty: 1 on 06/30/2021 by Familia Sargent MD at [facility] Left: Knee [employer] 12/19/2030 [id number] / / [id number] Cmpnt Ptlr 28mm 1 Pg Wire Ascnt Arcm Kn Implanted:Qty: 1 on 06/30/2021 by Familia Sargent MD at [facility] Left: Knee [employer] 06/12/2025 [id number] / / [id number] [id number] Vngrd Arcm Kn Ant Stab Implanted:Qty: 1 on 06/30/2021 by Familia Sargent MD at [facility] Left: Knee [employer] 02/03/2026 [id number] / / [id number] [facility] Advance Directives Documents on File Type Date Recorded 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
--- OUTSIDE RECORDS SUMMARY | 2025-05-14 10:14 | XMS_ITS | Data Portability ---
Author Organization [place] - [facility] OFFICE Address [address] [place] [address] Care Team Providers Care Director Of Education Name Role Phone SHIRA STEVENSON Primary Care Provider [phone] VIVEK SULLIVAN Primary Care Provider Assessment Encounter [...] Orders CoQ-10 100 mg capsule 2023 024 [id number], [address] [place], [place], [id number], 17:10:36 metoprolol succinate ER 25 mg tablet,ext ended release 24 hr 2021 022 [facility] [place], [address], 11:59:43 Patient TargetsNo targets recorded. Patient Instructions Encounter Date Encounter Id Patient Instructions Last Modified By Organization Details Last Modified Time 11/12/2021 [id number] Exercise advised Low cholesterol diet advised Low sodium diet advised. [email or web address] Not available 11/12/2021 12:25:15 11/18/2022 [id number] Exercise advised Low cholesterol diet advised Low sodium diet advised. oalmousalli Not available 11/18/2022 11:39:46 11/23/2023 [id number] Low cholesterol diet advised Low sodium diet advised. eyassin Not available 11/23/2023 11:59:00 05/09/2024 [id number] Exercise advised Low cholesterol diet advised Low [...] ardio gram No observ ation record ed. [facility], [place] [address] [address], [place], [address], 01/23/2024 10:19:41 Result Notes None recorded. Problems Name Problem SNOMED Code Status Onset Date Resolution Date Notes Provider Name and Address Organization Details Recorded Time Irritable bowel syndrome 57903599 Active 2019 Lizzy tovar, [place] - [facility] 0 12:41:25 Acid reflux 154159366 Active 2019 Lizzy tovar, [facility] 0 12:43:35 Palpitations 77731285 Active 2019 Larry Aelx null, [place] - [facility] 0 15:59:43 Hyper[facility] 74143368 [facility] 15:59[facility]53 [facility] 16[facility]01 Alisa portillo 766580872 Active 2019 [facility] 16:00:09 Varicose veins of lower extremity 48519065 Active [facility] 16:00:18 Problem Notes None recorded. Procedures Surgical History Date Name Laterality Status Provider Name and Address Organization Details Recorded Time Cholecystectomy completed Lizzy Rico [facility] 10/22/2019 12:47:19 Imaging Results None recorded. Procedure [...] completed Not Available Not Available Not Available [place] 3 11/22 completed Not Available Not Available [...] Not Available Not Available No t Available [facility] COVID-19 Vaccine (PF) 30 mcg/0.3 mL IM susp (purple) PHARMACY ADMIN[facility] 11/16 completed Not Available Not Available Not Available Vitals Date Recorded Body height Body mass index (BMI) Body weight Heart rate Oxygen saturation Oxygen saturation in Arterial blood by Pulse oximetry Systolic And Diastolic Provider Name and Address Organization Details Last Updated DateTime 2 165.1 cm 28.7 kg/m2 12882.9 7 g 77 /min 94 % 94 % 110/70 mm[Hg] Andre Alston i, MD [address] [place], [address], [facility] 2 12:11:22 Date Recorded Body height Body mass index (BMI) Body weight Oxygen saturation Oxygen saturation in Arterial blood by Pulse oximetry Oxygen saturation Oxygen saturation in Arterial blood by Pulse oximetry Heart rate Systolic And Diastolic Provider Name and Address Organization Details Last Updated DateTime 3 165.1 cm 29.6 kg/m2 53293.0 8 g 89 % 89 % 90 % 90 % 64 /min 114/60 mm[Hg] ADRYAN QUIROGA [facility] 3 11:17:44 Date Recorded Body weight Heart rate Oxygen saturation Oxygen saturation in Arterial blood by Pulse oximetry Systolic And Diastolic Provider Name and Address Organization Details Last Updated DateTime 4 50055.8 9 g 71 /min 90 % 90 % 123/59 mm[Hg] Karuna Vega [facility] 4 11:32:23 Date Recorded Body height Body mass index (BMI) Body weight Heart rate Respiratory rate Oxygen saturation Oxygen saturation in Arterial blood by Pulse oximetry Systolic And Diastolic Provider Name and Address Organization Details Last Updated DateTime 4 165.1 cm 28 kg/m2 06332.5 2 g 86 /min 16 /min 96 % 96 % 116/60 mm[Hg] Karuna Vega [facility] 4 17:07:45 Date Recorded Body height Body mass index (BMI) Body weight Oxygen saturation Oxygen saturation in Arterial blood by Pulse oximetry Heart rate Systolic And Diastolic Provider Name and Address Organization Details Last Updated DateTime 2 165.1 cm 28.1 kg/m2 61907.1 1 g 95 % 95 % 81 /min 116/78 mm[Hg] Massiel Valentine [facility] 2 11:53:17 Social History Question Answer Notes LastModified by Organizat ion Details LastModified Time Tobacco Smoking Status Former [facility]2019 12:45:14 What Is Your Level Of Caffeine Consumption? Occasional Information not available 11/10/2022 What Type Of Diet Are You Following? REGULAR Information not available 10/22/2019 Which Illicit Or Recreational Drugs Have You Used? None [email or web address] Information not available 10/22/2019 Marital Status [email or web address] Informatio n not available 10/22/2019 What Was The Date Of Your Most Recent Tobacco Screening? 10/22/2019 Information not available 12/18/2019 How Many Children Do You Have? 2 [email or web address] Information not available 10/22/2019 How Much Tobacco Do You Smoke? 0.25 PPD [email or web address] Information not available 10/22/2019 General Stress Level High Information not available 10/22/2019 Sex: Unknown Functional Status Question Answer Note LastModified by Organizat ion Details LastModified Time What is your level of alcohol consumption? None [email or web address] Information not available 10/22/2019 Do you or have you ever used smokeless tobacco? Never used smokeless tobacco [email or web address] Information not available 10/22/2019 Do you or have you ever used e-cigarettes or vape? Never used electronic cigarettes [email or web address] Information not available 10/22/2019 Mental Status None [...] Diagnosis SNOMED-CT Code Diagnosis ICD10 Code Diagnosis IMO Codes Diagnosis Note [id number] Andre Burnham MD [facility] [address] [place] [address] 10/22/2019 11:45:23 10/22/2019 13:29:51 Palpitations 33217954 R00.2 Will order MCT to correlate symptoms with arrhythmia . Symptoms are concerning for AFIB. NSR on ECG today. Will start ASA 325mg (OTC). Hyperlipidemia 17898740 E78.5 Needs to keep LDL less than 70, and HDL more than 40 Will get fasting lipids for follow up Pre-surger y evaluation 833366904 Z01.818 Treadmill Myoview Stress test, has high Oldham Risk score. Has Known CAD, or CAD risk equivalent . To look for any ischemia. Lightheadedness 97014981 8 R42 Reports increased lightheade dness, and is concerned for carotid artery stenosis. Consider ordering carotid u/s for evaluation /reassuran ce. Varicose v eins of lower extremity 67500085 I83.893 Reports leg discomfort . No swelling. Consider order venous duplex study to evaluate. [id number] Andre Burnham MD [facility] [address] [place] [address] 12/20/2019 08:58:32 12/20/2019 13:50:52 Palpitations 89995164 R00.2 No AFIB on MCT. Reports GI discomfort with ASA 325. On ASA 81mg. Will order echo to evaluate for MVP. Will start Toprol 25mg 1/2 tab daily. (12/20/2019 ) 11/18/2019 Event monitor : Base line rhythm is NSR Maximal heart rate 112 bpm /Min minimum heart rate 67bpm Average heart rate 89bpm NM interval 141 msec QRS interval 117msec QT interval 344 msec ,no pause or R-R intervals >2.0 seconds Hyperlipidemia 30202878 E78.5 Needs to keep LDL less than 70, and HDL more than 40 Will get fasting lipids for follow up Varicose v eins of lower extremity 16731121 I83.893 Uses compressio n stockings. Mild swelling. Will order venous duplex study to evaluate. Pre-surger y evaluation 139364415 Z01.818 10/31/19 stress test: Negative stress test. LVEF 61%. Normal LV systolic function. Below average exercise tolerance. There is no cardiac contraindi cation for the procedure. The planned procedure would be withinacce ptable risk. Patient may stop taking aspirin five (5) days prior to the procedure. [id number] Andre Burnham MD [facility] [place] [address] 03/20/2020 09:57:49 03/20/2020 11:06:25 Palpitations 33948939 R00.2 03/20/2020 No AFIB on MCT. Reports [...] heart rate 67bpm Average heart rate 89bpm NM interval 141 msec QRS interval 117msec QT interval 344 msec ,no pause or R-R intervals >2.0 seconds Hyperlipidemia 03840016 E78.5 Needs to keep LDL less than 70, and HDL more than 40 [facility] get labs from [facility] taking off statin due to weight gain. Education on statins. Varicose v eins of lower extremity 03209583 I83.893 03/20/2020C ontinue use of compressio n stockings. No symptoms at this time. Post meniscus repair surgeryVen ous study done: 02/11/20 Mild bilateral reflux disease noted. No Varicose Veins noted [id number] Andre Burnham MD [facility] [address] [place] [address] 06/05/2020 11:57:52 06/05/2020 12:27:33 Palpitations 74336822 R00.2 Improved, continue metoprolol . Okay to [...] heart rate 67bpm. Average heart rate 89bpm. NM interval 141 msec. QRS interval 117msec. QT interval 344 msec, no pause or R-R intervals >2.0 seconds. Hyperlipidemia 02661766 E78.5 Needs to keep LDL less than 70, and HDL more than 40. 01/14/2020 LDL 78Continue atorvastat in 10mgWill get fasting lipids for follow-up Varicose v eins of lower extremity 28772710 I83.893 Continue use of compressio n stockings. No symptoms at this time. Post meniscus repair surgery Venous study 02/11/2020: Mild bilateral reflux disease noted. No varicose veins noted. [id number] Andre Burnham MD [facility] Office [address] [place] [address] [place] [address] 08/27/2020 10:19:56 08/27/2020 11:05:33 Palpitations 89955511 R00.2 Increased post covid Start Magnesium supplement [...] heart rate 67bpm. Average heart rate 89bpm. NM interval 141 msec. QRS interval 117msec. QT interval 344 msec, no pause or R-R intervals >2.0 seconds. Hyperlipidemia 51966454 E78.5 Needs to keep LDL less than 70, and HDL more than 40. 01/14/2020 LDL 78Continue atorvastat in 10mgWill get fasting lipids for follow-up Varicose v eins of lower extremity 01449865 I83.893 Continue use of compressio n stockings. No symptoms at this time. Post meniscus repair surgery Venous study 02/11/2020: Mild bilateral reflux disease noted. No varicose veins noted. 06532 Andre Burnham MD [facility] [facility] Office [address] [place] [address] 11/16/2020 15:01:00 11/16/2020 15:43:30 Palpitations 42646189 R00.2 Increased post covid, will repeat eacho [...] heart rate 67bpm. Average heart rate 89bpm. NM interval 141 msec. QRS interval 117msec. QT interval 344 msec, no pause or R-R intervals >2.0 seconds. Hyperlipidemia 59273274 E78.5 Needs to keep LDL less than 70, and HDL more than 40. 10/12/2020 LDL 83 Continue atorvastat in 10 mg Will get fasting lipids for follow-up Varicose v eins of lower extremity 06163354 I83.893 Stable, remains asymptomat ic. Continue compressti on stockings, low salt diet, and leg elevation Venous study 02/11/2020 : Mild bilateral reflux disease noted. No varicose veins noted. 82417 Andre Burnham MD [facility] [place] [address] 05/14/2021 12:14:11 05/15/2021 08:26:14 Hyperlipidemia 88282243 E78.5 Needs to keep LDL less than 70, and HDL more than 40. 10/12/2020 LDL 83 Continue atorvastat in 10 mg Will get fasting lipids for follow-up Palpitations 71664117 R0 0.2 possible Paroxysmal Atrial Fibrillati on Pre-surger y evaluation 118006924 Z01.818 10/31/19 stress test: Negative stress test. LVEF 61%. Normal LV systolic function. Below average exercise tolerance. There is no cardiac contraindi cation for the procedure. The planned procedure would be withinacce ptable risk. Patient may stop taking aspirin five (5) days prior to the procedure. 08474 Andre Burnham MD [facility] [address] [place] [address] 11/12/2021 12:02:11 11/12/2021 12:29:45 Hyperlipidemia 08212809 E78.5 Needs to keep LDL less than 70, and HDL more than 40. 10/12/2020 LDL 83 Continue atorvastat in 10 mg Will get fasting lipids for follow-up Palpitations 85696266 R0 0.2 with PAC'Soraya to take extra 1/2 tab of Toprol 87096 Andre Burnham MD [facility] [address] [place] [address] 05/20/2022 10:59:18 05/20/2022 12:02:08 Hyperlipidemia 30406814 E78.5 Needs to keep LDL less than 70, and HDL more than 40. 10/12/2020 LDL 83 Continue atorvastat in 10 mg Will get fasting lipids for follow-up Palpitations 94324268 R0 0.2 with PAC'swill increase Toprol to 25 25426 Andre Burnham MD [facility] [address] [place] [address] 11/18/2022 10:58:10 11/18/2022 11:45:24 Hyperlipidemia 45647346 E78.5 Needs to keep LDL less than 70, and HDL more than 40. 10/12/2020 LDL 83 Continue atorvastat in 10 mg Will get fasting lipids for follow-up Palpitations 52857436 R0 0.2 with PAC'Soraya to take extra 1/2 tab of Toprol [id number] Andre Burnham MD [facility] [place] [address] 11/23/2023 10:37:46 11/23/2023 12:06:59 Hyperlipidemia 16226607 E78.5 Needs to keep LDL less than 70, and HDL more than 40. 10/12/2020 LDL 83 Continue atorvastat in 10 mg Will get fasting lipids for follow-up Palpitations 79359406 R0 0.2 resolvedwi th PAC'Soraya to take extra 1/2 tab of Toprol Dyspnea on exertion 6084 5006 R06.09 Obtain echo to evaluate for structural /functiona l disease. Carotid bruit 780316925 R09.89 will do UScontinue with full aspirin 224989 Andre Burnham MD [facility] [place] [address] 05/09/2024 16:53:25 05/09/2024 17:50:42 Hyperlipidemia 23131896 E78.5 05/04/2024 LDL 59 Was on atorvastat in 10 mg, but she stopped it Will get fasting lipids for follow-up Palpitations 94046672 R0 0.2 resolvedwi th PAC'Soraya to take extra 1/2 tab of Toprol Dyspnea on exertion 6084 5006 R06.09 Obtain echo to evaluate for structural /functiona l disease. Carotid bruit 086879749 R09.89 Mild carotid stenosis Health Concerns Section Related Observation LastModified by Organization Detai ls LastModified Time None Recorded Concern Status LastModified by Organization Details LastModified Time None Recorded Advance Directives Directive None Recorded Payers Insurance Date Sequence Insurance Name Policy Number Policy Sapp Covered Member ID Sapp Member ID Guarantor Name 05/09/2024 2 [place] [id number] Zabrina Heck [id number] Zabrina Heck 05/09/2024 2 [facility] [id number] Zabrina Heck [id number] Zabrina Heck 05/09/2024 1 [place] Zabrina Heck [id number] Zabrina Heck Notes Date Note Type Note Provider Name and Address Organization Details Recorded Time 11/12/2021 text/html Hospitalization Contact RecordReported by Patient 11/12/21CC : Cardiac follow up, [id number] female with history of HLD, anxiety, hypothyroidism, bells palsy, presents for 6 month follow up. She was last seen in the clinic on 05/14/21, since then [place] denies ER visits and hospitalizations since she [...] rate 67 bpm Average heart rate 89bpm NM interval 141 msec QRS interval 117msec QT interval 344 msec ,no pause or R-R intervals >2.0 seconds Previously had episode of palpitations with near-syncope HR 160, then went to ED at [place] (10/14/2019). Labs and ECG reportedly normal.Base line rhythm is NSR Had knee surgery for torn meniscus rescheduled. Reports increased lightheadedness.Result s from this visit, or from the past:01/14/20 LIPID: TC 156, TR 94, HDL 60, LDL CMP: NA 141, K 4.4, CL 104, CO2 27, GLU 80, BUN 15, CR 0.72, AST 18, ALT COVID: [id number]/16/20 PT/INR: PT 12.6, INR 1.003 CBC: WBC 7.0, HGB 12.8, HCT 40.3, PLT 42591 EKG: Sinus rhythmEKG 10/22/19 Possible incomplete rbbb02/11/20 [...] bilateral reflux disease noted. Andre Burnham MD [address] [place], [address], [facility] 11/12/2021 12:26:10 05/20/2022 text/html Hospitalization Contact RecordReported by Patient 05/20/22CC : Cardiac follow up, Ngfmdgajcvs77-owlz-fpi female with history of HLD, anxiety, hypothyroidism, [...] rate 67 bpm Average heart rate 89bpm NM interval 141 msec QRS interval 117msec QT interval 344 msec ,no pause or R-R intervals >2.0 seconds Previously had episode of palpitations with near-syncope HR 160, then went to ED at [place] (10/14/2019). Labs and ECG reportedly normal.Base line rhythm is NSR Had knee surgery for torn meniscus rescheduled. Reports increased lightheadedness.Result s from this visit, or from the past:01/14/20 LIPID: TC 156, TR 94, HDL 60, LDL CMP: NA 141, K 4.4, CL 104, CO2 27, GLU 80, BUN 15, CR 0.72, AST 18, ALT COVID: [id number]/16/20 PT/INR: PT 12.6, INR 1.003 CBC: WBC 7.0, HGB 12.8, HCT 40.3, PLT 32752 EKG: Sinus rhythmEKG 10/22/19 Possible incomplete rbbb02/11/20 [...] disease noted. Andre Burnham MD [address] [place], [address], [facility] 05/20/2022 11:59:38 11/18/2022 text/html Hospitalization Contact RecordReported by Patient 11/18/22CC : Cardiac follow up, Lgltsjnafaq93-gudh-rns female with history of HLD, anxiety, hypothyroidism, [...] rate 67 bpm Average heart rate 89bpm NM interval 141 msec QRS interval 117msec QT interval 344 msec ,no pause or R-R intervals >2.0 seconds Previously had episode of palpitations with near-syncope HR 160, then went to ED at [place] (10/14/2019). Labs and ECG reportedly normal.Base line rhythm is NSR Had knee surgery for torn meniscus rescheduled. Reports increased lightheadedness.Result s from this visit, or from the past:01/14/20 LIPID: TC 156, TR 94, HDL 60, LDL CMP: NA 141, K 4.4, CL 104, CO2 27, GLU 80, BUN 15, CR 0.72, AST 18, ALT COVID: [id number]/16/20 PT/INR: PT 12.6, INR 1.003 CBC: WBC 7.0, HGB 12.8, HCT 40.3, PLT 64755 EKG: Sinus rhythmEKG 10/22/19 Possible incomplete rbbb02/11/20 [...] 02/11/20 Mild bilateral reflux disease noted. Andre Burnahm MD [address] [place], [address], [facility] - [facility] 11/18/2022 11:40:31 11/23/2023 text/html Hospitalization Contact RecordReported by Patient 11/23/23CC : Cardiac follow up dyspnea on [id number] female with history of HLD, anxiety, hypothyroidism, [...] rate 67 bpm Average heart rate 89bpm NM interval 141 msec QRS interval 117msec QT interval 344 msec ,no pause or R-R intervals >2.0 seconds Previously had episode of palpitations with near-syncope HR 160, then went to ED at [place] (10/14/2019). Labs and ECG reportedly normal.Base line rhythm is NSR Had knee surgery for torn meniscus rescheduled. Reports increased lightheadedness.Result s from this visit, or from the past:01/14/20 LIPID: TC 156, TR 94, HDL 60, LDL CMP: NA 141, K 4.4, CL 104, CO2 27, GLU 80, BUN 15, CR 0.72, AST 18, ALT COVID: [id number]/16/20 PT/INR: PT 12.6, INR 1.003 CBC: WBC 7.0, HGB 12.8, HCT 40.3, PLT 56233 EKG: Sinus rhythmEKG 10/22/19 Possible incomplete rbbb02/11/20 [...] Mild bilateral reflux disease noted. T[place] - [facility] 11/23/2023 12:00:53 05/09/2024 text/html Hospitalization Contact RecordReported by Patient 05/09/24CC : Cardiac follow qa09-raes-qgz female with history of HLD, anxiety, hypothyroidism, [...] mg daily. 04/30/2024 : FT4 Reflux-1.34, TSH 0.8524204/30/24CMP-NA 140 K 3.8 CR 0.70 GL 81 [...] rate 67 bpm Average heart rate 89bpm NM interval 141 msec QRS interval 117msec QT interval 344 msec ,no pause or R-R intervals >2.0 seconds Previously had episode of palpitations with near-syncope HR 160, then went to ED at [place] (10/14/2019). Labs and ECG reportedly normal.Base line rhythm is NSR Had knee surgery for torn meniscus rescheduled. Reports increased lightheadedness.Result s from this visit, or from the past:01/14/20 LIPID: TC 156, TR 94, HDL 60, LDL CMP: NA 141, K 4.4, CL 104, CO2 27, GLU 80, BUN 15, CR 0.72, AST 18, ALT COVID: [id number]/16/20 PT/INR: PT 12.6, INR 1.003 CBC: WBC 7.0, HGB 12.8, HCT 40.3, PLT 18651 EKG: Sinus rhythmEKG 10/22/19 Possible incomplete rbbb02/11/20 [...] bilateral reflux disease noted. Andre Burnham MD [address] [place], [address], [facility] - [facility] 05/09/2024 17:45:16 OBGyn Episode No OBEpisode recorded.
--- OUTSIDE RECORDS SUMMARY | 2025-05-14 10:14 | XMS_ITS | Encounter Summary ---
Author Organization [facility] Address [address] [place] [address] Care Team Providers Care Piece Meat Trimmer Name Role Phone Ervin Foley MD Primary Care Provider [phone] Alba Carranza MD Primary Care Provider [phone] Niya Eddy Primary Care Provider [phone] Torri Pisano MD Primary Care Provider [phone] Encounter Details Date Type Department Care Team (Late st Contact Info) Description 12/26/2018 Lab Requisition [facility] [address] [place] [address] Albino Hutchison MD [address] [address] Social History Tobacco Use Types [...] CDT) Case Report Surgical Pathology Report Case: [id number] Authorizing Provider: Albino Hutchison MD Collected: 12/25/2018 09:00 AM Pathologist: Last Quiñones MD Received: 12/26/2018 02:28 PM Specimen: Lymph Node Biopsy, [id number] 12/27/2018 10:03 AM [facility] Final Diagnosis Lymph node, left axilla, needle core biopsy ([id number]): - Benign reactive lymph cabrera tissue. - No evidence of lymphoma or carcinoma, as sampled. - See description. 12/27/2018 10:03 AM [facility] at 1003 CDT Microscopic [...] or carcinoma. Concurrent lymph node flow cytometry ([id number]) corroborates this diagnosis. Correlation with clinical findings and relevant cytogenetic/molecular testing is required. BI ARCHITECT/NW 12/27/2018 10:03 AM [facility] Clinical History 12/27/2018 10:03 AM [facility] Materials Received Received are 2 slides and 1 block labeled as [id number] along with the outside pathology report. The materials originate from [address], [place] [address]. All materials are returned to the referring institution, along with a copy of our final report. 12/27/2018 10:[address] [facility] Disclaimer The performance characteristics of all immunohistochemical and indirect immunofluorescence stains (if any) cited in this report were determined by the Histopathology Laboratory of [facility]. Some of these tests were developed [...] attending (teaching) pathologist. 12/27/2018 10:[address] [facility] Embedded Images 12/27/2018 10:[address] [facility] Pathology/Cytolo gy BIOPSY OF LYMPH NODE / Unknown 12/25/2018 9:00 AM CDT 12/26/2018 2:28 PM CDT us Albino Hutchison MD LAB - PATHOLOGY/CYTOLOGY ORDER AKIKO Final Result Performing Organization Address City/State/[facility] Co de Phone Number [facility] [address] [phone] documented in this encounter Visit Diagnoses Not on filedocumented in this encounter Care Teams Piece Meat Trimmer Relationship Specialty Start Date End Date Ervin Foley MD [address] [place] [address] PCP - General 12/25/18 05/23/21 Alba Carranza MD [address] [place] [place] [address] PCP - General Family Medicine 05/24/21 05/24/21 Niya Eddy PA [address] [place] [address] PCP - General Physician Psychiatric Secretary 05/25/21 06/29/21 Torri Pisano MD [address] [place] [address] PCP - General Family Medicine 06/30/21 documented as of this encounter
--- OUTSIDE RECORDS SUMMARY | 2025-05-14 10:14 | XMS_ITS | Clinical Summary ---
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
== END 2025-05-14 09:12 | disposition home or self-care (01) ==
LOC: ANHFOHIMG 09:14
PROVIDERS: PCP Family Medicine; Visit Provider Obstetrics & Gynecology
DX: M85.89 Other specified disorders of bone density and structure, multiple sites (principal); Z78.0 Asymptomatic menopausal state; Z13.820 Encounter for screening for osteoporosis
CPT/HCPCS: 77080

== ENCOUNTER 2025-06-05 09:43 | Outpatient (CLI) | payer MEDICARE, SELFPAY ==
--- NOTE | ~2025-06-05 | CT_ITS ---
Exam: CT chest, abdomen and pelvis with contrast Clinical History: [Generalized enlarged lymph nodes ] Comparison: [ CT abdomen and pelvis with contrast 11/27/2024] Technique: Multiple axial CT images of the chest, abdomen and pelvis were obtained with IV contrast. Sagittal and coronal reformatted images were obtained. FINDINGS: Lungs and pleura: [ Calcified granuloma in the right lower lung. There are few small bandlike and reticular opacities in the visualized lower lungs.] There are a few less than 9 mm pulmonary nodules in the left lower lobe. Mediastinum and pulmonary paty: [ No mass or adenopathy.] Axillary/intramammary and supraclavicular: [ No mass or adenopathy.] Heart and great vessels: [ Normal heart size.[ [ No pericardial effusion.] [ No aneurysm.] Chest Wall: [ Unremarkable.] Liver: [ No mass.] [ Minimal intrahepatic biliary duct dilatation presumably due to a previous cholecystectomy.] Gallbladder: Surgically absent. Common bile duct: [ Normal caliber.] [ No stones.] Spleen: [ Within normal limits.] Pancreas: [ No mass. No pancreatic fluid collection.] Adrenals: [ No masses.] Kidneys: [ No masses. No hydronephrosis.][ There are a few too small to characterize low-attenuation lesions in the kidneys.] Lymph nodes: Grossly stable 2.6 x 0 9 x 2.5 cm mass posterior to the IVC Stomach, small bowel and colon: [ No bowel wall thickening or obstruction.] Large amount of stool. Peritoneum cavity: [ No mesenteric fat stranding or fluid.] Bladder: [ Unremarkable.] Osseous structures: [ No acute fracture or destructive lesion.] [ Multilevel degenerative change in the visualized spine.] Abdominal aorta: [ No aneurysm.] Additional findings: [ None of significance.] IMPRESSION: 1. Grossly stable 2.6 x 0 9 x 2.5 cm mass posterior to the IVC. The finding is indeterminate. Differential includes enlarged lymph node or mass. A PET/CT is recommended. 2. There are a few less than 9 mm pulmonary nodules in the left lower lobe. A chest CT with contrast is recommended. Attention on follow-up PET/CT imaging. Reviewed, dictated and finalized at location Q. ERGARTEN CLASSROOM TEACHER IMPRESSION: 1. Grossly stable 2.6 x 0 9 x 2.5 cm mass posterior to the IVC. The finding is indeterminate. Differential includes enlarged lymph node or mass. A PET/CT is r ecommended. 2. There are a few less than 9 mm pulmonary nodules in the left lower lobe. A c hest CT with contrast is recommended. Attention on follow-up PET/CT imaging.
[2025-06-05 11:02] LABS: Estimated Glomerular Filt Rate 54
--- OUTSIDE RECORDS SUMMARY | 2025-06-05 18:10 | XMS_ITS | Encounter Summary ---
Author Organization [facility] Address [address] [place] [address] Care Team Providers Care Dealer Account Manager Name Role Phone Ervin Foley MD Primary Care Provider [phone] Alba Carranza MD Primary Care Provider [phone]- [phone] Niya Eddy Primary Care Provider [phone] Torri Pisano MD Primary Care Provider [phone] Encounter Details Date Type Department Care Team (Late st Contact Info) Description 12/26/2018 Lab Requisition [facility] [address] [place] [address] Albino Hutchison MD [address] [id number] Social History Tobacco Use Types Packs/Day Years [...] CDT) Case Report Surgical Pathology Report Case: [id number] Authorizing Provider: Albino Hutchison MD Collected: 12/25/2018 09:00 AM Pathologist: Last Quiñones MD Received: 12/26/2018 02:28 PM Specimen: Lymph Node Biopsy, [id number] 12/27/2018 10:03 AM [facility] Final Diagnosis Lymph node, left axilla, needle core biopsy ([id number]): - Benign reactive lymph cabrera tissue. - No evidence of lymphoma or carcinoma, as sampled. - See description. 12/27/2018 10:03 AM [facility] at 1003 CDT Microscopic [...] or carcinoma. Concurrent lymph node flow cytometry ([id number]) corroborates this diagnosis. Correlation with clinical findings and relevant cytogenetic/molecular testing is required. 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 The materials originate from [address], [place] [address]. All materials are returned to the referring institution, along with a copy of our final report. 12/27/2018 10:03 AM [facility] Disclaimer The performance characteristics of all immunohistochemical and indirect immunofluorescence stains (if any) cited in this report were determined by the Histopathology Laboratory of [facility]. Some of these tests were developed by [...] attending (teaching) pathologist. 12/27/2018 10:03 AM [facility] Embedded Images 12/27/2018 10:03 AM T [facility] Pathology/Cytolo gy BIOPSY OF LYMPH NODE / Unknown 12/25/2018 9:00 AM CDT 12/26/2018 2:28 PM CDT us Albino Hutchison MD LAB - PATHOLOGY/CYTOLOGY ORDER AKIKO Final Result Performing Organization Address City/State/[facility] Co de Phone Number [facility] [address] [phone] documented in this encounter Visit Diagnoses Not on filedocumented in this encounter Care Teams Dealer Account Manager Relationship Specialty Start Date End Date Ervin Foley MD [address] [place] [address] PCP - General 12/25/18 05/23/21 Alba Carranza MD [address] [place] [address] PCP - General Family Medicine 05/24/21 05/24/21 Niya Eddy PA [address] [place] [address] PCP - General Physician Electronic Scanner Operator 05/25/21 06/29/21 Torri Pisano MD [address] [place] [address] PCP - General Family Medicine 06/30/21 documented as of this encounter
--- OUTSIDE RECORDS SUMMARY | 2025-06-05 18:10 | XMS_ITS | Data Portability ---
Author Organization [place] - [facility] OFFICE Address [address] [place] [address] Care Team Providers Care Inspector Open Die Name Role Phone SHIRA STEVENSON Primary Care Provider VIVEK SULLIVAN Primary Care Provider [phone] Assessment Encounter Date Assessment Date Assessment LastModified [...] Orders CoQ-10 100 mg capsule 2023 024 [id number], [address], [place], [id number], 17:10:36 metoprolol succinate ER 25 mg tablet,ext ended release 24 hr 2021 022 [facility] [place], [address], 11:59:43 Patient TargetsNo targets recorded. Patient Instructions Encounter Date Encounter Id Patient Instructions Last Modified By Organization Details Last Modified Time 11/12/2021 [id number] Exercise advised Low cholesterol diet advised Low sodium diet advised. [email or web address] Not available 11/12/2021 12:25:15 11/18/2022 [id number] Exercise advised Low cholesterol diet advised Low sodium diet advised. [email or web address] Not available 11/18/2022 11:39:46 11/23/2023 [id number] Low cholesterol diet advised Low sodium diet advised. [email or web address] Not available 11/23/2023 11:59:00 05/09/2024 [id number] Exercise advised Low cholesterol diet advised Low [...] gram No observ ation record ed. [facility], [place] [address] [address], [place], [address], 01/23/2024 10:19:41 Result Notes None recorded. Problems Name Problem SNOMED Code Status Onset Date Resolution Date Notes Provider Name and Address Organization Details Recorded Time Irritable bowel syndrome 00463860 Active 2019 Lizzy toavr, [place] - [facility] 0 12:41:25 Acid reflux 762915698 Active 2019 Lizzy tovar, [facility] 0 12:43:35 Palpitations 78237307 Active 2019 Larry Alex null, [place] - [facility] 0 15:59:43 Hyper[facility] 70583366 [facility] 15:59:53 [facility] Alisa portillo 948475601 Active 2019 [facility] 0 16:00:09 Varicose veins of lower extremity 72031378 Active 2019 [facility] 0 16:00:18 Problem Notes None recorded. Procedures Surgical History Date Name Laterality Status Provider Name and Address Organization Details Recorded Time Cholecystectomy completed Lizzy Rico [facility] 10/22/2019 12:47:19 Imaging Results None recorded. Procedure [...] completed Not Available Not Available Not Available [facility] 3 11/22 completed Not Available Not Available [...] Not Available Not Available No t Available [facility] Vaccine (PF) 30 mcg/0.3 mL IM susp (purple) PHARMACY ADMINIST [facility] 11/16 completed Not Available Not Available Not Available Vitals Date Recorded Body height Body mass index (BMI) Body weight Heart rate Oxygen saturation Oxygen saturation in Arterial blood by Pulse oximetry Systolic And Diastolic Provider Name and Address Organization Details Last Updated DateTime 2 165.1 cm 28.7 kg/m2 44653.9 7 g 77 /min 94 % 94 % 110/70 mm[Hg] Andre Alston i, MD [address] [place], [address], [facility] 2 12:11:22 Date Recorded Body height Body mass index (BMI) Body weight Oxygen saturation Oxygen saturation in Arterial blood by Pulse oximetry Oxygen saturation Oxygen saturation in Arterial blood by Pulse oximetry Heart rate Systolic And Diastolic Provider Name and Address Organization Details Last Updated DateTime 3 165.1 cm 29.6 kg/m2 19737.0 8 g 89 % 89 % 90 % 90 % 64 /min 114/60 mm[Hg] ADRYAN QUIROGA [facility] 3 11:17:44 Date Recorded Body weight Heart rate Oxygen saturation Oxygen saturation in Arterial blood by Pulse oximetry Systolic And Diastolic Provider Name and Address Organization Details Last Updated DateTime 4 76587.8 9 g 71 /min 90 % 90 % 123/59 mm[Hg] Karuna Vega [facility] 4 11:32:23 Date Recorded Body height Body mass index (BMI) Body weight Heart rate Respiratory rate Oxygen saturation Oxygen saturation in Arterial blood by Pulse oximetry Systolic And Diastolic Provider Name and Address Organization Details Last Updated DateTime 4 165.1 cm 28 kg/m2 99590.5 2 g 86 /min 16 /min 96 % 96 % 116/60 mm[Hg] Karuna Vega [facility] 4 17:07:45 Date Recorded Body height Body mass index (BMI) Body weight Oxygen saturation Oxygen saturation in Arterial blood by Pulse oximetry Heart rate Systolic And Diastolic Provider Name and Address Organization Details Last Updated DateTime 2 165.1 cm 28.1 kg/m2 34182.1 1 g 95 % 95 % 81 /min 116/78 mm[Hg] Massiel Valentine [facility] 2 11:53:17 Social History Question Answer Notes LastModified by Organizat ion Details LastModified Time Tobacco Smoking Status Former [facility]oker [facility] 10/22/2019 12:45:14 What Is Your Level Of Caffeine Consumption? Occasional Information not available 11/10/2022 What Type Of Diet Are You Following? REGULAR [email or web address] Information not available 10/22/2019 Which Illicit Or Recreational Drugs Have You Used? None Information not available 10/22/2019 Marital Status [email or web address] Informatio n not available 10/22/2019 What Was The Date Of Your Most Recent Tobacco Screening? 10/22/2019 Information not available 12/18/2019 How Many Children Do You Have? 2 [email or web address] Information not available 10/22/2019 How Much Tobacco Do You Smoke? 0.25 PPD [email or web address] Information not available 10/22/2019 General Stress Level High [email or web address] Information not available 10/22/2019 Sex: Unknown Functional Status Question Answer Note LastModified by Organizat ion Details LastModified Time What is your level of alcohol consumption? None [email or web address] Information not available 10/22/2019 Do you or have you ever used smokeless tobacco? Never used smokeless tobacco [email or web address] Information not available 10/22/2019 Do you or [...] ICD10 Code Diagnosis IMO Codes Diagnosis Note 40599 Andre Burnham MD [facility] [address] [place] [address] 10/22/2019 11:45:23 10/22/2019 13:29:51 Palpitations 36879044 R00.2 Will order MCT to correlate symptoms with arrhythmia . Symptoms are concerning for AFIB. NSR on ECG today. Will start ASA 325mg (OTC). Hyperlipidemia 52766195 E78.5 Needs to keep LDL less than 70, and HDL more than 40 Will get fasting lipids for follow up Pre-surger y evaluation 656400935 Z01.818 Treadmill Myoview Stress test, has high Lincoln Risk score. Has Known CAD, or CAD risk equivalent . To look for any ischemia. Lightheadedness 82120780 8 R42 Reports increased lightheade dness, and is concerned for carotid artery stenosis. Consider ordering carotid u/s for evaluation /reassuran ce. Varicose v eins of lower extremity 81402471 I83.893 Reports leg discomfort . No swelling. Consider order venous duplex study to evaluate. 36452 Andre Burnham MD [facility] [address] [place] [address] 12/20/2019 08:58:32 12/20/2019 13:50:52 Palpitations 38768880 R00.2 No AFIB on MCT. Reports GI discomfort with ASA 325. On ASA 81mg. Will order echo to evaluate for MVP. Will start Toprol 25mg 1/2 tab daily. (12/20/2019 ) 11/18/2019 Event monitor : Base line rhythm is NSR Maximal heart rate 112 bpm /Min minimum heart rate 67bpm Average heart rate 89bpm [place] interval 141 msec QRS interval 117msec QT interval 344 msec ,no pause or R-R intervals >2.0 seconds Hyperlipidemia 48138377 E78.5 Needs to keep LDL less than 70, and HDL more than 40 Will get fasting lipids for follow up Varicose v eins of lower extremity 08709946 I83.893 Uses compressio n stockings. Mild swelling. Will order venous duplex study to evaluate. Pre-surger y evaluation 521446081 Z01.818 10/31/19 stress test: Negative stress test. LVEF 61%. Normal LV systolic function. Below average exercise tolerance. There is no cardiac contraindi cation for the procedure. The planned procedure would be withinacce ptable risk. Patient may stop taking aspirin five (5) days prior to the procedure. 62154 Andre Burnham MD [place] OFF[facility] [place] [address] 03/20/2020 09:57:49 03/20/2020 11:06:25 Palpitations 92056677 R00.2 03/20/2020 No AFIB on MCT. Reports [...] heart rate 67bpm Average heart rate 89bpm [place] interval 141 msec QRS interval 117msec QT interval 344 msec ,no pause or R-R intervals >2.0 seconds Hyperlipidemia 97510835 E78.5 Needs to keep LDL less than 70, and HDL more than 40 Will get labs from [facility] taking off statin due to weight gain. Education on statins. Varicose v eins of lower extremity 07721647 I83.893 03/20/2020C ontinue use of compressio n stockings. No symptoms at this time. Post meniscus repair surgeryVen ous study done: 02/11/20 Mild bilateral reflux disease noted. No Varicose Veins noted 40987 Andre Burnham MD [facility] [address] [place] [address] 06/05/2020 11:57:52 06/05/2020 12:27:33 Palpitations 80571323 R00.2 Improved, continue metoprolol . Okay to [...] heart rate 67bpm. Average heart rate 89bpm. NY interval 141 msec. QRS interval 117msec. QT interval 344 msec, no pause or R-R intervals >2.0 seconds. Hyperlipidemia 86404621 E78.5 Needs to keep LDL less than 70, and HDL more than 40. 01/14/2020 LDL 78Continue atorvastat in 10mgWill get fasting lipids for follow-up Varicose v eins of lower extremity 97655759 I83.893 Continue use of compressio n stockings. No symptoms at this time. Post meniscus repair surgery Venous study 02/11/2020: Mild bilateral reflux disease noted. No varicose veins noted. 40663 Andre Burnham MD [facility] Office [address] [facility] [address] [place] [address] [place] [address] 08/27/2020 10:19:56 08/27/2020 11:05:33 Palpitations 69841301 R00.2 Increased post covid Start Magnesium supplement [...] heart rate 67bpm. Average heart rate 89bpm. [place] interval 141 msec. QRS interval 117msec. QT interval 344 msec, no pause or R-R intervals >2.0 seconds. Hyperlipidemia 09625279 E78.5 Needs to keep LDL less than 70, and HDL more than 40. 01/14/2020 LDL 78Continue atorvastat in 10mgWill get fasting lipids for follow-up Varicose v eins of lower extremity 93895765 I83.893 Continue use of compressio n stockings. No symptoms at this time. Post meniscus repair surgery Venous study 02/11/2020: Mild bilateral reflux disease noted. No varicose veins noted. 61351 Andre Burhnam MD [place] Office [address] [place] [address] 11/16/2020 15:01:00 11/16/2020 15:43:30 Palpitations 94118771 R00.2 Increased post covid, will repeat eacho [...] heart rate 67bpm. Average heart rate 89bpm. NY interval 141 msec. QRS interval 117msec. QT interval 344 msec, no pause or R-R intervals >2.0 seconds. Hyperlipidemia 72328650 E78.5 Needs to keep LDL less than 70, and HDL more than 40. 10/12/2020 LDL 83 Continue atorvastat in 10 mg Will get fasting lipids for follow-up Varicose v eins of lower extremity 10952430 I83.893 Stable, remains asymptomat ic. Continue compressti on stockings, low salt diet, and leg elevation Venous study 02/11/2020 : Mild bilateral reflux disease noted. No varicose veins noted. 22839 Andre Burnham MD [place] [facility] [place] [address] 05/14/2021 12:14:11 05/15/2021 08:26:14 Hyperlipidemia 19027306 E78.5 Needs to keep LDL less than 70, and HDL more than 40. 10/12/2020 LDL 83 Continue atorvastat in 10 mg Will get fasting lipids for follow-up Palpitations 03538059 R0 0.2 possible Paroxysmal Atrial Fibrillati on Pre-surger y evaluation 227058177 Z01.818 10/31/19 stress test: Negative stress test. LVEF 61%. Normal LV systolic function. Below average exercise tolerance. There is no cardiac contraindi cation for the procedure. The planned procedure would be withinacce ptable risk. Patient may stop taking aspirin five (5) days prior to the procedure. 79624 Andre Burnham MD [facility] OFF[facility] [address] [place] [address] 11/12/2021 12:02:11 11/12/2021 12:29:45 Hyperlipidemia 66987561 E78.5 Needs to keep LDL less than 70, and HDL more than 40. 10/12/2020 LDL 83 Continue atorvastat in 10 mg Will get fasting lipids for follow-up Palpitations 54723944 R0 0.2 with PAC'Soraya to take extra 1/2 tab of Toprol 97690 Andre Burnham MD [facility] [address] [place] [address] 05/20/2022 10:59:18 05/20/2022 12:02:08 Hyperlipidemia 56855420 E78.5 Needs to keep LDL less than 70, and HDL more than 40. 10/12/2020 LDL 83 Continue atorvastat in 10 mg Will get fasting lipids for follow-up Palpitations 53641122 R0 0.2 with PAC'swill increase Toprol to 25 32367 Andre Burnham MD [facility] [address] [place] [address] 11/18/2022 10:58:10 11/18/2022 11:45:24 Hyperlipidemia 37379043 E78.5 Needs to keep LDL less than 70, and HDL more than 40. 10/12/2020 LDL 83 Continue atorvastat in 10 mg Will get fasting lipids for follow-up Palpitations 05314251 R0 0.2 with PAC'Soraya to take extra 1/2 tab of Toprol 676861 Andre Burnham MD [place] [facility] [place] [address] 11/23/2023 10:37:46 11/23/2023 12:06:59 Hyperlipidemia 96607351 E78.5 Needs to keep LDL less than 70, and HDL more than 40. 10/12/2020 LDL 83 Continue atorvastat in 10 mg Will get fasting lipids for follow-up Palpitations 31926273 R0 0.2 resolvedwi th PAC'Soraya to take extra 1/2 tab of Toprol Dyspnea on exertion 6084 5006 R06.09 Obtain echo to evaluate for structural /functiona l disease. Carotid bruit 061792985 R09.89 will do UScontinue with full aspirin [id number] Andre Burnham MD [place] [facility] [place] [address] 05/09/2024 16:53:25 05/09/2024 17:50:42 Hyperlipidemia 77864283 E78.5 05/04/2024 LDL 59 Was on atorvastat in 10 mg, but she stopped it Will get fasting lipids for follow-up Palpitations 77985149 R0 0.2 resolvedwi th PAC'Soraya to take extra 1/2 tab of Toprol Dyspnea on exertion 6084 5006 R06.09 Obtain echo to evaluate for structural /functiona l disease. Carotid bruit 477630862 R09.89 Mild carotid stenosis Health Concerns Section Related Observation LastModified by Organization Detai ls LastModified Time None Recorded Concern Status LastModified by Organization Details LastModified Time None Recorded Advance Directives Directive None Recorded Payers Insurance Date Sequence Insurance Name Policy Number Policy Sapp Covered Member ID Sapp Member ID Guarantor Name 05/09/2024 2 [place] [id number] Zabrina Heck [id number] Zabrina Heck 05/09/2024 2 [facility] [id number] Zabrina Heck [id number] Zabrina Heck 05/09/2024 1 [place] Zabrina Heck [id number] Zabrina Heck Notes Date Note Type Note Provider Name and Address Organization Details Recorded Time 11/12/2021 text/html Hospitalization Contact RecordReported by Patient 11/12/21CC : Cardiac follow up, Fipdkssaorv12-rxck-hnu female with history of HLD, anxiety, hypothyroidism, [...] rate 67 bpm Average heart rate 89bpm [place] interval 141 msec QRS interval 117msec QT interval 344 msec ,no pause or R-R intervals >2.0 seconds Previously had episode of palpitations with near-syncope HR 160, then went to ED at [place] (10/14/2019). Labs and ECG reportedly normal.Base line rhythm is NSR Had knee surgery for torn meniscus rescheduled. Reports increased lightheadedness.Result s from this visit, or from the past:01/14/20 LIPID: TC 156, TR 94, HDL 60, LDL CMP: NA 141, K 4.4, CL 104, CO2 27, GLU 80, BUN 15, CR 0.72, AST 18, ALT COVID: [id number]/16/20 PT/INR: PT 12.6, INR 1.003 CBC: WBC 7.0, HGB 12.8, HCT 40.3, PLT 93333 EKG: Sinus rhythmEKG 10/22/19 Possible incomplete rbbb02/11/20 [...] bilateral reflux disease noted. Andre Burnham MD [address] [place], [address], [facility] 11/12/2021 12:26:10 05/20/2022 text/html Hospitalization Contact RecordReported by Patient 05/20/22CC : Cardiac follow up, Lvfmecbzopw12-tubd-idv female with history of HLD, anxiety, hypothyroidism, [...] rate 67 bpm Average heart rate 89bpm [place] interval 141 msec QRS interval 117msec QT interval 344 msec ,no pause or R-R intervals >2.0 seconds Previously had episode of palpitations with near-syncope HR 160, then went to ED at [place] (10/14/2019). Labs and ECG reportedly normal.Base line rhythm is NSR Had knee surgery for torn meniscus rescheduled. Reports increased lightheadedness.Result s from this visit, or from the past:01/14/20 LIPID: TC 156, TR 94, HDL 60, LDL CMP: NA 141, K 4.4, CL 104, CO2 27, GLU 80, BUN 15, CR 0.72, AST 18, ALT COVID: [id number]/16/20 PT/INR: PT 12.6, INR 1.003 CBC: WBC 7.0, HGB 12.8, HCT 40.3, PLT 57700 EKG: Sinus rhythmEKG 10/22/19 Possible incomplete rbbb02/11/20 [...] disease noted. Andre Burnham MD [address] [place], [address], [facility] 05/20/2022 11:59:38 11/18/2022 text/html Hospitalization Contact RecordReported by Patient 11/18/22CC : Cardiac follow up, Spxjcvgmhiu11-rwoo-svb female with history of HLD, anxiety, hypothyroidism, [...] rate 67 bpm Average heart rate 89bpm [place] interval 141 msec QRS interval 117msec QT interval 344 msec ,no pause or R-R intervals >2.0 seconds Previously had episode of palpitations with near-syncope HR 160, then went to ED at [place] (10/14/2019). Labs and ECG reportedly normal.Base line rhythm is NSR Had knee surgery for torn meniscus rescheduled. Reports increased lightheadedness.Result s from this visit, or from the past:01/14/20 LIPID: TC 156, TR 94, HDL 60, LDL CMP: NA 141, K 4.4, CL 104, CO2 27, GLU 80, BUN 15, CR 0.72, AST 18, ALT COVID: MTOAMLET15/16/20 PT/INR: PT 12.6, INR 1.003 CBC: WBC 7.0, HGB 12.8, HCT 40.3, PLT 77290 EKG: Sinus rhythmEKG 10/22/19 Possible incomplete rbbb02/11/20 [...] disease noted. Andre Burnham MD [address] [place], [address], [facility] - [facility] 11/18/2022 11:40:31 11/23/2023 text/html Hospitalization Contact RecordReported by Patient 11/23/23CC : Cardiac follow up dyspnea on hnlduzrk25-huli-efz female with history of HLD, anxiety, hypothyroidism, [...] rate 67 bpm Average heart rate 89bpm [place] interval 141 msec QRS interval 117msec QT interval 344 msec ,no pause or R-R intervals >2.0 seconds Previously had episode of palpitations with near-syncope HR 160, then went to ED at [place] (10/14/2019). Labs and ECG reportedly normal.Base line rhythm is NSR Had knee surgery for torn meniscus rescheduled. Reports increased lightheadedness.Result s from this visit, or from the past:01/14/20 LIPID: TC 156, TR 94, HDL 60, LDL CMP: NA 141, K 4.4, CL 104, CO2 27, GLU 80, BUN 15, CR 0.72, AST 18, ALT COVID: [id number]/16/20 PT/INR: PT 12.6, INR 1.003 CBC: WBC 7.0, HGB 12.8, HCT 40.3, PLT 43340 EKG: Sinus rhythmEKG 10/22/19 Possible incomplete rbbb02/11/20 [...] Mild bilateral reflux disease noted. TINO BAR [place] - [facility] 11/23/2023 12:00:53 05/09/2024 text/html Hospitalization Contact RecordReported by Patient 05/09/24CC : Cardiac follow ec83-ljur-ece female with history of HLD, anxiety, hypothyroidism, [...] mg daily. 04/30/2024 : FT4 Reflux-1.34, TSH 0.3736804/30/24CMP-NA 140 K 3.8 CR 0.70 GL 81 [...] rate 67 bpm Average heart rate 89bpm [place] interval 141 msec QRS interval 117msec QT interval 344 msec ,no pause or R-R intervals >2.0 seconds Previously had episode of palpitations with near-syncope HR 160, then went to ED at [place] (10/14/2019). Labs and ECG reportedly normal.Base line rhythm is NSR Had knee surgery for torn meniscus rescheduled. Reports increased lightheadedness.Result s from this visit, or from the past:01/14/20 LIPID: TC 156, TR 94, HDL 60, LDL CMP: NA 141, K 4.4, CL 104, CO2 27, GLU 80, BUN 15, CR 0.72, AST 18, ALT COVID: [id number]/16/20 PT/INR: PT 12.6, INR 1.003 CBC: WBC 7.0, HGB 12.8, HCT 40.3, PLT 72919 EKG: Sinus rhythmEKG 10/22/19 Possible incomplete rbbb02/11/20 [...] bilateral reflux disease noted. Andre Burnham MD [address] [place], [address], [facility] - [facility] 05/09/2024 17:45:16 OBGyn Episode No OBEpisode recorded.
--- OUTSIDE RECORDS SUMMARY | 2025-06-05 18:10 | XMS_ITS | Patient Health Record ---
Author Organization [facility] Address [address] [place], [place] [id number] Care Team Providers Care Dsp Engineer Name Role Phone ADRIEN MEDLEY Unavailable [phone] DwightazulJoel Unavailable Unavailable Reason For Referral No Information Medications Medication SIG (Take, Route, Frequency, Duration) Notes Start Date End Date Status esomeprazole 20 MG Delayed Release Oral Capsule [Nexium] ORAL esomeprazole 20 MG Delayed Release Oral Capsule [Nexium]Original Medicationesomeprazole 20 MG Delayed Release Oral Capsule [Nexium] *Reorder from [employer] for eRx and Interaction Alerts* 10/31/2014 Active Social History Social History Additional Details Category Social Info Options Details Migrated Social History Migrated Social History History of tobacco use : , Smoking Status : Former smoker , Alcohol intake : Plan Of Treatment No Information Insurance Providers Payer Name Payer Address Payer Phone Subscriber Number Group Number Insured Name Patient Relationship to Insured Coverage Start Date Coverage End Date Medicare Part B [place] [address] [place] [address] [id number] SELAM KEATING Self - patient is the insured [facility] ([facility]) ATTN CLAIMS [address] [place] [address] [id number] SELAM KEATING Self - patient is the insured
--- OUTSIDE RECORDS SUMMARY | 2025-06-05 18:10 | XMS_ITS | Encounter Summary ---
Author Organization [facility] Address [address] [facility] [facility] [place] [address] Care Team Providers Care Diabetes Solutions Specialist Name Role Phone Ervin Foley MD Primary Care Provider [phone] Alba Carranza MD Primary Care Provider [phone]- [phone] Niya Eddy Primary Care Provider [phone] Torri Pisano MD Primary Care Provider [phone] Encounter Details Date Type Department Care Team (Late st Contact Info) Description 12/25/2018 Lab Requisition [facility] Pathology Lab [address] [place] [address] Albino Hutchison MD [address] [id number] Localized enlarged lymph nodes Social History Tobacco [...] AM CDT) Case Report Flow Cytometry Case: [id number] Authorizing Provider: Albino Hutchison MD Collected: 12/25/2018 09:52 AM Pathologist: Last Quiñones MD Received: 12/25/2018 02:04 PM Specimen: Axillary Lymph Node 9 6:46 AM T [facility] PATH[facility] Final Diagnosis Lymph node, right axilla, flow cytometric immunophenotypic analysis ([id number]): - Reduced viability specimen. - No evidence of non-Hodgkin lymphoma. - See interpretation. 9 6:46 AM [facility] PATHOLOGY LAB at 0646 CDT Flow [...] cytometry specimen is reviewed for quality assurance manager purposes. Overall, the right axillary lymph node shows reduced viability specimen with no evidence of involvement by non-Hodgkin lymphoma. Correlation with clinical findings and concurrent biopsy is required. FIELD ARTILLERY TARGETING TECHNICIAN/NW 9 6:46 AM [facility] Flow Cytometry Results Differential Result Comment Flow Cell Count /uL 4000 Total Viability % 65.0 Lymphocytes % 93 Dim CD45 Region % 1 Monocytes % 4 Granulocytes % 1 9 6:46 AM [facility] Reason for test Localized enlarged lymph nodes 785.6 9 6:46 AM [facility] Client Specimen ID # [id number] 9 6:46 AM [facility] Number of markers 16 were performed. A Flow CD3 A Flow CD10 A Flow CD20 A Flow CD23 A Flow CD2 A Flow CD4 A Flow CD1a A Flow CD5 A Flow CD19 A Flow CD34 A Flow CD45 A Flow CD7 A Flow CD8 A Flow CD30 A [place]+CD19+ A Lambda+CD19+ 9 6:46 AM CDT [facility] Disclaimer Test performed at [facility], [address] [place], [place], [address]. *The established laboratory minimum viability is 70%. [...] complexity clinical testing. 9 6:46 AM CDT [facility] Embedded Images 9 6:46 AM CDT [facility] Pathology/Cytolo gy AXILLARY LYMPH NODE STRUCTURE / Unknown 12/25/2018 9:52 AM CDT 12/25/2018 2:04 PM CDT Albino Hutchison MD LAB - PATHOLOGY/CYTOLOGY ORDER AKIKO Final Result [facility] [address] [place] [address]. [address] [phone] documented in this encounter Visit Diagnoses Diagnosis Localized enlarged lymph nodes Enlargement of lymph nodes documented in this encounter Care Teams Diabetes Solutions Specialist Relationship Specialty Start Date End Date Ervin Foley MD [address] [place] [address] PCP - General 12/25/18 05/23/21 Alba Carranza MD [address] [place] [address] PCP - General Family Medicine 05/24/21 05/24/21 Niya Eddy PA [address] [place] [address] PCP - General Physician Vessel Liner 05/25/21 06/29/21 Torri Pisano MD [address] [place] [address] PCP - General Family Medicine 06/30/21 documented as of this encounter
--- OUTSIDE RECORDS SUMMARY | 2025-06-05 18:10 | XMS_ITS | Clinical Summary ---
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
--- OUTSIDE RECORDS SUMMARY | 2025-06-05 18:10 | XMS_ITS | Clinical Summary ---
Author Organization [facility] Address [address] [facility] [address] Care Team Providers Care Cutter Head Sharpener Name Role Phone Torri Pisano MD Primary Care Provider [phone] Source Comments [facility],non-owned Affiliates and Associated Physician Practices is amultiple site organization consisting of ambulatory clinics and hospital sitesin [place], [place], [place] and [place]. This disclosure is being madepursuant to the Care Everywhere program and may not contain all information available regarding this patient. Last updated 18.[facility] Allergies No known active allergies [...] Comments Blood Pressure 114/47 07/01/2021 7:48 AM DELICATE FABRICS PRESSER Pulse 65 07/01/2021 7:48 AM DELICATE FABRICS PRESSER Temperature 36.4 C (97.5 F) 07/01/2021 7:48 AM DELICATE FABRICS PRESSER Respiratory Rate 16 07/01/2021 7:48 AM DELICATE FABRICS PRESSER Oxygen Saturation 97% 07/01/2021 7:48 AM DELICATE FABRICS PRESSER Inhaled Oxygen Concentration - - Weight 75.8 kg (167 lb) 06/30/2021 7:34 AM DELICATE FABRICS PRESSER Height 165.1 cm (5' 5) 06/30/2021 7:34 AM DELICATE FABRICS PRESSER Body Mass Index 27.79 06/30/2021 7:34 AM DELICATE FABRICS PRESSER Plan of Treatment Health Maintenance Due Date [...] this topic Medical Devices Implanted Type Area Business Editor Device Identifier Shelf Expiration Date Model / Serial / Lot Cmnt Bone Djo Srg Cblt 40gm Hvisc Strl Implanted:Qty: 1 on 06/30/2021 by Familia Sargent MD at [facility] Left: Knee [employer] 09/18/2022 600-15-000 / / [id number] Tray Tib 71mm Kn Cocr I Beam Implanted:Qty: 1 on 06/30/2021 by Familia Sargent MD at [facility] Left: Knee [employer] 05/10/2031 [id number] / / [id number] Cmpnt Fem Kn Lt Cr Cmnt Prm Vngrd Intlk Implanted:Qty: 1 on 06/30/2021 by Familia Sargent MD at [facility] Left: Knee [employer] 12/19/2030 [id number] / / [id number] Cmpnt Ptlr 28mm 1 Pg Wire Ascnt Arcm Kn Implanted:Qty: 1 on 06/30/2021 by Familia Sargent MD at [facility] Left: Knee [employer] 06/12/2025 [id number] / / [id number] Vngrd Arcm Kn Ant Stab Implanted:Qty: 1 on 06/30/2021 by Familia Sargent MD at [facility] Left: Knee [employer] 02/03/2026 [id number] / / [id number] [facility] Advance Directives Documents on File Type Date Recorded Patient Social Work Manager Expl anation Adv Directive/Living Will/POA 07/05/2021 10:43 PM * Full Code (Latest Code Status on File) Date Activated Date Inactivated Comments 06/30/2021 2:02 PM 07/01/2021 5:11 PM Care Teams Cutter Head Sharpener Relationship Specialty Start Date End Date Torri Pisano MD [address] [place] [address] PCP - General Family Medicine 06/30/21
== END 2025-06-05 09:44 | disposition home or self-care (01) ==
PROVIDERS: PCP Student in an Organized Health Care Education/Training Program; Visit Provider Student in an Organized Health Care Education/Training Program
DX: R59.1 Generalized enlarged lymph nodes (principal); R91.8 Other nonspecific abnormal finding of lung field
CPT/HCPCS: 74177; Q9967

== ENCOUNTER 2025-07-03 08:18 | Outpatient (CLI) | payer MEDICARE, SELFPAY ==
--- NOTE | ~2025-07-03 | CT_ITS ---
EXAMINATION:CT chest high resolution w con DATE: 07/03/2025 08:35 INDICATION: Solitary pulmonary nodule. TECHNIQUE: Computed tomography (CT) of the chest was performed with 75 mL Omnipaque 350 intravenous contrast. Automated exposure control and iterative reconstruction technique were employed. The dose-length product (DLP) was 133.70 mGy-cm. COMPARISON: Chest CT 07/12/2022 FINDINGS: There are chronic peripheral airspace opacities in the upper lobes. There is bronchiectasis in the inferior lungs. There is mucous plugging in right middle lobe, lingula, and right lower lobe. A calcified right lung nodule and calcified right hilar and mediastinal lymph nodes are consistent with old granulomatous disease. There are multiple scattered nodules in the lungs measuring up to 5 mm, most of which are chronic. There is a stable 6 mm nodule in left lower lobe. There is a stable 12 mm part solid nodule in right upper lobe. No pleural effusion. The heart size is normal. No pericardial effusion. Calcifications in the spleen are consistent with old granulomatous disease. There are changes of cholecystectomy. There is a 14 mm cyst in left kidney. There is severe cervical spondylosis and moderate thoracic spondylosis. There are chronic compression fractures of T6 and T7 vertebral bodies. IMPRESSION: 1. 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 Reviewed, dictated and finalized at location E. ATTENDANT CREW IMPRESSION: 1. Mild diffuse lung disease similar to the prior exam, likely chronic infectio n such as mycobacterium avium intracellulare ().
--- OUTSIDE RECORDS SUMMARY | 2025-07-03 08:30 | XMS_ITS | Encounter Summary ---
Author Organization [facility] Address [address] [facility] [place] [address] Care Team Providers Care Front Desk Assistant Name Role Phone Ervin Foley MD Primary Care Provider [phone] Alba Carranza MD Primary Care Provider [phone]- [phone] Niya Eddy Primary Care Provider [phone] Torri Pisano MD Primary Care Provider [phone] Encounter Details Date Type Department Care Team (Late st Contact Info) Description 12/25/2018 Lab Requisition [facility] Pathology Lab [address] [place] [address] Albino Hutchison MD [address] [id number] Localized enlarged lymph nodes Social History Tobacco [...] AM CDT) Case Report Flow Cytometry Case: [id number] Authorizing Provider: Albino Hutchison MD Collected: 12/25/2018 09:52 AM Pathologist: Last Quiñones MD Received: 12/25/2018 02:04 PM Specimen: Axillary Lymph Node 9 6:46 AM T [facility] PATH[facility] Final Diagnosis Lymph node, right axilla, flow cytometric immunophenotypic analysis ([id number]): - Reduced viability specimen. - No evidence of non-Hodgkin lymphoma. - See interpretation. 9 6:46 AM [facility] PATHOLOGY LAB at 0646 CDT [...] the flow cytometry specimen is reviewed for water quality manager purposes. Overall, the right axillary lymph node shows reduced viability specimen with no evidence of involvement by non-Hodgkin lymphoma. Correlation with clinical findings and concurrent biopsy is required. CASTING COORDINATOR/NW 9 6:46 AM [facility] Flow Cytometry Results Differential Result Comment Flow Cell Count /uL 4000 Total Viability % 65.0 Lymphocytes % 93 Dim CD45 Region % 1 Monocytes % 4 Granulocytes % 1 9 6:46 AM [facility] Reason for test Localized enlarged lymph nodes 785.6 9 6:46 AM [facility] Client Specimen ID # [id number] 9 6:46 AM [facility] Number of markers 16 were performed. A Flow CD3 A Flow CD10 A Flow CD20 A Flow CD23 A Flow CD2 A Flow CD4 A Flow CD1a A Flow CD5 A Flow CD19 A Flow CD34 A Flow CD45 A Flow CD7 A Flow CD8 A Flow CD30 A [place]+CD19+ A Lambda+CD19+ 9 6:46 AM CDT [facility] Disclaimer Test performed at [facility], [address] [place], [place], [address]. *The established laboratory minimum viability is 70%. [...] complexity clinical testing. 9 6:46 AM CDT [facility] Embedded Images 9 6:46 AM CDT [facility] Pathology/Cytolo gy AXILLARY LYMPH NODE STRUCTURE / Unknown 12/25/2018 9:52 AM CDT 12/25/2018 2:04 PM CDT Albino Hutchison MD LAB - PATHOLOGY/CYTOLOGY ORDER AKIKO Final Result [facility] [address] [place] [address]. [address] [phone] documented in this encounter Visit Diagnoses Diagnosis Localized enlarged lymph nodes Enlargement of lymph nodes documented in this encounter Care Teams Front Desk Assistant Relationship Specialty Start Date End Date Evrin Foley MD [address] [place] [address] PCP - General 12/25/18 05/23/21 Alba Carranza MD [address] [place] [address] PCP - General Family Medicine 05/24/21 05/24/21 Niya Eddy PA [address] [place] [address] PCP - General Physician Tie Fastener 05/25/21 06/29/21 Torri Pisano MD [address] [place] [address] PCP - General Family Medicine 06/30/21 documented as of this encounter
--- OUTSIDE RECORDS SUMMARY | 2025-07-03 08:30 | XMS_ITS | Encounter Summary ---
Author Organization [facility] Address [address] [facility] [place] [address] Care Team Providers Care Carbon Paper Coating Supervisor Name Role Phone Ervin Foley MD Primary Care Provider [phone] Alba Carranza MD Primary Care Provider [phone]- [phone] Niya Eddy Primary Care Provider [phone] Torri Pisano MD Primary Care Provider [phone] Encounter Details Date Type Department Care Team (Late st Contact Info) Description 12/26/2018 Lab Requisition [facility] Pathology Lab [address] [place] [address] Albino Hutchison MD [address] [id number] Social History Tobacco Use Types Packs/Day Years [...] CDT) Case Report Surgical Pathology Report Case: [id number] Authorizing Provider: Albino Hutchison MD Collected: 12/25/2018 09:00 AM Pathologist: Last Quiñones MD Received: 12/26/2018 02:28 PM Specimen: Lymph Node Biopsy, [id number] 12/27/2018 10:03 AM [facility] PATH[facility] Final Diagnosis Lymph node, left axilla, needle core biopsy ([id number]): - Benign reactive lymph cabrera tissue. - No evidence of lymphoma or carcinoma, as sampled. - See description. 12/27/2018 10:03 AM [facility] PATH[facility] at 1003 CDT Microscopic [...] or carcinoma. Concurrent lymph node flow cytometry ([id number]) corroborates this diagnosis. Correlation with clinical findings and relevant cytogenetic/molecular testing is required. VP TALENT MANAGEMENT/NW 12/27/2018 10:03 AM [facility] Clinical History 12/27/2018 10:03 AM [facility] Materials Received Received are 2 slides and 1 block labeled as [id number] along with the outside pathology report. The materials originate from [address], [place] [address]. All materials are returned to the referring institution, along with a copy of our final report. 12/27/2018 10:03 AM T [facility] PATHOLOG[facility] Disclaimer The performance characteristics of all immunohistochemical and indirect immunofluorescence stains (if any) cited in this report were determined by the Histopathology Laboratory of [facility]. Some of these tests were developed by [...] attending (teaching) pathologist. 12/27/2018 10:03 AM T [facility] PATH[facility] Embedded Images 12/27/2018 10:03 AM T [facility] PATH[facility] Pathology/Cytolo gy BIOPSY OF LYMPH NODE / Unknown 12/25/2018 9:00 AM CDT 12/26/2018 2:28 PM CDT us Albino Hutchison MD LAB - PATHOLOGY/CYTOLOGY ORDER AKIKO Final Result Performing Organization Address City/State/[facility] Co de Phone Number [facility] [address] [phone] documented in this encounter Visit Diagnoses Not on filedocumented in this encounter Care Teams Carbon Paper Coating Supervisor Relationship Specialty Start Date End Date Ervin Foley MD [address] [place] [address] PCP - General 12/25/18 05/23/21 Alba Carranza MD [address] [place] [address] PCP - General Family Medicine 05/24/21 05/24/21 Niya Eddy PA [address] [place] [address] PCP - General Physician Billing Specialist 05/25/21 06/29/21 Torri Pisano MD [address] [place] [address] PCP - General Family Medicine 06/30/21 documented as of this encounter
--- OUTSIDE RECORDS SUMMARY | 2025-07-03 08:30 | XMS_ITS | Clinical Summary ---
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
--- OUTSIDE RECORDS SUMMARY | 2025-07-03 08:30 | XMS_ITS | Patient Health Record ---
Author Organization [facility] Address [address] [place], [place] [address] Care Team Providers Care Song And Dance Performer Name Role Phone ADRIEN MEDLEY Unavailable [phone] AlainaJoel Unavailable Unavailable Reason For Referral No Information Medications Medication SIG (Take, Route, Frequency, Duration) Notes Start Date End Date Status esomeprazole 20 MG Delayed Release Oral Capsule [Nexium] ORAL esomeprazole 20 MG Delayed Release Oral Capsule [Nexium]Original Medicationesomeprazole 20 MG Delayed Release Oral Capsule [Nexium] *Reorder from [facility] for eRx and Interaction Alerts* 10/31/2014 Active [...] Date Coverage End Date Medicare Part B [place] [address] [place] [address] [id number] SELAM KEATING Self - patient is the insured [facility] ([facility]) ATTN CLAIMS [address] [place] [address] [id number] SELAM KEATING Self - patient is the insured
--- OUTSIDE RECORDS SUMMARY | 2025-07-03 08:30 | XMS_ITS | Clinical Summary ---
Author Organization [facility] Address [address] [facility] [place] [address] Care Team Providers Care Medicinal Plant Picker Name Role Phone Torri Pisano MD Primary Care Provider [phone] Source Comments [facility],non-owned Affiliates and Associated Physician Practices is amultiple site organization consisting of ambulatory clinics and hospital sitesin [place], [place], [place] and [place]. This disclosure is being madepursuant to the Care Everywhere program and may not contain all information available regarding this patient. Last updated 18.[facility] Allergies No known active allergies Medications [...] Comments Blood Pressure 114/47 07/01/2021 7:48 AM PULP BEATER Pulse 65 07/01/2021 7:48 AM PULP BEATER Temperature 36.4 C (97.5 F) 07/01/2021 7:48 AM PULP BEATER Respiratory Rate 16 07/01/2021 7:48 AM PULP BEATER Oxygen Saturation 97% 07/01/2021 7:48 AM PULP BEATER Inhaled Oxygen Concentration - - Weight 75.8 kg (167 lb) 06/30/2021 7:34 AM PULP BEATER Height 165.1 cm (5' 5) 06/30/2021 7:34 AM PULP BEATER Body Mass Index 27.79 06/30/2021 7:34 AM PULP BEATER Plan of Treatment Health Maintenance Due Date [...] 01/26/2024 DEPRESSION SCREENING 07/31/2024 12/18/2023 COVID-19 VACCINE (2024-2 6 season) 2025 INFLUENZA VACCINE (#1) 2025 HEPATITIS [...] this topic Medical Devices Implanted Type Area Attorney Device Identifier Shelf Expiration Date Model / Serial / Lot Cmnt Bone Djo Srg Cblt 40gm Hvisc Strl Implanted:Qty: 1 on 06/30/2021 by Familia Sargent MD at [facility] Left: Knee [employer] 09/18/2022 600-15-000 / / [id number] Tray Tib 71mm Kn Cocr I Beam Implanted:Qty: 1 on 06/30/2021 by Familia Sargent MD at [facility] Left: Knee [employer] 05/10/2031 [id number] / / [id number] Cmpnt Fem Kn Lt Cr Cmnt Prm Vngrd Intlk Implanted:Qty: 1 on 06/30/2021 by Familia Sargent MD at [facility] Left: Knee [employer] 12/19/2030 [id number] / / [id number] Cmpnt Ptlr 28mm 1 Pg Wire Ascnt Arcm Kn Implanted:Qty: 1 on 06/30/2021 by Familia Sargent MD at [facility] Left: Knee [employer] 06/12/2025 [id number] / / [id number] Brng [id number] Vngrd Arcm Kn Ant Stab Implanted:Qty: 1 on 06/30/2021 by Familia Sargent MD at [facility] Left: Knee [employer] 02/03/2026 [id number] / / [id number] [facility] Advance Directives Documents on File Type Date Recorded Patient Salesperson Burial Needs Expl anation Adv Directive/Living Will/POA 07/05/2021 10:43 PM * Full Code (Latest Code Status on File) Date Activated Date Inactivated Comments 06/30/2021 2:02 PM 07/01/2021 5:11 PM Care Teams Medicinal Plant Picker Relationship Specialty Start Date End Date Torri Pisano MD [address] [place] [address] PCP - General Family Medicine 06/30/21
== END 2025-07-03 08:19 | disposition home or self-care (01) ==
PROVIDERS: PCP Student in an Organized Health Care Education/Training Program; Visit Provider Student in an Organized Health Care Education/Training Program
DX: R91.8 Other nonspecific abnormal finding of lung field (principal)
CPT/HCPCS: 71260; Q9967

== ENCOUNTER 2025-07-04 10:08 | Outpatient (CLI) | payer MEDICARE, SELFPAY ==
[2025-07-04 12:55] LABS: Hematocrit 39.4 % (37.0-47.0); Hemoglobin 12.8 g/dL (12.0-15.0); Immature Granulocyte Percent A 0.4 % (0-0.5); Lymphocytes Absolute Auto 1.39 K/mm3 (0.9-3.2); Mean Corpuscular HGB Conc 32.5 g/dl (32-36); Mean Corpuscular Hemoglobin 30.8 pg (26-34); Mean Corpuscular Volume 94.7 fl (80-100); Nucleated Red Blood Cells Absolute Auto 0.000 K/mm3 (0.0-0.012); Nucleated Red Blood Cells Perc 0.0 % (0.0-0.2); Platelet Count Result 242 k/mm3 (150-375); Red Blood Count 4.16 M/mm3 (4.2-5.4); White Blood Count 5.0 K/mm3 (4.5-10.0)
[2025-07-04 13:12] LABS: Hemoglobin A1C 5.7 % (<5.7)
[2025-07-04 15:18] LABS: Alanine Aminotransferase 21 U/L (6-35); Albumin Level 4.3 g/dL (3.5-5.1); Alkaline Phosphatase 80 U/L (38-126); Anion Gap 3 mmol/L (4-12); Aspartate Amino Transferase 37 U/L (14-36); Bilirubin,Total 0.5 mg/dL (0.2-1.3); Blood Urea Nitrogen 23 mg/dL (7-17); Calcium 9.0 mg/dL (8.4-10.2); Carbon Dioxide 29 mmol/L (22-30); Chloride 103 mmol/L (98-107); Cholesterol 184 mg/dL (0-200); Estimated Glomerular Filt Rate > 60; Glucose 81 mg/dL (65-110); HDL Direct 57 mg/dL; Potassium 4.2 mmol/L (3.4-5.0); Sodium 135 mmol/L (137-145); Total Protein 7.0 g/dL (6.3-8.2); Triglycerides 83 mg/dL (<150)
[2025-07-04 15:32] LABS: Free T4 Free Thyroxine 1.43 ng/dL (0.78-2.19)
[2025-07-04 15:55] LABS: Thyroid Stimulating Hormone 2.500 uIU/mL (0.465-4.680)
[2025-07-04 16:37] LABS: Vitamin B12 > 1000.0 pg/mL (239-931)
== END 2025-07-04 10:09 | disposition home or self-care (01) ==
LOC: ANHGOSHLAB 10:09
PROVIDERS: PCP Student in an Organized Health Care Education/Training Program; Visit Provider Student in an Organized Health Care Education/Training Program
DX: I49.1 Atrial premature depolarization (principal); F41.9 Anxiety disorder, unspecified; I65.29 Occlusion and stenosis of unspecified carotid artery; E78.2 Mixed hyperlipidemia; E03.9 Hypothyroidism, unspecified; R94.6 Abnormal results of thyroid function studies; K21.9 Gastro-esophageal reflux disease without esophagitis; K58.2 Mixed irritable bowel syndrome; R53.83 Other fatigue; E55.9 Vitamin D deficiency, unspecified; Z13.1 Encounter for screening for diabetes mellitus
CPT/HCPCS: 36415; 80053; 80061; 82306; 82607; 82746; 83036; 84439; 84443; 85025